=== PATIENT | female | born 1950 | race Hispanic/Latino ===

== ENCOUNTER 2018-12-05 18:34 | Inpatient (IN) | payer MEDICARE, OTHER ==
[2018-12-05 20:03] LABS: BASO % 0.5 % (0.0-2.0); EOS % 0.2 % (0.0-4.0); LYMPH # 1.4 K/uL (1.0-4.3); LYMPH % 17.9 % (20.0-40.0); MEAN CELL VOLUME 65.3 fl (81.0-99.0); MEAN CORPUSCULAR HEMOGLOBIN 19.3 pg (27.0-31.0); MEAN CORPUSCULAR HGB CONC 29.6 g/dL (33.0-37.0); MEAN PLATELET VOLUME 7.6 fl (7.2-11.7); MONO # 0.6 K/uL (0.0-0.8); MONO % 7.9 % (0.0-10.0); NEUT # 5.7 K/uL (1.8-7.0); NEUT % 73.5 % (50.0-75.0); NRBC % 0.1 % (0.0-0.0); RBC 2.84 Mil/uL (3.80-5.20); RED CELL DISTRIBUTION WIDTH 17.3 % (11.5-14.5); WHITE BLOOD COUNT 7.8 K/uL (4.8-10.8)
[2018-12-05 20:06] LABS: BLOOD UREA NITROGEN 19 mg/dl (7-17); CALCIUM 9.5 mg/dL (8.4-10.2); GFR NON-AFRICAN AMERICAN > 60
--- NOTE | 2018-12-05 20:15 | ED PDOC ---
HPI: General Adult Time Seen by Provider: 12/05/18 19:09 Chief Complaint (Nursing): Abnormal Labs Chief Complaint (Provider): Abnormal Labs History/Exam Limitations: no limitations Additional Complaint(s): 68 year old female with a past medical history of anemia, seizure disorder and colon cancer status post total colonectomy, who presents to the emergency department after being sent by her PMD for low hemoglobin. She states she had blood work done because she appeared pale. Her states that she has been increasingly pale for the past x6 months. Patient reports that she has full exercise tolerance but occasionally has shortness of breath. She further reports of having a blood transfusion x6 months ago but to her knowledge, is not aware of the reason for her anemia. Patient denies any chest pain, dizziness, light headedness or pre syncopal feelings. PMD: Satinder Rivas Past Medical History Reviewed: Historical Data, Nursing Documentation, Vital Signs Vital Signs: Last Vital Signs Temp 97.3 F L 12/05/18 18:41 Pulse 111 H 12/05/18 18:41 Resp 16 12/05/18 18:41 BP 137/35 L 12/05/18 18:41 Pulse Ox 100 12/05/18 18:41 - Medical History PMH: Anemia, Atrial Fibrillation (after colonoscopy), Malignancy (colon), Seizures (epilepsy PETITE MAL LAST 6 YEARS AGO) - Surgical History Other surgeries: colonectomy - Family History Family History: States: Unknown Family Hx - Home Medications Home Medications: Ambulatory Orders Medication Instructions Recorded Iron 325 mg PO DAILY 07/13/18 Levetiracetam 500 mg PO BID 07/13/18 - Allergies Allergies/Adverse Reactions: Allergies Allergy/AdvReac Type Severity Reaction Status Date / Time cortisone Allergy Intermediate RASH Verified 12/05/18 18:41 shrimp Allergy Intermediate SWELLING Verified 12/05/18 18:41 strawberry Allergy Intermediate RASH Verified 12/05/18 18:41 Review of Systems ROS Statement: Except As Marked, All Systems Reviewed And Found Negative Cardiovascular: Negative for: Chest Pain, Light Headedness Respiratory: Positive for: Shortness of Breath Skin: Positive for: Other (pale) Neurological: Negative for: Dizziness, Other (pre syncopal feelings) Physical Exam - Reviewed Nursing Documentation Reviewed: Yes Vital Signs Reviewed: Yes - Physical Exam Appears: Positive for: Non-toxic, No Acute Distress Head Exam: Positive for: ATRAUMATIC, NORMOCEPHALIC Skin: Positive for: Pallor Eye Exam: Positive for: Other (conjunctival pallor) ENT: Positive for: Normal ENT Inspection Neck: Positive for: Normal, Painless ROM, Supple Cardiovascular/Chest: Positive for: Regular Rate, Rhythm. Negative for: Murmur Respiratory: Positive for: Normal Breath Sounds. Negative for: Respiratory Distress Gastrointestinal/Abdominal: Positive for: Normal Exam, Soft. Negative for: Tenderness Back: Positive for: Normal Inspection. Negative for: L CVA Tenderness, R CVA Tenderness, Vertebral Tenderness Extremity: Positive for: Normal ROM. Negative for: Pedal Edema, Deformity Neurologic/Psych: Positive for: Alert, Oriented. Negative for: Motor/Sensory Deficits - Laboratory Results Result Diagrams: 12/05/18 19:45 12/05/18 19:45 - ECG ECG Rhythm: Positive for: Sinus Rhythm (normal). Negative for: ST/T Changes Rate: 82 O2 Sat by Pulse Oximetry: 100 (RA) Pulse Ox Interpretation: Normal Medical Decision Making Medical Decision Making: Time: 1944 A/P: 68 year old female presenting with anemia. Patient's vitals are stable and appears well. Will check hemoglobin and assess the need for a transfusion at this time. --Type and screen --EKG --CBC with differential --BMP Time: 2017 Patient admitted. Time: [address] Escalona who recommends 2 units of transfusion and that she will see the patient tomorrow. Dr. Sanjeev Healy is aware. Scribe Attestation: Documented by Gavin Almanzar, acting as a scribe for Shaquille Jim MD. Provider Scribe Attestation: All medical record entries made by the Scribe were at my direction and personally dictated by me. I have reviewed the chart and agree that the record accurately reflects my personal performance of the history, physical exam, medical decision making, and the department course for this patient. I have also personally directed, reviewed, and agree with the discharge instructions and disposition. Disposition - Clinical Impression Clinical Impression: Anemia Discussed With Dr.: Kathe Escalona Doctor Will See Patient In The: Hospital Counseled Patient/Family Regarding: Studies Performed, Diagnosis - Disposition Disposition Time: 20:00 Condition: FAIR Forms: ZBD Displays (Persian)
[2018-12-05 20:16] LABS: HEMOGLOBIN 5.5 g/dL (12.0-16.0)
--- NOTE | 2018-12-05 21:08 | CP.PCM.PN ---
Subjective - Date & Time of Evaluation Date of Evaluation: 12/05/18 Time of Evaluation: 22:22 - Subjective Subjective: 68 yo with hx CA Colon presents to the ER with Anemia Objective - Vital Signs/Intake and Output Vital Signs (last 24 hours): Temp Pulse Resp BP Pulse Ox 97.3 F L 82 16 137/35 L 100 12/05/18 18:41 12/05/18 20:51 12/05/18 18:41 12/05/18 18:41 12/05/18 20:51 - Labs Labs: 12/05/18 19:45 12/05/18 19:45 - Respiratory Exam Respiratory Exam: NORMAL BREATHING PATTERN - Cardiovascular Exam Cardiovascular Exam: REGULAR RHYTHM - GI/Abdominal Exam GI & Abdominal Exam: Normal Bowel Sounds Assessment and Plan - Assessment and Plan (Free Text) Assessment: AMicrocytic hypochromic anemia Hbg 5.5 Hematology Hx Ca Colon
--- NOTE | 2018-12-06 09:56 | CP.PCM.CON ---
History of Present Illness - History of Present Illness History of Present Illness: This is a 68 yrs old female who had a colon cancer about 10 yrs ago.She was treated with chemotherapy and did well.Approx 10 months ago she had lost some weight , and I had ordered a ct scan on her.She was found to have a ?mass in the pelvis pressing the bladder.She was seen by a urologist who did a biopsy and the mass was benign. she had also had a colonoscopy and no abnormality was seen. her appetite increased and she gained some of her weight back.She was supposed to see me in the office in December, but was seen by her PMD who found her to be very weak and pale.She was sent to the ER where her HGB was 5.5gms. and she seems to have lost more weight.No pain, no bleeding from any site. 10 yrs ago she had 1 episode of seizures,was on medications for a while, and they wer discontinued after 5 yrs . she has never had seizures since. Past Patient History - Infectious Disease Hx of Infectious Diseases: None - Past Medical History & Family History Past Medical History?: Yes - Past Social History Smoking Status: Former Smoker - CARDIAC Hx Cardiac Disorders: Yes Hx Atrial Fibrillation: Yes (after colonoscopy) - PULMONARY Hx Respiratory Disorders: No - NEUROLOGICAL Hx Neurological Disorder: Yes Hx Seizures: Yes (epilepsy PETITE MAL LAST 6 YEARS AGO) - HEENT Hx HEENT Problems: Yes Hx Cataracts: Yes (BILAT IOL) - RENAL Hx Chronic Kidney Disease: No - ENDOCRINE/METABOLIC Hx Endocrine Disorders: No - HEMATOLOGICAL/ONCOLOGICAL Hx Blood Disorders: Yes Hx AIDS: No Hx Anemia: Yes Hx Blood Transfusions: Yes Hx Human Immunodeficiency Virus (HIV): No - INTEGUMENTARY Hx Dermatological Problems: No - MUSCULOSKELETAL/RHEUMATOLOGICAL Hx Musculoskeletal Disorders: No Hx Falls: No - GASTROINTESTINAL Hx Gastrointestinal Disorders: Yes Hx Bowel Surgery: Yes (COLON RESECTION 6 YEARS AGO) Other/Comment: COLON CANCER 2010 - GENITOURINARY/GYNECOLOGICAL Hx Genitourinary Disorders: Yes (BLADDER CYST PER PT) Other/Comment: Pelvic mass (07/2018) - PSYCHIATRIC Hx Psychophysiologic Disorder: No Hx Substance Use: No - SURGICAL HISTORY Hx Surgeries: Yes Hx Cataract Extraction: Yes - ANESTHESIA Hx Anesthesia: Yes Hx Anesthesia Reactions: No Hx Malignant Hyperthermia: No Meds Allergies/Adverse Reactions: Allergies Allergy/AdvReac Type Severity Reaction Status Date / Time cortisone Allergy Intermediate RASH Verified 12/05/18 18:41 shrimp Allergy Intermediate SWELLING Verified 12/05/18 18:41 strawberry Allergy Intermediate RASH Verified 12/05/18 18:41 Physical Exam - Additional Findings Additional findings: Physical exam;Awake ,alert, in no acute distress, but is cachectic and pale. neck; supple, no adenopathy Chest; Clear, no rales or rhonchi heart; RSR, nomurmur abd; soft, no mass, no h.s megaly Results - Vital Signs Recent Vital Signs: Last Vital Signs Temp 97.9 F 12/06/18 08:48 Pulse 79 12/06/18 08:48 Resp 20 12/06/18 08:48 BP 123/56 L 12/06/18 08:48 Pulse Ox 99 12/06/18 08:48 - Labs Result Diagrams: 12/05/18 19:45 12/05/18 19:45 Labs: Laboratory Results - last 24 hr 12/05/18 12/05/18 12/05/18 19:45 19:45 19:45 WBC 7.8 RBC 2.84 L Hgb 5.5 L* D Hct 18.6 L MCV 65.3 L D MCH 19.3 L MCHC 29.6 L RDW 17.3 H Plt Count 409 H MPV 7.6 Neut % (Auto) 73.5 Lymph % (Auto) 17.9 L [place] % (Auto) 7.9 Eos % (Auto) 0.2 Baso % (Auto) 0.5 Neut # (Auto) 5.7 Lymph # (Auto) 1.4 [place] # (Auto) 0.6 Eos # (Auto) 0.0 Baso # (Auto) 0.0 Retic Count Sodium 137 Potassium 3.7 Chloride 93 L Carbon Dioxide 31 H Anion Gap 17 BUN 19 H Creatinine 0.8 Est GFR ( Amer) > 60 Est GFR (Non-Af Amer) > 60 Random Glucose 102 Calcium 9.5 Ferritin Blood Type O POSITIVE Antibody Screen Negative Crossmatch See Detail BBK History Checked Patient has bt 12/05/18 12/05/18 20:49 20:49 WBC RBC Hgb Hct MCV MCH MCHC RDW Plt Count MPV Neut % (Auto) Lymph % (Auto) [place] % (Auto) Eos % (Auto) Baso % (Auto) Neut # (Auto) Lymph # (Auto) [place] # (Auto) Eos # (Auto) Baso # (Auto) Retic Count 2.3 H Sodium Potassium Chloride Carbon Dioxide Anion Gap BUN Creatinine Est GFR ( Amer) Est GFR (Non-Af Amer) Random Glucose Calcium Ferritin 4.9 L Blood Type Antibody Screen Crossmatch BBK History Checked Assessment & Plan - Assessment and Plan (Free Text) Assessment: Imp; Colon cancer possible recurrant disease Plan: Plan; I have ordered cea, [id number], ct scan of chest abdomen and pelvis. will ck CBC and transfuse more if needed. - Date & Time Date: 12/06/18 Time: 10:08
[2018-12-06 10:55] LABS: BASO % 0.3 % (0.0-2.0); EOS % 0.3 % (0.0-4.0); HEMOGLOBIN 9.1 g/dL (12.0-16.0); LYMPH # 1.4 K/uL (1.0-4.3); MEAN CELL VOLUME 73.2 fl (81.0-99.0); MEAN CORPUSCULAR HEMOGLOBIN 22.6 pg (27.0-31.0); MEAN CORPUSCULAR HGB CONC 30.9 g/dL (33.0-37.0); MEAN PLATELET VOLUME 7.5 fl (7.2-11.7); MONO # 0.5 K/uL (0.0-0.8); MONO % 6.4 % (0.0-10.0); NEUT # 5.9 K/uL (1.8-7.0); RED CELL DISTRIBUTION WIDTH 22.9 % (11.5-14.5); WHITE BLOOD COUNT 7.9 K/uL (4.8-10.8)
--- NOTE | 2018-12-06 11:12 | CARD ---
APPROVED REPORT Date of service: 12/05/2018 EKG Measurement Heart [id number] <Conclusion> Normal sinus rhythm with sinus arrhythmia Normal ECG
[2018-12-06 11:13] LABS: ALT/SGPT 21 U/L (9-52); AST/SGOT 40 U/L (14-36)
[2018-12-06 11:21] LABS: BLOOD UREA NITROGEN 16 mg/dl (7-17)
[2018-12-06 12:49] LABS: GFR NON-AFRICAN AMERICAN > 60
[2018-12-06 13:49] LABS: ALBUMIN 3.8 g/dL (3.5-5.0); CALCIUM 9.5 mg/dL (8.4-10.2)
[2018-12-06 13:51] LABS: ALB/GLOB RATIO 0.9 (1.0-2.1)
--- NOTE | 2018-12-06 18:07 | CP.PCM.HP ---
History of Present Illness - History of Present Illness History of Present Illness: 68 ypo admitted for severe anemia Present on Admission - Present on Admission Any Indicators Present on Admission: No Past Patient History - Infectious Disease Hx of Infectious Diseases: None - Past Medical History & Family History Past Medical History?: Yes - Past Social History Smoking Status: Former Smoker - CARDIAC Hx Cardiac Disorders: Yes Hx Atrial Fibrillation: Yes (after colonoscopy) - PULMONARY Hx Respiratory Disorders: No - NEUROLOGICAL Hx Neurological Disorder: Yes Hx Seizures: Yes (epilepsy PETITE MAL LAST 6 YEARS AGO) - HEENT Hx HEENT Problems: Yes Hx Cataracts: Yes (BILAT IOL) - RENAL Hx Chronic Kidney Disease: No - ENDOCRINE/METABOLIC Hx Endocrine Disorders: No - HEMATOLOGICAL/ONCOLOGICAL Hx Blood Disorders: Yes Hx AIDS: No Hx Anemia: Yes Hx Blood Transfusions: Yes Hx Human Immunodeficiency Virus (HIV): No - INTEGUMENTARY Hx Dermatological Problems: No - MUSCULOSKELETAL/RHEUMATOLOGICAL Hx Musculoskeletal Disorders: No Hx Falls: No - GASTROINTESTINAL Hx Gastrointestinal Disorders: Yes Hx Bowel Surgery: Yes (COLON RESECTION 6 YEARS AGO) Other/Comment: COLON CANCER 2010 - GENITOURINARY/GYNECOLOGICAL Hx Genitourinary Disorders: Yes (BLADDER CYST PER PT) Other/Comment: Pelvic mass (07/2018) - PSYCHIATRIC Hx Psychophysiologic Disorder: No Hx Substance Use: No - SURGICAL HISTORY Hx Surgeries: Yes Hx Cataract Extraction: Yes - ANESTHESIA Hx Anesthesia: Yes Hx Anesthesia Reactions: No Hx Malignant Hyperthermia: No Meds Allergies/Adverse Reactions: Allergies Allergy/AdvReac Type Severity Reaction Status Date / Time cortisone Allergy Intermediate RASH Verified 12/05/18 18:41 shrimp Allergy Intermediate SWELLING Verified 12/05/18 18:41 strawberry Allergy Intermediate RASH Verified 12/05/18 18:41 Physical Exam - Respiratory Exam Respiratory Exam: NORMAL BREATHING PATTERN - Cardiovascular Exam Cardiovascular Exam: REGULAR RHYTHM - GI/Abdominal Exam GI & Abdominal Exam: Normal Bowel Sounds Results - Vital Signs Recent Vital Signs: Last Vital Signs Temp 98.3 F 12/06/18 16:50 Pulse 70 12/06/18 16:50 Resp 18 12/06/18 16:50 BP 108/61 12/06/18 16:50 Pulse Ox 98 12/06/18 16:50 - Labs Result Diagrams: 12/06/18 10:50 12/06/18 10:50 Labs: Laboratory Results - last 24 hr 12/05/18 12/05/18 12/05/18 19:45 19:45 19:45 WBC 7.8 RBC 2.84 L Hgb 5.5 L* D Hct 18.6 L MCV 65.3 L D MCH 19.3 L MCHC 29.6 L RDW 17.3 H Plt Count 409 H MPV 7.6 Neut % (Auto) 73.5 Lymph % (Auto) 17.9 L [place] % (Auto) 7.9 Eos % (Auto) 0.2 Baso % (Auto) 0.5 Neut # (Auto) 5.7 Lymph # (Auto) 1.4 [place] # (Auto) 0.6 Eos # (Auto) 0.0 Baso # (Auto) 0.0 Retic Count Sodium 137 Potassium 3.7 Chloride 93 L Carbon Dioxide 31 H Anion Gap 17 BUN 19 H Creatinine 0.8 Est GFR ( Amer) > 60 Est GFR (Non-Af Amer) > 60 Random Glucose 102 Calcium 9.5 Ferritin Total Bilirubin AST ALT Alkaline Phosphatase Total Protein Albumin Globulin Albumin/Globulin Ratio Carcinoembryonic Ag Blood Type O POSITIVE Antibody Screen Negative Crossmatch See Detail BBK History Checked Patient has bt 12/05/18 12/05/18 12/06/18 20:49 20:49 10:50 WBC RBC Hgb Hct MCV MCH MCHC RDW Plt Count MPV Neut % (Auto) Lymph % (Auto) [place] % (Auto) Eos % (Auto) Baso % (Auto) Neut # (Auto) Lymph # (Auto) [place] # (Auto) Eos # (Auto) Baso # (Auto) Retic Count 2.3 H Sodium 139 Potassium 4.0 Chloride 100 Carbon Dioxide 28 Anion Gap 15 BUN 16 Creatinine 0.7 Est GFR ( Amer) > 60 Est GFR (Non-Af Amer) > 60 Random Glucose 99 Calcium 9.5 Ferritin 4.9 L Total Bilirubin 0.8 AST 40 H ALT 21 Alkaline Phosphatase 90 Total Protein 8.3 H Albumin 3.8 Globulin 4.3 H Albumin/Globulin Ratio 0.9 L Carcinoembryonic Ag 222.0 H Blood Type Antibody Screen Crossmatch BBK History Checked 12/06/18 10:50 WBC 7.9 RBC 4.00 Hgb 9.1 L D Hct 29.3 L MCV 73.2 L D MCH 22.6 L MCHC 30.9 L RDW 22.9 H Plt Count 468 H MPV 7.5 Neut % (Auto) 75.0 Lymph % (Auto) 18.0 L [place] % (Auto) 6.4 Eos % (Auto) 0.3 Baso % (Auto) 0.3 Neut # (Auto) 5.9 Lymph # (Auto) 1.4 [place] # (Auto) 0.5 Eos # (Auto) 0.0 Baso # (Auto) 0.0 Retic Count Sodium Potassium Chloride Carbon Dioxide Anion Gap BUN Creatinine Est GFR ( Amer) Est GFR (Non-Af Amer) Random Glucose Calcium Ferritin Total Bilirubin AST ALT Alkaline Phosphatase Total Protein Albumin Globulin Albumin/Globulin Ratio Carcinoembryonic Ag Blood Type Antibody Screen Crossmatch BBK History Checked Assessment & Plan - Assessment and Plan (Free Text) Assessment: Microcytic hypochromic anemia chronic blood loss GI?? Hx Ca Colon Hbg 5.[address] scan - Date & Time Date: 12/06/18 Time: 22:22
--- NOTE | 2018-12-07 08:32 | CP.PCM.PN ---
Subjective - Date & Time of Evaluation Date of Evaluation: 12/07/18 Time of Evaluation: 08:30 - Subjective Subjective: Pt feels better after the transfusion. She did not have a CT scxan yesterday because she had already eaten in the morning. She will have one today. Her Hgb to day is 9.1gms. CEA however markedly increased. I suspect recurrent disease. W ill ck the result of the CT scan Objective - Vital Signs/Intake and Output Vital Signs (last 24 hours): Temp Pulse Resp BP Pulse Ox 98.1 F 62 18 119/64 98 12/07/18 07:03 12/07/18 05:00 12/07/18 05:00 12/07/18 05:00 12/07/18 05:00 - Medications Medications: Current Medications Ferrous Sulfate (Feosol) 325 mg PO DAILY [facility] Last Admin: 12/06/18 14:41 Dose: 325 mg Levetiracetam (Keppra) 500 mg PO BID [facility] Last Admin: 12/06/18 14:41 Dose: 500 mg - Labs Labs: 12/06/18 10:50 12/06/18 10:50
[2018-12-07] MEDS ORDERED: Barium Sulfate Susp 2.1% w/v, 2.0% w/w 450 mL Bottle PO ONE ×3 (09:31→09:32)
[2018-12-07] MEDS ORDERED: Iohexol 300 100 ML IJ ONE (15:19)
[2018-12-07] MEDS ORDERED: Sodium Chloride 0.9% 50 ML IV ONE (15:19)
--- NOTE | 2018-12-07 17:41 | CT ---
Date of service: 12/07/2018 PROCEDURE: CT Chest, Abdomen and Pelvis with intravenous contrast HISTORY: mass in pelvis COMPARISON: 11/04/2016 and 05/15/2018. Serial examinations-CT chest abdomen and pelvis. TECHNIQUE: IV dose administered: 80 cc Omnipaque 300 Radiation dose: Total exam DLP = 334.65 mGy-cm. This CT exam was performed using one or more of the following dose reduction techniques: Automated exposure control, adjustment of the mA and/or kV according to patient size, and/or use of iterative reconstruction technique. FINDINGS: CT CHEST WITH CONTRAST: LUNGS: Clear. No nodule, mass or consolidation. MEDIASTINUM: Unremarkable. Normal caliber aorta and pulmonary arterial trunk. No aortic dissection. Normal size heart. LYMPH NODES: Unremarkable. PLEURA: Unremarkable. No pneumothorax. No pleural fluid. BONES: Unremarkable. OTHER FINDINGS: None. CT ABDOMEN AND PELVIS: LIVER: Unremarkable. No gross lesion or ductal dilatation. GALLBLADDER AND BILE DUCTS: Cholelithiasis without CT evidence of acute cholecystitis. PANCREAS: Unremarkable. No gross lesion or ductal dilatation. SPLEEN: Unremarkable. ADRENALS: Unremarkable. No mass. KIDNEYS AND URETERS: Unremarkable. No hydronephrosis. No solid mass. VASCULATURE: No aortic atherosclerotic calcification or mural plaque present. Unremarkable. No aortic aneurysm. BOWEL: Enterocolitis, severe. Findings are seen in the right lower quadrant prior to and beyond the on the anastomotic suture line. Involvement of the more proximal ileum and jejunum is similar in distribution but decreased with respect to severity. There is sparing of the descending colon from the splenic flexure to the rectum. There is no obstructing lesion. APPENDIX: A normal appendix is not visible. PERITONEUM: Unremarkable. No free fluid. No free air. LYMPH NODES: Unremarkable. No enlarged lymph nodes. BLADDER: Unremarkable. REPRODUCTIVE: Unremarkable. BONES: No acute fracture. OTHER FINDINGS: Stable cystic mass above the bladder. IMPRESSION: Enterocolitis, severe. Distribution approximates that seen previously. Inflammatory changes in the proximal small bowel/jejunum are not as severe as that seen previously. Stable supravesical mass midline in the pelvis. Cholelithiasis without CT evidence of acute cholecystitis. No suspicious findings in the thorax.
--- NOTE | 2018-12-07 20:14 | CP.PCM.PN ---
Subjective - Date & Time of Evaluation Date of Evaluation: 12/07/18 Time of Evaluation: 22:22 - Subjective Subjective: CT scan done today Objective - Vital Signs/Intake and Output Vital Signs (last 24 hours): Temp Pulse Resp BP Pulse Ox 98.4 F 67 18 92/53 L 99 12/07/18 19:57 12/07/18 19:57 12/07/18 19:57 12/07/18 19:57 12/07/18 19:57 Intake and Output: 12/07/18 12/08/18 18:59 06:59 Intake Total 1350 Balance 1350 - Medications Medications: Current Medications Ferrous Sulfate (Feosol) 325 mg PO DAILY REPLACED BY [facility] Last Admin: 12/07/18 09:58 Dose: Not Given Levetiracetam (Keppra) 500 mg PO BID REPLACED BY [facility] Last Admin: 12/07/18 17:17 Dose: 500 mg - Labs Labs: 12/06/18 10:50 12/06/18 10:50 - Respiratory Exam Respiratory Exam: NORMAL BREATHING PATTERN - Cardiovascular Exam Cardiovascular Exam: REGULAR RHYTHM - GI/Abdominal Exam GI & Abdominal Exam: Normal Bowel Sounds Assessment and Plan - Assessment and Plan (Free Text) Assessment: Microcytic hypochromic anemia chronic blood loss GI?? Hx Ca Colon Hbg 5.[address] scan
[2018-12-08] MEDS ORDERED: Alum-Mag Hydrox-Simethicone Susp (30 mL) PO ONE (06:18)
--- NOTE | 2018-12-08 09:37 | CARD ---
APPROVED REPORT Date of service: 12/07/2018 EKG Measurement Heart [id number] ID [id number] <Conclusion> Normal sinus rhythm with sinus arrhythmia Possible Left atrial enlargement Borderline ECG
--- NOTE | 2018-12-08 09:50 | CP.PCM.PN ---
Subjective - Date & Time of Evaluation Date of Evaluation: 12/08/18 Time of Evaluation: 09:46 - Subjective Subjective: Pt is afebrile alert,awake in no distress.No c/o pain. She had a CT chest,abdomen and pelvis yesterday. It showed pt to have severe enterocolitis. However the pelvis mass in the supravesicular area appears to be unchanged in size since 2016. Even though the biopsy done by Dr Pleitez was benign, considering the increase in CEA i would request a Gi and surgical consult to see if this is recurrent disease. Her cbc has been stable Objective - Vital Signs/Intake and Output Vital Signs (last 24 hours): Temp Pulse Resp BP Pulse Ox 98.6 F 89 20 114/58 L 100 12/08/18 08:50 12/08/18 08:50 12/08/18 08:50 12/08/18 08:50 12/08/18 08:50 - Medications Medications: Current Medications Ferrous Sulfate (Feosol) 325 mg PO DAILY [facility] Last Admin: 12/08/18 08:53 Dose: 325 mg Levetiracetam (Keppra) 500 mg PO BID [facility] Last Admin: 12/08/18 08:54 Dose: 500 mg - Labs Labs: 12/06/18 10:50 12/06/18 10:50
--- NOTE | 2018-12-08 17:26 | CP.PCM.PN ---
Subjective - Date & Time of Evaluation Date of Evaluation: 12/08/18 Time of Evaluation: 02:22 - Subjective Subjective: CT scan results noted Objective - Vital Signs/Intake and Output Vital Signs (last 24 hours): Temp Pulse Resp BP Pulse Ox 98.3 F 68 16 97/57 L 98 12/08/18 16:33 12/08/18 16:33 12/08/18 16:33 12/08/18 16:33 12/08/18 16:33 - Medications Medications: Current Medications Ferrous Sulfate (Feosol) 325 mg PO DAILY [facility] Last Admin: 12/08/18 08:53 Dose: 325 mg Levetiracetam (Keppra) 500 mg PO BID [facility] Last Admin: 12/08/18 16:02 Dose: 500 mg Ondansetron HCl (Zofran Inj) 4 mg IVP Q6 PRN PRN Reason: Nausea/Vomiting Last Admin: 12/08/18 10:42 Dose: 4 mg - Labs Labs: 12/06/18 10:50 12/06/18 10:50 - Respiratory Exam Respiratory Exam: NORMAL BREATHING PATTERN - Cardiovascular Exam Cardiovascular Exam: REGULAR RHYTHM - GI/Abdominal Exam GI & Abdominal Exam: Normal Bowel Sounds Assessment and Plan - Assessment and Plan (Free Text) Assessment: Microcytic hypochromic anemia chronic blood loss GI?? Hx Ca Colon Hbg 5.5 tranfused Hematology GI
[2018-12-09 06:46] LABS: HEMOGLOBIN 10.2 g/dL (12.0-16.0); MEAN CELL VOLUME 72.6 fl (81.0-99.0); MEAN CORPUSCULAR HEMOGLOBIN 22.8 pg (27.0-31.0); MEAN CORPUSCULAR HGB CONC 31.4 g/dL (33.0-37.0); RBC 4.47 Mil/uL (3.80-5.20); RED CELL DISTRIBUTION WIDTH 24.6 % (11.5-14.5)
[2018-12-09 07:20] LABS: ALB/GLOB RATIO 0.8 (1.0-2.1); ALBUMIN 3.6 g/dL (3.5-5.0); ALT/SGPT 16 U/L (9-52); AST/SGOT 37 U/L (14-36); BLOOD UREA NITROGEN 20 mg/dl (7-17); CALCIUM 9.5 mg/dL (8.4-10.2); GFR NON-AFRICAN AMERICAN > 60
[2018-12-09 11:00] VITALS: BMI 13.7
--- NOTE | 2018-12-09 12:28 | CP.PCM.PN ---
Subjective - Date & Time of Evaluation Date of Evaluation: 12/09/18 Time of Evaluation: 12:24 - Subjective Subjective: Pt is feeling well.she has a good appetite but does not gain any weight. Her CBC has been [id number], and no bleeding seen. She has been seen by surgical residents but the dictated note is not yet available. She is to be seen by Dr Esposito. Pt may need a special diet for the enterocolitis and maybe another biopsy of the pelvic mass. Objective - Vital Signs/Intake and Output Vital Signs (last 24 hours): Temp Pulse Resp BP Pulse Ox 97.4 F L 73 20 118/73 99 12/09/18 08:25 12/09/18 08:25 12/09/18 08:25 12/09/18 08:25 12/09/18 08:25 - Medications Medications: Current Medications Docusate Sodium (Colace) 100 mg PO BID [facility] Last Admin: 12/09/18 11:00 Dose: 100 mg Ferrous Sulfate (Feosol) 325 mg PO DAILY [facility] Last Admin: 12/09/18 10:07 Dose: 325 mg Levetiracetam (Keppra) 500 mg PO BID [facility] Last Admin: 12/09/18 10:07 Dose: 500 mg Ondansetron HCl (Zofran Inj) 4 mg IVP Q6 PRN PRN Reason: Nausea/Vomiting Last Admin: 12/08/18 10:42 Dose: 4 mg - Labs Labs: 12/09/18 05:30 12/09/18 05:30
--- NOTE | 2018-12-09 23:54 | CP.PCM.CON ---
History of Present Illness - History of Present Illness History of Present Illness: 68 yo femqle with h/o colon cancer admitted with anemia. Patient had colon cancer 10 years ago and underwent resection. Patient was found to have a pe;nate mass and w/u was negative. Patient reportedly had negative colonscopy a year ago . Lately has been losing weight and was hospitalized after being found with profound anemia. Review of Systems - Constitutional Constitutional: absent: Chills - EENT Eyes: absent: Blurred Vision Ears: absent: Ear Discharge Nose/Mouth/Throat: absent: Epistaxis - Cardiovascular Cardiovascular: absent: Chest Pain - Respiratory Respiratory: absent: Cough - Gastrointestinal Gastrointestinal: absent: Abdominal Pain Past Patient History - Infectious Disease Hx of Infectious Diseases: None - Past Medical History & Family History Past Medical History?: Yes - Past Social History Smoking Status: Former Smoker - CARDIAC Hx Cardiac Disorders: Yes Hx Atrial Fibrillation: Yes (after colonoscopy) - PULMONARY Hx Respiratory Disorders: No - NEUROLOGICAL Hx Neurological Disorder: Yes Hx Seizures: Yes (epilepsy PETITE MAL LAST 6 YEARS AGO) - HEENT Hx HEENT Problems: Yes Hx Cataracts: Yes (BILAT IOL) - RENAL Hx Chronic Kidney Disease: No - ENDOCRINE/METABOLIC Hx Endocrine Disorders: No - HEMATOLOGICAL/ONCOLOGICAL Hx Blood Disorders: Yes Hx AIDS: No Hx Anemia: Yes Hx Blood Transfusions: Yes Hx Human Immunodeficiency Virus (HIV): No - INTEGUMENTARY Hx Dermatological Problems: No - MUSCULOSKELETAL/RHEUMATOLOGICAL Hx Musculoskeletal Disorders: No Hx Falls: No - GASTROINTESTINAL Hx Gastrointestinal Disorders: Yes Hx Bowel Surgery: Yes (COLON RESECTION 6 YEARS AGO) Other/Comment: COLON CANCER 2010 - GENITOURINARY/GYNECOLOGICAL Hx Genitourinary Disorders: Yes (BLADDER CYST PER PT) Other/Comment: Pelvic mass (07/2018) - PSYCHIATRIC Hx Psychophysiologic Disorder: No Hx Substance Use: No - SURGICAL HISTORY Hx Surgeries: Yes Hx Cataract Extraction: Yes - ANESTHESIA Hx Anesthesia: Yes Hx Anesthesia Reactions: No Hx Malignant Hyperthermia: No Meds Allergies/Adverse Reactions: Allergies Allergy/AdvReac Type Severity Reaction Status Date / Time cortisone Allergy Intermediate RASH Verified 12/05/18 18:41 shrimp Allergy Intermediate SWELLING Verified 12/05/18 18:41 strawberry Allergy Intermediate RASH Verified 12/05/18 18:41 - Medications Medications: Current Medications Docusate Sodium (Colace) 100 mg PO BID [facility] Last Admin: 12/09/18 18:18 Dose: 100 mg Ferrous Sulfate (Feosol) 325 mg PO DAILY [facility] Last Admin: 12/09/18 10:07 Dose: 325 mg Levetiracetam (Keppra) 500 mg PO BID [facility] Last Admin: 12/09/18 18:18 Dose: 500 mg Ondansetron HCl (Zofran Inj) 4 mg IVP Q6 PRN PRN Reason: Nausea/Vomiting Last Admin: 12/08/18 10:42 Dose: 4 mg Physical Exam - Head Exam Head Exam: NORMAL INSPECTION - Eye Exam Eye Exam: Normal appearance Pupil Exam: NORMAL ACCOMODATION - ENT Exam ENT Exam: Normal Exam - Neck Exam Neck exam: Positive for: Normal Inspection - Respiratory Exam Respiratory Exam: Clear to Auscultation Bilateral - Cardiovascular Exam Cardiovascular Exam: REGULAR RHYTHM, +S1, +S2 - GI/Abdominal Exam GI & Abdominal Exam: Normal Bowel Sounds, Soft. absent: Tenderness Results - Vital Signs Recent Vital Signs: Last Vital Signs Temp 99.2 F 12/09/18 20:59 Pulse 85 12/09/18 21:00 Resp 18 12/09/18 20:59 BP 123/68 12/09/18 20:59 Pulse Ox 97 12/09/18 20:59 - Labs Result Diagrams: 12/09/18 05:30 12/09/18 05:30 Labs: Laboratory Results - last 24 hr 12/09/18 12/09/18 05:30 05:30 WBC 7.0 RBC 4.47 Hgb 10.2 L Hct 32.4 L MCV 72.6 L MCH 22.8 L MCHC 31.4 L RDW 24.6 H Plt Count 422 H Sodium 137 Potassium 4.4 Chloride 94 L Carbon Dioxide 31 H Anion Gap 16 BUN 20 H Creatinine 0.8 Est GFR ( Amer) > 60 Est GFR (Non-Af Amer) > 60 Random Glucose 97 Calcium 9.5 Total Bilirubin 0.4 AST 37 H ALT 16 Alkaline Phosphatase 80 Total Protein 8.0 Albumin 3.6 Globulin 4.4 H Albumin/Globulin Ratio 0.8 L - Imaging and Cardiology CT scan - abdomen Status: Report reviewed by me Assessment & Plan (1) Anemia Assessment and Plan: Patient with h/o colon cancer presenting with microcytic anemia. CT showed enterocolitis. CEA level over 200. Colonoscopy Tuesday to evaluate for possible colitis or cancer. Status: Acute
[2018-12-10] MEDS ORDERED: Magnesium Citrate Oral SOL (300 ml) PO ONE ×2 (11:00→20:00)
--- NOTE | 2018-12-10 11:39 | CP.PCM.PN ---
Subjective - Date & Time of Evaluation Date of Evaluation: 12/10/18 Time of Evaluation: 11:38 - Subjective Subjective: Patient w/o complaint. Objective - Vital Signs/Intake and Output Vital Signs (last 24 hours): Temp Pulse Resp BP Pulse Ox 99.1 F 85 18 108/66 98 12/10/18 08:00 12/10/18 08:00 12/10/18 08:00 12/10/18 08:00 12/10/18 08:00 - Medications Medications: Current Medications Benzocaine/Menthol (Cepacol Sore Throat) 1 juan manuel PO Q3 PRN PRN Reason: Sore Throat Bisacodyl (Dulcolax) 15 mg PO ONCE ONE Stop: 12/10/18 14:01 Docusate Sodium (Colace) 100 mg PO BID [facility] Last Admin: 12/10/18 09:06 Dose: 100 mg Ferrous Sulfate (Feosol) 325 mg PO DAILY [facility] Last Admin: 12/10/18 09:06 Dose: 325 mg Levetiracetam (Keppra) 500 mg PO BID [facility] Last Admin: 12/10/18 09:06 Dose: 500 mg Magnesium Citrate (Citrate Of Mag) 300 ml PO ONCE ONE Stop: 12/10/18 20:01 Ondansetron HCl (Zofran Inj) 4 mg IVP Q6 PRN PRN Reason: Nausea/Vomiting Last Admin: 12/08/18 10:42 Dose: 4 mg - Labs Labs: 12/09/18 05:30 12/09/18 05:30 - Head Exam Head Exam: ATRAUMATIC - Eye Exam Eye Exam: Normal appearance - Neck Exam Neck Exam: Full ROM - Respiratory Exam Respiratory Exam: Clear to Ausculation Bilateral - Cardiovascular Exam Cardiovascular Exam: REGULAR RHYTHM - GI/Abdominal Exam GI & Abdominal Exam: Soft, Normal Bowel Sounds. absent: Tenderness Assessment and Plan (1) Anemia Assessment & Plan: Associated with abnormal CT at anastamotic site and elevated CEA. Colonoscopy tomorrow. Prep ordered. Status: Acute
[2018-12-10] MEDS: Benzocaine/Menthol (Cepacol) Lozenge PO PRN ×2 (11:43→18:25)
--- NOTE | 2018-12-10 12:34 | PCM.RRT ---
<Rohit Yost - Last Filed: 12/10/18 12:35> DOVETAIL MACHINE OPERATOR Nurse Assessment - Situation DOVETAIL MACHINE OPERATOR Responder Arrival Time: 12:04 DOVETAIL MACHINE OPERATOR Reason for Call: Tachycardia - Respiratory Oxygen Delivery Method: Nasal Cannula - Diagnostic Test Ordered EKG: Yes Chest X-Ray: No CT Scan: No - Recommendations DOVETAIL MACHINE OPERATOR Level of Care Recommendations: Remain in current setting Notifications: Consultations I.Reason for DOVETAIL MACHINE OPERATOR - A) Acute Change in Patient: (Select all that apply): Acute change in heart rate less than 50 or greater than 120 Subjective: 68 y/o F with H/O colon cancer admitted for anemia. HgB 5.5 mg/dl, S/p 2 PRBC transfusion and scheduled for colonoscopy tomorrow. DOVETAIL MACHINE OPERATOR called by RN due to Tachycardia. DOVETAIL MACHINE OPERATOR team arrived on site with Dr. Myles. Patient reports palpitation but denies any dizziness, SOB, CP, chest pressure or headache. Initial vitals: HR 186, O2% 98, BP 104/51, T 98.9. EKG ordered stat showed Atrial fibrillation. [employer] Dr. Luna called, who recommended Cardizem 10 mg bolus followed by 5 mg/hr IV drip. Cardizem 10 Bolus given followed by improvement in patient's symptoms. Repeat vitals: HR 112, BP 90/48, O2sat 99%. Labs reviewed. CBC, CMP, Mg, Phos, Troponins x 1 ordered stat. - Dr Luna(shipping supervisor aware - Continue Cardizem 5 mg/hr drip - Start NS 150 ml/hr, considering reducing to 100 ml/hr based on BP - F/U labs - Patient to stay in telemetry for further monitoring. - Neurological Status (Select all that apply): Alert, Responsive, Oriented, Verbal, Follows Commands. absent: Disoriented, Confused, Lethargic, Aggressive, Weakness - Respiratory Oxygen Delivery Method: Nasal Cannula @L/min Oxygen Flow Rate: 2 - Constitutional Appears: No Acute Distress - Eyes Eye Exam: EOMI, Normal appearance - Respiratory Exam Respiratory Exam: NORMAL BREATHING PATTERN - Cardiovascular Exam Cardiovascular Exam: Tachycardia, Irregular Rhythm - Neurological Exam Neurological Exam: Alert, Awake, Oriented x3. absent: Motor Sensory Deficit Plan - Assessment of Findings&Treatment Plan 68 y/o F with H/O colon cancer admitted for symptomatic anemia, S/p 2 PRBC transfusion and scheduled for colonoscopy tomorrow. DOVETAIL MACHINE OPERATOR called by RN due to Tachycardia. EKG ordered stat showed Atrial fibrillation. Likely paroxysmal atrial fibrillation. Dr Luna(shipping supervisor) aware. - Initial vitals: HR 186, O2% 98, BP 104/51, T 98.9. - Cardizem 10 Bolus STAT - Repeat vitals: HR 112, BP 90/48, O2sat 99%. - Labs ordered: CBC, CMP, Mg, Phos, Troponins x 1 ordered stat. - Continue Cardizem 5 mg/hr drip - Start NS 150 ml/hr, considering reducing to 100 ml/hr based on BP - F/U labs - Patient to stay in telemetry for further monitoring. Case discussed with Dr. Shar Yost, PGY1 <Keyshawn Myles D - Last Filed: 12/10/18 15:28> DOVETAIL MACHINE OPERATOR Nurse Assessment - Vital Signs Vital Signs: Rapid Response Vital Sign Blood Pressure 131/97 Pulse Rate 180 Respiratory Rate 20 Temperature 97 F Oxygen Saturation 96 - Vital Signs at end of DOVETAIL MACHINE OPERATOR Vital Signs at end of DOVETAIL MACHINE OPERATOR: Rapid Response End Vital Sign Blood Pressure 90/50 Pulse Rate 119 Respiratory Rate 20 Temperature 97 F O2 Sat by Pulse Oximetry 99 Attending/Attestation - Attestation I have personally seen and examined this patient.: Yes I have fully participated in the care of the patient.: Yes I have reviewed all pertinent clinical information, including history, physical exam and plan: Yes Notes (Text): 12/10/18 15:27 Patient seen and examined with resident during DOVETAIL MACHINE OPERATOR because of rapid AFib. Case discussed and agreed with assessment and plan.
[2018-12-10] MEDS: Sodium Chloride 0.9% 1,000 ML IV SCH (12:52)
[2018-12-10 13:39] LABS: BASO % 0.3 % (0.0-2.0); EOS % 0.1 % (0.0-4.0); HEMOGLOBIN 10.4 g/dL (12.0-16.0); LYMPH # 0.9 K/uL (1.0-4.3); LYMPH % 8.9 % (20.0-40.0); MEAN CELL VOLUME 71.9 fl (81.0-99.0); MEAN CORPUSCULAR HEMOGLOBIN 22.7 pg (27.0-31.0); MEAN CORPUSCULAR HGB CONC 31.6 g/dL (33.0-37.0); MEAN PLATELET VOLUME 7.6 fl (7.2-11.7); MONO # 0.9 K/uL (0.0-0.8); MONO % 8.9 % (0.0-10.0); NEUT # 8.1 K/uL (1.8-7.0); NEUT % 81.8 % (50.0-75.0); NRBC % 0.1 % (0.0-0.0); PLATELET COUNT 403 K/uL (130-400); RBC 4.58 Mil/uL (3.80-5.20); RED CELL DISTRIBUTION WIDTH 25.8 % (11.5-14.5)
[2018-12-10 13:50] LABS: ALB/GLOB RATIO 0.8 (1.0-2.1); ALBUMIN 3.6 g/dL (3.5-5.0); ALT/SGPT 19 U/L (9-52); AST/SGOT 30 U/L (14-36); BLOOD UREA NITROGEN 17 mg/dl (7-17); CALCIUM 9.5 mg/dL (8.4-10.2); GFR NON-AFRICAN AMERICAN > 60
[2018-12-10] MEDS ORDERED: Bisacodyl 5mg EC Tab PO ONE (14:00)
[2018-12-10 14:10] LABS: ANISOCYTOSIS MARKED; BANDS 4 % (0-2); LYMPHOCYTE 13 % (20-50); MONOCYTE 9 % (0-10); NEUTROPHIL 74 % (42-75); PLATELET ESTIMATE SLIGHTLY INCREASED (NORMAL); TOTAL CELLS COUNTED 100
[2018-12-10 14:11] LABS: HYPOCHROMIC SLIGHT; MICROCYTOSIS SLIGHT
[2018-12-11] MEDS: Sodium Chloride 0.9% 1,000 ML IV SCH (08:15)
--- NOTE | 2018-12-11 11:29 | CARD ---
APPROVED REPORT Date of service: 12/10/2018 EKG Measurement Heart [id number] <Conclusion> Atrial Fibrillation with Rapid Ventricular Response Nonspecific ST-T changes Abnormal ECG
--- NOTE | 2018-12-11 12:46 | CP.PCM.CON ---
History of Present Illness - History of Present Illness History of Present Illness: 68 year old female admitted with anemia, PMH colon ca. Noted to be in rapid atrial fibrillation ,started on Diltiazem bolus and gtt 5mg/hr. Currently NSR , hemodynamically stable in no distress. Past Patient History - Infectious Disease Hx of Infectious Diseases: None - Past Medical History & Family History Past Medical History?: Yes - Past Social History Smoking Status: Former Smoker - CARDIAC Hx Cardiac Disorders: Yes Hx Atrial Fibrillation: Yes (after colonoscopy) - PULMONARY Hx Respiratory Disorders: No - NEUROLOGICAL Hx Neurological Disorder: Yes Hx Seizures: Yes (epilepsy PETITE MAL LAST 6 YEARS AGO) - HEENT Hx HEENT Problems: Yes Hx Cataracts: Yes (BILAT IOL) - RENAL Hx Chronic Kidney Disease: No - ENDOCRINE/METABOLIC Hx Endocrine Disorders: No - HEMATOLOGICAL/ONCOLOGICAL Hx Blood Disorders: Yes Hx AIDS: No Hx Anemia: Yes Hx Blood Transfusions: Yes Hx Human Immunodeficiency Virus (HIV): No - INTEGUMENTARY Hx Dermatological Problems: No - MUSCULOSKELETAL/RHEUMATOLOGICAL Hx Musculoskeletal Disorders: No Hx Falls: No - GASTROINTESTINAL Hx Gastrointestinal Disorders: Yes Hx Bowel Surgery: Yes (COLON RESECTION 6 YEARS AGO) Other/Comment: COLON CANCER 2010 - GENITOURINARY/GYNECOLOGICAL Hx Genitourinary Disorders: Yes (BLADDER CYST PER PT) Other/Comment: Pelvic mass (07/2018) - PSYCHIATRIC Hx Psychophysiologic Disorder: No Hx Substance Use: No - SURGICAL HISTORY Hx Surgeries: Yes Hx Cataract Extraction: Yes - ANESTHESIA Hx Anesthesia: Yes Hx Anesthesia Reactions: No Hx Malignant Hyperthermia: No Meds Allergies/Adverse Reactions: Allergies Allergy/AdvReac Type Severity Reaction Status Date / Time cortisone Allergy Intermediate RASH Verified 12/05/18 18:41 shrimp Allergy Intermediate SWELLING Verified 12/05/18 18:41 strawberry Allergy Intermediate RASH Verified 12/05/18 18:41 - Medications Medications: Current Medications Benzocaine/Menthol (Cepacol Sore Throat) 1 juan manuel PO Q3 PRN PRN Reason: Sore Throat Last Admin: 12/10/18 18:25 Dose: 1 juan manuel Docusate Sodium (Colace) 100 mg PO BID [facility] Last Admin: 12/11/18 08:12 Dose: 100 mg Ferrous Sulfate (Feosol) 325 mg PO DAILY [facility] Last Admin: 12/11/18 08:12 Dose: 325 mg Levetiracetam (Keppra) 500 mg PO BID [facility] Last Admin: 12/11/18 08:12 Dose: 500 mg Ondansetron HCl (Zofran Inj) 4 mg IVP Q6 PRN PRN Reason: Nausea/Vomiting Last Admin: 12/11/18 12:36 Dose: 4 mg Physical Exam - Head Exam Head Exam: NORMAL INSPECTION - Neck Exam Neck exam: Positive for: Normal Inspection - Respiratory Exam Respiratory Exam: Clear to Auscultation Bilateral - Cardiovascular Exam Cardiovascular Exam: REGULAR RHYTHM - GI/Abdominal Exam GI & Abdominal Exam: Normal Bowel Sounds - Extremities Exam Extremities exam: Positive for: normal inspection Results - Vital Signs Recent Vital Signs: Last Vital Signs Temp 98.2 F 12/11/18 09:19 Pulse 88 12/11/18 09:19 Resp 20 12/11/18 09:19 BP 134/69 12/11/18 09:19 Pulse Ox 99 12/11/18 09:19 - Labs Result Diagrams: 12/10/18 13:26 12/10/18 13:26 Labs: Laboratory Results - last 24 hr 12/10/18 12/10/18 13:26 13:26 WBC 10.0 RBC 4.58 Hgb 10.4 L Hct 32.9 L MCV 71.9 L MCH 22.7 L MCHC 31.6 L RDW 25.8 H Plt Count 403 H MPV 7.6 Neut % (Auto) 81.8 H Lymph % (Auto) 8.9 L [place] % (Auto) 8.9 Eos % (Auto) 0.1 Baso % (Auto) 0.3 Neut # (Auto) 8.1 H Lymph # (Auto) 0.9 L [place] # (Auto) 0.9 H Eos # (Auto) 0.0 Baso # (Auto) 0.0 Neutrophils % (Manual) 74 Band Neutrophils % 4 H Lymphocytes % (Manual) 13 L Monocytes % (Manual) 9 Platelet Estimate Slightly increased H Hypochromasia (manual) Slight Anisocytosis (manual) Marked Microcytosis (manual) Slight Sodium 134 Potassium 3.9 Chloride 92 L Carbon Dioxide 27 Anion Gap 19 BUN 17 Creatinine 0.7 Est GFR ( Amer) > 60 Est GFR (Non-Af Amer) > 60 Random Glucose 126 H Calcium 9.5 Phosphorus 3.6 Magnesium 1.7 Total Bilirubin 0.5 AST 30 ALT 19 Alkaline Phosphatase 82 Troponin I < 0.0120 Total Protein 8.0 Albumin 3.6 Globulin 4.4 H Albumin/Globulin Ratio 0.8 L Assessment & Plan - Assessment and Plan (Free Text) Assessment: Paroxysmal Atrial Fibrillation on Diltiazem gtt, converted to NSR Would Continue gtt on telemetry Can proceed with colonoscopy tomorrow , continue cardiazem gtt pre/ post procedure Observe additional 24 hrs on telemetry post colonoscopy Check electrolytes , avoid low K+
--- NOTE | 2018-12-11 12:50 | CP.PCM.PN ---
Subjective - Date & Time of Evaluation Date of Evaluation: 12/11/18 Time of Evaluation: 12:49 - Subjective Subjective: Pt had an episode of atrial fibrillation last night and a BOOK RETAILER was called. She was stabilized and this morning her one complaint was constipation.. Just 1 hr ago she had vomiting and she had brown vomitus. She was scheduled for colonosco py but it was cancelled because of the A FIB. Prognosis guarded. Objective - Vital Signs/Intake and Output Vital Signs (last 24 hours): Temp Pulse Resp BP Pulse Ox 98.2 F 88 20 134/69 99 12/11/18 09:19 12/11/18 09:19 12/11/18 09:19 12/11/18 09:19 12/11/18 09:19 - Medications Medications: Current Medications Benzocaine/Menthol (Cepacol Sore Throat) 1 juan manuel PO Q3 PRN PRN Reason: Sore Throat Last Admin: 12/10/18 18:25 Dose: 1 juan manuel Docusate Sodium (Colace) 100 mg PO BID [facility] Last Admin: 12/11/18 08:12 Dose: 100 mg Ferrous Sulfate (Feosol) 325 mg PO DAILY [facility] Last Admin: 12/11/18 08:12 Dose: 325 mg Levetiracetam (Keppra) 500 mg PO BID [facility] Last Admin: 12/11/18 08:12 Dose: 500 mg Ondansetron HCl (Zofran Inj) 4 mg IVP Q6 PRN PRN Reason: Nausea/Vomiting Last Admin: 12/11/18 12:36 Dose: 4 mg - Labs Labs: 12/10/18 13:26 12/10/18 13:26
--- NOTE | 2018-12-11 18:50 | CP.PCM.PN ---
Subjective - Date & Time of Evaluation Date of Evaluation: 12/11/18 Time of Evaluation: 22:22 - Subjective Subjective: Events noted A-Fib Objective - Vital Signs/Intake and Output Vital Signs (last 24 hours): Temp Pulse Resp BP Pulse Ox 98.3 F 88 18 118/72 98 12/11/18 16:36 12/11/18 16:36 12/11/18 16:36 12/11/18 16:36 12/11/18 16:36 Intake and Output: 12/11/18 12/11/18 06:59 18:59 Intake Total 1800 Balance 1800 - Medications Medications: Current Medications Benzocaine/Menthol (Cepacol Sore Throat) 1 juan manuel PO Q3 PRN PRN Reason: Sore Throat Last Admin: 12/10/18 18:25 Dose: 1 juan manuel Docusate Sodium (Colace) 100 mg PO BID [facility] Last Admin: 12/11/18 16:28 Dose: Not Given Ferrous Sulfate (Feosol) 325 mg PO DAILY [facility] Last Admin: 12/11/18 08:12 Dose: 325 mg Lactulose (Enulose) 20 gm PO DAILY PRN PRN Reason: Constipation Levetiracetam (Keppra) 500 mg PO BID [facility] Last Admin: 12/11/18 16:29 Dose: Not Given Ondansetron HCl (Zofran Inj) 4 mg IVP Q6 PRN PRN Reason: Nausea/Vomiting Last Admin: 12/11/18 12:36 Dose: 4 mg - Labs Labs: 12/10/18 13:26 12/10/18 13:26 - Respiratory Exam Respiratory Exam: NORMAL BREATHING PATTERN - Cardiovascular Exam Cardiovascular Exam: REGULAR RHYTHM - GI/Abdominal Exam GI & Abdominal Exam: Normal Bowel Sounds Assessment and Plan - Assessment and Plan (Free Text) Assessment: Microcytic hypochromic anemia chronic blood loss GI?? Hx Ca Colon Ct scan enterocolitis Hematology GI colonoscopy [facility]
--- NOTE | 2018-12-11 21:53 | CP.PCM.PN ---
Subjective - Date & Time of Evaluation Date of Evaluation: 12/11/18 Time of Evaluation: 14:00 - Subjective Subjective: Patient with abdominal queasiness. Had been scheduled for colonoscopy though developed A ffib and procedure postponed. Objective - Vital Signs/Intake and Output Vital Signs (last 24 hours): Temp Pulse Resp BP Pulse Ox 98.4 F 93 H 18 129/72 97 12/11/18 20:09 12/11/18 20:09 12/11/18 20:09 12/11/18 20:09 12/11/18 20:09 Intake and Output: 12/11/18 12/12/18 18:59 06:59 Intake Total 1800 Balance 1800 - Medications Medications: Current Medications Benzocaine/Menthol (Cepacol Sore Throat) 1 juan manuel PO Q3 PRN PRN Reason: Sore Throat Last Admin: 12/10/18 18:25 Dose: 1 juan manuel Docusate Sodium (Colace) 100 mg PO BID [facility] Last Admin: 12/11/18 16:28 Dose: Not Given Ferrous Sulfate (Feosol) 325 mg PO DAILY [facility] Last Admin: 12/11/18 08:12 Dose: 325 mg Lactulose (Enulose) 20 gm PO DAILY PRN PRN Reason: Constipation Levetiracetam (Keppra) 500 mg PO BID [facility] Last Admin: 12/11/18 16:29 Dose: Not Given Ondansetron HCl (Zofran Inj) 4 mg IVP Q6 PRN PRN Reason: Nausea/Vomiting Last Admin: 12/11/18 12:36 Dose: 4 mg - Labs Labs: 12/10/18 13:26 12/10/18 13:26 - Head Exam Head Exam: ATRAUMATIC - Eye Exam Eye Exam: PERRL - Neck Exam Neck Exam: Full ROM - Respiratory Exam Respiratory Exam: Clear to Ausculation Bilateral - Cardiovascular Exam Cardiovascular Exam: REGULAR RHYTHM, +S1, +S2 - GI/Abdominal Exam GI & Abdominal Exam: Soft, Normal Bowel Sounds. absent: Tenderness Assessment and Plan (1) Anemia Assessment & Plan: Patient with abnormal CT at enterocolonoc anastamosis. For colonoscopy when clinically stable Status: Acute
--- NOTE | 2018-12-12 10:46 | CP.PCM.PN ---
Subjective - Date & Time of Evaluation Date of Evaluation: 12/12/18 Time of Evaluation: 10:42 - Subjective Subjective: Pt is still constipated. will give her lactulose. if it does not work, will have to give her an enema. Her colonoscopy had been cancelled because of the A fib. She has been cleared by the wire wrapping machine operator. for the procedure today.CBC is stable. Objective - Vital Signs/Intake and Output Vital Signs (last 24 hours): Temp Pulse Resp BP Pulse Ox 98.1 F 99 H 18 118/71 98 12/12/18 08:12 12/12/18 08:12 12/12/18 08:12 12/12/18 08:12 12/12/18 08:12 - Medications Medications: Current Medications Benzocaine/Menthol (Cepacol Sore Throat) 1 juan manuel PO Q3 PRN PRN Reason: Sore Throat Last Admin: 12/10/18 18:25 Dose: 1 juan manuel Docusate Sodium (Colace) 100 mg PO BID [facility] Last Admin: 12/12/18 09:43 Dose: 100 mg Ferrous Sulfate (Feosol) 325 mg PO DAILY [facility] Last Admin: 12/12/18 09:43 Dose: 325 mg Lactulose (Enulose) 20 gm PO DAILY PRN PRN Reason: Constipation Levetiracetam (Keppra) 500 mg PO BID [facility] Last Admin: 12/12/18 09:43 Dose: 500 mg Ondansetron HCl (Zofran Inj) 4 mg IVP Q6 PRN PRN Reason: Nausea/Vomiting Last Admin: 12/11/18 12:36 Dose: 4 mg - Labs Labs: 12/10/18 13:26 12/10/18 13:26
[2018-12-12 12:56] LABS: HEMOGLOBIN 11.2 g/dL (12.0-16.0); MEAN CORPUSCULAR HEMOGLOBIN 22.6 pg (27.0-31.0); MEAN CORPUSCULAR HGB CONC 30.9 g/dL (33.0-37.0); RBC 4.97 Mil/uL (3.80-5.20); RED CELL DISTRIBUTION WIDTH 26.2 % (11.5-14.5); WHITE BLOOD COUNT 9.2 K/uL (4.8-10.8)
[2018-12-12 13:12] LABS: ALB/GLOB RATIO 0.8 (1.0-2.1); ALBUMIN 3.6 g/dL (3.5-5.0); ALT/SGPT 24 U/L (9-52); AST/SGOT 22 U/L (14-36); BLOOD UREA NITROGEN 23 mg/dl (7-17); CALCIUM 9.5 mg/dL (8.4-10.2); GFR NON-AFRICAN AMERICAN > 60
--- NOTE | 2018-12-12 20:25 | CP.PCM.PN ---
Subjective - Date & Time of Evaluation Date of Evaluation: 12/12/18 Time of Evaluation: 22:22 - Subjective Subjective: A-fib again Off cardiazem drip?? Objective - Vital Signs/Intake and Output Vital Signs (last 24 hours): Temp Pulse Resp BP Pulse Ox 98.1 F 96 H 16 106/66 99 12/12/18 20:19 12/12/18 20:19 12/12/18 20:19 12/12/18 20:19 12/12/18 20:19 Intake and Output: 12/12/18 12/13/18 18:59 06:59 Output Total 200 Balance -200 - Medications Medications: Current Medications Benzocaine/Menthol (Cepacol Sore Throat) 1 juan manuel PO Q3 PRN PRN Reason: Sore Throat Last Admin: 12/10/18 18:25 Dose: 1 juan manuel Docusate Sodium (Colace) 100 mg PO BID [facility] Last Admin: 12/12/18 09:43 Dose: 100 mg Ferrous Sulfate (Feosol) 325 mg PO DAILY [facility] Last Admin: 12/12/18 09:43 Dose: 325 mg Diltiazem HCl 125 mg/ Sodium (Chloride) 125 mls @ 5 mls/hr IV .Q24H ONE; Protocol Stop: 12/13/18 12:17 Last Admin: 12/12/18 13:32 Dose: 5 mg/hr, 5 mls/hr Lactulose (Enulose) 20 gm PO DAILY PRN PRN Reason: Constipation Last Admin: 12/12/18 11:21 Dose: 20 gm Levetiracetam (Keppra) 500 mg PO BID [facility] Last Admin: 12/12/18 09:43 Dose: 500 mg Ondansetron HCl (Zofran Inj) 4 mg IVP Q6 PRN PRN Reason: Nausea/Vomiting Last Admin: 12/12/18 11:55 Dose: 4 mg - Labs Labs: 12/12/18 12:52 12/12/18 12:52 - Respiratory Exam Respiratory Exam: NORMAL BREATHING PATTERN - Cardiovascular Exam Cardiovascular Exam: REGULAR RHYTHM - GI/Abdominal Exam GI & Abdominal Exam: Normal Bowel Sounds Assessment and Plan - Assessment and Plan (Free Text) Assessment: Microcytic hypochromic anemia chronic blood loss GI?? Hx Ca Colon Ct scan enterocolitis Hematology GI colonoscopy A fib with RVR Cardiazem drip restarted Cardiology
--- NOTE | 2018-12-12 20:27 | CARD ---
APPROVED REPORT Date of service: 12/12/2018 EKG Measurement Heart [id number] <Conclusion> Atrial fibrillation with rapid ventricular response with premature ventricular or aberrantly conducted complexes Nonspecific ST-T changes Abnormal ECG
--- NOTE | 2018-12-12 20:32 | CARD ---
APPROVED REPORT Date of service: 12/12/2018 EKG Measurement Heart [id number] <Conclusion> Normal sinus rhythm Nonspecific ST and T wave abnormality Abnormal ECG
--- NOTE | 2018-12-13 10:14 | CP.PCM.PN ---
Subjective - Date & Time of Evaluation Date of Evaluation: 12/13/18 Time of Evaluation: 10:10 - Subjective Subjective: C/o of constipation. Recurrent atrial fibrillation, Cardiazem gtt discontinued ? Restarted converted to NSR. Objective - Vital Signs/Intake and Output Vital Signs (last 24 hours): Temp Pulse Resp BP Pulse Ox 98.4 F 99 H 18 118/70 97 12/13/18 08:12 12/13/18 08:12 12/13/18 08:12 12/13/18 08:12 12/13/18 08:12 Intake and Output: 12/13/18 12/13/18 06:59 18:59 Intake Total 100 Balance 100 - Medications Medications: Current Medications Benzocaine/Menthol (Cepacol Sore Throat) 1 juan manuel PO Q3 PRN PRN Reason: Sore Throat Last Admin: 12/10/18 18:25 Dose: 1 juan manuel Docusate Sodium (Colace) 100 mg PO BID [facility] Last Admin: 12/13/18 08:27 Dose: 100 mg Ferrous Sulfate (Feosol) 325 mg PO DAILY [facility] Last Admin: 12/13/18 08:27 Dose: 325 mg Diltiazem HCl 125 mg/ Sodium (Chloride) 125 mls @ 5 mls/hr IV .Q24H ONE; Protocol Stop: 12/13/18 12:17 Last Titration: 12/12/18 22:06 Dose: 5 mg/hr, 5 mls/hr Lactulose (Enulose) 20 gm PO DAILY PRN PRN Reason: Constipation Last Admin: 12/12/18 11:21 Dose: 20 gm Levetiracetam (Keppra) 500 mg PO BID [facility] Last Admin: 12/13/18 08:27 Dose: 500 mg Ondansetron HCl (Zofran Inj) 4 mg IVP Q6 PRN PRN Reason: Nausea/Vomiting Last Admin: 12/12/18 21:59 Dose: 4 mg - Labs Labs: 12/12/18 12:52 12/12/18 12:52 - Neck Exam Neck Exam: Normal Inspection - Respiratory Exam Respiratory Exam: NORMAL BREATHING PATTERN - Cardiovascular Exam Cardiovascular Exam: REGULAR RHYTHM - GI/Abdominal Exam GI & Abdominal Exam: Normal Bowel Sounds - Extremities Exam Extremities Exam: Normal Inspection Assessment and Plan - Assessment and Plan (Free Text) Assessment: Continue Cardiazem gtt for 48 hrs Do not stop during colonoscopy Pt can be prepped for colonoscopy today Pt can have colonoscopy tomorrow on IV Cardiazem Continue Cardiazem post colonoscopy on 12/15 can start low dose beta aisha for prevention of paroxysmal atrial fibrillation No anticoagulation for atrial fibrillation given anemia.
--- NOTE | 2018-12-13 17:51 | CP.PCM.PN ---
Subjective - Date & Time of Evaluation Date of Evaluation: 12/13/18 Time of Evaluation: 22:22 - Subjective Subjective: Cardiology note appreciated Colonoscopy in AM Objective - Vital Signs/Intake and Output Vital Signs (last 24 hours): Temp Pulse Resp BP Pulse Ox 97.5 F L 92 H 16 126/55 L 96 12/13/18 16:12 12/13/18 17:00 12/13/18 17:00 12/13/18 17:00 12/13/18 17:00 Intake and Output: 12/13/18 12/13/18 06:59 18:59 Intake Total 100 240 Balance 100 240 - Medications Medications: Current Medications Benzocaine/Menthol (Cepacol Sore Throat) 1 juan manuel PO Q3 PRN PRN Reason: Sore Throat Last Admin: 12/10/18 18:25 Dose: 1 juan manuel Docusate Sodium (Colace) 100 mg PO BID [facility] Last Admin: 12/13/18 17:01 Dose: 100 mg Ferrous Sulfate (Feosol) 325 mg PO DAILY [facility] Last Admin: 12/13/18 08:27 Dose: 325 mg Diltiazem HCl 125 mg/ Sodium (Chloride) 125 mls @ 5 mls/hr IV .Q24H ONE; Protocol Stop: 12/14/18 13:16 Lactulose (Enulose) 20 gm PO DAILY PRN PRN Reason: Constipation Last Admin: 12/12/18 11:21 Dose: 20 gm Levetiracetam (Keppra) 500 mg PO BID [facility] Last Admin: 12/13/18 17:01 Dose: 500 mg Ondansetron HCl (Zofran Inj) 4 mg IVP Q6 PRN PRN Reason: Nausea/Vomiting Last Admin: 12/13/18 15:05 Dose: 4 mg - Labs Labs: 12/12/18 12:52 12/12/18 12:52 - Respiratory Exam Respiratory Exam: NORMAL BREATHING PATTERN - Cardiovascular Exam Cardiovascular Exam: REGULAR RHYTHM - GI/Abdominal Exam GI & Abdominal Exam: Normal Bowel Sounds Assessment and Plan - Assessment and Plan (Free Text) Assessment: Microcytic hypochromic anemia chronic blood loss GI?? Hx Ca Colon Ct scan enterocolitis Hematology GI colonoscopy A fib with RVR Cardiazem drip restarted Cardiology
--- NOTE | 2018-12-13 23:01 | CP.PCM.PN ---
Subjective - Date & Time of Evaluation Date of Evaluation: 12/13/18 Time of Evaluation: 15:00 - Subjective Subjective: Having nausea and difficulty tolerating diet.. Objective - Vital Signs/Intake and Output Vital Signs (last 24 hours): Temp Pulse Resp BP Pulse Ox 97.5 F L 70 16 127/76 97 12/13/18 20:00 12/13/18 20:00 12/13/18 20:00 12/13/18 20:00 12/13/18 20:00 Intake and Output: 12/13/18 12/14/18 18:59 06:59 Intake Total 240 Balance 240 - Medications Medications: Current Medications Benzocaine/Menthol (Cepacol Sore Throat) 1 juan manuel PO Q3 PRN PRN Reason: Sore Throat Last Admin: 12/10/18 18:25 Dose: 1 juan manuel Docusate Sodium (Colace) 100 mg PO BID [facility] Last Admin: 12/13/18 17:01 Dose: 100 mg Ferrous Sulfate (Feosol) 325 mg PO DAILY [facility] Last Admin: 12/13/18 08:27 Dose: 325 mg Diltiazem HCl 125 mg/ Sodium (Chloride) 125 mls @ 5 mls/hr IV .Q24H ONE; Protocol Stop: 12/14/18 13:16 Lactulose (Enulose) 20 gm PO DAILY PRN PRN Reason: Constipation Last Admin: 12/12/18 11:21 Dose: 20 gm Levetiracetam (Keppra) 500 mg PO BID [facility] Last Admin: 12/13/18 17:01 Dose: 500 mg Ondansetron HCl (Zofran Inj) 4 mg IVP Q6 PRN PRN Reason: Nausea/Vomiting Last Admin: 12/13/18 15:05 Dose: 4 mg - Labs Labs: 12/12/18 12:52 12/12/18 12:52 - Head Exam Head Exam: ATRAUMATIC - Eye Exam Pupil Exam: PERRL - ENT Exam ENT Exam: Normal Exam - Neck Exam Neck Exam: Full ROM - Respiratory Exam Respiratory Exam: Clear to Ausculation Bilateral - Cardiovascular Exam Cardiovascular Exam: REGULAR RHYTHM - GI/Abdominal Exam GI & Abdominal Exam: Soft Assessment and Plan (1) Anemia Assessment & Plan: Has nausea now. Will check Kppra level. Colonoscopy when cleared by cardiology Status: Acute
--- NOTE | 2018-12-14 09:39 | CP.PCM.PN ---
Subjective - Date & Time of Evaluation Date of Evaluation: 12/14/18 Time of Evaluation: 09:37 - Subjective Subjective: Pt is feeling hungry but still had vomiting until last night. S She had a fleets enema yesterday, but very scanty result. She is in sinus rhythm and will be going for a colonoscopy today Objective - Vital Signs/Intake and Output Vital Signs (last 24 hours): Temp Pulse Resp BP Pulse Ox 97.4 F L 92 H 20 105/66 99 12/14/18 08:13 12/14/18 08:13 12/14/18 08:13 12/14/18 08:13 12/14/18 08:13 Intake and Output: 12/14/18 12/14/18 06:59 18:59 Intake Total 55 Balance 55 - Medications Medications: Current Medications Benzocaine/Menthol (Cepacol Sore Throat) 1 juan manuel PO Q3 PRN PRN Reason: Sore Throat Last Admin: 12/10/18 18:25 Dose: 1 juan manuel Docusate Sodium (Colace) 100 mg PO BID [facility] Last Admin: 12/13/18 17:01 Dose: 100 mg Ferrous Sulfate (Feosol) 325 mg PO DAILY [facility] Last Admin: 12/14/18 08:26 Dose: Not Given Diltiazem HCl 125 mg/ Sodium (Chloride) 125 mls @ 5 mls/hr IV .Q24H ONE; Protocol Stop: 12/14/18 13:16 Last Titration: 12/14/18 06:55 Dose: 10 mg/hr, 10 mls/hr Lactulose (Enulose) 20 gm PO DAILY PRN PRN Reason: Constipation Last Admin: 12/12/18 11:21 Dose: 20 gm Levetiracetam (Keppra) 500 mg PO BID [facility] Last Admin: 12/14/18 08:26 Dose: Not Given Ondansetron HCl (Zofran Inj) 4 mg IVP Q6 PRN PRN Reason: Nausea/Vomiting Last Admin: 12/14/18 00:14 Dose: 4 mg - Labs Labs: 12/12/18 12:52 12/12/18 12:52
[2018-12-14] MEDS ORDERED: Magnesium Citrate Oral SOL (300 ml) PO ONE ×2 (15:03→21:00)
[2018-12-14] MEDS ORDERED: Bisacodyl 5mg EC Tab PO ONE (18:00)
--- NOTE | 2018-12-14 20:04 | CP.PCM.PN ---
Subjective - Date & Time of Evaluation Date of Evaluation: 12/14/18 Time of Evaluation: 22:22 - Subjective Subjective: Above noted Objective - Vital Signs/Intake and Output Vital Signs (last 24 hours): Temp Pulse Resp BP Pulse Ox 97.9 F 98 H 18 142/77 99 12/14/18 16:08 12/14/18 16:08 12/14/18 16:08 12/14/18 16:08 12/14/18 16:08 Intake and Output: 12/14/18 12/15/18 18:59 06:59 Intake Total 560 Output Total 850 Balance -290 - Medications Medications: Current Medications Benzocaine/Menthol (Cepacol Sore Throat) 1 juan manuel PO Q3 PRN PRN Reason: Sore Throat Last Admin: 12/10/18 18:25 Dose: 1 juan manuel Docusate Sodium (Colace) 100 mg PO BID [facility] Last Admin: 12/14/18 16:05 Dose: 100 mg Diltiazem HCl 125 mg/ Sodium (Chloride) 125 mls @ 5 mls/hr IV .Q24H ONE; Protocol Stop: 12/15/18 14:40 Last Admin: 12/14/18 17:56 Dose: 5 mg/hr, 5 mls/hr Lactated Ringer's (Lactated Ringer's) 1,000 mls @ 60 mls/hr IV .[id number] [facility] Lactulose (Enulose) 20 gm PO DAILY PRN PRN Reason: Constipation Last Admin: 12/12/18 11:21 Dose: 20 gm Levetiracetam (Keppra) 500 mg PO BID [facility] Last Admin: 12/14/18 16:05 Dose: 500 mg Magnesium Citrate (Citrate Of Mag) 150 ml PO ONCE ONE Stop: 12/14/18 21:01 Ondansetron HCl (Zofran Inj) 4 mg IVP Q6 PRN PRN Reason: Nausea/Vomiting Last Admin: 12/14/18 18:45 Dose: 4 mg - Labs Labs: 12/12/18 12:52 12/12/18 12:52 - Respiratory Exam Respiratory Exam: NORMAL BREATHING PATTERN - Cardiovascular Exam Cardiovascular Exam: REGULAR RHYTHM - GI/Abdominal Exam GI & Abdominal Exam: Normal Bowel Sounds Assessment and Plan - Assessment and Plan (Free Text) Assessment: Microcytic hypochromic anemia chronic blood loss GI?? Hx Ca Colon Ct scan enterocolitis Hematology GI colonoscopy A fib with RVR Cardiazem drip restarted Cardiology
[2018-12-14] MEDS: Lactated Ringer's 1,000 ML IV SCH (21:10)
--- NOTE | 2018-12-15 01:52 | CP.PCM.PN ---
Subjective - Date & Time of Evaluation Date of Evaluation: 12/14/18 Time of Evaluation: 20:00 - Subjective Subjective: Patient with nausea. Has been eating very little. Unable to tolerate MagCiitrate. Objective - Vital Signs/Intake and Output Vital Signs (last 24 hours): Temp Pulse Resp BP Pulse Ox 97.0 F L 110 H 18 114/67 99 12/15/18 00:27 12/15/18 00:27 12/15/18 00:27 12/15/18 00:27 12/15/18 00:27 Intake and Output: 12/14/18 12/15/18 18:59 06:59 Intake Total 560 55 Output Total 850 Balance -290 55 - Medications Medications: Current Medications Benzocaine/Menthol (Cepacol Sore Throat) 1 juan manuel PO Q3 PRN PRN Reason: Sore Throat Last Admin: 12/10/18 18:25 Dose: 1 juan manuel Docusate Sodium (Colace) 100 mg PO BID [facility] Last Admin: 12/14/18 16:05 Dose: 100 mg Diltiazem HCl 125 mg/ Sodium (Chloride) 125 mls @ 5 mls/hr IV .Q24H ONE; Protocol Stop: 12/15/18 14:40 Last Titration: 12/15/18 01:09 Dose: 10 mg/hr, 10 mls/hr Lactated Ringer's (Lactated Ringer's) 1,000 mls @ 60 mls/hr IV .[id number] [facility] Last Admin: 12/14/18 21:10 Dose: 60 mls/hr Lactulose (Enulose) 20 gm PO DAILY PRN PRN Reason: Constipation Last Admin: 12/12/18 11:21 Dose: 20 gm Levetiracetam (Keppra) 500 mg PO BID [facility] Last Admin: 12/14/18 16:05 Dose: 500 mg Ondansetron HCl (Zofran Inj) 4 mg IVP Q6 PRN PRN Reason: Nausea/Vomiting Last Admin: 12/15/18 00:12 Dose: 4 mg - Labs Labs: 12/12/18 12:52 12/12/18 12:52 - Constitutional Appears: Cachectic, Chronically Ill - Head Exam Head Exam: ATRAUMATIC - Eye Exam Eye Exam: Normal appearance - Neck Exam Neck Exam: Full ROM - Respiratory Exam Respiratory Exam: Clear to Ausculation Bilateral - Cardiovascular Exam Cardiovascular Exam: REGULAR RHYTHM - GI/Abdominal Exam GI & Abdominal Exam: Soft, Tenderness, Normal Bowel Sounds Assessment and Plan (1) Anemia Assessment & Plan: Unable to tolerate MagCitrate. Will give tap water enemas tomorrow as colon prep. Colonoscopy Tuesday early afternoon. Status: Acute
[2018-12-15] MEDS ORDERED: Digoxin 500 mcg/2ml (0.5 mg/2ml) Inj IVP ONE ×2 (04:11→12:56)
--- NOTE | 2018-12-15 07:08 | PCM.RRT ---
<Denia Oh - Last Filed: 12/16/18 00:43> TUBE WINDER HAND Nurse Assessment - Situation Location: [facility] Room Number: 416-1 TUBE WINDER HAND Reason for Call: Tachycardia TUBE WINDER HAND Called By: RN - IV IV Inserted during TUBE WINDER HAND?: No - Respiratory Oxygen Delivery Method: Nasal Cannula Received Nebulizer Treatments: No Was the Patient Ventilated with Bag/Mask 100% O2?: No Secretions Suctioned?: No Was the Patient Intubated?: No Was the Patient Placed on a Ventilator?: No - Medication Medications Administered During TUBE WINDER HAND: Cardizem 10mg IVP slowly. Digoxin 0.5mg IVP - Diagnostic Test Ordered EKG: Yes Chest X-Ray: No CT Scan: No - Stat Labs Ordered TUBE WINDER HAND Stat Labs Ordered: CBC, BMP, TROPONIN TUBE WINDER HAND Other Labs Ordered: mg, phos CPR started during TUBE WINDER HAND?: No - Vital Signs Vital Signs: Rapid Response Vital Sign Blood Pressure 120/75 Pulse Rate 150 Respiratory Rate 18 Temperature 97 F Oxygen Saturation 97 - Time TUBE WINDER HAND Ended Time TUBE WINDER HAND Ended: 04:20 - Vital Signs at end of TUBE WINDER HAND Vital Signs at end of TUBE WINDER HAND: Rapid Response End Vital Sign Blood Pressure 123/66 Pulse Rate 110 Respiratory Rate 18 Temperature 97 F O2 Sat by Pulse Oximetry 96 - Recommendations TUBE WINDER HAND Level of Care Recommendations: Remain in current setting I.Reason for TUBE WINDER HAND - A) Acute Change in Patient: Subjective: TUBE WINDER HAND Called: 4:02am TUBE W[employer]ER HAND Arrival time: 4:04am TUBE W[employer]ER [facility] Called by: Nurse TUBE WINDER HAND Called for EMILIA Initial TUBE WINDER HAND vitals: BP 120/72 HR 150's SPO2 99% TUBE WINDER HAND called for rapid AFib for a 68-year-old female with PMH anemia, seizure disorder and colon cancer status post total colonectomy admitted for rapid AFib. Patient remained alert and responsive throughout TUBE WINDER HAND, but complained of "a smidge" of chest discomfort. Tele monitor and wireless monitor gave equal vitals however the bedside monitor was continuously off by 25+ bpm. Vitals on arrival: 120/72, HR 150's, SPO2 99%. Patient denied any nausea but had vomited earlier in the day (about 12 hours prior to TUBE WINDER HAND). 10mg Cadizem IVP and Digoxin 0.5mg given. EKG showed no new changes from previous. Patient was comfortable, in no acute distress and rate controlled at end of TUBE WINDER HAND. End TUBE WINDER HAND vitals: BP 105/65 HR 100's SPO2 99% TUBE WINDER HAND Team: Dr Tripathi, Dr Mancia, Dr Oh - Respiratory Oxygen Delivery Method: Nasal Cannula @L/min Oxygen Flow Rate: 2 - Constitutional Appears: Older Than Stated Age, Cachectic, Chronically Ill - Head Head Exam: NORMAL INSPECTION - Eyes Eye Exam: Normal appearance - Respiratory Exam Respiratory Exam: NORMAL BREATHING PATTERN. absent: Chest Wall Tenderness, R espiratory Distress - Cardiovascular Exam Cardiovascular Exam: Tachycardia - GI/Abdominal Exam GI & Abdominal Exam: Soft. absent: Tenderness - Neurological Exam Neurological Exam: Alert, Awake, Oriented x3 - Extremities Exam Extremities Exam: Normal Inspection <Ganesh Tripathi - Last Filed: 12/16/18 03:36> TUBE WINDER HAND Nurse Assessment - Vital Signs Vital Signs: Rapid Response Vital Sign Blood Pressure 120/66 Pulse Rate 146 Respiratory Rate 18 Temperature 97 F Oxygen Saturation 96 - Vital Signs at end of TUBE WINDER HAND Vital Signs at end of TUBE WINDER HAND: Rapid Response End Vital Sign Blood Pressure 123/66 Pulse Rate 110 Respiratory Rate 18 Temperature 97 F O2 Sat by Pulse Oximetry 97 Attending/Attestation - Attestation I have personally seen and examined this patient.: Yes I have fully participated in the care of the patient.: Yes I have reviewed all pertinent clinical information, including history, physical exam and plan: Yes Notes (Text): 12/16/18 03:29 I saw, examined and discussed this patient with Dr Oh. I agree with the assessment and plan. This is a 68 years old with A Fib on Cardizem but with persistence of Tachycardia. TUBE WINDER HAND was called because of HR of over 140. The patient was given a Bolus additional of Cardizem with no change. She was then given Digoxin 0.5mg. After review of the patient one hour later, she had converted into a Sinus rhythm of less than 100/min. The patient was left on the monitoring manager in the Telemetry unit. Ganesh Tripathi MD
--- NOTE | 2018-12-15 09:18 | CP.PCM.PCO ---
Assessment & Plan - Assessment and Plan (Free Text) Assessment: pt. seen and examined this morning; overnight events noted; pt. TAX EVALUATOR for EMILIA s/p cardizem bolus/ Digoxin IV Above d/w Dr.Leon Leggett gtt increased to 10; Amiodarone 200 mg po bid, one dose stat now ordered colonoscopy cancelled; notified
--- NOTE | 2018-12-15 11:03 | CP.PCM.PN ---
Subjective - Date & Time of Evaluation Date of Evaluation: 12/15/18 Time of Evaluation: 11:01 - Subjective Subjective: Patient was supposed to go for colonoscopy today, but she vomited the prep and then went into A fib again. She could not tolerate the amiodorone pill and immediately vomoited She is on a cardizem drip and the colonoscopy has been cancelled. Objective - Vital Signs/Intake and Output Vital Signs (last 24 hours): Temp Pulse Resp BP Pulse Ox 97.4 F L 120 H 18 124/70 100 12/15/18 08:26 12/15/18 09:35 12/15/18 08:26 12/15/18 09:35 12/15/18 08:26 Intake and Output: 12/15/18 12/15/18 06:59 18:59 Intake Total 87.5 Balance 87.5 - Medications Medications: Current Medications Amiodarone HCl (Cordarone) 200 mg PO BID [facility] Last Admin: 12/15/18 09:35 Dose: 200 mg Benzocaine/Menthol (Cepacol Sore Throat) 1 juan manuel PO Q3 PRN PRN Reason: Sore Throat Last Admin: 12/10/18 18:25 Dose: 1 juan manuel Docusate Sodium (Colace) 100 mg PO BID [facility] Last Admin: 12/15/18 08:44 Dose: Not Given Lactated Ringer's (Lactated Ringer's) 1,000 mls @ 60 mls/hr IV .[id number] [facility] Last Admin: 12/14/18 21:10 Dose: 60 mls/hr Diltiazem HCl 125 mg/ Sodium (Chloride) 125 mls @ 10 mls/hr IV .[id number] ONE; Protocol Stop: 12/15/18 21:47 Lactulose (Enulose) 20 gm PO DAILY PRN PRN Reason: Constipation Last Admin: 12/12/18 11:21 Dose: 20 gm Levetiracetam (Keppra) 500 mg PO BID [facility] Last Admin: 12/15/18 08:58 Dose: 500 mg Ondansetron HCl (Zofran Inj) 4 mg IVP Q6 PRN PRN Reason: Nausea/Vomiting Last Admin: 12/15/18 08:58 Dose: 4 mg - Labs Labs: 12/12/18 12:52 12/12/18 12:52
--- NOTE | 2018-12-15 11:52 | RAD ---
Date of service: 12/15/2018 HISTORY: pre op COMPARISON: No prior. FINDINGS: LUNGS: No active pulmonary disease. PLEURA: No significant pleural effusion identified, no pneumothorax apparent. CARDIOVASCULAR: No aortic atherosclerotic calcification present. Normal cardiac size. No pulmonary vascular congestion. OSSEOUS STRUCTURES: No significant abnormalities. VISUALIZED UPPER ABDOMEN: Normal. OTHER FINDINGS: None. IMPRESSION: No active disease.
--- NOTE | 2018-12-15 12:46 | CARD ---
APPROVED REPORT Date of service: 12/15/2018 EKG Measurement Heart [id number] <Conclusion> Atrial flutter with variable AV block with premature ventricular or aberrantly conducted complexes Lead misplacement between I and aVR Marked ST abnormality, consider lateral ischemia Abnormal ECG
[2018-12-15 13:10] LABS: INR 1.2; PROTHROMBIN TIME 13.7 Seconds (9.8-13.1)
[2018-12-15 13:13] LABS: PARTIAL THROMBOPLASTIN TIME 27.7 Seconds (25.6-37.1)
--- NOTE | 2018-12-15 13:14 | CP.PCM.PN ---
Subjective - Date & Time of Evaluation Date of Evaluation: 12/15/18 Time of Evaluation: 13:08 - Subjective Subjective: Called this am regarding recurrent atrial fibrillation. Pt has had several episodes of PAF some while off the Cardiazem gtt and on the Cardiazem gtt with ? regarding the IV access. I evaluated pt and EKG reveals atrial flutter at a hear t rate of 150 bpm with diffuse infero-lateral st-t depressions. Pt was given Cardiazem bolus and gtt increased to 15mg/hr without significant HR response. She has also given IV Digoxin .5mg. Laboratory studies including Hb are pending. Pt vomited PP Amiodarone which was ordered yesterday. Pt is alert verbal and denies cp or sob. I evaluated pt with and recommended she be transferred to ICU for further monitoring and starting an IV Amiodarone gtt. Tfts reveal mild hypothyroidism. Objective - Vital Signs/Intake and Output Vital Signs (last 24 hours): Temp Pulse Resp BP Pulse Ox 97.4 F L 150 H 20 124/70 99 12/15/18 12:25 12/15/18 13:07 12/15/18 13:07 12/15/18 13:07 12/15/18 13:07 Intake and Output: 12/15/18 12/15/18 06:59 18:59 Intake Total 87.5 Balance 87.5 - Medications Medications: Current Medications Benzocaine/Menthol (Cepacol Sore Throat) 1 juan manuel PO Q3 PRN PRN Reason: Sore Throat Last Admin: 12/10/18 18:25 Dose: 1 juan manuel Digoxin (Lanoxin) 0.5 mg IVP ONCE ONE Stop: 12/15/18 12:57 Docusate Sodium (Colace) 100 mg PO BID [facility] Last Admin: 12/15/18 08:44 Dose: Not Given Lactated Ringer's (Lactated Ringer's) 1,000 mls @ 60 mls/hr IV .[id number] [facility] Last Admin: 12/14/18 21:10 Dose: 60 mls/hr Diltiazem HCl 125 mg/ Sodium (Chloride) 125 mls @ 10 mls/hr IV .[id number] ONE; Protocol Stop: 12/15/18 21:47 Amiodarone HCl 150 mg/ (Dextrose) 103 mls @ 6,180 mls/hr IVPB ONCE ONE; Protocol Stop: 12/15/18 13:02 Amiodarone HCl 900 mg/ (Dextrose) 518 mls @ 17.27 mls/hr IV .Q24H [facility]; Protocol Lactulose (Enulose) 20 gm PO DAILY PRN PRN Reason: Constipation Last Admin: 12/12/18 11:21 Dose: 20 gm Levetiracetam (Keppra) 500 mg PO BID [facility] Last Admin: 12/15/18 08:58 Dose: 500 mg Ondansetron HCl (Zofran Inj) 4 mg IVP Q6 PRN PRN Reason: Nausea/Vomiting Last Admin: 12/15/18 08:58 Dose: 4 mg - Labs Labs: 12/12/18 12:52 12/12/18 12:52 - Constitutional Appears: No Acute Distress - Respiratory Exam Respiratory Exam: Clear to Ausculation Bilateral - Cardiovascular Exam Cardiovascular Exam: REGULAR RHYTHM - GI/Abdominal Exam GI & Abdominal Exam: Normal Bowel Sounds - Extremities Exam Extremities Exam: Normal Inspection Assessment and Plan - Assessment and Plan (Free Text) Assessment: Transfer to ICU Start IV Amiodarone Continue IV Cardiazem Establish IV access F/u labs , troponin ECHOcardiogram when stable
[2018-12-15 13:19] LABS: BASO % 0.2 % (0.0-2.0); EOS % 0.3 % (0.0-4.0); HEMOGLOBIN 11.6 g/dL (12.0-16.0); LYMPH # 0.7 K/uL (1.0-4.3); LYMPH % 15.6 % (20.0-40.0); MEAN CELL VOLUME 71.9 fl (81.0-99.0); MEAN CORPUSCULAR HEMOGLOBIN 22.6 pg (27.0-31.0); MEAN CORPUSCULAR HGB CONC 31.4 g/dL (33.0-37.0); MEAN PLATELET VOLUME 7.9 fl (7.2-11.7); MONO # 0.5 K/uL (0.0-0.8); MONO % 11.6 % (0.0-10.0); NEUT # 3.3 K/uL (1.8-7.0); NEUT % 72.3 % (50.0-75.0); RBC 5.11 Mil/uL (3.80-5.20); WHITE BLOOD COUNT 4.5 K/uL (4.8-10.8)
[2018-12-15 13:22] LABS: ALB/GLOB RATIO 0.8 (1.0-2.1); ALBUMIN 3.6 g/dL (3.5-5.0); ALT/SGPT 23 U/L (9-52); AST/SGOT 25 U/L (14-36); BLOOD UREA NITROGEN 45 mg/dl (7-17); CALCIUM 9.6 mg/dL (8.4-10.2); GFR NON-AFRICAN AMERICAN > 60
--- NOTE | 2018-12-15 13:54 | PCM.RRT ---
<Alla Colon - Last Filed: 12/15/18 14:07> [facility] Nurse Assessment - Situation Location: [facility] Room Number: 416-1 [facility] Reason for Call: Tachycardia [facility] Called By: RN - IV IV Inserted during [facility]?: No - Respiratory Oxygen Delivery Method: Room Air Received Nebulizer Treatments: No Was the Patient Ventilated with Bag/Mask 100% O2?: No Secretions Suctioned?: No Was the Patient Intubated?: No Was the Patient Placed on a Ventilator?: No - Medication Medications Administered During [facility]: Cardizem 10mg IVP slowly. Digoxin 0.5mg IVP - Diagnostic Test Ordered EKG: Yes Chest X-Ray: No CT Scan: No - Stat Labs Ordered [facility] Stat Labs Ordered: CBC, BMP, PT/PTT, TROPONIN [facility] Other Labs Ordered: mg, phos CPR started during [facility]?: No - Vital Signs Vital Signs: Rapid Response Vital Sign Blood Pressure 120/75 Pulse Rate 150 Respiratory Rate 18 Temperature 97 F Oxygen Saturation 97 - Vital Signs at end of [facility] Vital Signs at end of [facility]: Rapid Response End Vital Sign Blood Pressure 123/66 Pulse Rate 110 Respiratory Rate 18 Temperature 97 F O2 Sat by Pulse Oximetry 96 - Recommendations [facility] Level of Care Recommendations: Transfer to ICU I.Reason for [facility] - A) Acute Change in Patient: (Select all that apply): Acute change in heart rate less than 50 or greater than 120 - Neurological Status (Select all that apply): Alert, Responsive, Oriented, Verbal, Follows Commands - Respiratory Oxygen Delivery Method: Room Air Oxygen Flow Rate: 2 - Respiratory Exam Respiratory Exam: Clear to Ausculation Bilateral, NORMAL BREATHING PATTERN - Cardiovascular Exam Cardiovascular Exam: Tachycardia, +S1, +S2 - Neurological Exam Neurological Exam: Alert, Awake - Extremities Exam Extremities Exam: Normal Inspection. absent: Calf Tenderness, Pedal Edema Plan - Assessment of Findings&Treatment Plan [facility] called by nurse for tachycardia 68 y/o female who was admitted with anemia and found to have rapid atrial fibrillation. She was started on Cardizam drip 15mg, as well as 0.5mg IV Digoxin , but HR was not responding. Of note, nurse at bedside states patient vomited amiodarone today. Patient denies CP, SOB, palpitations, n/v. She is awake, alert, and responsive. Beginning of [facility]: HR 146 BP 120/66 EKG showed atrial flutter and a.fib Patient given caridzam 5mg IV stat and 0.5mg Digoxin IV STAT CMP, CBC, mag, phos, PT/PTT, troponin ordered Student Counselor, Dr. Luna, at bedside; otto recwilla Patient transferred to ICU for close monitoring and given amiodarone 150mg IV bolus and started on drip. End of [facility] HR 130s, BP117/63 <GermanMarta Galvan - Last Filed: 12/15/18 19:03> [facility] Nurse Assessment - Vital Signs Vital Signs: Rapid Response Vital Sign Blood Pressure 120/66 Pulse Rate 146 Respiratory Rate 18 Temperature 97 F Oxygen Saturation 96 - Vital Signs at end of [facility] Vital Signs at end of [facility]: Rapid Response End Vital Sign Blood Pressure 123/66 Pulse Rate 110 Respiratory Rate 18 Temperature 97 F O2 Sat by Pulse Oximetry 97 Attending/Attestation - Attestation I have personally seen and examined this patient.: Yes I have fully participated in the care of the patient.: Yes I have reviewed all pertinent clinical information, including history, physical exam and plan: Yes Notes (Text): A Fib/Flutter with RVR not responding to Cardizem drip - discussed case with pt's Cardio - DR Luna - IV Digoxinh 0.5 mg stat - start Amiodarone 150 mg bolus followed by drip - will transfer pt to ICU for close monitoring - CBC, CMP, Trop, CoagsDDimer
[2018-12-15] MEDS ORDERED: Amiodarone 150 MG in Sodium Chloride 0.9% 100 ML IVPB ONE (14:00)
[2018-12-15] MEDS ORDERED: Amiodarone 450 MG in Sodium Chloride 0.9% 250 ML IV SCH (14:15)
--- NOTE | 2018-12-15 15:04 | CP.PCM.PN ---
Subjective - Date & Time of Evaluation Date of Evaluation: 12/15/18 Time of Evaluation: 15:01 - Subjective Subjective: Patient had been scheduled for colonoscopy today. Has had two DIRECTOR [employer]IVERSITY over the past 24 hours for tachycardia. Oral prep was stopped yesterday when she was unable to ingest the first bottle of MagCitrate. Objective - Vital Signs/Intake and Output Vital Signs (last 24 hours): Temp Pulse Resp BP Pulse Ox 97.4 F L 81 19 123/60 99 12/15/18 12:25 12/15/18 14:33 12/15/18 14:33 12/15/18 14:33 12/15/18 14:33 Intake and Output: 12/15/18 12/15/18 06:59 18:59 Intake Total 87.5 Balance 87.5 - Medications Medications: Current Medications Benzocaine/Menthol (Cepacol Sore Throat) 1 juan manuel PO Q3 PRN PRN Reason: Sore Throat Last Admin: 12/10/18 18:25 Dose: 1 juan manuel Docusate Sodium (Colace) 100 mg PO BID [facility] Last Admin: 12/15/18 08:44 Dose: Not Given Lactated Ringer's (Lactated Ringer's) 1,000 mls @ 60 mls/hr IV .[id number] [facility] Last Admin: 12/14/18 21:10 Dose: 60 mls/hr Diltiazem HCl 125 mg/ Sodium (Chloride) 125 mls @ 10 mls/hr IV .[id number] ONE; Protocol Stop: 12/15/18 21:47 Last Admin: 12/15/18 13:08 Dose: 10 mg/hr, 10 mls/hr Amiodarone HCl 450 mg/ Sodium (Chloride) 259 mls @ 17.27 mls/hr IV .Q15H [facility]; Protocol Lactulose (Enulose) 20 gm PO DAILY PRN PRN Reason: Constipation Last Admin: 12/12/18 11:21 Dose: 20 gm Levetiracetam (Keppra) 500 mg PO BID [facility] Last Admin: 12/15/18 08:58 Dose: 500 mg Ondansetron HCl (Zofran Inj) 4 mg IVP Q6 PRN PRN Reason: Nausea/Vomiting Last Admin: 12/15/18 08:58 Dose: 4 mg - Labs Labs: 12/15/18 12:58 12/15/18 12:58 PT 13.7 Seconds (9.8-13.1) H 12/15/18 12:58 INR 1.2 12/15/18 12:58 APTT 27.7 Seconds (25.6-37.1) 12/15/18 12:58 - Head Exam Head Exam: ATRAUMATIC - Eye Exam Eye Exam: Normal appearance - ENT Exam ENT Exam: Normal Exam - Neck Exam Neck Exam: Full ROM - Respiratory Exam Respiratory Exam: Clear to Ausculation Bilateral - Cardiovascular Exam Cardiovascular Exam: REGULAR RHYTHM - GI/Abdominal Exam GI & Abdominal Exam: Soft. absent: Tenderness Assessment and Plan (1) Anemia Assessment & Plan: Colonoscopy had to be cancelled today. Will reschedule when cardiac status stabilizes. Status: Acute
[2018-12-15] MEDS: Lactated Ringer's 1,000 ML IV SCH (15:38)
[2018-12-15] MEDS ORDERED: Chlorhexidine Gluconate 1 APPL/PKT TP ONE (15:47)
--- NOTE | 2018-12-15 16:34 | RAD ---
Date of service: 12/15/2018 HISTORY: intractable vomiting COMPARISON: Chest abdomen and pelvis CT dated FINDINGS: BOWEL: Nonobstructive bowel gas pattern noted. Gas is seen in various large-bowel loops at the left lower quadrant predominantly with oral contrast identified within transverse colon distally and rectosigmoid as well. Surgical clips in the right lower quadrant abdomen. No prominent free intrarenal gas collection evident. Hazy density throughout the abdomen may reflect ascites. Clinically correlate further. BONES: Normal. OTHER FINDINGS: None. IMPRESSION: Nonobstructive bowel gas pattern. Postop change right lower quadrant abdomen. Potential ascites. Clinically correlate further.
--- NOTE | 2018-12-15 17:48 | CP.PCM.PN ---
Subjective - Date & Time of Evaluation Date of Evaluation: 12/15/18 Time of Evaluation: 22:22 - Subjective Subjective: Above noted BLASTING CONTRACT MAN Colonoscopy not done Objective - Vital Signs/Intake and Output Vital Signs (last 24 hours): Temp Pulse Resp BP Pulse Ox 97.4 F L 97 H 18 108/55 L 99 12/15/18 12:25 12/15/18 16:33 12/15/18 15:29 12/15/18 16:33 12/15/18 15:29 Intake and Output: 12/15/18 12/15/18 06:59 18:59 Intake Total 87.5 Balance 87.5 - Medications Medications: Current Medications Benzocaine/Menthol (Cepacol Sore Throat) 1 juan manuel PO Q3 PRN PRN Reason: Sore Throat Last Admin: 12/10/18 18:25 Dose: 1 juan manuel Docusate Sodium (Colace) 100 mg PO BID [facility] Last Admin: 12/15/18 17:24 Dose: Not Given Lactated Ringer's (Lactated Ringer's) 1,000 mls @ 60 mls/hr IV .[id number] [facility] Last Admin: 12/15/18 15:38 Dose: 60 mls/hr Diltiazem HCl 125 mg/ Sodium (Chloride) 125 mls @ 10 mls/hr IV .[id number] ONE; Protocol Stop: 12/15/18 21:47 Last Admin: 12/15/18 13:08 Dose: 10 mg/hr, 10 mls/hr Amiodarone HCl 450 mg/ Sodium (Chloride) 259 mls @ 17.27 mls/hr IV .Q15H [facility]; Protocol Last Admin: 12/15/18 15:47 Dose: 0.5 mg/min, 17.27 mls/hr Lactulose (Enulose) 20 gm PO DAILY PRN PRN Reason: Constipation Last Admin: 12/12/18 11:21 Dose: 20 gm Levetiracetam (Keppra) 500 mg PO BID [facility] Last Admin: 12/15/18 17:24 Dose: Not Given Ondansetron HCl (Zofran Inj) 4 mg IVP Q6 PRN PRN Reason: Nausea/Vomiting Last Admin: 12/15/18 15:18 Dose: 4 mg - Labs Labs: 12/15/18 12:58 12/15/18 12:58 PT 13.7 Seconds (9.8-13.1) H 12/15/18 12:58 INR 1.2 12/15/18 12:58 APTT 27.7 Seconds (25.6-37.1) 12/15/18 12:58 - Respiratory Exam Respiratory Exam: NORMAL BREATHING PATTERN - Cardiovascular Exam Cardiovascular Exam: REGULAR RHYTHM - GI/Abdominal Exam GI & Abdominal Exam: Normal Bowel Sounds Assessment and Plan - Assessment and Plan (Free Text) Assessment: A fib with RVR Amiodorone started Cardiazem ICU Cardiology Microcytic hypochromic anemia chronic blood loss GI?? Hx Ca Colon Ct scan enterocolitis Hematology GI colonoscopy
[2018-12-15] MEDS: Potassium CL 10mEq/100ml 100 ML IVPB SCH ×2 (21:23→22:33)
[2018-12-15] MEDS: Benzocaine/Menthol (Cepacol) Lozenge PO PRN (21:23)
[2018-12-15] MEDS: Amiodarone 450 MG in Sodium Chloride 0.9% 250 ML IV SCH (21:51)
[2018-12-15] MEDS: Digoxin 500 mcg/2ml (0.5 mg/2ml) Inj IVP SCH (22:34)
[2018-12-16] MEDS: Potassium CL 10mEq/100ml 100 ML IVPB SCH ×2 (01:01→02:10)
[2018-12-16] MEDS: Digoxin 500 mcg/2ml (0.5 mg/2ml) Inj IVP SCH (02:11)
[2018-12-16] MEDS: Amiodarone 450 MG in Sodium Chloride 0.9% 250 ML IV SCH ×2 (03:29→20:57)
--- NOTE | 2018-12-16 06:04 | PN ---
DATE: 12/15/2018 CRITICAL CARE CONSULTATION LOCATION: The patient in ICU, bed 430. TIME SPENT: 40 minutes. The patient is seen and evaluated at the bedside. Past medical, surgical, family, and social history are reviewed. The case has been discussed with cardiology consult, Dr. Luna. SUBJECTIVE: Ms. Weiner is a 68-year-old female with history significant for colon cancer, status post resection and chemotherapy, noted to have weight loss with anemia 10 months ago. A repeat CT abdomen shows a mass close to the bladder, seen by urology consult, reportedly benign. The patient was readmitted because of loss of her weight and generalized weakness, noted to have significant drop in her hemoglobin, status post transfusion packed red blood cells. CT chest, abdomen, and pelvis showed diffuse enterocolitis, more so involving the ileum and the ascending colon, being evaluated by GI consult. Colonoscopy pending for stable cardiac rhythm. Hospital course complicated with rapid atrial fibrillation, refractory to Cardizem drip, status post CELERY WRAPPER today, transferred to ICU on status post digoxin. Cardizem 10 mg IV push, Cardizem drip, and on amiodarone. ALLERGIES: NONE DOCUMENTED. CURRENT MEDICATIONS: Include amiodarone 150 mg bolus followed by 450 mg at 17.2 mL/hour, benzocaine lozenges every 3 hours p.r.n., diltiazem 10 mg IV every 12 hours, Colace 100 mg p.o. twice daily, Ringers lactate 60 mL/hour, lactulose 20 g p.o. daily, Keppra 500 mg twice daily, Zofran 4 mg IV every 6 hours p.r.n. PHYSICAL EXAMINATION: VITAL SIGNS: Temperature 97.4; heart rate 107 to 150, irregular; blood pressure 124/70; respiratory rate 20; oxygen saturation 99%, oxygen on 2 liters nasal canula. Intake 647.5 mL, output 850 mL, negative balance 202 mL, weight 79 pounds. HEAD, EYES, EARS, NOSE, AND THROAT: Pupils are reactive. Conjunctivae pale. Sclerae anicteric. Trachea central. CHEST: Bilateral breath sounds, clear to auscultation. HEART: Rhythm irregular, rapid. No audible murmur. ABDOMEN: Bowel sounds are present,mild distension,. Soft., No rebound tenderness. EXTREMITIES: No clubbing, cyanosis. Trace edema. NEUROLOGIC: Alert, awake; oriented to name, place, and time. No cranial nerve deficit. No sensory impairment. Deep tendon reflex 2+ bilaterally, plantar flexor. LABORATORY DATA: WBC 4.5, hemoglobin 11.6, hematocrit 36.7, platelet count 410, neutrophil 72.3, lymphocytes 15.6, monocytes 11.6. PT 13.7, INR 1.2, PTT 27.7, D-dimer is 684. SMA-7: Sodium 138, potassium 3.2, chloride 86, CO2 of 36, blood urea nitrogen 45, creatinine 0.8, random glucose 133, calcium 9.6, phosphorus 3.3, magnesium 2.2, total bilirubin 0.5, AST 25, ALT 23, alkaline phosphatase 83, troponin 0.015, total protein is 7.8, albumin is 3.6, CA 19-9 of 38.4, carcinoembryonic antigen 222, TSH 7.14. IMPRESSION: A 68-year-old female admitted with generalized weakness and severe anemia, elevated carcinoembryonic antigen and carbohydrate antigen 19. CT of the abdomen shows enterocolitis, being evaluated by Oncology, and colonoscopy pending by gastrointestinal Dr. Esposito. Atrial fibrillation with rapid ventricular response refractory to Cardizem and digoxin. Currently started on amiodarone. Blood pressure remains controlled, mild hypothyroidism given underlying gastrointestinal malignancy, risk from deep venous thrombosis and/or pulmonary embolism is being considered. However, anticoagulation can not be initiated because of the severe anemia and suspected gastrointestinal bleeding. PLAN: We will continue the Ringers lactate at 60 mL, amiodarone drip, Diltiazem. Continue preparation for colonoscopy.NG tube insertion, low intermittent wall suction. Surgery consult called. The patient remains seizure-free. Currently on Keppra 500 mg p.o. twice daily. Taz Chaparro MD MTDD
[2018-12-16 06:41] LABS: HEMOGLOBIN 11.9 g/dL (12.0-16.0); MEAN CELL VOLUME 72.7 fl (81.0-99.0); MEAN CORPUSCULAR HEMOGLOBIN 22.6 pg (27.0-31.0); MEAN CORPUSCULAR HGB CONC 31.1 g/dL (33.0-37.0); RBC 5.26 Mil/uL (3.80-5.20); RED CELL DISTRIBUTION WIDTH 27.1 % (11.5-14.5); WHITE BLOOD COUNT 6.2 K/uL (4.8-10.8)
[2018-12-16] MEDS: Lactated Ringer's 1,000 ML IV SCH (06:51)
[2018-12-16 07:07] LABS: ALB/GLOB RATIO 0.8 (1.0-2.1); ALBUMIN 3.5 g/dL (3.5-5.0); ALT/SGPT 27 U/L (9-52); AST/SGOT 29 U/L (14-36); BLOOD UREA NITROGEN 47 mg/dl (7-17); CALCIUM 9.6 mg/dL (8.4-10.2); GFR NON-AFRICAN AMERICAN > 60
--- NOTE | 2018-12-16 08:07 | CP.PCM.PN ---
Subjective - Date & Time of Evaluation Date of Evaluation: 12/16/18 Time of Evaluation: 08:03 - Subjective Subjective: Patient is still having a problem keeping anything down. She continues to have aA Fib with rapid ventricular resoponse. 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 A flat plate abdomen done yesterday did not show evidence of obstrucrtion. Will have a colonoscopy when stable Objective - Vital Signs/Intake and Output Vital Signs (last 24 hours): Temp Pulse Resp BP Pulse Ox 97.4 F L 90 14 127/68 99 12/15/18 12:25 12/16/18 07:00 12/16/18 07:00 12/16/18 07:00 12/16/18 07:00 Intake and Output: 12/16/18 12/16/18 06:59 18:59 Intake Total 975 Output Total 750 Balance 225 - Medications Medications: Current Medications Benzocaine/Menthol (Cepacol Sore Throat) 1 juan manuel PO Q3 PRN PRN Reason: Sore Throat Last Admin: 12/15/18 21:23 Dose: 1 juan manuel Docusate Sodium (Colace) 100 mg PO BID [facility] Last Admin: 12/15/18 17:24 Dose: Not Given Lactated Ringer's (Lactated Ringer's) 1,000 mls @ 60 mls/hr IV .[id number] [facility] Last Admin: 12/16/18 06:51 Dose: Not Given Amiodarone HCl 450 mg/ Sodium (Chloride) 259 mls @ 34.53 mls/hr IV .[id number] [facility]; Protocol Last Admin: 12/16/18 03:29 Dose: 0.49 mg/min, 17.2 mls/hr Lactulose (Enulose) 20 gm PO DAILY PRN PRN Reason: Constipation Last Admin: 12/12/18 11:21 Dose: 20 gm Levetiracetam (Keppra) 500 mg PO BID [facility] Last Admin: 12/15/18 17:24 Dose: Not Given Ondansetron HCl (Zofran Inj) 4 mg IVP Q6 PRN PRN Reason: Nausea/Vomiting Last Admin: 12/15/18 15:18 Dose: 4 mg - Labs Labs: 12/16/18 04:30 12/16/18 04:30 PT 13.7 Seconds (9.8-13.1) H 12/15/18 12:58 INR 1.2 12/15/18 12:58 APTT 27.7 Seconds (25.6-37.1) 12/15/18 12:58
[2018-12-16] MEDS ORDERED: Digoxin 500 mcg/2ml (0.5 mg/2ml) Inj IVP ONE (10:23)
[2018-12-16] MEDS: levETIRAcetam 500 MG in Sodium Chloride 0.9% 100 ML IVPB SCH ×2 (11:40→20:59)
[2018-12-16] MEDS: Potassium Chl 40 mEq in D5-NS 1,000 ML IV SCH (11:43)
--- NOTE | 2018-12-16 16:30 | CP.PCM.CON ---
History of Present Illness - History of Present Illness History of Present Illness: Surgery Consult Note- Dr. Gaston Reason for Consult: IV Access 68F hx of colon ca s/p R. Hemicolectomy admitted for anemia, hospital stay transfused 2u PRBC hgb responded appropriately, pt went into a.fib transferred to ICU on amiodarone ggt. Surgery consulted for IV Access. Pt seen and examined. had functioning IV access, no central line required at this time. 12 pt ROS conducted, negative otherwise stated above Review of Systems - Review of Systems All systems: reviewed and no additional remarkable complaints except - Constitutional Constitutional: As Per HPI Past Patient History - Infectious Disease Hx of Infectious Diseases: None - Past Medical History & Family History Past Medical History?: Yes - Past Social History Smoking Status: Former Smoker - CARDIAC Hx Cardiac Disorders: Yes Hx Atrial Fibrillation: Yes (after colonoscopy) - PULMONARY Hx Respiratory Disorders: No - NEUROLOGICAL Hx Neurological Disorder: Yes Hx Seizures: Yes (epilepsy PETITE MAL LAST 6 YEARS AGO) - HEENT Hx HEENT Problems: Yes Hx Cataracts: Yes (BILAT IOL) - RENAL Hx Chronic Kidney Disease: No - ENDOCRINE/METABOLIC Hx Endocrine Disorders: No - HEMATOLOGICAL/ONCOLOGICAL Hx Blood Disorders: Yes Hx AIDS: No Hx Anemia: Yes Hx Blood Transfusions: Yes Hx Human Immunodeficiency Virus (HIV): No - INTEGUMENTARY Hx Dermatological Problems: No - MUSCULOSKELETAL/RHEUMATOLOGICAL Hx Musculoskeletal Disorders: No Hx Falls: No - GASTROINTESTINAL Hx Gastrointestinal Disorders: Yes Hx Bowel Surgery: Yes (COLON RESECTION 6 YEARS AGO) Other/Comment: COLON CANCER 2010 - GENITOURINARY/GYNECOLOGICAL Hx Genitourinary Disorders: Yes (BLADDER CYST PER PT) Other/Comment: Pelvic mass (07/2018) - PSYCHIATRIC Hx Psychophysiologic Disorder: No Hx Substance Use: No - SURGICAL HISTORY Hx Surgeries: Yes Hx Cataract Extraction: Yes - ANESTHESIA Hx Anesthesia: Yes Hx Anesthesia Reactions: No Hx Malignant Hyperthermia: No Meds Allergies/Adverse Reactions: Allergies Allergy/AdvReac Type Severity Reaction Status Date / Time cortisone Allergy Intermediate RASH Verified 12/05/18 18:41 shrimp Allergy Intermediate SWELLING Verified 12/05/18 18:41 strawberry Allergy Intermediate RASH Verified 12/05/18 18:41 - Medications Medications: Current Medications Benzocaine/Menthol (Cepacol Sore Throat) 1 juan manuel PO Q3 PRN PRN Reason: Sore Throat Last Admin: 12/15/18 21:23 Dose: 1 juan manuel Potassium Chloride/Dextrose/Sod Cl (D5-Ns1l+40meq Kcl) 1,000 mls @ 50 mls/hr IV .Q20H [facility] Stop: 12/17/18 09:51 Last Admin: 12/16/18 11:43 Dose: 50 mls/hr Levetiracetam 500 mg/ Sodium (Chloride) 105 mls @ 210 mls/hr IVPB Q12 [facility] Last Admin: 12/16/18 11:40 Dose: 210 mls/hr Amiodarone HCl 450 mg/ Sodium (Chloride) 259 mls @ 17.27 mls/hr IV .Q15H [facility]; Protocol Lactulose (Enulose) 20 gm PO DAILY PRN PRN Reason: Constipation Last Admin: 12/12/18 11:21 Dose: 20 gm Ondansetron HCl (Zofran Inj) 4 mg IVP Q6 PRN PRN Reason: Nausea/Vomiting Last Admin: 12/15/18 15:18 Dose: 4 mg Pantoprazole Sodium (Protonix Inj) 40 mg IVP DAILY [facility] Last Admin: 12/16/18 11:14 Dose: 40 mg Physical Exam - Constitutional Appears: Non-toxic, No Acute Distress, Chronically Ill - Head Exam Head Exam: ATRAUMATIC - Eye Exam Eye Exam: Scleral icterus. absent: EOMI - ENT Exam ENT Exam: Mucous Membranes Moist - Respiratory Exam Respiratory Exam: NORMAL BREATHING PATTERN. absent: Accessory Muscle Use, Respiratory Distress - Cardiovascular Exam Cardiovascular Exam: Irregular Rhythm, REGULAR RHYTHM. absent: Bradycardia, Tachycardia - GI/Abdominal Exam GI & Abdominal Exam: Soft. absent: Guarding, Rigid, Tenderness - Neurological Exam Neurological exam: Alert - Psychiatric Exam Psychiatric exam: Normal Affect - Skin Skin Exam: Intact, Warm Results - Vital Signs Recent Vital Signs: Last Vital Signs Temp 98 F 12/16/18 12:00 Pulse 90 12/16/18 14:00 Resp 18 12/16/18 14:00 BP 123/61 12/16/18 14:00 Pulse Ox 100 12/16/18 14:00 - Labs Result Diagrams: 12/16/18 04:30 12/16/18 04:30 Labs: Laboratory Results - last 24 hr 12/16/18 12/16/18 12/16/18 04:30 04:30 11:13 WBC 6.2 RBC 5.26 H Hgb 11.9 L Hct 38.2 MCV 72.7 L MCH 22.6 L MCHC 31.1 L RDW 27.1 H Plt Count 440 H Sodium 138 Potassium 4.7 Chloride 86 L Carbon Dioxide 34 H Anion Gap 23 H BUN 47 H Creatinine 0.7 Est GFR ( Amer) > 60 Est GFR (Non-Af Amer) > 60 POC Glucose (mg/dL) 111 H Random Glucose 124 H Calcium 9.6 Total Bilirubin 0.6 AST 29 ALT 27 Alkaline Phosphatase 79 Total Protein 7.8 Albumin 3.5 Globulin 4.3 H Albumin/Globulin Ratio 0.8 L Assessment & Plan - Assessment and Plan (Free Text) Assessment: 68F surgery consulted for IV Access Plan: - no additional IV access required - continued medical management per critical care and ICU team - no acute intervention needed at this time - please re-consult surgery as needed - further recs per Dr. Gaston surgical attending PGY2
--- NOTE | 2018-12-16 18:42 | PN ---
DATE: 12/16/2018 CRITICAL ROOM CARE PROGRESS NOTE LOCATION: The patient in ICU, bed 425. TIME SPENT: 45 minutes. The patient is seen and evaluated at the bedside. Past medical, surgical, family, and social history are reviewed. SUBJECTIVE: Ms. Weiner is a 68-year-old female with a history significant for colon cancer, status post resection and chemotherapy years ago, admitted with weight loss and anemia, status post transfusion packed red blood cells. Noted to have atrial fibrillation with rapid ventricular response, on amiodarone drip overnight, abdominal distention, status post NG tube insertion, drained large amount of greenish fluid. Telemetry showed sinus rhythm, normotensive, afebrile. This morning, alert, awake, still complaining of nausea. No bowel movement and she is with minimal drainage. PHYSICAL EXAMINATION: VITAL SIGNS: Temperature 97.5; heart rate 91 to 84, regular; blood pressure 135/73; mean arterial pressure 93, respirations 18 thoracoabdominal; saturation 100% on oxygen supplement 2 liters nasal cannula. Intake 1794, output 2150, negative balance 356 and weight 76 pounds. HEAD, EYES, EARS, NOSE AND THROAT: Pupils are reactive, conjunctivae are pale, sclerae anicteric. NECK: Tracheal central. CHEST: Bilateral breath sounds. Clear to auscultation. HEART: Rhythm regular. No audible murmur. ABDOMEN: Mild abdominal distention, soft, mild tenderness in the lower quadrant. EXTREMITIES: No clubbing, cyanosis and trace edema. NEUROLOGIC: Alert and awake, but anxious. No cranial nerve deficits. No motor or sensory impairment. Deep tendon reflex 2+ bilaterally. Plantar flexor. CURRENT MEDICATIONS: Amiodarone drip at 0.5 mg per minute,Cepacol lozenges one lozenge p.o. every 3 hours p.r.n., lactulose 20 g NG daily, Keppra 500 mg IV every 12 hours, Zofran 4 mg IV every 6 hours p.r.n., Protonix 40 IV daily, D5 normal with 40 of KCl at 50 mL/hour. LABORATORY DATA: WBC 6.2, hemoglobin 11.9, hematocrit 38.2, platelet count 440. PT 13.7, INR 1.2, PTT 27.7. SMA-7: Sodium 138, potassium 4.7, chloride 86, CO2 of 34, blood urea nitrogen 47, creatinine 0.7, random glucose 111, calcium 9.6, phosphorus 3.3, magnesium 2.2, total bilirubin 0.6, AST 29, ALT 27, alkaline phosphatase 79, troponin less than 0.0150, total protein is 7.8, albumin is 3.5, TSH 7.14, T4 7.84. CEA 222, CA 19-9 of 38.4. Microbiology none reported. Abdominal x-ray nonobstructive bowel gas pattern in various large bowel loops at the left lower quadrant predominantly with oral contrast identified within the transverse colon distally and rectosigmoid as well, surgical clip in the right lower quadrant, no prominent pre-intrarenal gas. Hazy density throughout the abdomen, likely ascites. IMPRESSION: 1. Neurologic: Alert, awake, follows some commands appropriate, underlying anxiety disorder. 2. Pulmonary: No acute issues noted. No new infiltrate. 3. Cardiac, new onset atrial fibrillation, now converted to sinus rhythm, on amiodarone and digoxin. We will continue amiodarone drip. Remains normotensive. 4. GI: History of colon cancer status post resection and chemo, repeat CT shows enterocolitis with inflammatory changes in the proximal small bowel and jejunum, cholelithiasis without evidence of cholecystitis.Ileus with with gastric distension. on NG suction. GI follow up 5. Hematology: No leukocytosis, status post transfusion packed red blood cells. Hemoglobin remains stable at 11.9, normal platelet count. 6. Renal: Mild prerenal azotemia. Continue intravenous hydration. Hypokalemia corrected. 7. Endocrine: Mild hypothyroidism, elevated TSH, but normal T4, likely early hypothyroidism. 8. Keep her head of bed at 30 degrees up, nasogastric tube, low wall intermittent suction. Deep venous thrombosis prophylaxis. Follow up gastrointestinal and cardiology consult. Monitor for electrolyte abnormalities. Colonoscopy pending. Taz Chaparro MD MTDD
--- NOTE | 2018-12-16 23:30 | CP.PCM.PN ---
Subjective - Date & Time of Evaluation Date of Evaluation: 12/16/18 Time of Evaluation: 23:28 - Subjective Subjective: Patient transferred to ICU for Afib with rapid ventricular response. Had vomiting, NG inserted, and 1000 cc brown liquid was aspirated. Now draining very little. Objective - Vital Signs/Intake and Output Vital Signs (last 24 hours): Temp Pulse Resp BP Pulse Ox 97.6 F 88 14 116/59 L 99 12/16/18 20:00 12/16/18 21:00 12/16/18 21:00 12/16/18 21:00 12/16/18 21:00 Intake and Output: 12/16/18 12/17/18 18:59 06:59 Intake Total 707 100 Output Total 500 Balance 207 100 - Medications Medications: Current Medications Benzocaine/Menthol (Cepacol Sore Throat) 1 juan manuel PO Q3 PRN PRN Reason: Sore Throat Last Admin: 12/15/18 21:23 Dose: 1 juan manuel Potassium Chloride/Dextrose/Sod Cl (D5-Ns1l+40meq Kcl) 1,000 mls @ 50 mls/hr IV .Q20H LILLIAN Stop: 12/17/18 09:51 Last Admin: 12/16/18 11:43 Dose: 50 mls/hr Levetiracetam 500 mg/ Sodium (Chloride) 105 mls @ 210 mls/hr IVPB Q12 LILLIAN Last Admin: 12/16/18 20:59 Dose: 210 mls/hr Amiodarone HCl 450 mg/ Sodium (Chloride) 259 mls @ 17.27 mls/hr IV .Q15H LILLIAN; Protocol Last Admin: 12/16/18 20:57 Dose: 0.5 mg/min, 17.27 mls/hr Lactulose (Enulose) 20 gm PO DAILY PRN PRN Reason: Constipation Last Admin: 12/12/18 11:21 Dose: 20 gm Ondansetron HCl (Zofran Inj) 4 mg IVP Q6 PRN PRN Reason: Nausea/Vomiting Last Admin: 12/15/18 15:18 Dose: 4 mg Pantoprazole Sodium (Protonix Inj) 40 mg IVP DAILY LILLIAN Last Admin: 12/16/18 11:14 Dose: 40 mg - Labs Labs: 12/16/18 04:30 12/16/18 04:30 PT 13.7 Seconds (9.8-13.1) H 12/15/18 12:58 INR 1.2 12/15/18 12:58 APTT 27.7 Seconds (25.6-37.1) 12/15/18 12:58 - Head Exam Head Exam: ATRAUMATIC - Eye Exam Eye Exam: Normal appearance - Neck Exam Neck Exam: Normal Inspection - Respiratory Exam Respiratory Exam: Clear to Ausculation Bilateral - Cardiovascular Exam Cardiovascular Exam: REGULAR RHYTHM - GI/Abdominal Exam GI & Abdominal Exam: Soft. absent: Tenderness Assessment and Plan (1) Anemia Assessment & Plan: NG tube in place at present draini very little. If drainage continues to be minimal may remove and give liquid diet in AM. Colonoscopy when cleared by cardiology. Status: Acute
--- NOTE | 2018-12-16 23:39 | CP.PCM.PN ---
Subjective - Date & Time of Evaluation Date of Evaluation: 12/16/18 Time of Evaluation: 22:22 - Subjective Subjective: Afib converted to NSR NGT minimal drainage browish colored Hbg stable D/W staff in detail Objective - Vital Signs/Intake and Output Vital Signs (last 24 hours): Temp Pulse Resp BP Pulse Ox 97.6 F 88 14 116/59 L 99 12/16/18 20:00 12/16/18 21:00 12/16/18 21:00 12/16/18 21:00 12/16/18 21:00 Intake and Output: 12/16/18 12/17/18 18:59 06:59 Intake Total 707 100 Output Total 500 Balance 207 100 - Medications Medications: Current Medications Benzocaine/Menthol (Cepacol Sore Throat) 1 juan manuel PO Q3 PRN PRN Reason: Sore Throat Last Admin: 12/15/18 21:23 Dose: 1 juan manuel Potassium Chloride/Dextrose/Sod Cl (D5-Ns1l+40meq Kcl) 1,000 mls @ 50 mls/hr IV .Q20H LILLIAN Stop: 12/17/18 09:51 Last Admin: 12/16/18 11:43 Dose: 50 mls/hr Levetiracetam 500 mg/ Sodium (Chloride) 105 mls @ 210 mls/hr IVPB Q12 LILLIAN Last Admin: 12/16/18 20:59 Dose: 210 mls/hr Amiodarone HCl 450 mg/ Sodium (Chloride) 259 mls @ 17.27 mls/hr IV .Q15H LILLIAN; Protocol Last Admin: 12/16/18 20:57 Dose: 0.5 mg/min, 17.27 mls/hr Lactulose (Enulose) 20 gm PO DAILY PRN PRN Reason: Constipation Last Admin: 12/12/18 11:21 Dose: 20 gm Ondansetron HCl (Zofran Inj) 4 mg IVP Q6 PRN PRN Reason: Nausea/Vomiting Last Admin: 12/15/18 15:18 Dose: 4 mg Pantoprazole Sodium (Protonix Inj) 40 mg IVP DAILY LILLIAN Last Admin: 12/16/18 11:14 Dose: 40 mg - Labs Labs: 12/16/18 04:30 12/16/18 04:30 PT 13.7 Seconds (9.8-13.1) H 12/15/18 12:58 INR 1.2 12/15/18 12:58 APTT 27.7 Seconds (25.6-37.1) 12/15/18 12:58 - Respiratory Exam Respiratory Exam: NORMAL BREATHING PATTERN - Cardiovascular Exam Cardiovascular Exam: REGULAR RHYTHM - GI/Abdominal Exam GI & Abdominal Exam: Normal Bowel Sounds Assessment and Plan - Assessment and Plan (Free Text) Assessment: A fib with RVR converted to NSR Amiodorone Cardiazem ICU Cardiology NGT brownish colored IVF monitor labs GI Microcytic hypochromic anemia chronic blood loss GI?? Hx Ca Colon Ct scan enterocolitis Hematology GI colonoscopy
[2018-12-17 06:28] LABS: HEMOGLOBIN 10.9 g/dL (12.0-16.0); MEAN CELL VOLUME 73.8 fl (81.0-99.0); MEAN CORPUSCULAR HEMOGLOBIN 22.5 pg (27.0-31.0); MEAN CORPUSCULAR HGB CONC 30.5 g/dL (33.0-37.0); RBC 4.86 Mil/uL (3.80-5.20); RED CELL DISTRIBUTION WIDTH 27.2 % (11.5-14.5); WHITE BLOOD COUNT 5.9 K/uL (4.8-10.8)
[2018-12-17 06:37] LABS: ALB/GLOB RATIO 0.7 (1.0-2.1); ALBUMIN 3.1 g/dL (3.5-5.0); ALT/SGPT 17 U/L (9-52); AST/SGOT 24 U/L (14-36); BLOOD UREA NITROGEN 35 mg/dl (7-17); CALCIUM 9.1 mg/dL (8.4-10.2); GFR NON-AFRICAN AMERICAN > 60
[2018-12-17] MEDS: levETIRAcetam 500 MG in Sodium Chloride 0.9% 100 ML IVPB SCH ×2 (08:47→20:59)
[2018-12-17] MEDS: Potassium Chl 40 mEq in D5-NS 1,000 ML IV SCH (08:50)
[2018-12-17] MEDS: Benzocaine/Menthol (Cepacol) Lozenge PO PRN (08:51)
[2018-12-17] MEDS ORDERED: Lactated Ringer's 1,000 ML IV SCH (09:15)
--- NOTE | 2018-12-17 09:52 | CP.PCM.PN ---
<MerchantClaude - Last Filed: 12/17/18 11:56> Subjective - Date & Time of Evaluation Date of Evaluation: 12/17/18 Time of Evaluation: 09:49 - Subjective Subjective: Surgery Progress note- Dr. Gaston Patient seen and examined at bedside. NGT 600cc dark bilious, ?feculent output, output has decreased overnight. Nursing this AM found NGT has slide out a little and was advanced and slight increase in output. states mild generalized abdominal pain. soft, non-periotneal. + bowel movement last night, states cannot recall flatus. Denies fevers, chills, nausea, vomiting. currently in NSR on Amio ggt Objective - Vital Signs/Intake and Output Vital Signs (last 24 hours): Temp Pulse Resp BP Pulse Ox 98.1 F 101 H 22 126/50 L 100 12/17/18 08:00 12/17/18 08:00 12/17/18 08:00 12/17/18 08:00 12/17/18 08:00 Intake and Output: 12/17/18 12/17/18 06:59 18:59 Intake Total 700 100 Output Total 100 Balance 600 100 - Medications Medications: Current Medications Benzocaine/Menthol (Cepacol Sore Throat) 1 juan manuel PO Q3 PRN PRN Reason: Sore Throat Last Admin: 12/17/18 08:51 Dose: 1 juan manuel Digoxin (Lanoxin) 0.125 mg IVP ONCE ONE Stop: 12/17/18 11:01 Potassium Chloride/Dextrose/Sod Cl (D5-Ns1l+40meq Kcl) 1,000 mls @ 50 mls/hr IV .Q20H LILLIAN Stop: 12/17/18 09:51 Last Admin: 12/17/18 08:50 Dose: 50 mls/hr Levetiracetam 500 mg/ Sodium (Chloride) 105 mls @ 210 mls/hr IVPB Q12 LILLIAN Last Admin: 12/17/18 08:47 Dose: 210 mls/hr Amiodarone HCl 450 mg/ Sodium (Chloride) 259 mls @ 17.27 mls/hr IV .Q15H LILLIAN; Protocol Last Admin: 12/16/18 20:57 Dose: 0.5 mg/min, 17.27 mls/hr Potassium Chloride/Dextrose/Sod Cl (Potassium Chl 20 Meq In D5-1/2ns) 1,000 mls @ 70 mls/hr IV .[id number] LILLIAN Lactated Ringer's (Lactated Ringer's) 1,000 mls @ 70 mls/hr IV .[id number] LILLIAN Stop: 12/17/18 23:32 Lactulose (Enulose) 20 gm PO DAILY PRN PRN Reason: Constipation Last Admin: 12/12/18 11:21 Dose: 20 gm Ondansetron HCl (Zofran Inj) 4 mg IVP Q6 PRN PRN Reason: Nausea/Vomiting Last Admin: 12/17/18 05:51 Dose: 4 mg Pantoprazole Sodium (Protonix Inj) 40 mg IVP DAILY LILLIAN Last Admin: 12/17/18 08:50 Dose: 40 mg - Labs Labs: 12/17/18 05:00 12/17/18 05:00 PT 13.7 Seconds (9.8-13.1) H 12/15/18 12:58 INR 1.2 12/15/18 12:58 APTT 27.7 Seconds (25.6-37.1) 12/15/18 12:58 - Constitutional Appears: Non-toxic, No Acute Distress - Head Exam Head Exam: ATRAUMATIC - Eye Exam Eye Exam: EOMI. absent: Scleral icterus - ENT Exam ENT Exam: Mucous Membranes Moist - Respiratory Exam Respiratory Exam: NORMAL BREATHING PATTERN. absent: Accessory Muscle Use, Respiratory Distress - Cardiovascular Exam Cardiovascular Exam: Tachycardia, Irregular Rhythm. absent: Bradycardia - GI/Abdominal Exam GI & Abdominal Exam: Distended, Soft, Tenderness (mild tenderness). absent: Firm, Guarding, Rigid - Neurological Exam Neurological Exam: Alert, Awake, Oriented x3 - Psychiatric Exam Psychiatric exam: Normal Affect - Skin Skin Exam: Intact, Warm Assessment and Plan - Assessment and Plan (Free Text) Assessment: 68F admitted for anemia transferred to the ICU for AFib w/ RVR; now in NSR. Surgery consulted for bowel obstruction Plan: - NGT to suction - IVF & Abx - will continue to monitor - continued management per critical care team - Monitor H/H - transfuse PRN - recommend fleet Enema q8h - CT scan w/ PO & IV contrast in AM - further management pending results of imaging - d/w Dr. Gaston surgical attending PGY2 <Jake Gaston - Last Filed: 12/17/18 21:00> Objective - Vital Signs/Intake and Output Vital Signs (last 24 hours): Temp Pulse Resp BP Pulse Ox 99.5 F 102 H 24 115/43 L 100 12/17/18 20:43 12/17/18 20:43 12/17/18 20:43 12/17/18 20:43 12/17/18 20:43 Intake and Output: 12/17/18 12/18/18 18:59 06:59 Intake Total 100.5 140 Balance 100.5 140 - Medications Medications: Current Medications Benzocaine/Menthol (Cepacol Sore Throat) 1 juan manuel PO Q3 PRN PRN Reason: Sore Throat Last Admin: 12/17/18 08:51 Dose: 1 juan manuel Levetiracetam 500 mg/ Sodium (Chloride) 105 mls @ 210 mls/hr IVPB Q12 LILLIAN Last Admin: 12/17/18 08:47 Dose: 210 mls/hr Amiodarone HCl 450 mg/ Sodium (Chloride) 259 mls @ 17.27 mls/hr IV .Q15H LILLIAN; Protocol Last Admin: 12/17/18 12:47 Dose: 0.5 mg/min, 17.27 mls/hr Potassium Chloride/Dextrose/Sod Cl (Potassium Chl 20 Meq In D5-1/2ns) 1,000 mls @ 70 mls/hr IV .[id number] LILLIAN Lactated Ringer's (Lactated Ringer's) 1,000 mls @ 70 mls/hr IV .[id number] LILLIAN Stop: 12/17/18 23:32 Lactulose (Enulose) 20 gm PO DAILY PRN PRN Reason: Constipation Last Admin: 12/12/18 11:21 Dose: 20 gm Ondansetron HCl (Zofran Inj) 4 mg IVP Q6 PRN PRN Reason: Nausea/Vomiting Last Admin: 12/17/18 05:51 Dose: 4 mg Pantoprazole Sodium (Protonix Inj) 40 mg IVP DAILY LILLIAN Last Admin: 12/17/18 08:50 Dose: 40 mg Sodium Phosphate (Fleet Enema) 135 ml NE Q8 LILLIAN Stop: 12/18/18 01:01 Last Admin: 12/17/18 12:28 Dose: 135 ml - Labs Labs: 12/17/18 05:00 12/17/18 05:00 PT 13.7 Seconds (9.8-13.1) H 12/15/18 12:58 INR 1.2 12/15/18 12:58 APTT 27.7 Seconds (25.6-37.1) 12/15/18 12:58 Attending/Attestation - Attestation I have personally seen and examined this patient.: Yes I have fully participated in the care of the patient.: Yes I have reviewed all pertinent clinical information, including history, physical exam and plan: Yes Notes (Text): Pt was seen and examined at bedside Agree with above note and assessment Pt is improving clinically Fleet enema CT scan in am CBC and BMP in am Fleet enema OOB to walk Plan d.w pt in detail
[2018-12-17] MEDS ORDERED: Digoxin 500 mcg/2ml (0.5 mg/2ml) Inj IVP ONE ×2 (10:18→11:00)
[2018-12-17] MEDS: Amiodarone 450 MG in Sodium Chloride 0.9% 250 ML IV SCH (12:47)
--- NOTE | 2018-12-17 15:21 | PN ---
DATE: 12/17/2018 LOCATION: The patient in ICU bed 425. TIME SPENT: 35 minutes. The patient is seen and evaluated at the bedside. Past medical, surgical, family and social history reviewed. SUBJECTIVE: A 68-year-old female with history significant for colon cancer, status post resection and chemotherapy years ago, admitted with weight loss and anemia. Noted to have significant drop in hemoglobin. Status post transfusion of packed red blood cells with appropriate increase in hemoglobin and hematocrit, developed atrial fibrillation with rapid ventricular response, started on amiodarone drip. Overnight in sinus rhythm, rate controlled, normotensive, febrile. Nasogastric tube in place draining 800 mL dark brown lavage. This morning alert, awake, follows commands appropriate, appears more relaxed, complaining of abdominal discomfort. Reportedly had no bowel movement since admission. No dysuria, no frequency of urination. PHYSICAL EXAMINATION: VITAL SIGNS: Temperature 98.1, heart rate 90 to 100 regular, blood pressure 128/47, mean arterial pressure 74, respiratory rate 20, saturation 100% oxygen at 2 liters nasal cannula. Intake 1407, output 600, positive balance 807. Weight 76 pounds. HEAD, EYES, EARS, NOSE AND THROAT: Pupils 2 to 3 mm, reactive. Conjunctivae pale. Sclerae white. NECK: Supple. Trachea is central. CHEST: Bilateral breath sounds. Prolonged expiration. Clear to auscultation. HEART: Rhythm regular. S1, S2 normal intensity. No S3, S4 gallop. No audible murmur. ABDOMEN: Mildly distended, soft. No tenderness in all four quadrants. EXTREMITIES: No clubbing, cyanosis, or edema. NEUROLOGIC: Alert and awake but anxious. No cranial nerve deficit. No sensory motor impairment. Deep tendon reflex 2+ plantarflexor. CURRENT MEDICATIONS: Amiodarone drip at 0.5 mg per minute, Ringer's lactate at 70 mL/hour, lactulose 20 g p.o. daily p.r.n., Keppra 500 mg IV every 12 hours, Zofran 4 mg IV every 6 hours p.r.n., Protonix 40 IV daily, fleet enema 135 mL p.r.n. every 8 hours. LABORATORY DATA: WBC 5.9, hemoglobin 10.9, hematocrit 35.9, platelet count 307. PT 13.7, INR 1.2, PTT 27.7. SMA-7: Sodium 139, potassium 4.3, chloride 93, CO2 of 40. Blood urea nitrogen 35, creatinine 0.7, random glucose 119, total bilirubin 0.4, AST 25, ALT 17, alkaline phosphatase 78, total protein 7.3, albumin 3.1. TSH 7.14. CEA 222. CA 19-9 of 38.4. Microbiology, none reported. EKG done this morning shows sinus rhythm, rate controlled, nonspecific ST-T abnormality. IMPRESSION: 1. Neurologic: Alert and awake, follows commands appropriate, underlying anxiety disorder. 2. Pulmonary: No acute issues, no sign of aspiration pneumonia. 3. Cardiac: New-onset atrial fibrillation, converted to sinus rhythm. Remains in sinus on amiodarone drip and digoxin. Normotensive. 4. Gastrointestinal: History of colon cancer, status post resection and chemo. Repeat CT shows enterocolitis with inflammatory changes in the proximal small bowel and jejunum. Cholelithiasis without evidence of acute cholecystitis. Ileus with gastric distention on nasogastric suction still draining significant amount of brownish fluid. Continue nasogastric suction. Continue Protonix. Appreciate Gastrointestinal followup on fleet anemia. Awaiting for colonoscopy. 5. Hematology: No leukocytosis, presented with significant anemia, status post transfusion of packed red blood cells. Hemoglobin and hematocrit remains stable. 6. Renal: Mild prerenal azotemia, on intravenous hydration. Hypokalemia being supplemented. 7. Endocrine: Mild hypothyroidism with elevated TSH but normal T4, likely early hypothyroidism. 8. Keep head of bed 30 degrees up. Nasogastric tube in place connected to intermittent low wall suction. Continue deep vein thrombosis prophylaxis with mechanical device. Anticoagulation on hold secondary to anemia and suspected gastrointestinal bleeding. Appreciate Gastrointestinal and Cardiology followup. Monitor electrolyte abnormalities. Follow up colonoscopy findings. Taz Chaparro MD
--- NOTE | 2018-12-17 17:01 | CARD ---
APPROVED REPORT Date of service: 12/16/2018 EKG Measurement Heart [id number] <Conclusion> Normal sinus rhythm Septal infarct, age undetermined Marked ST abnormality, possible infero-lateral subendocardial injury Abnormal ECG
--- NOTE | 2018-12-17 17:19 | CP.PCM.PN ---
Subjective - Date & Time of Evaluation Date of Evaluation: 12/17/18 Time of Evaluation: 02:22 - Subjective Subjective: Above noted Hbg 10.9 Objective - Vital Signs/Intake and Output Vital Signs (last 24 hours): Temp Pulse Resp BP Pulse Ox 98.6 F 96 H 21 103/39 L 100 12/17/18 15:29 12/17/18 15:29 12/17/18 15:29 12/17/18 15:29 12/17/18 15:29 Intake and Output: 12/17/18 12/17/18 06:59 18:59 Intake Total 700 100.5 Output Total 100 Balance 600 100.5 - Medications Medications: Current Medications Benzocaine/Menthol (Cepacol Sore Throat) 1 juan manuel PO Q3 PRN PRN Reason: Sore Throat Last Admin: 12/17/18 08:51 Dose: 1 juan manuel Levetiracetam 500 mg/ Sodium (Chloride) 105 mls @ 210 mls/hr IVPB Q12 LILLIAN Last Admin: 12/17/18 08:47 Dose: 210 mls/hr Amiodarone HCl 450 mg/ Sodium (Chloride) 259 mls @ 17.27 mls/hr IV .Q15H LILLIAN; Protocol Last Admin: 12/17/18 12:47 Dose: 0.5 mg/min, 17.27 mls/hr Potassium Chloride/Dextrose/Sod Cl (Potassium Chl 20 Meq In D5-1/2ns) 1,000 mls @ 70 mls/hr IV .[id number] LILLIAN Lactated Ringer's (Lactated Ringer's) 1,000 mls @ 70 mls/hr IV .[id number] LILLIAN Stop: 12/17/18 23:32 Lactulose (Enulose) 20 gm PO DAILY PRN PRN Reason: Constipation Last Admin: 12/12/18 11:21 Dose: 20 gm Ondansetron HCl (Zofran Inj) 4 mg IVP Q6 PRN PRN Reason: Nausea/Vomiting Last Admin: 12/17/18 05:51 Dose: 4 mg Pantoprazole Sodium (Protonix Inj) 40 mg IVP DAILY LILLIAN Last Admin: 12/17/18 08:50 Dose: 40 mg Sodium Phosphate (Fleet Enema) 135 ml [place] Q8 LILLIAN Stop: 12/18/18 01:01 Last Admin: 12/17/18 12:28 Dose: 135 ml - Labs Labs: 12/17/18 05:00 12/17/18 05:00 PT 13.7 Seconds (9.8-13.1) H 12/15/18 12:58 INR 1.2 12/15/18 12:58 APTT 27.7 Seconds (25.6-37.1) 12/15/18 12:58 - Respiratory Exam Respiratory Exam: NORMAL BREATHING PATTERN - Cardiovascular Exam Cardiovascular Exam: REGULAR RHYTHM - GI/Abdominal Exam GI & Abdominal Exam: Normal Bowel Sounds Assessment and Plan - Assessment and Plan (Free Text) Assessment: Abdominal pain NGT brownish colored IVF monitor labs GI surgery Microcytic hypochromic anemia chronic blood loss GI?? Hx Ca Colon Ct scan enterocolitis Hematology GI colonoscopy A fib with RVR converted to NSR Amiodorone Cardiazem ICU Cardiology
--- NOTE | 2018-12-17 20:22 | CP.PCM.PN ---
<Claude Caballero - Last Filed: 12/17/18 20:16> Subjective - Date & Time of Evaluation Date of Evaluation: 12/16/18 Time of Evaluation: 15:35 - Subjective Subjective: Surgery Progress Note- Dr. Gaston 68F hx of colon ca s/p R. Hemicolectomy admitted for anemia, hospital stay transfused 2u PRBC hgb responded appropriately, pt went into a.fib transferred to ICU on amiodarone ggt. NGT in place w/ dark bilious ?feculant output. no BM or flatus Objective - Vital Signs/Intake and Output Vital Signs (last 24 hours): Temp Pulse Resp BP Pulse Ox 98.6 F 103 H 20 112/42 L 100 12/17/18 15:29 12/17/18 19:43 12/17/18 19:43 12/17/18 19:43 12/17/18 19:43 Intake and Output: 12/17/18 12/18/18 18:59 06:59 Intake Total 100.5 140 Balance 100.5 140 - Medications Medications: Current Medications Benzocaine/Menthol (Cepacol Sore Throat) 1 juan manuel PO Q3 PRN PRN Reason: Sore Throat Last Admin: 12/17/18 08:51 Dose: 1 juan manuel Levetiracetam 500 mg/ Sodium (Chloride) 105 mls @ 210 mls/hr IVPB Q12 LILLIAN Last Admin: 12/17/18 08:47 Dose: 210 mls/hr Amiodarone HCl 450 mg/ Sodium (Chloride) 259 mls @ 17.27 mls/hr IV .Q15H LILLIAN; Protocol Last Admin: 12/17/18 12:47 Dose: 0.5 mg/min, 17.27 mls/hr Potassium Chloride/Dextrose/Sod Cl (Potassium Chl 20 Meq In D5-1/2ns) 1,000 mls @ 70 mls/hr IV .[id number] LILLIAN Lactated Ringer's (Lactated Ringer's) 1,000 mls @ 70 mls/hr IV .[id number] LILLIAN Stop: 12/17/18 23:32 Lactulose (Enulose) 20 gm PO DAILY PRN PRN Reason: Constipation Last Admin: 12/12/18 11:21 Dose: 20 gm Ondansetron HCl (Zofran Inj) 4 mg IVP Q6 PRN PRN Reason: Nausea/Vomiting Last Admin: 12/17/18 05:51 Dose: 4 mg Pantoprazole Sodium (Protonix Inj) 40 mg IVP DAILY [facility] Last Admin: 12/17/18 08:50 Dose: 40 mg Sodium Phosphate (Fleet Enema) 135 ml [place] Q8 LILLIAN Stop: 12/18/18 01:01 Last Admin: 12/17/18 12:28 Dose: 135 ml - Labs Labs: 12/17/18 05:00 12/17/18 05:00 PT 13.7 Seconds (9.8-13.1) H 12/15/18 12:58 INR 1.2 12/15/18 12:58 APTT 27.7 Seconds (25.6-37.1) 12/15/18 12:58 - Constitutional Appears: No Acute Distress, Cachectic, Chronically Ill - Head Exam Head Exam: ATRAUMATIC - Eye Exam Eye Exam: EOMI - ENT Exam ENT Exam: Mucous Membranes Dry - Respiratory Exam Respiratory Exam: NORMAL BREATHING PATTERN. absent: Accessory Muscle Use, Chest Wall Tenderness - Cardiovascular Exam Cardiovascular Exam: Tachycardia, Irregular Rhythm, REGULAR RHYTHM. absent: Bradycardia - GI/Abdominal Exam GI & Abdominal Exam: Distended, Soft, Tenderness (non-peritoneal, LLQ and RUQ tenderness to palpation). absent: Firm, Guarding, Rigid - Neurological Exam Neurological Exam: Alert, Awake, Oriented x3 - Skin Skin Exam: Intact, Warm Assessment and Plan - Assessment and Plan (Free Text) Assessment: 68F w/ bowel obstruction Plan: - strict I/O - NGT LCWS - monitor bowel function - will continue to follow - monitor H/H - continued management per critical care and primary team - further recs per Dr. Gaston surgical attending PGY2 <Jake Gaston - Last Filed: 12/17/18 21:03> Objective - Vital Signs/Intake and Output Vital Signs (last 24 hours): Temp Pulse Resp BP Pulse Ox 99.5 F 102 H 24 115/43 L 100 12/17/18 20:43 12/17/18 20:43 12/17/18 20:43 12/17/18 20:43 12/17/18 20:43 Intake and Output: 12/17/18 12/18/18 18:59 06:59 Intake Total 100.5 140 Balance 100.5 140 - Medications Medications: Current Medications Benzocaine/Menthol (Cepacol Sore Throat) 1 juan manuel PO Q3 PRN PRN Reason: Sore Throat Last Admin: 12/17/18 08:51 Dose: 1 juan manuel Levetiracetam 500 mg/ Sodium (Chloride) 105 mls @ 210 mls/hr IVPB Q12 LILLIAN Last Admin: 12/17/18 20:59 Dose: 210 mls/hr Amiodarone HCl 450 mg/ Sodium (Chloride) 259 mls @ 17.27 mls/hr IV .Q15H LILLIAN; Protocol Last Admin: 12/17/18 12:47 Dose: 0.5 mg/min, 17.27 mls/hr Potassium Chloride/Dextrose/Sod Cl (Potassium Chl 20 Meq In D5-1/2ns) 1,000 mls @ 70 mls/hr IV .[id number] LILLIAN Lactated Ringer's (Lactated Ringer's) 1,000 mls @ 70 mls/hr IV .[id number] LILLIAN Stop: 12/17/18 23:32 Lactulose (Enulose) 20 gm PO DAILY PRN PRN Reason: Constipation Last Admin: 12/12/18 11:21 Dose: 20 gm Ondansetron HCl (Zofran Inj) 4 mg IVP Q6 PRN PRN Reason: Nausea/Vomiting Last Admin: 12/17/18 05:51 Dose: 4 mg Pantoprazole Sodium (Protonix Inj) 40 mg IVP DAILY LILLIAN Last Admin: 12/17/18 08:50 Dose: 40 mg Sodium Phosphate (Fleet Enema) 135 ml MN Q8 LILLIAN Stop: 12/18/18 01:01 Last Admin: 12/17/18 20:59 Dose: Not Given - Labs Labs: 12/17/18 05:00 12/17/18 05:00 PT 13.7 Seconds (9.8-13.1) H 12/15/18 12:58 INR 1.2 12/15/18 12:58 APTT 27.7 Seconds (25.6-37.1) 12/15/18 12:58 Attending/Attestation - Attestation I have personally seen and examined this patient.: Yes I have fully participated in the care of the patient.: Yes I have reviewed all pertinent clinical information, including history, physical exam and plan: Yes Notes (Text): Pt was seen and examined at bedside Agree with above note and assessment Pt is stable clinically NPO, IVF NG tub to LIS CBC and BMP in am c.w current mx Plan d.w pt in detail
[2018-12-17] MEDS ORDERED: Potassium Ch 20mEq in D5-1/2NS 1,000 ML IV SCH (23:30)
--- NOTE | 2018-12-18 04:58 | CON ---
DATE: 12/15/2018 The consultation is called by Dr. Laird, the ICU attending. Consultation is done by [place], Dr. Jake Gaston. REASON FOR CONSULTATION: This is a 68-year-old female, status post colonoscopy with rapid response and CT scan finding of pelvic mass. The patient was seen and examined at the bedside. CHIEF COMPLAINT: Complaint of nausea and vomiting with abdominal distention. HISTORY OF PRESENT ILLNESS: This is a 68-year-old female with a past surgical history of status post colon resection and chemotherapy 10 years ago and complained of weight loss since last 10 months. The patient was admitted with abdominal pain and distention. The patient underwent colonoscopy today by Dr. Esposito. The patient had a rapid response, and the Surgery was consulted. The post-procedure abdominal x-ray is suggestive of no free air. The patient was seen and examined at the bedside. The patient is still complaining of abdominal distention as well as nausea and vomiting. The patient describes pain as mild, 3/10, intermittent, dull, crampy colic pain. The patient had no bowel movement since last two days. PAST MEDICAL HISTORY: 1. Colon cancer. 2. Epilepsy since last six years. PAST SURGICAL HISTORY: Colon resection for colon cancer. FAMILY HISTORY: Noncontributory. SOCIAL HISTORY: Denies alcohol, drug and smoking. ALLERGIES: ALLERGY TO CORTISON AND STRAWBERRY. REVIEW OF SYSTEMS: All 13 points were reviewed. GASTROINTESTINAL SYSTEM: Positive abdominal pain and distention and vomiting. CARDIOVASCULAR SYSTEM: Negative for shortness of breath and chest pain. Rest of the systems reported negative except HPI. PHYSICAL EXAMINATION: VITAL SIGNS: Temperature is afebrile, pulse is 81, blood pressure is 123/60, and saturation 99%. GENERAL: The patient is not in acute distress. ABDOMEN: Soft and distended. Mildly tender. No guarding, no rebound, no peritoneal signs. CARDIOVASCULAR SYSTEM: S1 and S2 are normal. There is a murmur. PULMONARY SYSTEM: Bilateral equal air entry. There is no crackle. No rhonchi. No wheezing. EXTREMITIES: 2+ pulses. No edema. No deformity. EYES: Normal eye movement. No pallor. No icterus. NEUROLOGIC: Alert and oriented x3. Danyell coma scale is 15. There is no focal deficit. SKIN: Warm and dry. No ulcerations. No rash. No open wound. The patient has a midline scar of the previous colon resection on the abdomen. LABORATORY DATA: White blood cell count is 4.5, hemoglobin is 11.6, and platelet is 410. The rest of the labs reviewed. The patient has low potassium of 3.2. CT scan of the abdomen and pelvis is suggestive of pelvic stable cystic mass above the bladder and Colonic severe inflammatory changes in the proximal small bowel and jejunum and cholelithiasis without CT evidence of acute cholecystitis. ASSESSMENT: This is a 68-year-old female with enterocolitis with small bowel obstruction. PLAN: 1. The patient would need NG tube insertion. 2. N.p.o. IV fluid. 3. Correct hypokalemia. 4. Start IV antibiotics to Zosyn. 5. Serial abdominal exam. 6. Continue with ICU management. Plan discussed with the patient. Plan discussed with Dr. Handy as well as at the bedside. Jake Gaston MD MTDD
[2018-12-18 05:33] LABS: ALB/GLOB RATIO 0.7 (1.0-2.1); ALBUMIN 2.6 g/dL (3.5-5.0); ALT/SGPT 28 U/L (9-52); AST/SGOT 27 U/L (14-36); BLOOD UREA NITROGEN 20 mg/dl (7-17); CALCIUM 8.6 mg/dL (8.4-10.2); GFR NON-AFRICAN AMERICAN > 60
[2018-12-18 06:18] LABS: EOS # 0.5 K/uL (0.0-0.7); EOS % 2.3 % (0.0-4.0); HEMOGLOBIN 9.6 g/dL (12.0-16.0); LYMPH # 0.6 K/uL (1.0-4.3); LYMPH % 2.7 % (20.0-40.0); MEAN CELL VOLUME 75.5 fl (81.0-99.0); MEAN CORPUSCULAR HEMOGLOBIN 22.4 pg (27.0-31.0); MEAN CORPUSCULAR HGB CONC 29.7 g/dL (33.0-37.0); MEAN PLATELET VOLUME 8.8 fl (7.2-11.7); MONO # 0.7 K/uL (0.0-0.8); NEUT # 21.3 K/uL (1.8-7.0); PLATELET COUNT 35 K/uL (130-400); RBC 4.26 Mil/uL (3.80-5.20); RED CELL DISTRIBUTION WIDTH 27.1 % (11.5-14.5); WHITE BLOOD COUNT 23.2 K/uL (4.8-10.8)
[2018-12-18] MEDS: Amiodarone 450 MG in Sodium Chloride 0.9% 250 ML IV SCH ×2 (07:04→11:22)
--- NOTE | 2018-12-18 07:25 | CP.PCM.PN ---
<Sara Arcos - Last Filed: 12/18/18 07:27> Subjective - Date & Time of Evaluation Date of Evaluation: 12/18/18 Time of Evaluation: 07:00 - Subjective Subjective: Surgery progress note for Dr. Gaston Pt seen and examined at bedside this AM. No adverse events overnight. Patient has dark green/brown NGT output, denies any nausea, vomiting, or abdominal pain and is improved from admission. Objective - Vital Signs/Intake and Output Vital Signs (last 24 hours): Temp Pulse Resp BP Pulse Ox 98.2 F 85 21 112/45 L 100 12/18/18 04:00 12/18/18 06:00 12/18/18 06:00 12/18/18 06:00 12/18/18 06:00 Intake and Output: 12/18/18 12/18/18 06:59 18:59 Intake Total 1239 Output Total 100 Balance 1139 - Medications Medications: Current Medications Benzocaine/Menthol (Cepacol Sore Throat) 1 juan manuel PO Q3 PRN PRN Reason: Sore Throat Last Admin: 12/17/18 08:51 Dose: 1 juan manuel Levetiracetam 500 mg/ Sodium (Chloride) 105 mls @ 210 mls/hr IVPB Q12 [facility] Last Admin: 12/17/18 20:59 Dose: 210 mls/hr Amiodarone HCl 450 mg/ Sodium (Chloride) 259 mls @ 17.27 mls/hr IV .Q15H [facility]; Protocol Last Admin: 12/18/18 07:04 Dose: 0.5 mg/min, 17.27 mls/hr Potassium Chloride/Dextrose/Sod Cl (Potassium Chl 20 Meq In D5-1/2ns) 1,000 mls @ 70 mls/hr IV .[id number] [facility] Lactulose (Enulose) 20 gm PO DAILY PRN PRN Reason: Constipation Last Admin: 12/12/18 11:21 Dose: 20 gm Ondansetron HCl (Zofran Inj) 4 mg IVP Q6 PRN PRN Reason: Nausea/Vomiting Last Admin: 12/17/18 05:51 Dose: 4 mg Pantoprazole Sodium (Protonix Inj) 40 mg IVP DAILY [facility]IAN Last Admin: 12/17/18 08:50 Dose: 40 mg - Labs Labs: 12/18/18 04:25 12/18/18 04:25 PT 13.7 Seconds (9.8-13.1) H 12/15/18 12:58 INR 1.2 12/15/18 12:58 APTT 27.7 Seconds (25.6-37.1) 12/15/18 12:58 - Constitutional Appears: Non-toxic, No Acute Distress - Head Exam Head Exam: ATRAUMATIC, NORMOCEPHALIC - Eye Exam Eye Exam: Normal appearance. absent: Conjunctival injection, Scleral icterus - ENT Exam ENT Exam: Mucous Membranes Moist, Normal Oropharynx - Respiratory Exam Respiratory Exam: NORMAL BREATHING PATTERN. absent: Accessory Muscle Use, Respiratory Distress - Cardiovascular Exam Cardiovascular Exam: RRR - GI/Abdominal Exam GI & Abdominal Exam: Soft. absent: Distended, Tenderness, Rebound - Extremities Exam Extremities Exam: absent: Calf Tenderness, Pedal Edema, Tenderness - Neurological Exam Neurological Exam: Alert, Awake, Oriented x3 - Psychiatric Exam Psychiatric exam: Normal Affect, Normal Mood - Skin Skin Exam: Dry, Normal Color, Warm Assessment and Plan - Assessment and Plan (Free Text) Assessment: 68F with anemia, nausea, and vomiting--possible GI bleed, possible ileus vs partial bowel obstruction Plan: Continue to trend CBC and bmp--supplement electrolytes as needed Continue NGT output monitoring F/U GI recs PRN nausea and pain medication IVF Medical management per primary IV protonix Discussed with Dr. Marilin Arcos, PGY2 <Jake Gaston - Last Filed: 12/19/18 16:41> Objective - Vital Signs/Intake and Output Vital Signs (last 24 hours): Temp Pulse Resp BP Pulse Ox 97.4 F L 117 H 16 92/54 L 100 12/19/18 16:00 12/19/18 16:00 12/19/18 16:00 12/19/18 16:00 12/19/18 16:00 Intake and Output: 12/19/18 12/19/18 06:59 18:59 Intake Total 1071 Output Total 420 Balance 651 - Medications Medications: Current Medications Benzocaine/Menthol (Cepacol Sore Throat) 1 juan manuel PO Q3 PRN PRN Reason: Sore Throat Last Admin: 12/17/18 08:51 Dose: 1 juan manuel Levetiracetam 500 mg/ Sodium (Chloride) 105 mls @ 210 mls/hr IVPB Q12 [facility] Last Admin: 12/19/18 09:06 Dose: 210 mls/hr Meropenem 1 gm/ Sodium (Chloride) 100 mls @ 100 mls/hr IVPB Q8 [facility]; Protocol Last Admin: 12/19/18 09:08 Dose: 100 mls/hr Amiodarone HCl 450 mg/ Sodium (Chloride) 259 mls @ 17.27 mls/hr IV .Q15H [facility]; Protocol Last Admin: 12/19/18 13:05 Dose: 0.5 mg/min, 17.27 mls/hr Lactulose (Enulose) 20 gm PO DAILY PRN PRN Reason: Constipation Last Admin: 12/12/18 11:21 Dose: 20 gm Ondansetron HCl (Zofran Inj) 4 mg IVP Q6 PRN PRN Reason: Nausea/Vomiting Last Admin: 12/17/18 05:51 Dose: 4 mg Pantoprazole Sodium (Protonix Inj) 40 mg IVP DAILY LILLIAN - Labs Labs: 12/19/18 04:25 12/19/18 04:25 PT 13.4 Seconds (9.8-13.1) H 12/19/18 04:25 INR 1.2 12/19/18 04:25 APTT 32.5 Seconds (25.6-37.1) 12/19/18 04:25 Attending/Attestation - Attestation I have personally seen and examined this patient.: Yes I have fully participated in the care of the patient.: Yes I have reviewed all pertinent clinical information, including history, physical exam and plan: Yes Notes (Text): Pt was seen and examined at bedside Agree with above note and assessment Pt is improving clinically Awaiting CT scan Transfuse platelet IV antibiotics Plan d.w pt in detail.
[2018-12-18] MEDS ORDERED: Pneumococcal 23-Valent Vaccine IM ONE (08:32)
--- NOTE | 2018-12-18 09:50 | CP.PCM.PN ---
Subjective - Date & Time of Evaluation Date of Evaluation: 12/18/18 Time of Evaluation: 09:46 - Subjective Subjective: Patient feels much better now after a large bowel movement which was black in color, Her BP is slowly improving. and her heart rate gradually coming down..She will have her colonoscopy as soon as she is stable from cardiology point of vi ew, CBC chastity stable Objective - Vital Signs/Intake and Output Vital Signs (last 24 hours): Temp Pulse Resp BP Pulse Ox 97.9 F 83 16 119/54 L 100 12/18/18 08:00 12/18/18 08:00 12/18/18 08:00 12/18/18 08:00 12/18/18 08:00 Intake and Output: 12/18/18 12/18/18 06:59 18:59 Intake Total 1239 Output Total 100 Balance 1139 - Medications Medications: Current Medications Benzocaine/Menthol (Cepacol Sore Throat) 1 juan manuel PO Q3 PRN PRN Reason: Sore Throat Last Admin: 12/17/18 08:51 Dose: 1 juan manuel Levetiracetam 500 mg/ Sodium (Chloride) 105 mls @ 210 mls/hr IVPB Q12 [facility] Last Admin: 12/17/18 20:59 Dose: 210 mls/hr Amiodarone HCl 450 mg/ Sodium (Chloride) 259 mls @ 17.27 mls/hr IV .Q15H [facility]; Protocol Last Admin: 12/18/18 07:04 Dose: 0.5 mg/min, 17.27 mls/hr Potassium Chloride/Dextrose/Sod Cl (Potassium Chl 20 Meq In D5-1/2ns) 1,000 mls @ 70 mls/hr IV .[id number] [facility] Lactulose (Enulose) 20 gm PO DAILY PRN PRN Reason: Constipation Last Admin: 12/12/18 11:21 Dose: 20 gm Ondansetron HCl (Zofran Inj) 4 mg IVP Q6 PRN PRN Reason: Nausea/Vomiting Last Admin: 12/17/18 05:51 Dose: 4 mg Pantoprazole Sodium (Protonix Inj) 40 mg IVP DAILY [facility] Last Admin: 12/17/18 08:50 Dose: 40 mg - Labs Labs: 12/18/18 04:25 12/18/18 04:25 PT 13.7 Seconds (9.8-13.1) H 12/15/18 12:58 INR 1.2 12/15/18 12:58 APTT 27.7 Seconds (25.6-37.1) 12/15/18 12:58
[2018-12-18] MEDS: levETIRAcetam 500 MG in Sodium Chloride 0.9% 100 ML IVPB SCH ×2 (11:23→21:06)
--- NOTE | 2018-12-18 11:45 | CP.CCUPN ---
CCU Subjective - Physician Review Subjective (Free Text): 12/19/18 07:21 The patient was Seen/interviewed and examined by me at the bedside during ICU round, Medical records reviewed and Management issues were discussed and formulated with the house staff. Events reviewed 68 year old female with past medical history of anemia, seizure disorder and colon cancer status post total colonectomy Who initially presents to the emergency department on 12/05 after being sent by her PMD for low hemoglobin. As per her she has been increasingly pale for the past x6 months. Patient denies any chest pain, dizziness, light headedness or Loss of consciousness. She was admitted with Microcytic hypochromic anemia from chronic blood loss R/O acute GI bleed and possible recurrent Colon cancer had two WASTE CHOPPER over the past 24 hours for tachycardia, Colonoscopy had to be cancelled and she was transferred to the ICU Patient looks comfortable today, had BM x2 Awake, Comfortable, NAD Afebrile, NSR on the monitor Scheduled for Abd CT scan, and Endoscopy when medically stable 12/18/18 12/18/2018: CT Abdomen and Pelvis with contrast PANCREAS: Unremarkable. No gross lesion or ductal dilatation. KIDNEYS AND URETERS: Unremarkable. No hydronephrosis. No solid mass. BOWEL: Mass within the region of the small bowel at the right lower quadrant is appreciated with associated surgical clips once again. The patient appears to be status post right hemicolectomy with anastomotic suture line from colectomy separate from the site of the mass at the right lower quadrant. The enteric colic anastomosis appears to be in the right hemipelvis. The bowel does not appear completely obstructed as oral contrast identified within large bowel as well as majority of small bowel. However, grossly thickened small bowel loops persist at the right greater than left hemicolon with dilatation of small bowel at the left sabino abdomen. A partial or intermittent distal small bowel obstruction is a possibility versus ileus. Given presence of tumor, the former is favored. Segmental enteritis remains, potentially worsened in the interval, of indeterminate infectious or inflammatory etiology the paraneoplastic process is questioned as well. Rectal tube noted in situ. APPENDIX: Not identified. PERITONEUM: Unremarkable. No free fluid. Mild pelvic ascites identified. None is seen in the abdomen. No free air. LYMPH NODES: Unremarkable. No enlarged lymph nodes. BLADDER: Unremarkable. IMPRESSION: Persistent if not worsened segmental enteritis affecting significant small bowel segment at the right lower quadrant/central abdomen. Right lower quadrant small bowel mass may cause intermittent or partial small bowel obstruction distally. Complete obstruction in apparent. Ileus pattern not favored but not completely excluded. CCU Objective - Vital Signs / Intake & Output Vital Signs (Last 4 hours): Vital Signs Temp Pulse Resp BP Pulse Ox 12/18/18 08:00 97.9 F 83 16 119/54 L 100 Intake and Output (Last 8hrs): Intake & Output 12/17/18 12/18/18 12/18/18 22:59 06:59 14:59 Intake Total 140 1099 Output Total 100 Balance 140 999 Intake: IV 140 1099 Output: Gastric Amount 100 Nares 100 Other: # Voids Urine, Voided 3 # Bowel Movements 1 4 - Physical Exam Physical Exam Limitations: Positive for: Clinical Condition Head: Positive for: Atraumatic, Normocephalic Pupils: Positive for: PERRL Extroacular Muscles: Positive for: EOMI Conjunctiva: Positive for: Normal Ears: Positive for: Normal Mouth: Positive for: Moist Mucous Membranes Nose (Internal): Positive for: Normal Inspection Neck: Positive for: Normal Range of Motion, Trachea Midline. Negative for: Meningeal Signs, MIDLINE TENDERNESS, Paraspinal Tenderness, JVD, Lymphadenopathy, Bruit, Other Respiratory/Chest: Positive for: Clear to Auscultation, Good Air Exchange. Negative for: Respiratory Distress, Accessory Muscle Use Cardiovascular: Positive for: Regular Rate and Rhythm, Normal S1, S2, Peripheal Pulses Present. Negative for: Murmurs, Tachycardic, Bradycardic Abdomen: Positive for: Tenderness, Distention, Normal Bowel Sounds. Negative for: Peritoneal Signs Upper Extremity: Positive for: Normal Inspection. Negative for: Cyanosis, Edema Lower Extremity: Positive for: Normal Inspection. Negative for: Edema, CALF TENDERNESS Neurological: Positive for: GCS=15 Psychiatric: Positive for: Alert, Oriented x 3 - Medications Active Medications: Active Medications Generic Name Dose Route Start Last Admin Trade Name Freq PRN Reason Stop Dose Admin Benzocaine/Menthol 1 juan manuel 12/10/18 10:01 12/17/18 08:51 Cepacol Sore Throat PO 1 juan manuel Q3 PRN Administration Sore Throat Levetiracetam 500 mg/ Sodium 105 mls @ 210 mls/hr 12/16/18 10:00 12/18/18 11:23 Chloride IVPB Not Given Q12 [facility] Amiodarone HCl 450 mg/ Sodium 259 mls @ 17.27 mls/hr 12/16/18 10:45 12/18/18 11:22 Chloride IV Not Given .Q15H [facility] Protocol 0.5 MG/MIN Potassium Chloride/Dextrose/Sod Cl 1,000 mls @ 70 mls/hr 12/17/18 23:30 Potassium Chl 20 Meq In D5-1/2ns IV .[id number] [facility] Lactulose 20 gm 12/11/18 12:51 12/12/18 11:21 Enulose PO 20 gm DAILY PRN Administration Constipation Ondansetron HCl 4 mg 12/08/18 10:29 12/17/18 05:51 Zofran Inj IVP 4 mg Q6 PRN Administration Nausea/Vomiting Pantoprazole Sodium 40 mg 12/16/18 10:00 12/18/18 11:23 Protonix Inj IVP Not Given DAILY [facility] - Patient Studies Lab Studies: Lab Studies 12/18/18 12/18/18 12/14/18 Range/Units 04:25 04:25 05:05 WBC 23.2 H D (4.8-10.8) K/uL RBC 4.26 (3.80-5.20) Mil/uL Hgb 9.6 L (12.0-16.0) g/dL Hct 32.1 L (34.0-47.0) % MCV 75.5 L (81.0-99.0) fl MCH 22.4 L (27.0-31.0) pg MCHC 29.7 L (33.0-37.0) g/dL RDW 27.1 H (11.5-14.5) % Plt Count 35 L D (130-400) K/uL MPV 8.8 (7.2-11.7) fl Neut % (Auto) 92.0 H (50.0-75.0) % Lymph % (Auto) 2.7 L (20.0-40.0) % Thurston % (Auto) 3.0 (0.0-10.0) % Eos % (Auto) 2.3 (0.0-4.0) % Baso % (Auto) 0.0 (0.0-2.0) % Neut # (Auto) 21.3 H (1.8-7.0) K/uL Lymph # (Auto) 0.6 L (1.0-4.3) K/uL Thurston # (Auto) 0.7 (0.0-0.8) K/uL Eos # (Auto) 0.5 (0.0-0.7) K/uL Baso # (Auto) 0.0 (0.0-0.2) K/uL Sodium 150 H (132-148) mmol/l Potassium 3.7 (3.6-5.0) MMOL/L Chloride 107 (98-107) mmol/L Carbon Dioxide 36 H (22-30) mmol/L Anion Gap 11 (10-20) BUN 20 H (7-17) mg/dl Creatinine 0.6 L (0.7-1.2) mg/dl Est GFR ( Amer) > 60 Est GFR (Non-Af Amer) > 60 Random Glucose 102 (65-105) mg/dL Calcium 8.6 (8.4-10.2) mg/dL Phosphorus 1.8 L (2.5-4.5) mg/dl Magnesium 1.9 (1.6-2.3) MG/DL Total Bilirubin 0.7 (0.2-1.3) mg/dl AST 27 (14-36) U/L ALT 28 (9-52) U/L Alkaline Phosphatase 146 H D (38-126) U/L Total Protein 6.2 L (6.3-8.2) G/DL Albumin 2.6 L (3.5-5.0) g/dL Globulin 3.6 (2.2-3.9) gm/dL Albumin/Globulin Ratio 0.7 L (1.0-2.1) Levetiracetam 27.2 mcg/mL Laboratory Results - last 24 hr 12/14/18 12/18/18 12/18/18 05:05 04:25 04:25 WBC 23.2 H D RBC 4.26 Hgb 9.6 L Hct 32.1 L MCV 75.5 L MCH 22.4 L MCHC 29.7 L RDW 27.1 H Plt Count 35 L D MPV 8.8 Neut % (Auto) 92.0 H Lymph % (Auto) 2.7 L Thurston % (Auto) 3.0 Eos % (Auto) 2.3 Baso % (Auto) 0.0 Neut # (Auto) 21.3 H Lymph # (Auto) 0.6 L Thurston # (Auto) 0.7 Eos # (Auto) 0.5 Baso # (Auto) 0.0 Sodium 150 H Potassium 3.7 Chloride 107 Carbon Dioxide 36 H Anion Gap 11 BUN 20 H Creatinine 0.6 L Est GFR ( Amer) > 60 Est GFR (Non-Af Amer) > 60 Random Glucose 102 Calcium 8.6 Phosphorus 1.8 L Magnesium 1.9 Total Bilirubin 0.7 AST 27 ALT 28 Alkaline Phosphatase 146 H D Total Protein 6.2 L Albumin 2.6 L Globulin 3.6 Albumin/Globulin Ratio 0.7 L Levetiracetam 27.2 Review of Systems - Cardiovascular Cardiovascular: absent: Acrocyanosis, Chest Pain, Chest Pain at Rest, Chest Pain with Activity, Claudication, Diaphoresis - Respiratory Respiratory: absent: Cough, Dyspnea, Hemoptysis, Dyspnea on Exertion, Wheezing - Gastrointestinal Gastrointestinal: Abdominal Pain. absent: Coffee Ground Emesis, Hematemesis, Hematochezia Critical Care Progress Note - Extremities/Vascular Does the Patient have a Central Venous Catheter?: No Does the Patient need a Central Venous Catheter?: No Does the Patient have a Quiroz Catheter?: No Does the Patient need a Quiroz Catheter?: No - Nutrition Nutrition: Nutrition Category Date Time Status NPO Diet [DIET] Diets 12/16/18 Breakfast Active Assessment/Plan (1) Anemia Current Visit: Yes Status: Acute Priority: High (2) Colon cancer Current Visit: Yes Status: Chronic Priority: High (3) Thrombocytopenia Current Visit: Yes Status: Acute Priority: High (4) History of atrial fibrillation Current Visit: Yes Status: Acute Priority: High
[2018-12-18 12:18] LABS: BANDS 12 % (0-2); EOSINOPHIL 1 % (0-7); LYMPHOCYTE 3 % (20-50); MONOCYTE 3 % (0-10); MYELOCYTE 1 % (0-0); NEUTROPHIL 79 % (42-75); PROMYELOCYTE 1 % (0-0); TOTAL CELLS COUNTED 100
[2018-12-18 12:19] LABS: PLATELET ESTIMATE DECREASED (NORMAL)
[2018-12-18 12:22] LABS: ANISOCYTOSIS MARKED
[2018-12-18 12:23] LABS: HYPOCHROMIC MODERATE; MICROCYTOSIS SLIGHT; OVALOCYTES SLIGHT; SCHISTOCYTES SLIGHT; TEARDROP CELLS SLIGHT; TOXIC GRANULATION PRESENT
[2018-12-18 12:51] LABS: BASO % 0.2 % (0.0-2.0); EOS # 0.9 K/uL (0.0-0.7); EOS % 3.5 % (0.0-4.0); HEMOGLOBIN 9.4 g/dL (12.0-16.0); LYMPH # 0.7 K/uL (1.0-4.3); LYMPH % 2.8 % (20.0-40.0); MEAN CELL VOLUME 73.8 fl (81.0-99.0); MEAN CORPUSCULAR HGB CONC 29.9 g/dL (33.0-37.0); MEAN PLATELET VOLUME 8.3 fl (7.2-11.7); MONO # 0.4 K/uL (0.0-0.8); MONO % 1.8 % (0.0-10.0); NEUT # 22.2 K/uL (1.8-7.0); NEUT % 91.7 % (50.0-75.0); RBC 4.27 Mil/uL (3.80-5.20); RED CELL DISTRIBUTION WIDTH 27.1 % (11.5-14.5); WHITE BLOOD COUNT 24.3 K/uL (4.8-10.8)
--- NOTE | 2018-12-18 12:58 | CP.PCM.PN ---
Subjective - Date & Time of Evaluation Date of Evaluation: 12/18/18 Time of Evaluation: 12:54 - Subjective Subjective: pt alert and verbal, ngt in place. WBC inc today 23 with left shift, low plts? erythema noted on iv sites. NSR currently hemodynamically stable.NPO Objective - Vital Signs/Intake and Output Vital Signs (last 24 hours): Temp Pulse Resp BP Pulse Ox 98.0 F 85 19 123/60 100 12/18/18 12:00 12/18/18 12:00 12/18/18 12:00 12/18/18 12:00 12/18/18 12:00 Intake and Output: 12/18/18 12/18/18 06:59 18:59 Intake Total 1239 Output Total 100 Balance 1139 - Medications Medications: Current Medications Benzocaine/Menthol (Cepacol Sore Throat) 1 juan manuel PO Q3 PRN PRN Reason: Sore Throat Last Admin: 12/17/18 08:51 Dose: 1 juan manuel Levetiracetam 500 mg/ Sodium (Chloride) 105 mls @ 210 mls/hr IVPB Q12 [facility] Last Admin: 12/18/18 11:23 Dose: Not Given Amiodarone HCl 450 mg/ Sodium (Chloride) 259 mls @ 17.27 mls/hr IV .Q15H [facility]; Protocol Last Admin: 12/18/18 11:22 Dose: Not Given Potassium Chloride/Dextrose/Sod Cl (Potassium Chl 20 Meq In D5-1/2ns) 1,000 mls @ 70 mls/hr IV .[id number] [facility] Lactulose (Enulose) 20 gm PO DAILY PRN PRN Reason: Constipation Last Admin: 12/12/18 11:21 Dose: 20 gm Ondansetron HCl (Zofran Inj) 4 mg IVP Q6 PRN PRN Reason: Nausea/Vomiting Last Admin: 12/17/18 05:51 Dose: 4 mg Pantoprazole Sodium (Protonix Inj) 40 mg IVP DAILY [facility] Last Admin: 12/18/18 11:23 Dose: Not Given - Labs Labs: 12/18/18 04:25 12/18/18 04:25 PT 13.7 Seconds (9.8-13.1) H 12/15/18 12:58 INR 1.2 12/15/18 12:58 APTT 27.7 Seconds (25.6-37.1) 12/15/18 12:58 - Constitutional Appears: No Acute Distress - Neck Exam Neck Exam: Normal Inspection - Respiratory Exam Respiratory Exam: Clear to Ausculation Bilateral - Cardiovascular Exam Cardiovascular Exam: REGULAR RHYTHM - GI/Abdominal Exam GI & Abdominal Exam: Normal Bowel Sounds - Extremities Exam Extremities Exam: Normal Inspection Assessment and Plan - Assessment and Plan (Free Text) Assessment: Continue Amiodarone gtt / Po Amiodarone when able to take PO Inc WBC , low plts ? etiolgy unclear Will need central iv access Evaluate ? lab findings prior to colonoscopy r/o sepsis, infection
[2018-12-18] MEDS ORDERED: Iohexol 240 (50 ml) PO ONE (13:33)
[2018-12-18 14:34] LABS: FIBRINOGEN 331 mg/dl (200-400)
[2018-12-18] MEDS: Meropenem 1 GM in Sodium Chloride 0.9% 100 ML IVPB SCH (15:18)
[2018-12-18] MEDS: Potassium Ch 20mEq in D5-1/2NS 1,000 ML IV SCH (15:19)
[2018-12-18] MEDS ORDERED: Chlorhexidine Gluconate 1 APPL/PKT TP ONE (16:08)
[2018-12-18 16:13] LABS: FDP QUANTITY >40 ug/mL (<10)
[2018-12-18 16:15] LABS: FDP INTERPRETATION POSITIVE (NEGATIVE)
[2018-12-18] MEDS ORDERED: Sodium Chloride 0.9% 50 ML IV ONE (16:25)
[2018-12-18] MEDS ORDERED: Iohexol 300 100 ML IJ ONE (16:25)
[2018-12-18] MEDS ORDERED: Meropenem 1 GM in Sodium Chloride 0.9% 100 ML IVPB SCH (17:00)
--- NOTE | 2018-12-18 17:51 | CT ---
Date of service: 12/18/2018 PROCEDURE: CT Abdomen and Pelvis with contrast HISTORY: Bowel obstruction h/x of Colon Ca COMPARISON: Abdomen pelvis CT with contrast 12/07/2018. TECHNIQUE: Following oral and intravenous contrast administration, a CT examination of the abdomen and pelvis was performed from the domes of the diaphragms to the symphysis pubis with reformatted datasets provided not only axial but also sagittal and coronal series. Contrast dose: Omnipaque 300, 75 cc Radiation dose: Total exam DLP = 0.0 mGy-cm. This CT exam was performed using one or more of the following dose reduction techniques: Automated exposure control, adjustment of the mA and/or kV according to patient size, and/or use of iterative reconstruction technique. FINDINGS: LOWER THORAX: NG tube identified in distal soft tissue. Cardiomegaly reiterated with pectus excavatum deformity impressing right heart. LIVER: Unremarkable. No gross lesion or ductal dilatation. GALLBLADDER AND BILE DUCTS: Cholelithiasis reiterated. PANCREAS: Unremarkable. No gross lesion or ductal dilatation. SPLEEN: Unremarkable. ADRENALS: Unremarkable. No mass. KIDNEYS AND URETERS: Unremarkable. No hydronephrosis. No solid mass. VASCULATURE: Nonaneurysmal abdominal aortic calcific atherosclerotic changes are identified. BOWEL: Mass within the region of the small bowel at the right lower quadrant is appreciated with associated surgical clips once again. The patient appears to be status post right hemicolectomy with anastomotic suture line from colectomy separate from the site of the mass at the right lower quadrant. The enteric colic anastomosis appears to be in the right hemipelvis. The bowel does not appear completely obstructed as oral contrast identified within large bowel as well as majority of small bowel. However, grossly thickened small bowel loops persist at the right greater than left hemicolon with dilatation of small bowel at the left sabino abdomen. A partial or intermittent distal small bowel obstruction is a possibility versus ileus. Given presence of tumor, the former is favored. Segmental enteritis remains, potentially worsened in the interval, of indeterminate infectious or inflammatory etiology the paraneoplastic process is questioned as well. Rectal tube noted in situ. APPENDIX: Not identified. PERITONEUM: Unremarkable. No free fluid. Mild pelvic ascites identified. None is seen in the abdomen. No free air. LYMPH NODES: Unremarkable. No enlarged lymph nodes. BLADDER: Unremarkable. REPRODUCTIVE: Unremarkable. BONES: No acute fracture. OTHER FINDINGS: None. IMPRESSION: Persistent if not worsened segmental enteritis affecting significant small bowel segment at the right lower quadrant/central abdomen. Right lower quadrant small bowel mass may cause intermittent or partial small bowel obstruction distally. Complete obstruction in apparent. Ileus pattern not favored but not completely excluded. Other lesser findings as discussed above.
--- NOTE | 2018-12-18 19:34 | CP.PCM.PN ---
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 Objective - Vital Signs/Intake and Output Vital Signs (last 24 hours): Temp Pulse Resp BP Pulse Ox 97.3 F L 74 16 116/52 L 100 12/18/18 17:58 12/18/18 17:58 12/18/18 17:58 12/18/18 17:58 12/18/18 16:00 - Medications Medications: Current Medications Benzocaine/Menthol (Cepacol Sore Throat) 1 juan manuel PO Q3 PRN PRN Reason: Sore Throat Last Admin: 12/17/18 08:51 Dose: 1 juan manuel Levetiracetam 500 mg/ Sodium (Chloride) 105 mls @ 210 mls/hr IVPB Q12 LILLIAN Last Admin: 12/18/18 11:23 Dose: Not Given Amiodarone HCl 450 mg/ Sodium (Chloride) 259 mls @ 17.27 mls/hr IV .Q15H LILLIAN; Protocol Last Admin: 12/18/18 11:22 Dose: Not Given Meropenem 1 gm/ Sodium (Chloride) 100 mls @ 100 mls/hr IVPB Q8 LILLIAN; Protocol Last Admin: 12/18/18 15:18 Dose: 100 mls/hr Potassium Chloride/Dextrose/Sod Cl (Potassium Chl 20 Meq In D5-1/2ns) 1,000 mls @ 100 mls/hr IV .Q10H LILLIAN Last Admin: 12/18/18 15:19 Dose: 100 mls/hr Lactulose (Enulose) 20 gm PO DAILY PRN PRN Reason: Constipation Last Admin: 12/12/18 11:21 Dose: 20 gm Ondansetron HCl (Zofran Inj) 4 mg IVP Q6 PRN PRN Reason: Nausea/Vomiting Last Admin: 12/17/18 05:51 Dose: 4 mg Pantoprazole Sodium (Protonix Inj) 40 mg IVP DAILY LILLIAN Last Admin: 12/18/18 11:23 Dose: Not Given - Labs Labs: 12/18/18 12:46 12/18/18 04:25 PT 13.7 Seconds (9.8-13.1) H 12/15/18 12:58 INR 1.2 12/15/18 12:58 APTT 27.7 Seconds (25.6-37.1) 12/15/18 12:58 - Respiratory Exam Respiratory Exam: NORMAL BREATHING PATTERN - Cardiovascular Exam Cardiovascular Exam: REGULAR RHYTHM - GI/Abdominal Exam GI & Abdominal Exam: Normal Bowel Sounds Assessment and Plan - Assessment and Plan (Free Text) Assessment: WBC 24k Platlelts 20k DIC?? Sepsis?? etiology?? Abdominal pain NGT brownish colored GI Bleed? IVF monitor labs GI surgery Microcytic hypochromic anemia chronic blood loss GI?? Hx Ca Colon Ct scan enterocolitis Hematology GI colonoscopy A fib with RVR converted to NSR Amiodorone Cardiazem ICU Cardiology
--- NOTE | 2018-12-18 20:02 | PCM.PROC ---
Procedures Attestation:: I certify that I have explained the specified Operation(s) or Procedure(s), risks, benefits and reasonable alternatives to the Patient and/or other person responsible. The opportunity was given to ask questions and all questions answered - Central Line Placement Left Femoral Triple Lumen Catheter Aseptic technique was employed throughout the procedure: Hand Hygiene done prior to procedure, Full sterile barriers (mask, hair cover, sterile gown, sterile gloves), Full body sterile drape, Chloraprep Antiseptic: 2 minute prep for Femoral CVP Time Out Performed: Yes Pt. Placed on Pulse Ox Monitor: Yes Central Line Prep: Chlorhexidine-Alcohol Combination Local Anesthesia Used: Lidocaine 1% Amount of Anesthesia Used (mls): 3 Ultrasound Used for Placement: Yes Central Line Lumen Inserted: triple Central Line Length: 30 cm Post Procedure: Sutured in Place, Good Blood Return, All Ports Aspirated, Flushed, Capped, Sterile Dressing Applied Secured by: Securement device Post procedure dressing: Clear vapor permeable, Chlorhexidine disc (Biopatch) Post Procedure X-Ray: No Patient Tolerated Procedure: Well, No Complications Immediate Complications: None
[2018-12-18 20:59] LABS: INR 1.3; PROTHROMBIN TIME 14.3 Seconds (9.8-13.1)
[2018-12-18 21:01] LABS: PARTIAL THROMBOPLASTIN TIME 32.6 Seconds (25.6-37.1)
--- NOTE | 2018-12-18 22:59 | CP.PCM.PN ---
Subjective - Date & Time of Evaluation Date of Evaluation: 12/18/18 Time of Evaluation: 14:00 - Subjective Subjective: Continue with significant drainage of dark material via NG. Objective - Vital Signs/Intake and Output Vital Signs (last 24 hours): Temp Pulse Resp BP Pulse Ox 97.4 F L 74 17 121/59 L 98 12/18/18 20:00 12/18/18 22:00 12/18/18 22:00 12/18/18 22:00 12/18/18 22:00 Intake and Output: 12/18/18 12/19/18 18:59 06:59 Intake Total 630 539 Output Total 260 Balance 370 539 - Medications Medications: Current Medications Benzocaine/Menthol (Cepacol Sore Throat) 1 juan manuel PO Q3 PRN PRN Reason: Sore Throat Last Admin: 12/17/18 08:51 Dose: 1 juan manuel Levetiracetam 500 mg/ Sodium (Chloride) 105 mls @ 210 mls/hr IVPB Q12 LILLIAN Last Admin: 12/18/18 21:06 Dose: 210 mls/hr Amiodarone HCl 450 mg/ Sodium (Chloride) 259 mls @ 17.27 mls/hr IV .Q15H LILLIAN; Protocol Last Titration: 12/18/18 22:32 Dose: 0.5 mg/min, 17.27 mls/hr Meropenem 1 gm/ Sodium (Chloride) 100 mls @ 100 mls/hr IVPB Q8 LILLIAN; Protocol Last Admin: 12/18/18 15:18 Dose: 100 mls/hr Potassium Chloride/Dextrose/Sod Cl (Potassium Chl 20 Meq In D5-1/2ns) 1,000 mls @ 100 mls/hr IV .Q10H LILLIAN Last Admin: 12/18/18 15:19 Dose: 100 mls/hr Lactulose (Enulose) 20 gm PO DAILY PRN PRN Reason: Constipation Last Admin: 12/12/18 11:21 Dose: 20 gm Ondansetron HCl (Zofran Inj) 4 mg IVP Q6 PRN PRN Reason: Nausea/Vomiting Last Admin: 12/17/18 05:51 Dose: 4 mg Pantoprazole Sodium (Protonix Inj) 40 mg IVP DAILY LILLIAN Last Admin: 12/18/18 11:23 Dose: Not Given - Labs Labs: 12/18/18 12:46 12/18/18 04:25 PT 14.3 Seconds (9.8-13.1) H 12/18/18 20:09 INR 1.3 12/18/18 20:09 APTT 32.6 Seconds (25.6-37.1) 12/18/18 20:09 - Head Exam Head Exam: ATRAUMATIC - Eye Exam Eye Exam: Normal appearance - Neck Exam Neck Exam: Full ROM - Respiratory Exam Respiratory Exam: Clear to Ausculation Bilateral - Cardiovascular Exam Cardiovascular Exam: REGULAR RHYTHM - GI/Abdominal Exam GI & Abdominal Exam: Soft, Normal Bowel Sounds Assessment and Plan (1) Anemia Assessment & Plan: In addition to copious NG drainage, now has elevated WBC and platetlets have dropped. EGD to r/o upper intestinal obstruction when more stable medically. Status: Acute
[2018-12-19] MEDS: Meropenem 1 GM in Sodium Chloride 0.9% 100 ML IVPB SCH ×5 (00:20→17:05)
[2018-12-19] MEDS: Potassium Ch 20mEq in D5-1/2NS 1,000 ML IV SCH ×2 (02:00→17:06)
[2018-12-19] MEDS ORDERED: Amiodarone 900 MG in Dextrose 5% In Water 500 ML IV SCH (03:15)
[2018-12-19 05:52] LABS: INR 1.2; PROTHROMBIN TIME 13.4 Seconds (9.8-13.1)
[2018-12-19 05:54] LABS: PARTIAL THROMBOPLASTIN TIME 32.5 Seconds (25.6-37.1)
[2018-12-19 05:55] LABS: ALB/GLOB RATIO 0.7 (1.0-2.1); ALBUMIN 2.3 g/dL (3.5-5.0); ALT/SGPT 33 U/L (9-52); AST/SGOT 28 U/L (14-36); BASO % 0.1 % (0.0-2.0); BLOOD UREA NITROGEN 16 mg/dl (7-17); CALCIUM 8.4 mg/dL (8.4-10.2); EOS # 0.5 K/uL (0.0-0.7); EOS % 3.1 % (0.0-4.0); GFR NON-AFRICAN AMERICAN > 60; HEMOGLOBIN 8.6 g/dL (12.0-16.0); LYMPH # 0.7 K/uL (1.0-4.3); LYMPH % 4.3 % (20.0-40.0); MEAN CELL VOLUME 72.7 fl (81.0-99.0); MEAN CORPUSCULAR HEMOGLOBIN 22.3 pg (27.0-31.0); MEAN CORPUSCULAR HGB CONC 30.6 g/dL (33.0-37.0); MEAN PLATELET VOLUME 9.3 fl (7.2-11.7); MONO # 0.3 K/uL (0.0-0.8); MONO % 1.7 % (0.0-10.0); NEUT # 14.7 K/uL (1.8-7.0); NEUT % 90.8 % (50.0-75.0); NRBC % 0.1 % (0.0-0.0); PLATELET COUNT 59 K/uL (130-400); RBC 3.84 Mil/uL (3.80-5.20); RED CELL DISTRIBUTION WIDTH 26.8 % (11.5-14.5); WHITE BLOOD COUNT 16.2 K/uL (4.8-10.8)
--- NOTE | 2018-12-19 07:20 | CP.CCUPN ---
CCU Subjective - Physician Review Subjective (Free Text): 12/19/18 15:33 The patient was Seen/interviewed and examined by me at the bedside during ICU round, Medical records reviewed and Management issues were discussed and formulated with the house staff. Events reviewed 68 year old female with past medical history of anemia, seizure disorder and colon cancer status post total colonectomy Who initially presents to the emergency department on 12/05 after being sent by her PMD for low hemoglobin. As per her she has been increasingly pale for the past x6 months. Patient denies any chest pain, dizziness, light headedness or Loss of consciousness. She was admitted with Microcytic hypochromic anemia from chronic blood loss R/O acute GI bleed and possible recurrent Colon cancer had two ENTERPRISE ENGINEER over the past 24 hours for tachycardia, Colonoscopy had to be cancelled and she was transferred to the ICU Today patient looks comfortable, continue to slowly improves Awake, Comfortable, NAD Afebrile, NSR on the monitor Abd CT scan revealed iintraabdominal mass, worstening of enterocolitis, results discussed with surgery and GI consult Scheduled for Endoscopy when medically stable CCU Objective - Vital Signs / Intake & Output Vital Signs (Last 4 hours): Vital Signs Pulse Resp BP Pulse Ox 12/19/18 07:00 70 14 104/53 L 97 12/19/18 06:00 67 15 107/53 L 96 12/19/18 05:00 67 14 105/52 L 99 12/19/18 04:00 67 14 111/53 L 98 Intake and Output (Last 8hrs): Intake & Output 12/18/18 12/19/18 12/19/18 22:59 06:59 14:59 Intake Total 1169 532 Output Total 260 420 Balance 909 112 Weight 80 lb Intake: IV 666 532 Intake, Piggyback 205 Blood Product 298 Output: Gastric Amount 260 220 Nares 260 220 Stool 200 Other: # Voids Urine, Voided 1 # Bowel Movements 2 - Medications Active Medications: Active Medications Generic Name Dose Route Start Last Admin Trade Name Freq PRN Reason Stop Dose Admin Benzocaine/Menthol 1 juan manuel 12/10/18 10:01 12/17/18 08:51 Cepacol Sore Throat PO 1 juan manuel Q3 PRN Administration Sore Throat Levetiracetam 500 mg/ Sodium 105 mls @ 210 mls/hr 12/16/18 10:00 12/18/18 21:06 Chloride IVPB 210 mls/hr Q12 LILLIAN Administration Meropenem 1 gm/ Sodium 100 mls @ 100 mls/hr 12/18/18 15:02 12/19/18 00:21 Chloride IVPB 100 mls/hr Q8 LILLIAN Administration Protocol Potassium Chloride/Dextrose/Sod Cl 1,000 mls @ 100 mls/hr 12/18/18 15:03 12/19/18 02:00 Potassium Chl 20 Meq In D5-1/2ns IV Not Given .Q10H LILLIAN Amiodarone HCl 900 mg/ 518 mls @ 17.27 mls/hr 12/19/18 03:15 12/19/18 04:00 Dextrose IV 0.5 mg/min .Q24H LILLIAN 17.27 mls/hr Administration Protocol 0.5 MG/MIN Lactulose 20 gm 12/11/18 12:51 12/12/18 11:21 Enulose PO 20 gm DAILY PRN Administration Constipation Ondansetron HCl 4 mg 12/08/18 10:29 12/17/18 05:51 Zofran Inj IVP 4 mg Q6 PRN Administration Nausea/Vomiting Pantoprazole Sodium 40 mg 12/19/18 09:00 Protonix Inj IVP BID LILLIAN - Patient Studies Lab Studies: Lab Studies 12/19/18 12/19/18 12/19/18 Range/Units 04:25 04:25 04:25 WBC 16.2 H (4.8-10.8) K/uL RBC 3.84 (3.80-5.20) Mil/uL Hgb 8.6 L (12.0-16.0) g/dL Hct 27.9 L (34.0-47.0) % MCV 72.7 L (81.0-99.0) fl MCH 22.3 L (27.0-31.0) pg MCHC 30.6 L (33.0-37.0) g/dL RDW 26.8 H (11.5-14.5) % Plt Count 59 L D (130-400) K/uL MPV 9.3 (7.2-11.7) fl Neut % (Auto) 90.8 H (50.0-75.0) % Lymph % (Auto) 4.3 L (20.0-40.0) % Ray % (Auto) 1.7 (0.0-10.0) % Eos % (Auto) 3.1 (0.0-4.0) % Baso % (Auto) 0.1 (0.0-2.0) % Neut # (Auto) 14.7 H (1.8-7.0) K/uL Lymph # (Auto) 0.7 L (1.0-4.3) K/uL Ray # (Auto) 0.3 (0.0-0.8) K/uL Eos # (Auto) 0.5 (0.0-0.7) K/uL Baso # (Auto) 0.0 (0.0-0.2) K/uL Total Counted Neutrophils % (Manual) (42-75) % Band Neutrophils % (0-2) % Lymphocytes % (Manual) (20-50) % Reactive Lymphs % Monocytes % (Manual) (0-10) % Eosinophils % (Manual) (0-7) % Basophils % (Manual) Metamyelocytes % Myelocytes % (0-0) % Promyelocytes % (0-0) % Blast Cells % Plasma Cell % (Manual) Nucleated RBC % Hypersegmented Polys Smudge Cells Toxic Granulation Dohle Bodies Jesus Rods Platelet Estimate (NORMAL) Plt Clumps, EDTA Large Platelets Giant Platelets RBC Morphology Polychromasia Hypochromasia (manual) Poikilocytosis (manual Basophilic Stippling Anisocytosis (manual) Microcytosis (manual) Macrocytosis (manual) Spherocytes Sickle Cells Target Cells Tear Drop Cells Ovalocytes Stomatocytes Helmet Cells Real-Gu-Win Bodies Hobson Cells Acanthocytes (Spur) Rouleaux Schistocytes PT 13.4 H (9.8-13.1) Seconds INR 1.2 APTT 32.5 (25.6-37.1) Seconds Fibrinogen (200-400) mg/dl Fibrin Degrad Products (NEGATIVE) Fibrin Degrad Prod, Qt (<10) ug/mL Sodium 142 (132-148) mmol/l Potassium 3.3 L (3.6-5.0) MMOL/L Chloride 104 (98-107) mmol/L Carbon Dioxide 31 H (22-30) mmol/L Anion Gap 10 (10-20) BUN 16 (7-17) mg/dl Creatinine 0.5 L (0.7-1.2) mg/dl Est GFR ( Amer) > 60 Est GFR (Non-Af Amer) > 60 Random Glucose 117 H (65-105) mg/dL Calcium 8.4 (8.4-10.2) mg/dL Phosphorus 1.5 L (2.5-4.5) mg/dl Magnesium 1.7 (1.6-2.3) MG/DL Total Bilirubin 0.4 (0.2-1.3) mg/dl AST 28 (14-36) U/L ALT 33 (9-52) U/L Alkaline Phosphatase 118 (38-126) U/L Total Protein 5.4 L (6.3-8.2) G/DL Albumin 2.3 L (3.5-5.0) g/dL Globulin 3.1 (2.2-3.9) gm/dL Albumin/Globulin Ratio 0.7 L (1.0-2.1) Levetiracetam mcg/mL Blood Type Antibody Screen BBK History Checked 12/18/18 12/18/18 12/18/18 Range/Units 20:09 14:23 14:23 WBC (4.8-10.8) K/uL RBC (3.80-5.20) Mil/uL Hgb (12.0-16.0) g/dL Hct (34.0-47.0) % MCV (81.0-99.0) fl MCH (27.0-31.0) pg MCHC (33.0-37.0) g/dL RDW (11.5-14.5) % Plt Count (130-400) K/uL MPV (7.2-11.7) fl Neut % (Auto) (50.0-75.0) % Lymph % (Auto) (20.0-40.0) % Ray % (Auto) (0.0-10.0) % Eos % (Auto) (0.0-4.0) % Baso % (Auto) (0.0-2.0) % Neut # (Auto) (1.8-7.0) K/uL Lymph # (Auto) (1.0-4.3) K/uL Ray # (Auto) (0.0-0.8) K/uL Eos # (Auto) (0.0-0.7) K/uL Baso # (Auto) (0.0-0.2) K/uL Total Counted Neutrophils % (Manual) (42-75) % Band Neutrophils % (0-2) % Lymphocytes % (Manual) (20-50) % Reactive Lymphs % Monocytes % (Manual) (0-10) % Eosinophils % (Manual) (0-7) % Basophils % (Manual) Metamyelocytes % Myelocytes % (0-0) % Promyelocytes % (0-0) % Blast Cells % Plasma Cell % (Manual) Nucleated RBC % Hypersegmented Polys Smudge Cells Toxic Granulation Dohle Bodies Jesus Rods Platelet Estimate (NORMAL) Plt Clumps, EDTA Large Platelets Giant Platelets RBC Morphology Polychromasia Hypochromasia (manual) Poikilocytosis (manual Basophilic Stippling Anisocytosis (manual) Microcytosis (manual) Macrocytosis (manual) Spherocytes Sickle Cells Target Cells Tear Drop Cells Ovalocytes Stomatocytes Helmet Cells Real-Gu-Win Bodies Sander Cells Acanthocytes (Spur) Rouleaux Schistocytes PT 14.3 H (9.8-13.1) Seconds INR 1.3 APTT 32.6 (25.6-37.1) Seconds Fibrinogen 331 (200-400) mg/dl Fibrin Degrad Products Positive H (NEGATIVE) Fibrin Degrad Prod, Qt >40 H (<10) ug/mL Sodium (132-148) mmol/l Potassium (3.6-5.0) MMOL/L Chloride (98-107) mmol/L Carbon Dioxide (22-30) mmol/L Anion Gap (10-20) BUN (7-17) mg/dl Creatinine (0.7-1.2) mg/dl Est GFR ( Amer) Est GFR (Non-Af Amer) Random Glucose (65-105) mg/dL Calcium (8.4-10.2) mg/dL Phosphorus (2.5-4.5) mg/dl Magnesium (1.6-2.3) MG/DL Total Bilirubin (0.2-1.3) mg/dl AST (14-36) U/L ALT (9-52) U/L Alkaline Phosphatase (38-126) U/L Total Protein (6.3-8.2) G/DL Albumin (3.5-5.0) g/dL Globulin (2.2-3.9) gm/dL Albumin/Globulin Ratio (1.0-2.1) Levetiracetam mcg/mL Blood Type O POSITIVE Antibody Screen Negative BBK History Checked Patient has bt 12/18/18 12/18/18 12/14/18 Range/Units 12:46 04:25 05:05 WBC 24.3 H (4.8-10.8) K/uL RBC 4.27 (3.80-5.20) Mil/uL Hgb 9.4 L (12.0-16.0) g/dL Hct 31.5 L (34.0-47.0) % MCV 73.8 L (81.0-99.0) fl MCH 22.0 L (27.0-31.0) pg MCHC 29.9 L (33.0-37.0) g/dL RDW 27.1 H (11.5-14.5) % Plt Count 22 L* D (130-400) K/uL MPV 8.3 (7.2-11.7) fl Neut % (Auto) 91.7 H (50.0-75.0) % Lymph % (Auto) 2.8 L (20.0-40.0) % Ray % (Auto) 1.8 (0.0-10.0) % Eos % (Auto) 3.5 (0.0-4.0) % Baso % (Auto) 0.2 (0.0-2.0) % Neut # (Auto) 22.2 H (1.8-7.0) K/uL Lymph # (Auto) 0.7 L (1.0-4.3) K/uL Ray # (Auto) 0.4 (0.0-0.8) K/uL Eos # (Auto) 0.9 H (0.0-0.7) K/uL Baso # (Auto) 0.0 (0.0-0.2) K/uL Total Counted Cancelled Neutrophils % (Manual) Cancelled 79 H (42-75) % Band Neutrophils % Cancelled 12 H* (0-2) % Lymphocytes % (Manual) Cancelled 3 L (20-50) % Reactive Lymphs % Cancelled Monocytes % (Manual) Cancelled 3 (0-10) % Eosinophils % (Manual) Cancelled 1 (0-7) % Basophils % (Manual) Cancelled Metamyelocytes % Cancelled Myelocytes % Cancelled 1 H (0-0) % Promyelocytes % Cancelled 1 H (0-0) % Blast Cells % Cancelled Plasma Cell % (Manual) Cancelled Nucleated RBC % Cancelled Hypersegmented Polys Cancelled Smudge Cells Cancelled Toxic Granulation Cancelled Present Dohle Bodies Cancelled Jesus Rods Cancelled Platelet Estimate Cancelled Decreased L (NORMAL) Plt Clumps, EDTA Cancelled Large Platelets Cancelled Giant Platelets Cancelled RBC Morphology Cancelled Polychromasia Cancelled Hypochromasia (manual) Cancelled Moderate Poikilocytosis (manual Cancelled Basophilic Stippling Cancelled Anisocytosis (manual) Cancelled Marked Microcytosis (manual) Cancelled Slight Macrocytosis (manual) Cancelled Spherocytes Cancelled Sickle Cells Cancelled Target Cells Cancelled Tear Drop Cells Cancelled Slight Ovalocytes Cancelled Slight Stomatocytes Cancelled Helmet Cells Cancelled Real-Gu-Win Bodies Cancelled Hobson Cells Cancelled Acanthocytes (Spur) Cancelled Rouleaux Cancelled Schistocytes Cancelled Slight PT (9.8-13.1) Seconds INR APTT (25.6-37.1) Seconds Fibrinogen (200-400) mg/dl Fibrin Degrad Products (NEGATIVE) Fibrin Degrad Prod, Qt (<10) ug/mL Sodium (132-148) mmol/l Potassium (3.6-5.0) MMOL/L Chloride (98-107) mmol/L Carbon Dioxide (22-30) mmol/L Anion Gap (10-20) BUN (7-17) mg/dl Creatinine (0.7-1.2) mg/dl Est GFR ( Amer) Est GFR (Non-Af Amer) Random Glucose (65-105) mg/dL Calcium (8.4-10.2) mg/dL Phosphorus (2.5-4.5) mg/dl Magnesium (1.6-2.3) MG/DL Total Bilirubin (0.2-1.3) mg/dl AST (14-36) U/L ALT (9-52) U/L Alkaline Phosphatase (38-126) U/L Total Protein (6.3-8.2) G/DL Albumin (3.5-5.0) g/dL Globulin (2.2-3.9) gm/dL Albumin/Globulin Ratio (1.0-2.1) Levetiracetam 27.2 mcg/mL Blood Type Antibody Screen BBK History Checked Laboratory Results - last 24 hr 12/14/18 12/18/18 12/18/18 05:05 04:25 12:46 WBC 24.3 H RBC 4.27 Hgb 9.4 L Hct 31.5 L MCV 73.8 L MCH 22.0 L MCHC 29.9 L RDW 27.1 H Plt Count 22 L* D MPV 8.3 Neut % (Auto) 91.7 H Lymph % (Auto) 2.8 L Ray % (Auto) 1.8 Eos % (Auto) 3.5 Baso % (Auto) 0.2 Neut # (Auto) 22.2 H Lymph # (Auto) 0.7 L Ray # (Auto) 0.4 Eos # (Auto) 0.9 H Baso # (Auto) 0.0 Total Counted Cancelled Neutrophils % (Manual) 79 H Cancelled Band Neutrophils % 12 H* Cancelled Lymphocytes % (Manual) 3 L Cancelled Reactive Lymphs % Cancelled Monocytes % (Manual) 3 Cancelled Eosinophils % (Manual) 1 Cancelled Basophils % (Manual) Cancelled Metamyelocytes % Cancelled Myelocytes % 1 H Cancelled Promyelocytes % 1 H Cancelled Blast Cells % Cancelled Plasma Cell % (Manual) Cancelled Nucleated RBC % Cancelled Hypersegmented Polys Cancelled Smudge Cells Cancelled Toxic Granulation Present Cancelled Dohle Bodies Cancelled Jesus Rods Cancelled Platelet Estimate Decreased L Cancelled Plt Clumps, EDTA Cancelled Large Platelets Cancelled Giant Platelets Cancelled RBC Morphology Cancelled Polychromasia Cancelled Hypochromasia (manual) Moderate Cancelled Poikilocytosis (manual Cancelled Basophilic Stippling Cancelled Anisocytosis (manual) Marked Cancelled Microcytosis (manual) Slight Cancelled Macrocytosis (manual) Cancelled Spherocytes Cancelled Sickle Cells Cancelled Target Cells Cancelled Tear Drop Cells Slight Cancelled Ovalocytes Slight Cancelled Stomatocytes Cancelled Helmet Cells Cancelled Real-Gu-Win Bodies Cancelled Hobson Cells Cancelled Acanthocytes (Spur) Cancelled Rouleaux Cancelled Schistocytes Slight Cancelled PT INR APTT Fibrinogen Fibrin Degrad Products Fibrin Degrad Prod, Qt Sodium Potassium Chloride Carbon Dioxide Anion Gap BUN Creatinine Est GFR ( Amer) Est GFR (Non-Af Amer) Random Glucose Calcium Phosphorus Magnesium Total Bilirubin AST ALT Alkaline Phosphatase Total Protein Albumin Globulin Albumin/Globulin Ratio Levetiracetam 27.2 Blood Type Antibody Screen BBK History Checked 12/18/18 12/18/18 12/18/18 14:23 14:23 20:09 WBC RBC Hgb Hct MCV MCH MCHC RDW Plt Count MPV Neut % (Auto) Lymph % (Auto) Ray % (Auto) Eos % (Auto) Baso % (Auto) Neut # (Auto) Lymph # (Auto) Ray # (Auto) Eos # (Auto) Baso # (Auto) Total Counted Neutrophils % (Manual) Band Neutrophils % Lymphocytes % (Manual) Reactive Lymphs % Monocytes % (Manual) Eosinophils % (Manual) Basophils % (Manual) Metamyelocytes % Myelocytes % Promyelocytes % Blast Cells % Plasma Cell % (Manual) Nucleated RBC % Hypersegmented Polys Smudge Cells Toxic Granulation Dohle Bodies Jesus Rods Platelet Estimate Plt Clumps, EDTA Large Platelets Giant Platelets RBC Morphology Polychromasia Hypochromasia (manual) Poikilocytosis (manual Basophilic Stippling Anisocytosis (manual) Microcytosis (manual) Macrocytosis (manual) Spherocytes Sickle Cells Target Cells Tear Drop Cells Ovalocytes Stomatocytes Helmet Cells Real-Gu-Win Bodies Sander Cells Acanthocytes (Spur) Rouleaux Schistocytes PT 14.3 H INR 1.3 APTT 32.6 Fibrinogen 331 Fibrin Degrad Products Positive H Fibrin Degrad Prod, Qt >40 H Sodium Potassium Chloride Carbon Dioxide Anion Gap BUN Creatinine Est GFR ( Amer) Est GFR (Non-Af Amer) Random Glucose Calcium Phosphorus Magnesium Total Bilirubin AST ALT Alkaline Phosphatase Total Protein Albumin Globulin Albumin/Globulin Ratio Levetiracetam Blood Type O POSITIVE Antibody Screen Negative BBK History Checked Patient has bt 12/19/18 12/19/18 12/19/18 04:25 04:25 04:25 WBC 16.2 H RBC 3.84 Hgb 8.6 L Hct 27.9 L MCV 72.7 L MCH 22.3 L MCHC 30.6 L RDW 26.8 H Plt Count 59 L D MPV 9.3 Neut % (Auto) 90.8 H Lymph % (Auto) 4.3 L Ray % (Auto) 1.7 Eos % (Auto) 3.1 Baso % (Auto) 0.1 Neut # (Auto) 14.7 H Lymph # (Auto) 0.7 L Ray # (Auto) 0.3 Eos # (Auto) 0.5 Baso # (Auto) 0.0 Total Counted Neutrophils % (Manual) Band Neutrophils % Lymphocytes % (Manual) Reactive Lymphs % Monocytes % (Manual) Eosinophils % (Manual) Basophils % (Manual) Metamyelocytes % Myelocytes % Promyelocytes % Blast Cells % Plasma Cell % (Manual) Nucleated RBC % Hypersegmented Polys Smudge Cells Toxic Granulation Dohle Bodies Jesus Rods Platelet Estimate Plt Clumps, EDTA Large Platelets Giant Platelets RBC Morphology Polychromasia Hypochromasia (manual) Poikilocytosis (manual Basophilic Stippling Anisocytosis (manual) Microcytosis (manual) Macrocytosis (manual) Spherocytes Sickle Cells Target Cells Tear Drop Cells Ovalocytes Stomatocytes Helmet Cells Real-Gu-Win Bodies Hobson Cells Acanthocytes (Spur) Rouleaux Schistocytes PT 13.4 H INR 1.2 APTT 32.5 Fibrinogen Fibrin Degrad Products Fibrin Degrad Prod, Qt Sodium 142 Potassium 3.3 L Chloride 104 Carbon Dioxide 31 H Anion Gap 10 BUN 16 Creatinine 0.5 L Est GFR ( Amer) > 60 Est GFR (Non-Af Amer) > 60 Random Glucose 117 H Calcium 8.4 Phosphorus 1.5 L Magnesium 1.7 Total Bilirubin 0.4 AST 28 ALT 33 Alkaline Phosphatase 118 Total Protein 5.4 L Albumin 2.3 L Globulin 3.1 Albumin/Globulin Ratio 0.7 L Levetiracetam Blood Type Antibody Screen BBK History Checked Radiology Impressions: Radiology Impressions Abdomen/Pelvis CT 12/18/18 09:00 IMPRESSION: Persistent if not worsened segmental enteritis affecting significant small bowel segment at the right lower quadrant/central abdomen. Right lower quadrant small bowel mass may cause intermittent or partial small bowel obstruction distally. Complete obstruction in apparent. Ileus pattern not favored but not completely excluded. Other lesser findings as discussed above. Critical Care Progress Note - Nutrition Nutrition: Nutrition Category Date Time Status NPO Diet [DIET] Diets 12/16/18 Breakfast Active Assessment/Plan (1) Anemia Current Visit: Yes Status: Acute Priority: High Comment: (2) History of atrial fibrillation Current Visit: Yes Status: Acute Priority: High (3) Thrombocytopenia Current Visit: Yes Status: Acute Priority: High (4) Sepsis Current Visit: Yes Status: Acute Comment: From right arm cellulitis and phlebitis Also worsened Segmental enteritis on CT scan (5) Colon cancer Current Visit: Yes Status: Chronic Priority: High - Assessment and Plan (Free Text) Assessment: Continue with ICU care for hemodynamic monitoring, Nasogastric tube removed Two large bore peripheral catheters Suplemental O2 Serial CBCs q 12 /HR Scheduled for Upper endoscopy tomorrow Volume resuscitation Continue Amiodarone for A-Fib H/H stable, Plat count up to 59 No evidance of active bleeding at this time Hem/Oncology eval appretiated Started clear liquid diet today IV Meropenem ID evaluation for right arm cellulitis & phlebitis
[2018-12-19] MEDS: levETIRAcetam 500 MG in Sodium Chloride 0.9% 100 ML IVPB SCH ×2 (09:06→20:11)
--- NOTE | 2018-12-19 10:58 | CP.PCM.PN ---
<TerriNiaMollyAlan - Last Filed: 12/19/18 10:56> Subjective - Date & Time of Evaluation Date of Evaluation: 12/19/18 Time of Evaluation: 10:56 - Subjective Subjective: Surgery: Dr. Gaston Patient reports feelings well today. She denies nausea. Per nursing, patient with liquid dark tarry stools overnight so rectal tube placed. NGT w/ 400cc dark bilious output in 24hr. Objective - Vital Signs/Intake and Output Vital Signs (last 24 hours): Temp Pulse Resp BP Pulse Ox 97.4 F L 67 16 105/53 L 97 12/19/18 08:00 12/19/18 08:00 12/19/18 08:00 12/19/18 08:00 12/19/18 07:00 Intake and Output: 12/19/18 12/19/18 06:59 18:59 Intake Total 1071 Output Total 420 Balance 651 - Medications Medications: Current Medications Benzocaine/Menthol (Cepacol Sore Throat) 1 juan manuel PO Q3 PRN PRN Reason: Sore Throat Last Admin: 12/17/18 08:51 Dose: 1 juan manuel Levetiracetam 500 mg/ Sodium (Chloride) 105 mls @ 210 mls/hr IVPB Q12 LILLIAN Last Admin: 12/19/18 09:06 Dose: 210 mls/hr Meropenem 1 gm/ Sodium (Chloride) 100 mls @ 100 mls/hr IVPB Q8 LILLIAN; Protocol Last Admin: 12/19/18 09:08 Dose: 100 mls/hr Potassium Chloride/Dextrose/Sod Cl (Potassium Chl 20 Meq In D5-1/2ns) 1,000 mls @ 100 mls/hr IV .Q10H LILLIAN Last Admin: 12/19/18 02:00 Dose: Not Given Amiodarone HCl 900 mg/ (Dextrose) 518 mls @ 17.27 mls/hr IV .Q24H LILLIAN; Protocol Last Admin: 12/19/18 04:00 Dose: 0.5 mg/min, 17.27 mls/hr Lactulose (Enulose) 20 gm PO DAILY PRN PRN Reason: Constipation Last Admin: 12/12/18 11:21 Dose: 20 gm Ondansetron HCl (Zofran Inj) 4 mg IVP Q6 PRN PRN Reason: Nausea/Vomiting Last Admin: 12/17/18 05:51 Dose: 4 mg Pantoprazole Sodium (Protonix Inj) 40 mg IVP BID LILLIAN Last Admin: 12/19/18 09:10 Dose: 40 mg - Labs Labs: 12/19/18 04:25 12/19/18 04:25 PT 13.4 Seconds (9.8-13.1) H 12/19/18 04:25 INR 1.2 12/19/18 04:25 APTT 32.5 Seconds (25.6-37.1) 12/19/18 04:25 - Constitutional Appears: Cachectic, Chronically Ill - Head Exam Head Exam: ATRAUMATIC, NORMOCEPHALIC - Eye Exam Eye Exam: EOMI, Normal appearance - ENT Exam ENT Exam: Mucous Membranes Moist - Respiratory Exam Respiratory Exam: NORMAL BREATHING PATTERN. absent: Respiratory Distress - Cardiovascular Exam Cardiovascular Exam: REGULAR RHYTHM. absent: Tachycardia - GI/Abdominal Exam GI & Abdominal Exam: Soft. absent: Distended, Guarding, Tenderness, Rebound - Extremities Exam Extremities Exam: Normal Inspection. absent: Calf Tenderness - Neurological Exam Neurological Exam: Alert, Awake - Psychiatric Exam Psychiatric exam: Normal Affect, Normal Mood - Skin Skin Exam: Dry, Warm Assessment and Plan - Assessment and Plan (Free Text) Assessment: 68 y/o F w/ GI bleed, stable Plan: CT w/o evidence of obstruction, can remove NGT and start CLD d/c rectal tube enteritis persistent, recommend cont abx daily labs replace electrolytes as needed f/u GI recs cont protonix d/w Dr. Gaston AKWhite PGY4 <Jake Gaston B - Last Filed: 12/19/18 16:34> Objective - Vital Signs/Intake and Output Vital Signs (last 24 hours): Temp Pulse Resp BP Pulse Ox 97.4 F L 117 H 16 92/54 L 100 12/19/18 16:00 12/19/18 16:00 12/19/18 16:00 12/19/18 16:00 12/19/18 16:00 Intake and Output: 12/19/18 12/19/18 06:59 18:59 Intake Total 1071 Output Total 420 Balance 651 - Medications Medications: Current Medications Benzocaine/Menthol (Cepacol Sore Throat) 1 juan manuel PO Q3 PRN PRN Reason: Sore Throat Last Admin: 12/17/18 08:51 Dose: 1 juan manuel Levetiracetam 500 mg/ Sodium (Chloride) 105 mls @ 210 mls/hr IVPB Q12 LILLIAN Last Admin: 12/19/18 09:06 Dose: 210 mls/hr Meropenem 1 gm/ Sodium (Chloride) 100 mls @ 100 mls/hr IVPB Q8 LILLIAN; Protocol Last Admin: 12/19/18 09:08 Dose: 100 mls/hr Amiodarone HCl 450 mg/ Sodium (Chloride) 259 mls @ 17.27 mls/hr IV .Q15H LILLIAN; Protocol Last Admin: 12/19/18 13:05 Dose: 0.5 mg/min, 17.27 mls/hr Lactulose (Enulose) 20 gm PO DAILY PRN PRN Reason: Constipation Last Admin: 12/12/18 11:21 Dose: 20 gm Ondansetron HCl (Zofran Inj) 4 mg IVP Q6 PRN PRN Reason: Nausea/Vomiting Last Admin: 12/17/18 05:51 Dose: 4 mg Pantoprazole Sodium (Protonix Inj) 40 mg IVP DAILY LILLIAN - Labs Labs: 12/19/18 04:25 12/19/18 04:25 PT 13.4 Seconds (9.8-13.1) H 12/19/18 04:25 INR 1.2 12/19/18 04:25 APTT 32.5 Seconds (25.6-37.1) 12/19/18 04:25 Attending/Attestation - Attestation I have personally seen and examined this patient.: Yes I have fully participated in the care of the patient.: Yes I have reviewed all pertinent clinical information, including history, physical exam and plan: Yes Notes (Text): Pt was seen and examined at bedside Agree with above note and assessment Pt is improving clinically No clinical signs of obstruction Start Clear liquid diet c.w IV antibiotics HB is trending down. c/w current mx Plan d.w pt in detail. Risk and benefit explained in detail.
--- NOTE | 2018-12-19 11:02 | CP.PCM.PN ---
Subjective - Date & Time of Evaluation Date of Evaluation: 12/19/18 Time of Evaluation: 10:48 - Subjective Subjective: Pt is feeling much better. She has not had any vomiting and had a large bowel movement yesterday. There appears to be a lot of enteritis. and incomplete obstruction in the intestine. She is in sinus rhythm now and may soon go for colonoscopy Objective - Vital Signs/Intake and Output Vital Signs (last 24 hours): Temp Pulse Resp BP Pulse Ox 97.7 F 70 14 104/53 L 97 12/19/18 00:00 12/19/18 07:00 12/19/18 07:00 12/19/18 07:00 12/19/18 07:00 Intake and Output: 12/19/18 12/19/18 06:59 18:59 Intake Total 1071 Output Total 420 Balance 651 - Medications Medications: Current Medications Benzocaine/Menthol (Cepacol Sore Throat) 1 juan manuel PO Q3 PRN PRN Reason: Sore Throat Last Admin: 12/17/18 08:51 Dose: 1 juan manuel Levetiracetam 500 mg/ Sodium (Chloride) 105 mls @ 210 mls/hr IVPB Q12 LILLIAN Last Admin: 12/19/18 09:06 Dose: 210 mls/hr Meropenem 1 gm/ Sodium (Chloride) 100 mls @ 100 mls/hr IVPB Q8 LILLIAN; Protocol Last Admin: 12/19/18 09:08 Dose: 100 mls/hr Potassium Chloride/Dextrose/Sod Cl (Potassium Chl 20 Meq In D5-1/2ns) 1,000 mls @ 100 mls/hr IV .Q10H LILLIAN Last Admin: 12/19/18 02:00 Dose: Not Given Amiodarone HCl 900 mg/ (Dextrose) 518 mls @ 17.27 mls/hr IV .Q24H LILLIAN; Protocol Last Admin: 12/19/18 04:00 Dose: 0.5 mg/min, 17.27 mls/hr Lactulose (Enulose) 20 gm PO DAILY PRN PRN Reason: Constipation Last Admin: 12/12/18 11:21 Dose: 20 gm Ondansetron HCl (Zofran Inj) 4 mg IVP Q6 PRN PRN Reason: Nausea/Vomiting Last Admin: 12/17/18 05:51 Dose: 4 mg Pantoprazole Sodium (Protonix Inj) 40 mg IVP BID LILLIAN Last Admin: 12/19/18 09:10 Dose: 40 mg - Labs Labs: 12/19/18 04:25 12/19/18 04:25 PT 13.4 Seconds (9.8-13.1) H 12/19/18 04:25 INR 1.2 12/19/18 04:25 APTT 32.5 Seconds (25.6-37.1) 12/19/18 04:25
[2018-12-19 11:07] LABS: BANDS 14 % (0-2); LYMPHOCYTE 2 % (20-50); METAMYELOCYTE 1 % (0-0); MONOCYTE 1 % (0-10); NEUTROPHIL 82 % (42-75); TOTAL CELLS COUNTED 100
[2018-12-19 11:08] LABS: ANISOCYTOSIS MARKED; HYPOCHROMIC MODERATE; OVALOCYTES SLIGHT; PLATELET ESTIMATE DECREASED (NORMAL); TOXIC GRANULATION PRESENT
[2018-12-19] MEDS ORDERED: Magnesium Sulfate 4 gm/100 ml 4 GM/100 ML BAG IVPB ONE (11:15)
[2018-12-19] MEDS ORDERED: Potassium & Sodium Phosphate PO ONE (11:17)
[2018-12-19] MEDS ORDERED: Potassium Chloride 20 mEq ER Tab PO ONE (11:17)
[2018-12-19] MEDS ORDERED: Potassium Chloride 20 mEq 100 ML IVPB ONE (11:19)
[2018-12-19] MEDS: Amiodarone 450 MG in Sodium Chloride 0.9% 250 ML IV SCH (13:05)
--- NOTE | 2018-12-19 15:24 | CP.PCM.PN ---
Subjective - Date & Time of Evaluation Date of Evaluation: 12/19/18 Time of Evaluation: 09:00 - Subjective Subjective: Patient had NG removed. No nausea or vomiting. Objective - Vital Signs/Intake and Output Vital Signs (last 24 hours): Temp Pulse Resp BP Pulse Ox 97.6 F 68 13 102/44 L 97 12/19/18 12:00 12/19/18 14:00 12/19/18 14:00 12/19/18 14:00 12/19/18 13:00 Intake and Output: 12/19/18 12/19/18 06:59 18:59 Intake Total 1071 Output Total 420 Balance 651 - Medications Medications: Current Medications Benzocaine/Menthol (Cepacol Sore Throat) 1 juan manuel PO Q3 PRN PRN Reason: Sore Throat Last Admin: 12/17/18 08:51 Dose: 1 juan manuel Levetiracetam 500 mg/ Sodium (Chloride) 105 mls @ 210 mls/hr IVPB Q12 LILLIAN Last Admin: 12/19/18 09:06 Dose: 210 mls/hr Meropenem 1 gm/ Sodium (Chloride) 100 mls @ 100 mls/hr IVPB Q8 LILLIAN; Protocol Last Admin: 12/19/18 09:08 Dose: 100 mls/hr Amiodarone HCl 450 mg/ Sodium (Chloride) 259 mls @ 17.27 mls/hr IV .Q15H LILLIAN; Protocol Last Admin: 12/19/18 13:05 Dose: 0.5 mg/min, 17.27 mls/hr Lactulose (Enulose) 20 gm PO DAILY PRN PRN Reason: Constipation Last Admin: 12/12/18 11:21 Dose: 20 gm Ondansetron HCl (Zofran Inj) 4 mg IVP Q6 PRN PRN Reason: Nausea/Vomiting Last Admin: 12/17/18 05:51 Dose: 4 mg Pantoprazole Sodium (Protonix Inj) 40 mg IVP DAILY LILLIAN - Labs Labs: 12/19/18 04:25 12/19/18 04:25 PT 13.4 Seconds (9.8-13.1) H 12/19/18 04:25 INR 1.2 12/19/18 04:25 APTT 32.5 Seconds (25.6-37.1) 02/12/19 04:25 - Constitutional Appears: Cachectic - Head Exam Head Exam: ATRAUMATIC - Eye Exam Eye Exam: Normal appearance - Neck Exam Neck Exam: Full ROM - Respiratory Exam Respiratory Exam: Clear to Ausculation Bilateral - Cardiovascular Exam Cardiovascular Exam: REGULAR RHYTHM - GI/Abdominal Exam GI & Abdominal Exam: Soft, Normal Bowel Sounds. absent: Tenderness Assessment and Plan (1) Anemia Assessment & Plan: 68 yo female with h/o colon cancer now with intraabdominal mass on CT and elevated CEA greater than 200. Recent CT shows worstening of enterocolitis. Has required NG drainage and large amount of brownish fluid was suctioned over past day and a half. Colonoscopy was planned but patient was unable to tolerate laxative and developed Afib with rapid response. Heart rhythm now controlled. Upper endoscopy tomorrow. Status: Acute
--- NOTE | 2018-12-19 15:24 | CP.PCM.CON ---
History of Present Illness - History of Present Illness History of Present Illness: 68 year old female with past medical history of anemia, seizure disorder and colon cancer status post total colonectomy Who initially presents to the emergency department on 12/05 after being sent by her PMD for low hemoglobin. As per her she has been increasingly pale for the past x6 months. She was admitted with Microcytic hypochromic anemia from chronic blood loss R/O acute GI bleed and possible recurrent Colon cancer Had two [employer] for tachycardia, Colonoscopy had to be cancelled and she was transferred to the ICU Cultured up and started onMerrem by Surgery ID consulted for this Review of Systems - Review of Systems All systems: reviewed and no additional remarkable complaints except - Constitutional Constitutional: As Per HPI - EENT Eyes: absent: As Per HPI, Blind Spots, Blurred Vision, Change in Vision, Decreased Night Vision, Diplopia, Discharge, Dry Eye, Exophthalmos, Floaters, Irritation, Itchy Eyes, Loss of Peripheral Vision, Pain, Photophobia, Requires Corrective Lenses, Sees Flashes, Spots in Vision, Tunnel Vision, Other Visual Disturbances, Loss of Vision, Other Ears: absent: As Per HPI, Decreased Hearing, Ear Discharge, Ear Pain, Tinnitus, Abnormal Hearing, Disequilibrium, Dizziness, Other Nose/Mouth/Throat: absent: As Per HPI, Epistaxis, Nasal Congestion, Nasal Disc harge, Nasal Obstruction, Nasal Trauma, Nose Pain, Post Nasal Drip, Sinus Pain, Sinus Pressure, Bleeding Gums, Change in Voice, Dental Pain, Dry Mouth, Dysphagia, Halitosis, Hoarsness, Lip Swelling, Mouth Lesions, Mouth Pain, Odynophagia, Sore Throat, Throat Swelling, Tongue Swelling, Facial Pain, Neck Pain, Neck Mass, Other - Breasts Breasts: absent: As Per HPI, Change in Shape, Mass, Pain, Nipple Discharge, Nipple Inversion, Skin Changes, Swelling, Other - Cardiovascular Cardiovascular: absent: As Per HPI, Acrocyanosis, Chest Pain, Chest Pain at Rest, Chest Pain with Activity, Claudication, Diaphoresis, Dyspnea, Dyspnea on Exertion, Edema, Irregular Heart Rhythm, Pain Radiating to Arm/Neck/Jaw, Leg Edema, Leg Ulcers, Lightheadedness, Orthopnea, Palpitations, Paroxysmal Nocturnal Dyspnea, Pedal Edema, Radiating Pain, Rapid Heart Rate, Slow Heart Rate, Syncope, Other - Respiratory Respiratory: absent: As Per HPI, Cough, Dyspnea, Hemoptysis, Dyspnea on Exertion, Wheezing, Snoring, Stridor, Pain on Inspiration, Chest Congestion, Excessive Mucous Production, Change in Mucous Color, Pain with Coughing, Other - Gastrointestinal Gastrointestinal: As Per HPI, Abdominal Pain - Genitourinary Genitourinary: absent: As Per HPI, Change in Urinary Stream, Difficulty Urinating, Dysuria, Flank Pain, Hematuria, Pyuria, Nocturia, Urinary Incontinence, Urinary Frequency, Urinary Hesitance, Urinary Urgency, Voiding Freq/Small Amts, Freq UTI, Hx Renal/Bladder Calculi, Hx /Renal Surgery, Bladder Distension, Other - Reproductive: Female Reproductive:Female: absent: As Per HPI, Amenorrhea, Amenorrhea/ Control, Currently Menstual, Cycle <21 Days, Cycle >35 Days, Cycle Variable, Menses 1-7 Days, Menses >/= 8 Days, Menses Variable, Cycle > 4 Weeks Between, No Menses for 6 Months, Heavy Menses, Light Menses, Normal Menses, Spotting Between Cycles, S/P Hysterectomy, Menopausal, Post Menopausal, Premenarche, Abnormal Vaginal Bleeding, Dysmenorrhea, Dyspareunia, Genital Lesions, Genital Pruritis, Pelvic Pain, Prolapse Symptoms, Sexual Dysfunction, Vaginal Discharge, Vaginal Dryness, Vaginal Odor, Vaginal Pruritis, Other - Menstruation Menstruation: absent: As Per HPI, Amenorrhea, Amenorrhea/ Control, Curre ntly Menstual, Cycle <21 Days, Cycle >35 Days, Cycle Variable, Menses 1-7 Days, Menses >/= 8 Days, Menses Variable, Cycle > 4 Weeks Between, No Menses for 6 Months, Heavy Menses, Light Menses, Normal Menses, Spotting Between Cycles, S/P Hysterectomy, Menopausal, Post Menopausal, Premenarche, Abnormal Vaginal Bleeding, Dysmenorrhea, Other - Musculoskeletal Musculoskeletal: absent: As Per HPI, Abnormal Gait, Arthralgias, Atrophy, Back Pain, Deformity, Joint Swelling, Limited Range of Motion, Loss of Height, Muscle Cramps, Muscle Weakness, Myalgias, Neck Pain, Numbness, Radiating Pain into Limb, Stiffness, Tingling, Other - Integumentary Integumentary: absent: As Per HPI, Acne, Alopecia, Bleeding Lesions, Change in Hair, Change in Nails, Change in Pigmentation, Changing Lesions, Dry Skin, Erythema, Furuncle, Hirsutism, Lesions, New Lesions, Non-Healing Lesions, Photosensitivity, Pruritus, Rash, Skin Pain, Skin Ulcer, Sores, Striae, Swelling, Unusual Bruising, Wounds, Jaundice, Other - Neurological Neurological: absent: As Per HPI, Abnormal Gait, Abnormal Hearing, Abnormal Movements, Abnormal Speech, Behavioral Changes, Burning Sensations, Confusion, Convulsions, Disequilibrium, Dizziness, Numbness, Focal Weakness, Frequent Falls, Headaches, Lack of Coordination, Loss of Vision, Memory Loss, Paresthesias, Radicular Pain, Restless Legs, Sensory Deficit, Syncope, Tingling, Tremor, Vertigo, Weakness, Other Visual Disturbances, Other - Psychiatric Psychiatric: absent: As Per HPI, Abnormal Sleep Pattern, Anhedonia, Anxiety, Aud itory Hallucinations, Behavioral Changes, Change in Appetite, Change in Libido, Confusion, Depression, Difficulty Concentrating, Hallucinations, Homicidal Ideation, Hopelessness, Irritability, Memory Loss, Mood Swings, Panic Attacks, Paranoia, Suicidal Ideation, Visual Hallucinations, Tactile Hallucinations, Other - Endocrine Endocrine: absent: As Per HPI, Change in Body Appearance, Change in Libido, Cold Intolorance, Deepening of Voice, Excessive Sweating, Fatigue, Flushing, Heat Intolorance, Increase in Ring/Shoe/Hat Size, Palpitations, Polydipsia, Poly phagia, Polyuria, Other - Hematologic/Lymphatic Hematologic: absent: As Per HPI, Easy Bleeding, Easy Bruising, Lymphadenopathy, Other Past Patient History - Infectious Disease Hx of Infectious Diseases: None - Past Medical History & Family History Past Medical History?: Yes - Past Social History Smoking Status: Former Smoker - CARDIAC Hx Cardiac Disorders: Yes Hx Atrial Fibrillation: Yes (after colonoscopy) - PULMONARY Hx Respiratory Disorders: No - NEUROLOGICAL Hx Neurological Disorder: Yes Hx Seizures: Yes (epilepsy PETITE MAL LAST 6 YEARS AGO) - HEENT Hx HEENT Problems: Yes Hx Cataracts: Yes (BILAT IOL) - RENAL Hx Chronic Kidney Disease: No - ENDOCRINE/METABOLIC Hx Endocrine Disorders: No - HEMATOLOGICAL/ONCOLOGICAL Hx Blood Disorders: Yes Hx AIDS: No Hx Anemia: Yes Hx Blood Transfusions: Yes Hx Human Immunodeficiency Virus (HIV): No - INTEGUMENTARY Hx Dermatological Problems: No - MUSCULOSKELETAL/RHEUMATOLOGICAL Hx Musculoskeletal Disorders: No Hx Falls: No - GASTROINTESTINAL Hx Gastrointestinal Disorders: Yes Hx Bowel Surgery: Yes (COLON RESECTION 6 YEARS AGO) Other/Comment: COLON CANCER 2010 - GENITOURINARY/GYNECOLOGICAL Hx Genitourinary Disorders: Yes (BLADDER CYST PER PT) Other/Comment: Pelvic mass (07/2018) - PSYCHIATRIC Hx Psychophysiologic Disorder: No Hx Substance Use: No - SURGICAL HISTORY Hx Surgeries: Yes Hx Cataract Extraction: Yes - ANESTHESIA Hx Anesthesia: Yes Hx Anesthesia Reactions: No Hx Malignant Hyperthermia: No Meds Allergies/Adverse Reactions: Allergies Allergy/AdvReac Type Severity Reaction Status Date / Time cortisone Allergy Intermediate RASH Verified 12/05/18 18:41 shrimp Allergy Intermediate SWELLING Verified 12/05/18 18:41 strawberry Allergy Intermediate RASH Verified 12/05/18 18:41 - Medications Medications: Current Medications Benzocaine/Menthol (Cepacol Sore Throat) 1 juan manuel PO Q3 PRN PRN Reason: Sore Throat Last Admin: 12/17/18 08:51 Dose: 1 juan manuel Levetiracetam 500 mg/ Sodium (Chloride) 105 mls @ 210 mls/hr IVPB Q12 LILLIAN Last Admin: 12/19/18 09:06 Dose: 210 mls/hr Meropenem 1 gm/ Sodium (Chloride) 100 mls @ 100 mls/hr IVPB Q8 LILLIAN; Protocol Last Admin: 12/19/18 09:08 Dose: 100 mls/hr Amiodarone HCl 450 mg/ Sodium (Chloride) 259 mls @ 17.27 mls/hr IV .Q15H LILLIAN; Protocol Last Admin: 12/19/18 13:05 Dose: 0.5 mg/min, 17.27 mls/hr Lactulose (Enulose) 20 gm PO DAILY PRN PRN Reason: Constipation Last Admin: 12/12/18 11:21 Dose: 20 gm Ondansetron HCl (Zofran Inj) 4 mg IVP Q6 PRN PRN Reason: Nausea/Vomiting Last Admin: 12/17/18 05:51 Dose: 4 mg Pantoprazole Sodium (Protonix Inj) 40 mg IVP DAILY LILLIAN Physical Exam - Constitutional Appears: Non-toxic, No Acute Distress, Cachectic, Chronically Ill - Head Exam Head Exam: ATRAUMATIC, NORMAL INSPECTION, NORMOCEPHALIC - Eye Exam Eye Exam: absent: Scleral icterus - ENT Exam ENT Exam: Mucous Membranes Dry - Neck Exam Neck exam: Negative for: Lymphadenopathy, Thyromegaly - Respiratory Exam Respiratory Exam: Decreased Breath Sounds, Clear to Auscultation Bilateral - Cardiovascular Exam Cardiovascular Exam: REGULAR RHYTHM, +S1, +S2 - GI/Abdominal Exam GI & Abdominal Exam: Diminished Bowel Sounds, Distended, Guarding, Soft. absent: Pulsatile Mass, Rebound, Rigid, Tenderness - Rectal Exam Rectal Exam: Deferred - Exam Exam: NORMAL INSPECTION - Extremities Exam Extremities exam: Positive for: pedal pulses present. Negative for: calf tenderness, pedal edema, tenderness - Back Exam Back exam: absent: CVA tenderness (L), CVA tenderness (R), paraspinal tenderness - Neurological Exam Neurological exam: Alert, CN II-XII Intact, Oriented x3, Reflexes Normal - Psychiatric Exam Psychiatric exam: Normal Mood - Skin Skin Exam: Dry, Intact Results - Vital Signs Recent Vital Signs: Last Vital Signs Temp 97.6 F 12/19/18 12:00 Pulse 68 12/19/18 14:00 Resp 13 12/19/18 14:00 BP 102/44 L 12/19/18 14:00 Pulse Ox 97 12/19/18 13:00 - Labs Result Diagrams: 12/19/18 04:25 12/19/18 04:25 Labs: Laboratory Results - last 24 hr 12/18/18 12/18/18 12/19/18 14:23 20:09 04:25 WBC 16.2 H RBC 3.84 Hgb 8.6 L Hct 27.9 L MCV 72.7 L MCH 22.3 L MCHC 30.6 L RDW 26.8 H Plt Count 59 L D MPV 9.3 Neut % (Auto) 90.8 H Lymph % (Auto) 4.3 L Teller % (Auto) 1.7 Eos % (Auto) 3.1 Baso % (Auto) 0.1 Neut # (Auto) 14.7 H Lymph # (Auto) 0.7 L Teller # (Auto) 0.3 Eos # (Auto) 0.5 Baso # (Auto) 0.0 Neutrophils % (Manual) 82 H Band Neutrophils % 14 H* Lymphocytes % (Manual) 2 L Monocytes % (Manual) 1 Metamyelocytes % 1 H Toxic Granulation Present Platelet Estimate Decreased L Hypochromasia (manual) Moderate Anisocytosis (manual) Marked Ovalocytes Slight PT 14.3 H INR 1.3 APTT 32.6 Fibrin Degrad Products Positive H Fibrin Degrad Prod, Qt >40 H Sodium Potassium Chloride Carbon Dioxide Anion Gap BUN Creatinine Est GFR ( Amer) Est GFR (Non-Af Amer) Random Glucose Calcium Phosphorus Magnesium Total Bilirubin AST ALT Alkaline Phosphatase Total Protein Albumin Globulin Albumin/Globulin Ratio 12/19/18 12/19/18 04:25 04:25 WBC RBC Hgb Hct MCV MCH MCHC RDW Plt Count MPV Neut % (Auto) Lymph % (Auto) Teller % (Auto) Eos % (Auto) Baso % (Auto) Neut # (Auto) Lymph # (Auto) Teller # (Auto) Eos # (Auto) Baso # (Auto) Neutrophils % (Manual) Band Neutrophils % Lymphocytes % (Manual) Monocytes % (Manual) Metamyelocytes % Toxic Granulation Platelet Estimate Hypochromasia (manual) Anisocytosis (manual) Ovalocytes PT 13.4 H INR 1.2 APTT 32.5 Fibrin Degrad Products Fibrin Degrad Prod, Qt Sodium 142 Potassium 3.3 L Chloride 104 Carbon Dioxide 31 H Anion Gap 10 BUN 16 Creatinine 0.5 L Est GFR ( Amer) > 60 Est GFR (Non-Af Amer) > 60 Random Glucose 117 H Calcium 8.4 Phosphorus 1.5 L Magnesium 1.7 Total Bilirubin 0.4 AST 28 ALT 33 Alkaline Phosphatase 118 Total Protein 5.4 L Albumin 2.3 L Globulin 3.1 Albumin/Globulin Ratio 0.7 L - Impressions Impression: 12/18/18 12/18/2018: CT Abdomen and Pelvis with contrast PANCREAS: Unremarkable. No gross lesion or ductal dilatation. KIDNEYS AND URETERS: Unremarkable. No hydronephrosis. No solid mass. BOWEL: Mass within the region of the small bowel at the right lower quadrant is appreci ated with associated surgical clips once again. The patient appears to be status post right hemicolectomy with anastomotic suture line from colectomy separate from the site of the mass at the right lower quadrant. The enteric colic anastomosis appears to be in the right hemipelvis. The bowel does not appear completely obstructed as oral contrast identified within large bowel as well as majority of small bowel. However, grossly thickened small bowel loops persist at the right greater than left hemicolon with dilatation of small bowel at the left sabino abdomen. A partial or intermittent distal small bowel obstruction is a possibility versus ileus. Given presence of tumor, the former is favored. Segmental enteritis remains, potentially worsened in the interval, of indeterminate infectious or inflammatory etiology the paraneoplastic process is questioned as well. Rectal tube noted in situ. APPENDIX: Not identified. PERITONEUM: Unremarkable. No free fluid. Mild pelvic ascites identified. None is seen in the abdomen. No free air. LYMPH NODES: Unremarkable. No enlarged lymph nodes. BLADDER: Unremarkable. IMPRESSION: Persistent if not worsened segmental enteritis affecting significant small bowel segment at the right lower quadrant/central abdomen. Right lower quadrant small bowel mass may cause intermittent or partial small bowel obstruction distally. Complete obstruction in apparent. Ileus pattern not favored but not completely excluded. Assessment & Plan - Assessment and Plan (Free Text) Assessment: severe anemia s/p [employer] cellulitis /phlebitis right arm r/o sepsis IV rx in progress for endoscopy in am
--- NOTE | 2018-12-19 20:34 | CP.PCM.PN ---
Subjective - Date & Time of Evaluation Date of Evaluation: 12/19/18 Time of Evaluation: 22:22 - Subjective Subjective: WBC 16k Plat 59k NGT d/c Endoscopy in AM Long d/w consultants Objective - Vital Signs/Intake and Output Vital Signs (last 24 hours): Temp Pulse Resp BP Pulse Ox 97.4 F L 66 22 103/44 L 98 12/19/18 16:00 12/19/18 18:00 12/19/18 18:00 12/19/18 18:00 12/19/18 18:00 Intake and Output: 12/19/18 12/20/18 18:59 06:59 Intake Total 2461 Output Total 200 Balance 2261 - Medications Medications: Current Medications Benzocaine/Menthol (Cepacol Sore Throat) 1 juan manuel PO Q3 PRN PRN Reason: Sore Throat Last Admin: 12/17/18 08:51 Dose: 1 juan manuel Levetiracetam 500 mg/ Sodium (Chloride) 105 mls @ 210 mls/hr IVPB Q12 [facility] Last Admin: 12/19/18 20:11 Dose: 210 mls/hr Meropenem 1 gm/ Sodium (Chloride) 100 mls @ 100 mls/hr IVPB Q8 [facility]; Protocol Last Admin: 12/19/18 17:05 Dose: 100 mls/hr Amiodarone HCl 450 mg/ Sodium (Chloride) 259 mls @ 17.27 mls/hr IV .Q15H [facility]; Protocol Last Admin: 12/19/18 13:05 Dose: 0.5 mg/min, 17.27 mls/hr Lactulose (Enulose) 20 gm PO DAILY PRN PRN Reason: Constipation Last Admin: 12/12/18 11:21 Dose: 20 gm Ondansetron HCl (Zofran Inj) 4 mg IVP Q6 PRN PRN Reason: Nausea/Vomiting Last Admin: 12/17/18 05:51 Dose: 4 mg Pantoprazole Sodium (Protonix Inj) 40 mg IVP DAILY [facility] - Labs Labs: 12/19/18 04:25 12/19/18 04:25 PT 13.4 Seconds (9.8-13.1) H 12/19/18 04:25 INR 1.2 12/19/18 04:25 APTT 32.5 Seconds (25.6-37.1) 12/19/18 04:25 - Respiratory Exam Respiratory Exam: NORMAL BREATHING PATTERN - Cardiovascular Exam Cardiovascular Exam: REGULAR RHYTHM - GI/Abdominal Exam GI & Abdominal Exam: Normal Bowel Sounds Assessment and Plan - Assessment and Plan (Free Text) Assessment: GI Bleed? NGT brownish colored d/c Hx Ca Colon CEA 200 Ct scan enterocolitis intaabdominal mass Microcytic hypochromic anemia chronic blood loss IVF monitor labs GI surgery Hematology Enoscopy in AM WBC 16k Platlelts 590k improved DIC?? Sepsis?? cellulitis ? etiology?? ABX ID A fib with RVR converted to NSR Amiodorone Cardiazem ICU Cardiology
[2018-12-19] MEDS ORDERED: Potassium Chl 20 mEq in D5-NS 1,000 ML IV SCH (22:00)
[2018-12-20] MEDS: Meropenem 1 GM in Sodium Chloride 0.9% 100 ML IVPB SCH ×3 (01:22→16:44)
[2018-12-20] MEDS: Amiodarone 450 MG in Sodium Chloride 0.9% 250 ML IV SCH (02:06)
[2018-12-20 05:33] LABS: HEMOGLOBIN 8.3 g/dL (12.0-16.0); MEAN CELL VOLUME 72.3 fl (81.0-99.0); MEAN CORPUSCULAR HEMOGLOBIN 22.2 pg (27.0-31.0); MEAN CORPUSCULAR HGB CONC 30.8 g/dL (33.0-37.0); RBC 3.75 Mil/uL (3.80-5.20); RED CELL DISTRIBUTION WIDTH 27.5 % (11.5-14.5); WHITE BLOOD COUNT 8.7 K/uL (4.8-10.8)
[2018-12-20 05:59] LABS: ALB/GLOB RATIO 0.6 (1.0-2.1); ALBUMIN 2.1 g/dL (3.5-5.0); ALT/SGPT 34 U/L (9-52); AST/SGOT 37 U/L (14-36); BLOOD UREA NITROGEN 10 mg/dl (7-17); CALCIUM 8.1 mg/dL (8.4-10.2); GFR NON-AFRICAN AMERICAN > 60
[2018-12-20] MEDS: levETIRAcetam 500 MG in Sodium Chloride 0.9% 100 ML IVPB SCH ×2 (09:08→21:25)
--- NOTE | 2018-12-20 09:51 | CARD ---
APPROVED REPORT Date of service: 12/20/2018 EKG Measurement Heart [id number] <Conclusion> Normal sinus rhythm Nonspecific T wave abnormality Abnormal ECG
--- NOTE | 2018-12-20 10:00 | CP.PCM.PN ---
Subjective - Date & Time of Evaluation Date of Evaluation: 12/20/18 (N) Time of Evaluation: 09:56 - Subjective Subjective: Patient is feekling better, No vomiting and she has a normal sinus rhythm. She is scheduledfor colonoscopy this afternoon and her platelets areonly 39K. W#ill transfuse 2 units of platelets. Her Hgb is 8.3gms and will transfuse her after the colonoscopy. Objective - Vital Signs/Intake and Output Vital Signs (last 24 hours): Temp Pulse Resp BP Pulse Ox 98.6 F 62 19 113/45 L 99 12/20/18 08:00 12/20/18 08:00 12/20/18 08:00 12/20/18 08:00 12/20/18 08:00 Intake and Output: 12/20/18 12/20/18 06:59 18:59 Intake Total 3570 Output Total 200 Balance 3370 - Medications Medications: Current Medications Benzocaine/Menthol (Cepacol Sore Throat) 1 juan manuel PO Q3 PRN PRN Reason: Sore Throat Last Admin: 12/17/18 08:51 Dose: 1 juan manuel Levetiracetam 500 mg/ Sodium (Chloride) 105 mls @ 210 mls/hr IVPB Q12 [facility] Last Admin: 12/20/18 09:08 Dose: 210 mls/hr Meropenem 1 gm/ Sodium (Chloride) 100 mls @ 100 mls/hr IVPB Q8 [facility]; Protocol Last Admin: 12/20/18 09:09 Dose: 100 mls/hr Amiodarone HCl 450 mg/ Sodium (Chloride) 259 mls @ 17.27 mls/hr IV .Q15H [facility]; Protocol Last Admin: 12/20/18 02:06 Dose: 0.5 mg/min, 17.27 mls/hr Potassium Chloride/Dextrose/Sod Cl (Potassium Chl 20 Meq In D5-Ns) 1,000 mls @ 60 mls/hr IV .[id number] [facility] Stop: 12/20/18 20:29 Last Admin: 12/19/18 22:33 Dose: 60 mls/hr Lactulose (Enulose) 20 gm PO DAILY PRN PRN Reason: Constipation Last Admin: 12/12/18 11:21 Dose: 20 gm Ondansetron HCl (Zofran Inj) 4 mg IVP Q6 PRN PRN Reason: Nausea/Vomiting Last Admin: 12/17/18 05:51 Dose: 4 mg Pantoprazole Sodium (Protonix Inj) 40 mg IVP DAILY [facility] Last Admin: 12/20/18 09:10 Dose: 40 mg - Labs Labs: 12/20/18 04:50 12/20/18 04:50 PT 13.4 Seconds (9.8-13.1) H 12/19/18 04:25 INR 1.2 12/19/18 04:25 APTT 32.5 Seconds (25.6-37.1) 12/19/18 04:25
[2018-12-20] MEDS ORDERED: Potassium Phosphate 30 MMOLE in Dextrose 5% In Water 250 ML IV ONE (11:16)
--- NOTE | 2018-12-20 11:22 | CP.PCM.PN ---
<Sara Arcos - Last Filed: 12/20/18 11:20> Subjective - Date & Time of Evaluation Date of Evaluation: 12/20/18 Time of Evaluation: 10:00 - Subjective Subjective: Surgery progress note for Dr. Gaston Pt seen and examined this AM. Patient's NGT and dignicare were D/C'd yesterday--patient denies any nausea, vomiting, or abdominal pain. Patient has persistent dark brown diarrhea, but no overt melena/hematochezia. Tolerated CLD yesterday. Platelet count dropped again today, patient to receive 2 units of platelets. Patient also complains of redness and swelling in the right arm Objective - Vital Signs/Intake and Output Vital Signs (last 24 hours): Temp Pulse Resp BP Pulse Ox 98.6 F 62 19 113/45 L 99 12/20/18 08:00 12/20/18 08:00 12/20/18 08:00 12/20/18 08:00 12/20/18 08:00 Intake and Output: 12/20/18 12/20/18 06:59 18:59 Intake Total 3570 Output Total 200 Balance 3370 - Medications Medications: Current Medications Benzocaine/Menthol (Cepacol Sore Throat) 1 juan manuel PO Q3 PRN PRN Reason: Sore Throat Last Admin: 12/17/18 08:51 Dose: 1 juan manuel Levetiracetam 500 mg/ Sodium (Chloride) 105 mls @ 210 mls/hr IVPB Q12 [facility] Last Admin: 12/20/18 09:08 Dose: 210 mls/hr Meropenem 1 gm/ Sodium (Chloride) 100 mls @ 100 mls/hr IVPB Q8 [facility]; Protocol Last Admin: 12/20/18 09:09 Dose: 100 mls/hr Amiodarone HCl 450 mg/ Sodium (Chloride) 259 mls @ 17.27 mls/hr IV .Q15H [facility]; Protocol Last Admin: 12/20/18 02:06 Dose: 0.5 mg/min, 17.27 mls/hr Dextrose/Sodium Chloride (Dextrose 5%/0.9% Ns 1000 Ml) 1,000 mls @ 60 mls/hr IV .[id number] [facility] Stop: 12/21/18 11:13 Potassium Phosphate 30 mmole/ (Dextrose) 260 mls @ 84 mls/hr IV .Q3H6M ONE Stop: 12/20/18 14:21 Lactulose (Enulose) 20 gm PO DAILY PRN PRN Reason: Constipation Last Admin: 12/12/18 11:21 Dose: 20 gm Ondansetron HCl (Zofran Inj) 4 mg IVP Q6 PRN PRN Reason: Nausea/Vomiting Last Admin: 12/17/18 05:51 Dose: 4 mg Pantoprazole Sodium (Protonix Inj) 40 mg IVP DAILY [facility] Last Admin: 12/20/18 09:10 Dose: 40 mg Potassium Phos/Sodium Phos (Neutra-Phos) 1 pkt PO BID [facility] - Labs Labs: 12/20/18 04:50 12/20/18 04:50 PT 13.4 Seconds (9.8-13.1) H 12/19/18 04:25 INR 1.2 12/19/18 04:25 APTT 32.5 Seconds (25.6-37.1) 12/19/18 04:25 - Constitutional Appears: Well, Non-toxic, No Acute Distress - Head Exam Head Exam: ATRAUMATIC, NORMOCEPHALIC - Eye Exam Eye Exam: Normal appearance. absent: Conjunctival injection, Scleral icterus - ENT Exam ENT Exam: Mucous Membranes Moist, Normal Oropharynx - Respiratory Exam Respiratory Exam: NORMAL BREATHING PATTERN. absent: Accessory Muscle Use, Respiratory Distress - Cardiovascular Exam Cardiovascular Exam: RRR - GI/Abdominal Exam GI & Abdominal Exam: Soft. absent: Distended, Tenderness - Extremities Exam Extremities Exam: absent: Calf Tenderness, Pedal Edema, Tenderness Additional comments: right arm non-pitting edema from the hand to the distal upper arm with moderate erythema over the forearm, motor function and sensation intact - Neurological Exam Neurological Exam: Alert, Awake, Oriented x3 - Psychiatric Exam Psychiatric exam: Normal Affect, Normal Mood - Skin Skin Exam: Dry, Intact, Warm Assessment and Plan - Assessment and Plan (Free Text) Assessment: 68F with PMH of colon cancer s/p R hemicolectomy, anemia, thrombocytopenia, GI bleed Plan: F/U GI recs--possible endoscopy today F/U Heme/Onc recs--platelet transfusion today Continue to trend CBC and CMP, mag, phos, supplement electrolytes as needed NPO for possible endoscopy--may advance diet as tolerated from a surgical standpoint PRN pain and nausea medications Discussed with Dr. Marilin Arcos, PGY2 <Jake Gaston - Last Filed: 12/24/18 17:00> Objective - Vital Signs/Intake and Output Vital Signs (last 24 hours): Temp Pulse Resp BP Pulse Ox 99.4 F 75 16 110/43 L 100 12/24/18 12:00 12/24/18 16:00 12/24/18 16:00 12/24/18 16:00 12/24/18 16:00 Intake and Output: 12/24/18 12/24/18 06:59 18:59 Intake Total 1322 1285 Output Total 550 Balance 772 1285 - Medications Medications: Current Medications Acetaminophen (Tylenol 325mg Tab) 650 mg PO Q4 PRN PRN Reason: Pain, moderate (4-7) Last Admin: 12/24/18 11:32 Dose: 650 mg Amiodarone HCl (Cordarone) 200 mg PO DAILY [facility] Last Admin: 12/24/18 09:17 Dose: 200 mg Benzocaine/Menthol (Cepacol Sore Throat) 1 juan manuel PO Q3 PRN PRN Reason: Sore Throat Last Admin: 12/17/18 08:51 Dose: 1 juan manuel Digoxin (Digoxin) 0.125 mg PO DAILY [facility] Last Admin: 12/24/18 13:17 Dose: 0.125 mg Levetiracetam 500 mg/ Sodium (Chloride) 105 mls @ 210 mls/hr IVPB Q12 [facility] Last Admin: 12/24/18 09:17 Dose: 210 mls/hr Cefazolin Sodium 1 gm/ Sodium (Chloride) 100 mls @ 100 mls/hr IVPB Q8 [facility]; Protocol Last Admin: 12/24/18 16:45 Dose: 100 mls/hr Lactated Ringer's (Lactated Ringer's) 1,000 mls @ 84 mls/hr IV .[id number] [facility] Last Admin: 12/23/18 03:06 Dose: 84 mls/hr Argatroban 250 mg/ Sodium (Chloride) 252.5 mls @ 4.95 mls/hr IV .Q24H [facility]; Protocol Last Admin: 12/24/18 16:47 Dose: 4.95 mls/hr Lactulose (Enulose) 20 gm PO DAILY PRN PRN Reason: Constipation Last Admin: 12/20/18 14:12 Dose: 20 gm Pantoprazole Sodium (Protonix Inj) 40 mg IVP DAILY [facility] Last Admin: 12/24/18 09:18 Dose: 40 mg Potassium Phos/Sodium Phos (Neutra-Phos) 1 pkt PO BID [facility] Last Admin: 12/24/18 16:49 Dose: 1 pkt - Labs Labs: 12/24/18 09:30 12/24/18 09:30 PT 21.5 Seconds (9.8-13.1) H D 12/23/18 05:30 INR 1.9 12/23/18 05:30 APTT 38.1 Seconds (25.6-37.1) H 12/24/18 02:25 Attending/Attestation - Attestation I have personally seen and examined this patient.: Yes I have fully participated in the care of the patient.: Yes I have reviewed all pertinent clinical information, including history, physical exam and plan: Yes Notes (Text): Pt was seen and examined at bedside Agree with above note and assessment Pt is improving clinically C.w IV antibiotics No clinical signs of obstruction Advance diet to liquid diet Plan d.w pt in detail.
--- NOTE | 2018-12-20 12:48 | CP.PCM.PN ---
Subjective - Date & Time of Evaluation Date of Evaluation: 12/20/18 Time of Evaluation: 12:46 - Subjective Subjective: alert / verbal, no distress Objective - Vital Signs/Intake and Output Vital Signs (last 24 hours): Temp Pulse Resp BP Pulse Ox 97.3 F L 63 18 112/48 L 100 12/20/18 12:34 12/20/18 12:34 12/20/18 12:34 12/20/18 12:34 12/20/18 12:00 Intake and Output: 12/20/18 12/20/18 06:59 18:59 Intake Total 3570 20 Output Total 200 Balance 3370 20 - Medications Medications: Current Medications Benzocaine/Menthol (Cepacol Sore Throat) 1 juan manuel PO Q3 PRN PRN Reason: Sore Throat Last Admin: 12/17/18 08:51 Dose: 1 juan manuel Levetiracetam 500 mg/ Sodium (Chloride) 105 mls @ 210 mls/hr IVPB Q12 [facility] Last Admin: 12/20/18 09:08 Dose: 210 mls/hr Meropenem 1 gm/ Sodium (Chloride) 100 mls @ 100 mls/hr IVPB Q8 [facility]; Protocol Last Admin: 12/20/18 09:09 Dose: 100 mls/hr Amiodarone HCl 450 mg/ Sodium (Chloride) 259 mls @ 17.27 mls/hr IV .Q15H [facility]; Protocol Last Admin: 12/20/18 02:06 Dose: 0.5 mg/min, 17.27 mls/hr Dextrose/Sodium Chloride (Dextrose 5%/0.9% Ns 1000 Ml) 1,000 mls @ 60 mls/hr IV .[id number] [facility] Stop: 12/21/18 11:13 Potassium Phosphate 30 mmole/ (Dextrose) 260 mls @ 84 mls/hr IV .Q3H6M ONE Stop: 12/20/18 14:21 Lactulose (Enulose) 20 gm PO DAILY PRN PRN Reason: Constipation Last Admin: 12/12/18 11:21 Dose: 20 gm Ondansetron HCl (Zofran Inj) 4 mg IVP Q6 PRN PRN Reason: Nausea/Vomiting Last Admin: 12/17/18 05:51 Dose: 4 mg Pantoprazole Sodium (Protonix Inj) 40 mg IVP DAILY [facility] Last Admin: 12/20/18 09:10 Dose: 40 mg Potassium Phos/Sodium Phos (Neutra-Phos) 1 pkt PO BID [facility] - Labs Labs: 12/20/18 04:50 12/20/18 04:50 PT 13.4 Seconds (9.8-13.1) H 12/19/18 04:25 INR 1.2 12/19/18 04:25 APTT 32.5 Seconds (25.6-37.1) 12/19/18 04:25 - Respiratory Exam Respiratory Exam: Clear to Ausculation Bilateral - Cardiovascular Exam Cardiovascular Exam: REGULAR RHYTHM - GI/Abdominal Exam GI & Abdominal Exam: Normal Bowel Sounds - Extremities Exam Extremities Exam: Normal Inspection Assessment and Plan - Assessment and Plan (Free Text) Assessment: Normal sinus rhythm on Amiodarone gtt Currently NPO Continue Amiodarone IV until able to take po Would give Amiodarone 200mg qd when able to tolerate PO medications TSH is mildly elevated will need to follow on Amiodarone
--- NOTE | 2018-12-20 13:22 | CP.PCM.PN ---
Subjective - Date & Time of Evaluation Date of Evaluation: 12/20/18 Time of Evaluation: 09:00 - Subjective Subjective: awake alert nad Objective - Vital Signs/Intake and Output Vital Signs (last 24 hours): Temp Pulse Resp BP Pulse Ox 97.3 F L 63 18 112/48 L 100 12/20/18 12:34 12/20/18 12:34 12/20/18 12:34 12/20/18 12:34 12/20/18 12:00 Intake and Output: 12/20/18 12/20/18 06:59 18:59 Intake Total 3570 20 Output Total 200 Balance 3370 20 - Medications Medications: Current Medications Benzocaine/Menthol (Cepacol Sore Throat) 1 juan manuel PO Q3 PRN PRN Reason: Sore Throat Last Admin: 12/17/18 08:51 Dose: 1 juan manuel Levetiracetam 500 mg/ Sodium (Chloride) 105 mls @ 210 mls/hr IVPB Q12 [facility] Last Admin: 12/20/18 09:08 Dose: 210 mls/hr Meropenem 1 gm/ Sodium (Chloride) 100 mls @ 100 mls/hr IVPB Q8 [facility]; Protocol Last Admin: 12/20/18 09:09 Dose: 100 mls/hr Amiodarone HCl 450 mg/ Sodium (Chloride) 259 mls @ 17.27 mls/hr IV .Q15H [facility]; Protocol Last Admin: 12/20/18 02:06 Dose: 0.5 mg/min, 17.27 mls/hr Dextrose/Sodium Chloride (Dextrose 5%/0.9% Ns 1000 Ml) 1,000 mls @ 60 mls/hr IV .[id number] [facility] Stop: 12/21/18 11:13 Potassium Phosphate 30 mmole/ (Dextrose) 260 mls @ 84 mls/hr IV .Q3H6M ONE Stop: 12/20/18 14:21 Lactulose (Enulose) 20 gm PO DAILY PRN PRN Reason: Constipation Last Admin: 12/12/18 11:21 Dose: 20 gm Ondansetron HCl (Zofran Inj) 4 mg IVP Q6 PRN PRN Reason: Nausea/Vomiting Last Admin: 12/17/18 05:51 Dose: 4 mg Pantoprazole Sodium (Protonix Inj) 40 mg IVP DAILY [facility] Last Admin: 12/20/18 09:10 Dose: 40 mg Potassium Phos/Sodium Phos (Neutra-Phos) 1 pkt PO BID [facility] - Labs Labs: 12/20/18 04:50 12/20/18 04:50 PT 13.4 Seconds (9.8-13.1) H 12/19/18 04:25 INR 1.2 12/19/18 04:25 APTT 32.5 Seconds (25.6-37.1) 12/19/18 04:25 - Constitutional Appears: Non-toxic, Cachectic, Chronically Ill - Head Exam Head Exam: NORMOCEPHALIC - Eye Exam Eye Exam: absent: Scleral icterus - ENT Exam ENT Exam: Mucous Membranes Dry - Neck Exam Neck Exam: absent: Lymphadenopathy - Respiratory Exam Respiratory Exam: Decreased Breath Sounds, Rhonchi - Cardiovascular Exam Cardiovascular Exam: REGULAR RHYTHM, +S1, +S2 - GI/Abdominal Exam GI & Abdominal Exam: Distended - Rectal Exam Rectal Exam: Deferred - Exam Exam: NORMAL INSPECTION - Extremities Exam Extremities Exam: absent: Pedal Edema Additional comments: less cellulitis right arm - Back Exam Back Exam: absent: CVA tenderness (L), CVA tenderness (R) - Neurological Exam Neurological Exam: Alert, Awake - Psychiatric Exam Psychiatric exam: Depressed Assessment and Plan (1) Sepsis Status: Acute (2) Colon cancer Status: Chronic - Assessment and Plan (Free Text) Assessment: cultures neg IV rx in progress plts low heme on board
[2018-12-20] MEDS: Dextrose 5%/0.9% NS 1,000 ML IV SCH (14:08)
[2018-12-20] MEDS ORDERED: Etomidate 20 mg/10ml Inj IV ONE (14:45)
[2018-12-20] MEDS ORDERED: Lactated Ringer's 500 ML IV ONE (14:47)
[2018-12-20] MEDS: Potassium & Sodium Phosphate PO SCH (16:44)
--- NOTE | 2018-12-20 18:41 | CP.CCUPN ---
CCU Subjective - Physician Review Subjective (Free Text): Awake, alert and conversant. c/o R distal arm discomfort, denies any local pain or weakness. Otherwise lying in bed motionless. Had been tolerating clear liquids and +BMs. NPO now for anticipated EGD today. Afebrile, no temp spikes overnight, SBPs 120s, HR 65, 17, 100% SPO2 on RA. Approx 1 liter positive fluid balance. No other distress noted. ROS: No other pertinent negs or positive on 10+ system review. Other PMSFH: All other Nursing and physician documentation reviewed to date; no new pertinent info noted relevant to current medical problems. EXAM- HEENT: no icterus, pupils equal, 3 mm and reactive, no gaze preference NECK: no visible JVD, supple, carotids equal upstroke bilat/no bruits CHEST: decreased BS bases, no wheezes audible HEART: regular, distant, tachy S1S2, no murmur audible, no rubs. ABD: soft, no increased distention, no focal tenderness, BS hypoactive, EXT: distal RUE appears erythematous, swollen, and feels warm up to mid- biceps area; radial and brachial pulses intact, no focal weakness. Bilateral venodynes on, no calf tenderness or palpable cords, distal pulses intact and symmetrical. Bilateral toes (all) are cool to touch and appear dusky, more so involving R toes. NEURO: no gross focal motor deficits. SKIN: no rashes LABS: WBC= 8.7 HGB= 8.3 PLTs = 24K Fib = 331 on 12/18/18 Na= 139 K= 4.6 Cl= 104 HCO3= 28 BUN/Cr= 10/0.5 BS= 93 IMPRESSION / MAJOR PROBLEMS NOW: 1. Acute Anemia r/o UGIB 2. Acute thrombocytopenia, drug induced vs DIC, r/o H.I.T. 3. Chronic A fib with controlled VR now, off Amiodarone. 4. Mass RLQ with enterocolitis PLAN: 1. Platelets and additional PRBCs ordered. 2. Check repeat serial Fibrinogen level in AM, would consider discontinuing bilateral venodynes now, unclear effect on arterial circulation. Consider arterial Doppler exam. Still needs DVT prophylaxis, and now problematic with low platelets in using Heparin or LMWH. Consider alternate AC if Hgb stable. Check repeat peripheral smear, +schistocytes on 12/18/18. 3. Venous Doppler RUE 4. Continue IVF hydration
--- NOTE | 2018-12-20 19:00 | CP.PCM.PN ---
Subjective - Date & Time of Evaluation Date of Evaluation: 12/20/18 Time of Evaluation: 22:22 - Subjective Subjective: Endoscopy today WBC 8k Plat 24K Objective - Vital Signs/Intake and Output Vital Signs (last 24 hours): Temp Pulse Resp BP Pulse Ox 98.3 F 71 19 123/47 L 100 12/20/18 17:30 12/20/18 18:00 12/20/18 18:00 12/20/18 18:00 12/20/18 18:00 Intake and Output: 12/20/18 12/20/18 06:59 18:59 Intake Total 3570 1797 Output Total 200 Balance 3370 1797 - Medications Medications: Current Medications Benzocaine/Menthol (Cepacol Sore Throat) 1 juan manuel PO Q3 PRN PRN Reason: Sore Throat Last Admin: 12/17/18 08:51 Dose: 1 juan manuel Levetiracetam 500 mg/ Sodium (Chloride) 105 mls @ 210 mls/hr IVPB Q12 [facility] Last Admin: 12/20/18 09:08 Dose: 210 mls/hr Meropenem 1 gm/ Sodium (Chloride) 100 mls @ 100 mls/hr IVPB Q8 [facility]; Protocol Last Admin: 12/20/18 16:44 Dose: 100 mls/hr Dextrose/Sodium Chloride (Dextrose 5%/0.9% Ns 1000 Ml) 1,000 mls @ 60 mls/hr IV .[id number] [facility] Stop: 12/21/18 11:13 Last Admin: 12/20/18 14:08 Dose: 60 mls/hr Lactulose (Enulose) 20 gm PO DAILY PRN PRN Reason: Constipation Last Admin: 12/20/18 14:12 Dose: 20 gm Ondansetron HCl (Zofran Inj) 4 mg IVP Q6 PRN PRN Reason: Nausea/Vomiting Last Admin: 12/17/18 05:51 Dose: 4 mg Pantoprazole Sodium (Protonix Inj) 40 mg IVP DAILY [facility] Last Admin: 12/20/18 09:10 Dose: 40 mg Potassium Phos/Sodium Phos (Neutra-Phos) 1 pkt PO BID [facility] Last Admin: 12/20/18 16:44 Dose: 1 pkt - Labs Labs: 12/20/18 04:50 12/20/18 04:50 PT 13.4 Seconds (9.8-13.1) H 12/19/18 04:25 INR 1.2 12/19/18 04:25 APTT 32.5 Seconds (25.6-37.1) 12/19/18 04:25 - Respiratory Exam Respiratory Exam: NORMAL BREATHING PATTERN - Cardiovascular Exam Cardiovascular Exam: REGULAR RHYTHM - GI/Abdominal Exam GI & Abdominal Exam: Normal Bowel Sounds Assessment and Plan - Assessment and Plan (Free Text) Assessment: GI Bleed? NGT brownish colored d/c Hx Ca Colon CEA [address] CT scan enterocolitis intaabdominal mass Microcytic hypochromic anemia chronic blood loss IVF monitor labs GI surgery Hematology Enoscopy WBC 8k Platlelts 24k improved DIC?? Sepsis?? cellulitis ? etiology?? ABX ID Hematology A fib with RVR converted to NSR Amiodorone Cardiazem ICU Cardiology
[2018-12-21] MEDS: Meropenem 1 GM in Sodium Chloride 0.9% 100 ML IVPB SCH ×2 (01:59→08:40)
[2018-12-21 05:36] LABS: BASO % 0.1 % (0.0-2.0); EOS # 0.2 K/uL (0.0-0.7); EOS % 1.8 % (0.0-4.0); HEMOGLOBIN 9.4 g/dL (12.0-16.0); LYMPH # 0.8 K/uL (1.0-4.3); LYMPH % 9.9 % (20.0-40.0); MEAN CELL VOLUME 73.7 fl (81.0-99.0); MEAN CORPUSCULAR HEMOGLOBIN 23.7 pg (27.0-31.0); MEAN CORPUSCULAR HGB CONC 32.1 g/dL (33.0-37.0); MEAN PLATELET VOLUME 8.9 fl (7.2-11.7); MONO # 0.3 K/uL (0.0-0.8); MONO % 3.2 % (0.0-10.0); NEUT # 7.3 K/uL (1.8-7.0); NRBC % 0.1 % (0.0-0.0); RBC 3.99 Mil/uL (3.80-5.20); RED CELL DISTRIBUTION WIDTH 28.5 % (11.5-14.5); WHITE BLOOD COUNT 8.6 K/uL (4.8-10.8)
[2018-12-21 05:47] LABS: ALB/GLOB RATIO 0.7 (1.0-2.1); ALBUMIN 2.2 g/dL (3.5-5.0); ALT/SGPT 44 U/L (9-52); AST/SGOT 73 U/L (14-36); BLOOD UREA NITROGEN 7 mg/dl (7-17); CALCIUM 7.9 mg/dL (8.4-10.2); GFR NON-AFRICAN AMERICAN > 60
[2018-12-21] MEDS: Dextrose 5%/0.9% NS 1,000 ML IV SCH (06:16)
--- NOTE | 2018-12-21 07:54 | CP.PCM.PN ---
<TerriNiaMollyAlan - Last Filed: 12/21/18 07:51> Subjective - Date & Time of Evaluation Date of Evaluation: 12/21/18 Time of Evaluation: 07:51 - Subjective Subjective: Surgery: Dr. Gaston Patient doing well. No complaints. Tolerating liquid diet. Per nursing 1 liquid dark BM last night. EGD showed acute gastritis, proximal biopsies taken. For colonoscopy tomorrow. Objective - Vital Signs/Intake and Output Vital Signs (last 24 hours): Temp Pulse Resp BP Pulse Ox 98.6 F 67 16 105/46 L 100 12/21/18 04:00 12/21/18 06:00 12/21/18 06:00 12/21/18 06:00 12/21/18 06:00 Intake and Output: 12/21/18 12/21/18 06:59 18:59 Intake Total 1248 Balance 1248 - Medications Medications: Current Medications Benzocaine/Menthol (Cepacol Sore Throat) 1 juan manuel PO Q3 PRN PRN Reason: Sore Throat Last Admin: 12/17/18 08:51 Dose: 1 juan manuel Levetiracetam 500 mg/ Sodium (Chloride) 105 mls @ 210 mls/hr IVPB Q12 [facility] Last Admin: 12/20/18 21:25 Dose: 210 mls/hr Meropenem 1 gm/ Sodium (Chloride) 100 mls @ 100 mls/hr IVPB Q8 [facility]; Protocol Last Admin: 12/21/18 01:59 Dose: 100 mls/hr Dextrose/Sodium Chloride (Dextrose 5%/0.9% Ns 1000 Ml) 1,000 mls @ 60 mls/hr IV .[id number] [facility] Stop: 12/21/18 11:13 Last Admin: 12/21/18 06:16 Dose: 60 mls/hr Lactulose (Enulose) 20 gm PO DAILY PRN PRN Reason: Constipation Last Admin: 12/20/18 14:12 Dose: 20 gm Ondansetron HCl (Zofran Inj) 4 mg IVP Q6 PRN PRN Reason: Nausea/Vomiting Last Admin: 12/17/18 05:51 Dose: 4 mg Pantoprazole Sodium (Protonix Inj) 40 mg IVP DAILY [facility] Last Admin: 12/20/18 09:10 Dose: 40 mg Potassium Phos/Sodium Phos (Neutra-Phos) 1 pkt PO BID [facility] Last Admin: 12/20/18 16:44 Dose: 1 pkt - Labs Labs: 12/21/18 04:30 12/21/18 04:30 PT 13.4 Seconds (9.8-13.1) H 12/19/18 04:25 INR 1.2 12/19/18 04:25 APTT 32.5 Seconds (25.6-37.1) 12/19/18 04:25 - Constitutional Appears: Non-toxic, No Acute Distress, Cachectic, Chronically Ill - Head Exam Head Exam: ATRAUMATIC, NORMOCEPHALIC - Eye Exam Eye Exam: EOMI, Normal appearance - ENT Exam ENT Exam: Mucous Membranes Moist - Respiratory Exam Respiratory Exam: NORMAL BREATHING PATTERN. absent: Respiratory Distress - Cardiovascular Exam Cardiovascular Exam: REGULAR RHYTHM. absent: Tachycardia - GI/Abdominal Exam GI & Abdominal Exam: Soft. absent: Distended, Guarding, Tenderness, Rebound - Neurological Exam Neurological Exam: Alert, Awake - Skin Skin Exam: Dry, Normal Color, Warm Assessment and Plan - Assessment and Plan (Free Text) Assessment: 68 y/o female w/ GI bleed, gastritis Plan: -cont protonix -f/u biopsies -cont liquid diet -no acute surgical intervention at this time -f/u colonoscopy -further recs per Dr. Gaston [facility] PGY4 <Jake Gaston - Last Filed: 12/24/18 17:02> Objective - Vital Signs/Intake and Output Vital Signs (last 24 hours): Temp Pulse Resp BP Pulse Ox 99.4 F 75 16 110/43 L 100 12/24/18 12:00 12/24/18 16:00 12/24/18 16:00 12/24/18 16:00 12/24/18 16:00 Intake and Output: 12/24/18 12/24/18 06:59 18:59 Intake Total 1322 1285 Output Total 550 Balance 772 1285 - Medications Medications: Current Medications Acetaminophen (Tylenol 325mg Tab) 650 mg PO Q4 PRN PRN Reason: Pain, moderate (4-7) Last Admin: 12/24/18 11:32 Dose: 650 mg Amiodarone HCl (Cordarone) 200 mg PO DAILY [facility] Last Admin: 12/24/18 09:17 Dose: 200 mg Benzocaine/Menthol (Cepacol Sore Throat) 1 juan manuel PO Q3 PRN PRN Reason: Sore Throat Last Admin: 12/17/18 08:51 Dose: 1 juan manuel Digoxin (Digoxin) 0.125 mg PO DAILY [facility] Last Admin: 12/24/18 13:17 Dose: 0.125 mg Levetiracetam 500 mg/ Sodium (Chloride) 105 mls @ 210 mls/hr IVPB Q12 [facility] Last Admin: 12/24/18 09:17 Dose: 210 mls/hr Cefazolin Sodium 1 gm/ Sodium (Chloride) 100 mls @ 100 mls/hr IVPB Q8 [facility]; Protocol Last Admin: 12/24/18 16:45 Dose: 100 mls/hr Lactated Ringer's (Lactated Ringer's) 1,000 mls @ 84 mls/hr IV .[id number] [facility] Last Admin: 12/23/18 03:06 Dose: 84 mls/hr Argatroban 250 mg/ Sodium (Chloride) 252.5 mls @ 4.95 mls/hr IV .Q24H [facility]; Protocol Last Admin: 12/24/18 16:47 Dose: 4.95 mls/hr Lactulose (Enulose) 20 gm PO DAILY PRN PRN Reason: Constipation Last Admin: 12/20/18 14:12 Dose: 20 gm Pantoprazole Sodium (Protonix Inj) 40 mg IVP DAILY [facility] Last Admin: 12/24/18 09:18 Dose: 40 mg Potassium Phos/Sodium Phos (Neutra-Phos) 1 pkt PO BID [facility] Last Admin: 12/24/18 16:49 Dose: 1 pkt - Labs Labs: 12/24/18 09:30 12/24/18 09:30 PT 21.5 Seconds (9.8-13.1) H D 12/23/18 05:30 INR 1.9 12/23/18 05:30 APTT 38.1 Seconds (25.6-37.1) H 12/24/18 02:25 Attending/Attestation - Attestation I have fully participated in the care of the patient.: Yes I have reviewed all pertinent clinical information, including history, physical exam and plan: Yes Notes (Text): Pt is improving clinically EGD is suggestive of Gastritis WBC is trending down Pt is tolerating diet and have BMs No acute general surgical intervention required f.u prn Plan d.w primary team.
[2018-12-21] MEDS: levETIRAcetam 500 MG in Sodium Chloride 0.9% 100 ML IVPB SCH ×2 (08:40→20:32)
[2018-12-21] MEDS: Potassium & Sodium Phosphate PO SCH ×2 (08:40→18:07)
--- NOTE | 2018-12-21 09:17 | CP.PCM.PN ---
Subjective - Date & Time of Evaluation Date of Evaluation: 12/21/18 Time of Evaluation: 09:15 - Subjective Subjective: Pt looks better today. She had her endoscopy yesterday, and was found to have a hiatal hernia and gastritis. She is scheduled for a colonoscopy tomorrow. Her cbcloos better. WBC 8.6 and platelets 9.4gms, The svrrosn5dm are still low.at 39 k, If she has to go for colonoscopy tomorrow, will need a platelet transfusion in the morning. Objective - Vital Signs/Intake and Output Vital Signs (last 24 hours): Temp Pulse Resp BP Pulse Ox 99.2 F 67 16 109/49 L 99 12/21/18 08:00 12/21/18 08:00 12/21/18 08:00 12/21/18 08:00 12/21/18 08:00 Intake and Output: 12/21/18 12/21/18 06:59 18:59 Intake Total 1248 120 Balance 1248 120 - Medications Medications: Current Medications Benzocaine/Menthol (Cepacol Sore Throat) 1 juan manuel PO Q3 PRN PRN Reason: Sore Throat Last Admin: 12/17/18 08:51 Dose: 1 juan manuel Levetiracetam 500 mg/ Sodium (Chloride) 105 mls @ 210 mls/hr IVPB Q12 [facility] Last Admin: 12/21/18 08:40 Dose: 210 mls/hr Meropenem 1 gm/ Sodium (Chloride) 100 mls @ 100 mls/hr IVPB Q8 [facility]; Protocol Last Admin: 12/21/18 08:40 Dose: 100 mls/hr Dextrose/Sodium Chloride (Dextrose 5%/0.9% Ns 1000 Ml) 1,000 mls @ 60 mls/hr IV .[id number] [facility] Stop: 12/21/18 11:13 Last Admin: 12/21/18 06:16 Dose: 60 mls/hr Lactulose (Enulose) 20 gm PO DAILY PRN PRN Reason: Constipation Last Admin: 12/20/18 14:12 Dose: 20 gm Magnesium Citrate (Citrate Of Mag) 150 ml PO ONCE ONE Stop: 12/21/18 13:01 Ondansetron HCl (Zofran Inj) 4 mg IVP Q6 PRN PRN Reason: Nausea/Vomiting Last Admin: 12/17/18 05:51 Dose: 4 mg Pantoprazole Sodium (Protonix Inj) 40 mg IVP DAILY [facility] Last Admin: 12/21/18 08:40 Dose: 40 mg Potassium Phos/Sodium Phos (Neutra-Phos) 1 pkt PO BID [facility] Last Admin: 12/21/18 08:40 Dose: 1 pkt - Labs Labs: 12/21/18 04:30 12/21/18 04:30 PT 13.4 Seconds (9.8-13.1) H 12/19/18 04:25 INR 1.2 12/19/18 04:25 APTT 32.5 Seconds (25.6-37.1) 12/19/18 04:25
--- NOTE | 2018-12-21 11:21 | CP.CCUPN ---
CCU Subjective - Physician Review Subjective (Free Text): Awake, alert and remains appropriately responsive. OOB to chair today, tolerating clear liquids and +BMs. Oliguric, on IVFs at 60 ml/hr. No clinically evident active bleeding. Afebrile, no temp spikes overnight, SBPs 110s, HR 65, 17, 100% SPO2 on RA. Approx 3.3 L positive fluid balance. No other distress noted. ROS: No other pertinent negs or positive on 10+ system review. Other PMSFH: All other Nursing and physician documentation reviewed to date; no new pertinent info noted relevant to current medical problems. EXAM- HEENT: no icterus, pupils equal, 3 mm and reactive, no gaze preference NECK: no visible JVD, supple, carotids equal upstroke bilat/no bruits CHEST: decreased BS bases, no wheezes audible HEART: regular, distant, tachy S1S2, no murmur audible, no rubs. ABD: soft, no increased distention, no focal tenderness, BS hypoactive, EXT: distal RUE appears erythematous, swollen, and feels warm up to mid- biceps area; radial and brachial pulses intact, no focal weakness. Bilateral venodynes on, no calf tenderness or palpable cords, distal pulses intact and symmetrical. Bilateral toes (all) are cool to touch and appear dusky, more so involving R toes. NEURO: no gross focal motor deficits. SKIN: no rashes LABS: WBC= 8.6 HGB= 9.4 PLTs = 32K Fib = 331 on 12/18/18, now 281 Na= 135 K= 3.8 Cl= 99 HCO3= 27 BUN/Cr= 7/0.5 BS= 91 IMPRESSION / MAJOR PROBLEMS NOW: 1. Acute Anemia, r/o GIB 2. Acute thrombocytopenia, drug induced vs DIC, r/o H.I.T. 3. Paroxysmal A fib with controlled VR, off Amiodarone: in NSR now. 4. Mass RLQ with enterocolitis PLAN: 1. Repeat serial Fibrinogen level in AM lower today, would consider discontinuing bilateral venodynes now, unclear effect on arterial circulation. Consider arterial Doppler exam. Still needs DVT prophylaxis, and now problematic with low platelets in using Heparin or LMWH. Consider alternate AC if Hgb stable. Discuss with Heme-Onc. 2. Venous Doppler RUE 3. Continue IVF for maintenance hydration if PO intake inadequate. 4. GI anticipates colonoscopy in AM tomorrow.
[2018-12-21] MEDS ORDERED: Magnesium Citrate Oral SOL (300 ml) PO ONE (13:00)
[2018-12-21] MEDS ORDERED: Amiodarone 150 MG in Sodium Chloride 0.9% 100 ML IVPB ONE (18:32)
--- NOTE | 2018-12-21 20:24 | CP.PCM.PN ---
Subjective - Date & Time of Evaluation Date of Evaluation: 12/21/18 Time of Evaluation: 22:22 - Subjective Subjective: Endoscopy Gastritis HH Objective - Vital Signs/Intake and Output Vital Signs (last 24 hours): Temp Pulse Resp BP Pulse Ox 98.8 F 120 H 17 113/65 96 12/21/18 16:00 12/21/18 19:52 12/21/18 19:52 12/21/18 19:52 12/21/18 19:52 Intake and Output: 12/21/18 12/22/18 18:59 06:59 Intake Total 700 Balance 700 - Medications Medications: Current Medications Amiodarone HCl (Cordarone) 200 mg PO DAILY [facility] Last Admin: 12/21/18 18:00 Dose: 200 mg Benzocaine/Menthol (Cepacol Sore Throat) 1 juan manuel PO Q3 PRN PRN Reason: Sore Throat Last Admin: 12/17/18 08:51 Dose: 1 juan manuel Levetiracetam 500 mg/ Sodium (Chloride) 105 mls @ 210 mls/hr IVPB Q12 [facility] Last Admin: 12/21/18 08:40 Dose: 210 mls/hr Amiodarone HCl 450 mg/ Sodium (Chloride) 259 mls @ 34.53 mls/hr IV .Q7H31M [facility]; Protocol Lactulose (Enulose) 20 gm PO DAILY PRN PRN Reason: Constipation Last Admin: 12/20/18 14:12 Dose: 20 gm Ondansetron HCl (Zofran Inj) 4 mg IVP Q6 PRN PRN Reason: Nausea/Vomiting Last Admin: 12/17/18 05:51 Dose: 4 mg Pantoprazole Sodium (Protonix Inj) 40 mg IVP DAILY [facility] Last Admin: 12/21/18 08:40 Dose: 40 mg Potassium Phos/Sodium Phos (Neutra-Phos) 1 pkt PO BID [facility] Last Admin: 12/21/18 18:07 Dose: 1 pkt - Labs Labs: 12/21/18 04:30 12/21/18 04:30 PT 13.4 Seconds (9.8-13.1) H 12/19/18 04:25 INR 1.2 12/19/18 04:25 APTT 32.5 Seconds (25.6-37.1) 12/19/18 04:25 - Respiratory Exam Respiratory Exam: NORMAL BREATHING PATTERN - Cardiovascular Exam Cardiovascular Exam: REGULAR RHYTHM - GI/Abdominal Exam GI & Abdominal Exam: Normal Bowel Sounds Assessment and Plan - Assessment and Plan (Free Text) Assessment: GI Bleed? Endoscopy Gastritis HH Hx Ca Colon CEA [address] CT scan enterocolitis intaabdominal mass Microcytic hypochromic anemia chronic blood loss IVF monitor labs GI surgery Hematology Colonoscopy in AM WBC 9.4k Platlelts 32k improved DIC?? Sepsis?? cellulitis ? etiology?? ABX ID Hematology A fib with RVR converted to NSR Amiodorone Cardiazem ICU Cardiology
[2018-12-21] MEDS: Amiodarone 450 MG in Sodium Chloride 0.9% 250 ML IV SCH (20:32)
--- NOTE | 2018-12-22 01:00 | CP.PCM.PN ---
Subjective - Date & Time of Evaluation Date of Evaluation: 12/22/18 Time of Evaluation: 22:00 - Subjective Subjective: Patient had been feeling well though had another episode of Afib requiring amiodorone. Earlier had tolerated one dose of 150 cc MagCitrate well. Objective - Vital Signs/Intake and Output Vital Signs (last 24 hours): Temp Pulse Resp BP Pulse Ox 98.7 F 96 H 16 115/55 L 98 12/21/18 20:00 12/21/18 22:00 12/21/18 22:00 12/21/18 22:00 12/21/18 22:00 Intake and Output: 12/21/18 12/22/18 18:59 06:59 Intake Total 700 Balance 700 - Medications Medications: Current Medications Amiodarone HCl (Cordarone) 200 mg PO DAILY [facility] Last Admin: 12/21/18 18:00 Dose: 200 mg Benzocaine/Menthol (Cepacol Sore Throat) 1 juan manuel PO Q3 PRN PRN Reason: Sore Throat Last Admin: 12/17/18 08:51 Dose: 1 juan manuel Levetiracetam 500 mg/ Sodium (Chloride) 105 mls @ 210 mls/hr IVPB Q12 [facility] Last Admin: 12/21/18 20:32 Dose: 210 mls/hr Amiodarone HCl 450 mg/ Sodium (Chloride) 259 mls @ 34.53 mls/hr IV .Q7H31M [facility]; Protocol Last Admin: 12/21/18 20:32 Dose: 1 mg/min, 34.53 mls/hr Lactulose (Enulose) 20 gm PO DAILY PRN PRN Reason: Constipation Last Admin: 12/20/18 14:12 Dose: 20 gm Ondansetron HCl (Zofran Inj) 4 mg IVP Q6 PRN PRN Reason: Nausea/Vomiting Last Admin: 12/17/18 05:51 Dose: 4 mg Pantoprazole Sodium (Protonix Inj) 40 mg IVP DAILY [facility] Last Admin: 12/21/18 08:40 Dose: 40 mg Potassium Phos/Sodium Phos (Neutra-Phos) 1 pkt PO BID [facility] Last Admin: 12/21/18 18:07 Dose: 1 pkt - Labs Labs: 12/21/18 04:30 12/21/18 04:30 PT 13.4 Seconds (9.8-13.1) H 12/19/18 04:25 INR 1.2 12/19/18 04:25 APTT 32.5 Seconds (25.6-37.1) 12/19/18 04:25 - Head Exam Head Exam: ATRAUMATIC - Eye Exam Eye Exam: Normal appearance Pupil Exam: PERRL - ENT Exam ENT Exam: Normal Exam - Neck Exam Neck Exam: Full ROM - Respiratory Exam Respiratory Exam: Clear to Ausculation Bilateral - Cardiovascular Exam Cardiovascular Exam: REGULAR RHYTHM, +S1, +S2 - GI/Abdominal Exam GI & Abdominal Exam: Soft. absent: Tenderness Assessment and Plan (1) Anemia Assessment & Plan: Due to episode of Afib colonoscopy cancelled for tomorrow. Regular diet started. Status: Acute
[2018-12-22] MEDS: Amiodarone 450 MG in Sodium Chloride 0.9% 250 ML IV SCH (02:32)
[2018-12-22 05:48] LABS: INR 1.1; PROTHROMBIN TIME 12.6 Seconds (9.8-13.1)
[2018-12-22 05:50] LABS: PARTIAL THROMBOPLASTIN TIME 29.8 Seconds (25.6-37.1)
[2018-12-22 05:57] LABS: BASO % 0.2 % (0.0-2.0); EOS # 0.1 K/uL (0.0-0.7); EOS % 0.8 % (0.0-4.0); HEMOGLOBIN 9.7 g/dL (12.0-16.0); LYMPH # 0.7 K/uL (1.0-4.3); LYMPH % 6.4 % (20.0-40.0); MEAN CELL VOLUME 74.2 fl (81.0-99.0); MEAN CORPUSCULAR HEMOGLOBIN 23.3 pg (27.0-31.0); MEAN CORPUSCULAR HGB CONC 31.4 g/dL (33.0-37.0); MEAN PLATELET VOLUME 9.2 fl (7.2-11.7); MONO # 0.4 K/uL (0.0-0.8); MONO % 3.4 % (0.0-10.0); NEUT # 10.1 K/uL (1.8-7.0); NEUT % 89.2 % (50.0-75.0); RBC 4.18 Mil/uL (3.80-5.20); RED CELL DISTRIBUTION WIDTH 28.4 % (11.5-14.5); WHITE BLOOD COUNT 11.4 K/uL (4.8-10.8)
[2018-12-22 05:59] LABS: ALB/GLOB RATIO 0.7 (1.0-2.1); ALBUMIN 2.2 g/dL (3.5-5.0); ALT/SGPT 50 U/L (9-52); AST/SGOT 61 U/L (14-36); BLOOD UREA NITROGEN 8 mg/dl (7-17); CALCIUM 8.1 mg/dL (8.4-10.2); GFR NON-AFRICAN AMERICAN > 60
[2018-12-22 06:01] LABS: PLATELET COUNT 22 K/uL (130-400)
--- NOTE | 2018-12-22 08:39 | CP.PCM.PN ---
Subjective - Date & Time of Evaluation Date of Evaluation: 12/22/18 Time of Evaluation: 08:36 - Subjective Subjective: Pt went back to Afib today and the colonoscopy was cancelled. She has been moving her bowels and no vomiting. Her platelets are still low at 22K.. She has never been on lovenox so I doubt if that is the etiology.he FDP and D dimers were positive so this could be secondary to either sepsis and DIC or secondary to medicines. Will give her 1 unit of platelets today. She is very weak. She says she wants to eat, but the last week she was NPO because she was vomiting, and then for tests which had to be postponed because of her Afib. Objective - Vital Signs/Intake and Output Vital Signs (last 24 hours): Temp Pulse Resp BP Pulse Ox 98.5 F 59 L 15 104/53 L 96 12/22/18 07:43 12/22/18 07:43 12/22/18 07:43 12/22/18 07:43 12/22/18 07:43 Intake and Output: 12/22/18 12/22/18 06:59 18:59 Intake Total 259 40 Output Total 1100 Balance -841 40 - Medications Medications: Current Medications Amiodarone HCl (Cordarone) 200 mg PO DAILY [facility] Last Admin: 12/21/18 18:00 Dose: 200 mg Benzocaine/Menthol (Cepacol Sore Throat) 1 juan manuel PO Q3 PRN PRN Reason: Sore Throat Last Admin: 12/17/18 08:51 Dose: 1 juan manuel Levetiracetam 500 mg/ Sodium (Chloride) 105 mls @ 210 mls/hr IVPB Q12 [facility] Last Admin: 12/21/18 20:32 Dose: 210 mls/hr Amiodarone HCl 450 mg/ Sodium (Chloride) 259 mls @ 34.53 mls/hr IV .Q7H31M [facility]; Protocol Last Admin: 12/22/18 02:32 Dose: 0.5 mg/min, 17.27 mls/hr Lactulose (Enulose) 20 gm PO DAILY PRN PRN Reason: Constipation Last Admin: 12/20/18 14:12 Dose: 20 gm Ondansetron HCl (Zofran Inj) 4 mg IVP Q6 PRN PRN Reason: Nausea/Vomiting Last Admin: 12/17/18 05:51 Dose: 4 mg Pantoprazole Sodium (Protonix Inj) 40 mg IVP DAILY [facility] Last Admin: 12/21/18 08:40 Dose: 40 mg Potassium Phos/Sodium Phos (Neutra-Phos) 1 pkt PO BID [facility] Last Admin: 12/21/18 18:07 Dose: 1 pkt - Labs Labs: 12/22/18 04:45 12/22/18 04:45 PT 12.6 Seconds (9.8-13.1) 12/22/18 04:45 INR 1.1 12/22/18 04:45 APTT 29.8 Seconds (25.6-37.1) 12/22/18 04:45
[2018-12-22 08:48] LABS: BANDS 6 % (0-2); BASOPHIL 1 % (0-2); LYMPHOCYTE 4 % (20-50); MONOCYTE 1 % (0-10); NEUTROPHIL 88 % (42-75); TOTAL CELLS COUNTED 100
[2018-12-22 08:50] LABS: PLATELET ESTIMATE DECREASED (NORMAL)
[2018-12-22 08:51] LABS: ANISOCYTOSIS SLIGHT; MICROCYTOSIS SLIGHT; POIKILOCYTOSIS SLIGHT
[2018-12-22 08:52] LABS: OVALOCYTES SLIGHT; TARGET CELLS SLIGHT; TEARDROP CELLS SLIGHT; TOXIC GRANULATION PRESENT
[2018-12-22] MEDS: Potassium & Sodium Phosphate PO SCH ×2 (09:18→17:56)
[2018-12-22] MEDS: levETIRAcetam 500 MG in Sodium Chloride 0.9% 100 ML IVPB SCH ×2 (09:18→20:02)
--- NOTE | 2018-12-22 13:04 | CP.PCM.PN ---
Subjective - Date & Time of Evaluation Date of Evaluation: 12/22/18 Time of Evaluation: 07:00 - Subjective Subjective: seen in ICU afebrile alert off antibiotics heme considering DIC/sepsis as cause cellulitis right arm less will restart IV antibiotic Objective - Vital Signs/Intake and Output Vital Signs (last 24 hours): Temp Pulse Resp BP Pulse Ox 98.5 F 65 13 107/47 L 100 12/22/18 07:43 12/22/18 10:00 12/22/18 10:00 12/22/18 10:00 12/22/18 10:00 Intake and Output: 12/22/18 12/22/18 06:59 18:59 Intake Total 259 180 Output Total 1100 Balance -841 180 - Medications Medications: Current Medications Amiodarone HCl (Cordarone) 200 mg PO DAILY [facility] Last Admin: 12/22/18 09:17 Dose: Not Given Benzocaine/Menthol (Cepacol Sore Throat) 1 juan manuel PO Q3 PRN PRN Reason: Sore Throat Last Admin: 12/17/18 08:51 Dose: 1 juan manuel Levetiracetam 500 mg/ Sodium (Chloride) 105 mls @ 210 mls/hr IVPB Q12 [facility] Last Admin: 12/22/18 09:18 Dose: 210 mls/hr Amiodarone HCl 450 mg/ Sodium (Chloride) 259 mls @ 34.53 mls/hr IV .Q7H31M [facility]; Protocol Last Admin: 12/22/18 02:32 Dose: 0.5 mg/min, 17.27 mls/hr Lactulose (Enulose) 20 gm PO DAILY PRN PRN Reason: Constipation Last Admin: 12/20/18 14:12 Dose: 20 gm Ondansetron HCl (Zofran Inj) 4 mg IVP Q6 PRN PRN Reason: Nausea/Vomiting Last Admin: 12/17/18 05:51 Dose: 4 mg Pantoprazole Sodium (Protonix Inj) 40 mg IVP DAILY [facility] Last Admin: 12/22/18 09:19 Dose: 40 mg Potassium Phos/Sodium Phos (Neutra-Phos) 1 pkt PO BID [facility] Last Admin: 12/22/18 09:18 Dose: 1 pkt - Labs Labs: 12/22/18 04:45 12/22/18 04:45 PT 12.6 Seconds (9.8-13.1) 12/22/18 04:45 INR 1.1 12/22/18 04:45 APTT 29.8 Seconds (25.6-37.1) 12/22/18 04:45 - Constitutional Appears: Non-toxic, Cachectic, Chronically Ill - Head Exam Head Exam: NORMOCEPHALIC - Eye Exam Eye Exam: absent: Scleral icterus - ENT Exam ENT Exam: Mucous Membranes Dry - Neck Exam Neck Exam: absent: Lymphadenopathy - Respiratory Exam Respiratory Exam: Decreased Breath Sounds - Cardiovascular Exam Cardiovascular Exam: REGULAR RHYTHM - GI/Abdominal Exam GI & Abdominal Exam: Distended - Rectal Exam Rectal Exam: Deferred - Exam Exam: NORMAL INSPECTION - Extremities Exam Extremities Exam: absent: Pedal Edema - Back Exam Back Exam: absent: CVA tenderness (L), CVA tenderness (R) - Neurological Exam Neurological Exam: Alert, Awake, CN II-XII Intact, Oriented x3 Neuro motor strength exam: Left Upper Extremity: 4, Right Upper Extremity: 4, Left Lower Extremity: 4, Right Lower Extremity: 4 - Psychiatric Exam Psychiatric exam: Depressed Assessment and Plan (1) Sepsis Status: Acute (2) Colon cancer Status: Chronic - Assessment and Plan (Free Text) Assessment: will restart IV antibiotics
--- NOTE | 2018-12-22 13:15 | CP.PCM.PN ---
Subjective - Date & Time of Evaluation Date of Evaluation: 12/22/18 Time of Evaluation: 13:12 - Subjective Subjective: no c/o clear soft diet this am Objective - Vital Signs/Intake and Output Vital Signs (last 24 hours): Temp Pulse Resp BP Pulse Ox 98.5 F 65 13 107/47 L 100 12/22/18 07:43 12/22/18 10:00 12/22/18 10:00 12/22/18 10:00 12/22/18 10:00 Intake and Output: 12/22/18 12/22/18 06:59 18:59 Intake Total 259 180 Output Total 1100 Balance -841 180 - Medications Medications: Current Medications Amiodarone HCl (Cordarone) 200 mg PO DAILY [facility] Last Admin: 12/22/18 09:17 Dose: Not Given Benzocaine/Menthol (Cepacol Sore Throat) 1 juan manuel PO Q3 PRN PRN Reason: Sore Throat Last Admin: 12/17/18 08:51 Dose: 1 juan manuel Levetiracetam 500 mg/ Sodium (Chloride) 105 mls @ 210 mls/hr IVPB Q12 [facility] Last Admin: 12/22/18 09:18 Dose: 210 mls/hr Amiodarone HCl 450 mg/ Sodium (Chloride) 259 mls @ 34.53 mls/hr IV .Q7H31M [facility]; Protocol Last Admin: 12/22/18 02:32 Dose: 0.5 mg/min, 17.27 mls/hr Cefazolin Sodium 1 gm/ Sodium (Chloride) 100 mls @ 100 mls/hr IVPB Q8 [facility]; Protocol Lactulose (Enulose) 20 gm PO DAILY PRN PRN Reason: Constipation Last Admin: 12/20/18 14:12 Dose: 20 gm Ondansetron HCl (Zofran Inj) 4 mg IVP Q6 PRN PRN Reason: Nausea/Vomiting Last Admin: 12/17/18 05:51 Dose: 4 mg Pantoprazole Sodium (Protonix Inj) 40 mg IVP DAILY [facility] Last Admin: 12/22/18 09:19 Dose: 40 mg Potassium Phos/Sodium Phos (Neutra-Phos) 1 pkt PO BID [facility] Last Admin: 12/22/18 09:18 Dose: 1 pkt - Labs Labs: 12/22/18 04:45 12/22/18 04:45 PT 12.6 Seconds (9.8-13.1) 12/22/18 04:45 INR 1.1 12/22/18 04:45 APTT 29.8 Seconds (25.6-37.1) 12/22/18 04:45 - Head Exam Head Exam: NORMAL INSPECTION - Respiratory Exam Respiratory Exam: Clear to Ausculation Bilateral - Cardiovascular Exam Cardiovascular Exam: REGULAR RHYTHM - GI/Abdominal Exam GI & Abdominal Exam: Normal Bowel Sounds Assessment and Plan - Assessment and Plan (Free Text) Assessment: Paroxysmal atrial fibrillation , Amiodarone gtt restarted and discontinued, now in NSR Hr 64 bpm. Would continue 200mg qd ( Hr precludes increased dose) Would add Digoxin .125mg qd po to prevent PAF
--- NOTE | 2018-12-22 14:44 | CP.CCUPN ---
CCU Subjective - Physician Review Subjective (Free Text): Awake, alert and remains appropriately responsive. PO intake is relatively poor, discussed with Nutrition Services. Discussed with Cardio, now off IV Amiodarone, s/p re-conversion back to NSR again as Amio drip was re-initiated yesterday evening. No CP, SOB at bed rest. Denies any leg or foot discomfort. Afebrile, no temp spikes overnight, SBPs 110s, HR 65, 17, 100% SPO2 on RA. Approx 0.4 L negative fluid balance last 24H. No other distress noted. ROS: No other pertinent negs or positive on 10+ system review. Other PMSFH: All other Nursing and physician documentation reviewed to date; no new pertinent info noted relevant to current medical problems. EXAM- HEENT: no icterus, pupils equal, 3 mm and reactive, no gaze preference NECK: no visible JVD, supple, carotids equal upstroke bilat/no bruits CHEST: decreased BS bases, no wheezes audible HEART: regular, distant, tachy S1S2, no murmur audible, no rubs. ABD: soft, no increased distention, no focal tenderness, BS hypoactive, EXT: distal RUE appears erythematous, swollen, and feels warm up to mid- biceps area; radial and brachial pulses intact, no focal weakness. Bilateral venodynes off, no calf tenderness or palpable cords, distal pulses intact and symmetrical. Bilateral toes (all) are cool to touch and appear dusky and cyanotic, more so involving R toes. NEURO: no gross focal motor deficits. SKIN: no rashes LABS: WBC= 11.4 HGB= 9.7 PLTs = 22K Na= 133 K= 3.5 Cl= 98 HCO3= 28 BUN/Cr= 8/0.5 BS= 94 IMPRESSION / MAJOR PROBLEMS NOW: 1. Acute Anemia, r/o GIB 2. Acute thrombocytopenia, drug induced vs DIC, r/o H.I.T (unclear if UFH or LMWH use during previous hospital admissions) 3. Paroxysmal A fib with controlled VR, off Amiodarone: in NSR now. 4. Mass RLQ with enterocolitis PLAN: 1. Cardio to decide of further Amio or Dogixin use to control HR. 2. Platelet Trf as per Heme-Onc. 3. Venous Doppler RUE and Arterial Doppler LEs. 4. IVF hydration as PO intake remains poor. 5. Colonoscopy to be re-scheduled as per GI. CCU Objective - Vital Signs / Intake & Output Vital Signs (Last 4 hours): Vital Signs Temp Pulse Resp BP 12/22/18 14:38 97.3 F L 64 15 103/39 L 12/22/18 13:53 97.5 F L 69 17 97/38 L 12/22/18 13:37 97.3 F L 67 19 92/47 L Intake and Output (Last 8hrs): Intake & Output 12/21/18 12/22/18 12/22/18 22:59 06:59 14:59 Intake Total 360 259 180 Output Total 1100 Balance 360 -841 180 Weight 87 lb 4.8 oz Intake: IV 360 259 80 Intake, Piggyback 100 Blood Product 0 Apheresis Plts Acda Lr 0 1st Con Unit [id number] Output: Urine 1100 Urine, Voided 1100 Other: # Bowel Movements 1 0 - Physical Exam Head: Positive for: Atraumatic, Normocephalic Pupils: Positive for: PERRL Extroacular Muscles: Positive for: EOMI Conjunctiva: Positive for: Normal Ears: Positive for: Normal Mouth: Positive for: Moist Mucous Membranes Nose (Internal): Positive for: Normal Inspection Neck: Positive for: Normal Range of Motion, Trachea Midline. Negative for: Meningeal Signs, MIDLINE TENDERNESS, Paraspinal Tenderness, JVD, Lymphadenopathy, Bruit, Other Respiratory/Chest: Positive for: Clear to Auscultation, Good Air Exchange. Negative for: Respiratory Distress, Accessory Muscle Use Cardiovascular: Positive for: Regular Rate and Rhythm, Normal S1, S2, Peripheal Pulses Present. Negative for: Murmurs, Tachycardic, Bradycardic Abdomen: Positive for: Tenderness, Distention, Normal Bowel Sounds. Negative for: Peritoneal Signs Upper Extremity: Positive for: Normal Inspection. Negative for: Cyanosis, Edema Lower Extremity: Positive for: Normal Inspection. Negative for: Edema, CALF TENDERNESS Neurological: Positive for: GCS=15 Psychiatric: Positive for: Alert, Oriented x 3 - Medications Active Medications: Active Medications Generic Name Dose Route Start Last Admin Trade Name Freq PRN Reason Stop Dose Admin Amiodarone HCl 200 mg 12/21/18 15:15 12/22/18 09:17 Cordarone PO Not Given DAILY [facility] Benzocaine/Menthol 1 juan manuel 12/10/18 10:01 12/17/18 08:51 Cepacol Sore Throat PO 1 juan manuel Q3 PRN Administration Sore Throat Digoxin 0.125 mg 12/22/18 13:15 Digoxin PO DAILY [facility] Levetiracetam 500 mg/ Sodium 105 mls @ 210 mls/hr 12/16/18 10:00 12/22/18 09:18 Chloride IVPB 210 mls/hr Q12 [facility] Administration Amiodarone HCl 450 mg/ Sodium 259 mls @ 34.53 mls/hr 12/21/18 18:45 12/22/18 02:32 Chloride IV 0.5 mg/min .[id number] [facility] 17.27 mls/hr Administration Protocol 1 MG/MIN Cefazolin Sodium 1 gm/ Sodium 100 mls @ 100 mls/hr 12/22/18 17:00 Chloride IVPB Q8 [facility] Protocol Lactulose 20 gm 12/11/18 12:51 12/20/18 14:12 Enulose PO 20 gm DAILY PRN Administration Constipation Ondansetron HCl 4 mg 12/08/18 10:29 12/17/18 05:51 Zofran Inj IVP 4 mg Q6 PRN Administration Nausea/Vomiting Pantoprazole Sodium 40 mg 12/20/18 09:00 12/22/18 09:19 Protonix Inj IVP 40 mg DAILY [facility] Administration Potassium Phos/Sodium Phos 1 pkt 12/20/18 17:00 12/22/18 09:18 Neutra-Phos PO 1 pkt BID [facility] Administration - Patient Studies Lab Studies: Microbiology Studies 12/18/18 20:09 Blood Culture - Preliminary Blood NO GROWTH AFTER 3 DAYS Lab Studies 12/22/18 12/22/18 12/22/18 Range/Units 04:45 04:45 04:45 WBC 11.4 H (4.8-10.8) K/uL RBC 4.18 (3.80-5.20) Mil/uL Hgb 9.7 L (12.0-16.0) g/dL Hct 31.0 L (34.0-47.0) % MCV 74.2 L (81.0-99.0) fl MCH 23.3 L (27.0-31.0) pg MCHC 31.4 L (33.0-37.0) g/dL RDW 28.4 H (11.5-14.5) % Plt Count 22 L* D (130-400) K/uL MPV 9.2 (7.2-11.7) fl Neut % (Auto) 89.2 H (50.0-75.0) % Lymph % (Auto) 6.4 L (20.0-40.0) % Terrell % (Auto) 3.4 (0.0-10.0) % Eos % (Auto) 0.8 (0.0-4.0) % Baso % (Auto) 0.2 (0.0-2.0) % Neut # (Auto) 10.1 H (1.8-7.0) K/uL Lymph # (Auto) 0.7 L (1.0-4.3) K/uL Terrell # (Auto) 0.4 (0.0-0.8) K/uL Eos # (Auto) 0.1 (0.0-0.7) K/uL Baso # (Auto) 0.0 (0.0-0.2) K/uL Neutrophils % (Manual) 88 H (42-75) % Band Neutrophils % 6 H (0-2) % Lymphocytes % (Manual) 4 L (20-50) % Monocytes % (Manual) 1 (0-10) % Basophils % (Manual) 1 (0-2) % Toxic Granulation Present Platelet Estimate Decreased L (NORMAL) Poikilocytosis (manual Slight Anisocytosis (manual) Slight Microcytosis (manual) Slight Target Cells Slight Tear Drop Cells Slight Ovalocytes Slight PT 12.6 (9.8-13.1) Seconds INR 1.1 APTT 29.8 (25.6-37.1) Seconds Fibrinogen 330 (200-400) mg/dl Sodium 133 (132-148) mmol/l Potassium 3.5 L (3.6-5.0) MMOL/L Chloride 98 (98-107) mmol/L Carbon Dioxide 28 (22-30) mmol/L Anion Gap 11 (10-20) BUN 8 (7-17) mg/dl Creatinine 0.5 L (0.7-1.2) mg/dl Est GFR ( Amer) > 60 Est GFR (Non-Af Amer) > 60 Random Glucose 94 (65-105) mg/dL Calcium 8.1 L (8.4-10.2) mg/dL Total Bilirubin 0.7 (0.2-1.3) mg/dl AST 61 H (14-36) U/L ALT 50 (9-52) U/L Alkaline Phosphatase 84 (38-126) U/L Total Protein 5.4 L (6.3-8.2) G/DL Albumin 2.2 L (3.5-5.0) g/dL Globulin 3.2 (2.2-3.9) gm/dL Albumin/Globulin Ratio 0.7 L (1.0-2.1) TSH 3rd Generation 6.83 H (0.46-4.68) mIU/ML Laboratory Results - last 24 hr 12/22/18 12/22/18 12/22/18 04:45 04:45 04:45 WBC 11.4 H RBC 4.18 Hgb 9.7 L Hct 31.0 L MCV 74.2 L MCH 23.3 L MCHC 31.4 L RDW 28.4 H Plt Count 22 L* D MPV 9.2 Neut % (Auto) 89.2 H Lymph % (Auto) 6.4 L Terrell % (Auto) 3.4 Eos % (Auto) 0.8 Baso % (Auto) 0.2 Neut # (Auto) 10.1 H Lymph # (Auto) 0.7 L Terrell # (Auto) 0.4 Eos # (Auto) 0.1 Baso # (Auto) 0.0 Neutrophils % (Manual) 88 H Band Neutrophils % 6 H Lymphocytes % (Manual) 4 L Monocytes % (Manual) 1 Basophils % (Manual) 1 Toxic Granulation Present Platelet Estimate Decreased L Poikilocytosis (manual Slight Anisocytosis (manual) Slight Microcytosis (manual) Slight Target Cells Slight Tear Drop Cells Slight Ovalocytes Slight PT 12.6 INR 1.1 APTT 29.8 Fibrinogen 330 Sodium 133 Potassium 3.5 L Chloride 98 Carbon Dioxide 28 Anion Gap 11 BUN 8 Creatinine 0.5 L Est GFR ( Amer) > 60 Est GFR (Non-Af Amer) > 60 Random Glucose 94 Calcium 8.1 L Total Bilirubin 0.7 AST 61 H ALT 50 Alkaline Phosphatase 84 Total Protein 5.4 L Albumin 2.2 L Globulin 3.2 Albumin/Globulin Ratio 0.7 L TSH 3rd Generation 6.83 H Critical Care Progress Note - Nutrition Nutrition: Nutrition Category Date Time Status Liquid Diet [DIET] Diets 12/22/18 Dinner Active Liquid Diet [DIET] Diets 12/22/18 Lunch Active
[2018-12-22] MEDS: Lactated Ringer's 1,000 ML IV SCH (15:25)
[2018-12-22] MEDS: Digoxin 125 mcg (0.125 mg) Tab PO SCH (15:26)
--- NOTE | 2018-12-22 15:56 | US ---
Date of service: 12/22/2018 PROCEDURE: Right Upper Extremity Venous Doppler HISTORY: r/o SVT R upper extremity COMPARISON: None available. TECHNIQUE: Right upper extremity deep veins, including the lower internal jugular, subclavian, axillary and brachial veins, were evaluated flow, compressibility and respiratory phasicity. FINDINGS: Normal flow, compressibility and respiratory phasicity was observed in the right upper extremity deep veins. No was made of intraluminal thrombus in the right basilic vein, distally. This is a superficial venous thrombosis. The vein is noncompressible. No intraluminal flow is demonstrated on color Doppler interrogation. IMPRESSION: No evidence of deep venous thrombosis. Superficial venous thrombosis of the distal right basilic vein.
--- NOTE | 2018-12-22 16:19 | US ---
Date of service: 12/22/2018 PROCEDURE: Duplex ultrasound of the bilateral lower extremity arteries. HISTORY: r/o arterial occlusion COMPARISON: None available. TECHNIQUE: Grayscale and duplex Doppler evaluation of the bilateral common femoral, superficial femoral, popliteal, posterior tibial and dorsalis pedis arteries was performed.. FINDINGS: RIGHT LOWER EXTREMITY: RIGHT COMMON FEMORAL ARTERY: Widely patent. Maximal flow velocity of 82.0 cm/s. RIGHT SUPERFICIAL FEMORAL ARTERY: Widely patent. Maximal flow velocity of 139.8 cm/s. RIGHT POPLITEAL ARTERY:Widely patent. Maximal flow velocity of 26.4 cm/s. Distal popliteal artery occlusion. RIGHT POSTERIOR TIBIAL ARTERY: No evidence of flow in the posterior tibial artery. RIGHT DORSALIS PEDIS ARTERY: No evidence of flow in the right dorsalis pedis artery LEFT LOWER EXTREMITY: LEFT COMMON FEMORAL ARTERY: Not visible, occluded by overlying dressings. LEFT SUPERFICIAL FEMORAL ARTERY: Widely patent. Maximal flow velocity of 99.0 cm/s. LEFT POPLITEAL ARTERY:Widely patent. Maximal flow velocity of 18.2 cm/s. Distal popliteal occlusion. LEFT POSTERIOR TIBIAL ARTERY: No evidence of flow in the left posterior tibial artery. LEFT DORSALIS PEDIS ARTERY: No evidence of flow in the left dorsalis pedis artery. OTHER FINDINGS: None. IMPRESSION: Right lower extremity arterial system: Arterial occlusive disease at the level of the distal right popliteal artery. Left lower extremity arterial system: Occlusive disease the level of the distal left popliteal artery. Verbal preliminary notification provided at 15:47.
[2018-12-22 17:11] LABS: URINE BILIRUBIN NEGATIVE (NEGATIVE); URINE CLARITY CLEAR (Clear); URINE COLOR YELLOW (YELLOW); URINE GLUCOSE (UA) NEG (NEGATIVE); URINE LEUKOCYTE ESTERASE NEG Leu/uL (Negative); URINE PROTEIN NEGATIVE (NEGATIVE); URINE UROBILINOGEN 0.2-1.0 mg/dL (0.2-1.0)
--- NOTE | 2018-12-22 17:13 | CP.CCUPN ---
CCU Subjective - Physician Review Subjective (Free Text): Recd verbal report regarding preliminary Venous and Arterial Doppler US studies involving RUE and Bilateral legs: Right superficial venous thrombosis of Basilic vein with clot distally. Bilateral lower extremity Popliteal artery with distal occlusion. Discussed findings with PMD, Heme-Onc, GI, and Interventional Radiology: Will start an Argatroban drip, with titration to maintain a low level of anticoagulation given her recent severe anemia and possibility of GI bleed. Vascular Surgery consultation to be obtained with Dr. Geovany Etienne. Discussed with IR, study results and exam findings not amenable to IR procedure.
[2018-12-22 17:18] LABS: URINE BLOOD SMALL (NEGATIVE)
[2018-12-22] MEDS: ceFAZolin 1 GM in Sodium Chloride 0.9% 100 ML IVPB SCH (17:55)
--- NOTE | 2018-12-22 18:06 | CP.PCM.PN ---
Subjective - Date & Time of Evaluation Date of Evaluation: 12/22/18 Time of Evaluation: 22:22 - Subjective Subjective: Afib with RVR again Colonoscopy postponed Coagulopathy with thrombosis upper and lower extremity Objective - Vital Signs/Intake and Output Vital Signs (last 24 hours): Temp Pulse Resp BP Pulse Ox 97.3 F L 62 17 113/45 L 99 12/22/18 14:38 12/22/18 16:00 12/22/18 16:00 12/22/18 16:00 12/22/18 16:00 Intake and Output: 12/22/18 12/22/18 06:59 18:59 Intake Total 259 1782 Output Total 1100 Balance -841 1782 - Medications Medications: Current Medications Amiodarone HCl (Cordarone) 200 mg PO DAILY [facility] Last Admin: 12/22/18 09:17 Dose: Not Given Benzocaine/Menthol (Cepacol Sore Throat) 1 juan manuel PO Q3 PRN PRN Reason: Sore Throat Last Admin: 12/17/18 08:51 Dose: 1 juan manuel Digoxin (Digoxin) 0.125 mg PO DAILY [facility] Last Admin: 12/22/18 15:26 Dose: 0.125 mg Levetiracetam 500 mg/ Sodium (Chloride) 105 mls @ 210 mls/hr IVPB Q12 [facility] Last Admin: 12/22/18 09:18 Dose: 210 mls/hr Amiodarone HCl 450 mg/ Sodium (Chloride) 259 mls @ 34.53 mls/hr IV .[id number] [facility]; Protocol Last Admin: 12/22/18 02:32 Dose: 0.5 mg/min, 17.27 mls/hr Cefazolin Sodium 1 gm/ Sodium (Chloride) 100 mls @ 100 mls/hr IVPB Q8 [facility]; Protocol Last Admin: 12/22/18 17:55 Dose: 100 mls/hr Lactated Ringer's (Lactated Ringer's) 1,000 mls @ 84 mls/hr IV .[id number] [facility] Last Admin: 12/22/18 15:25 Dose: 84 mls/hr Argatroban 250 mg/ Sodium (Chloride) 252.5 mls @ 4.8 mls/hr IV .Q24H [facility]; Julio Cesar col Lactulose (Enulose) 20 gm PO DAILY PRN PRN Reason: Constipation Last Admin: 12/20/18 14:12 Dose: 20 gm Ondansetron HCl (Zofran Inj) 4 mg IVP Q6 PRN PRN Reason: Nausea/Vomiting Last Admin: 12/17/18 05:51 Dose: 4 mg Pantoprazole Sodium (Protonix Inj) 40 mg IVP DAILY [facility] Last Admin: 12/22/18 09:19 Dose: 40 mg Potassium Phos/Sodium Phos (Neutra-Phos) 1 pkt PO BID [facility] Last Admin: 12/22/18 17:56 Dose: 1 pkt - Labs Labs: 12/22/18 04:45 12/22/18 04:45 PT 12.6 Seconds (9.8-13.1) 12/22/18 04:45 INR 1.1 12/22/18 04:45 APTT 29.8 Seconds (25.6-37.1) 12/22/18 04:45 - Respiratory Exam Respiratory Exam: NORMAL BREATHING PATTERN - Cardiovascular Exam Cardiovascular Exam: REGULAR RHYTHM - GI/Abdominal Exam GI & Abdominal Exam: Normal Bowel Sounds Assessment and Plan - Assessment and Plan (Free Text) Assessment: Coagulopathy with thrombosis upper and lower extremity Vascular surgery WBC 11k Platlelts 22k DIC?? Sepsis?? cellulitis ? etiology?? ABX ID Hematology Paraxysmal A fib Amiodorone Dig ICU Cardiology GI Bleed? Endoscopy- Gastritis HH Colonoscopy postponed Hx Ca Colon CEA [address] CT scan enterocolitis intaabdominal mass Microcytic hypochromic anemia chronic blood loss IVF monitor labs GI surgery Hematology
[2018-12-22 21:25] LABS: BASO % 0.1 % (0.0-2.0); EOS # 0.1 K/uL (0.0-0.7); EOS % 0.8 % (0.0-4.0); HEMOGLOBIN 8.6 g/dL (12.0-16.0); LYMPH # 0.6 K/uL (1.0-4.3); LYMPH % 6.2 % (20.0-40.0); MEAN CELL VOLUME 73.6 fl (81.0-99.0); MEAN CORPUSCULAR HEMOGLOBIN 23.7 pg (27.0-31.0); MEAN CORPUSCULAR HGB CONC 32.2 g/dL (33.0-37.0); MEAN PLATELET VOLUME 9.2 fl (7.2-11.7); MONO # 0.4 K/uL (0.0-0.8); MONO % 3.8 % (0.0-10.0); NEUT # 8.4 K/uL (1.8-7.0); NEUT % 89.1 % (50.0-75.0); RBC 3.62 Mil/uL (3.80-5.20); RED CELL DISTRIBUTION WIDTH 28.8 % (11.5-14.5); WHITE BLOOD COUNT 9.4 K/uL (4.8-10.8)
[2018-12-23] MEDS: ceFAZolin 1 GM in Sodium Chloride 0.9% 100 ML IVPB SCH ×3 (01:03→16:54)
[2018-12-23] MEDS: Lactated Ringer's 1,000 ML IV SCH (03:06)
[2018-12-23 06:31] LABS: INR 1.9; PROTHROMBIN TIME 21.5 Seconds (9.8-13.1)
[2018-12-23 06:34] LABS: BASO % 0.2 % (0.0-2.0); EOS # 0.1 K/uL (0.0-0.7); EOS % 1.5 % (0.0-4.0); HEMOGLOBIN 8.7 g/dL (12.0-16.0); LYMPH # 0.6 K/uL (1.0-4.3); LYMPH % 8.1 % (20.0-40.0); MEAN CELL VOLUME 74.3 fl (81.0-99.0); MEAN CORPUSCULAR HEMOGLOBIN 23.6 pg (27.0-31.0); MEAN CORPUSCULAR HGB CONC 31.7 g/dL (33.0-37.0); MEAN PLATELET VOLUME 9.2 fl (7.2-11.7); MONO # 0.4 K/uL (0.0-0.8); MONO % 5.1 % (0.0-10.0); NEUT # 6.6 K/uL (1.8-7.0); NEUT % 85.1 % (50.0-75.0); PARTIAL THROMBOPLASTIN TIME 70.5 Seconds (25.6-37.1); RBC 3.71 Mil/uL (3.80-5.20); RED CELL DISTRIBUTION WIDTH 28.4 % (11.5-14.5); WHITE BLOOD COUNT 7.7 K/uL (4.8-10.8)
[2018-12-23 06:41] LABS: ALB/GLOB RATIO 0.7 (1.0-2.1); ALBUMIN 2.3 g/dL (3.5-5.0); ALT/SGPT 47 U/L (9-52); AST/SGOT 43 U/L (14-36); BLOOD UREA NITROGEN 7 mg/dl (7-17); CALCIUM 8.1 mg/dL (8.4-10.2); GFR NON-AFRICAN AMERICAN > 60
[2018-12-23] MEDS: levETIRAcetam 500 MG in Sodium Chloride 0.9% 100 ML IVPB SCH ×2 (08:27→20:08)
[2018-12-23] MEDS: Potassium & Sodium Phosphate PO SCH ×2 (08:28→16:55)
[2018-12-23] MEDS: Digoxin 125 mcg (0.125 mg) Tab PO SCH (08:28)
--- NOTE | 2018-12-23 08:41 | CP.CCUPN ---
CCU Subjective - Physician Review Events Since Last Encounter (Free Text): Patient awake, no distress, no fever, no chest pain, no vomiting, follow commands, events reviewed CCU Objective - Vital Signs / Intake & Output Vital Signs (Last 4 hours): Vital Signs Temp Pulse Resp BP Pulse Ox 12/23/18 08:28 66 12/23/18 08:00 98.2 F 62 13 119/49 L 99 12/23/18 06:00 70 17 135/56 L 100 Intake and Output (Last 8hrs): Intake & Output 12/22/18 12/23/18 12/23/18 22:59 06:59 14:59 Intake Total 1197 772 178 Output Total 500 650 Balance 697 122 178 Weight 88 lb 1.6 oz Intake: IV 584 672 178 Intake, Piggyback 200 100 Oral 100 0 Blood Product 313 Apheresis Plts Acda Lr 313 1st Con Unit [id number] Output: Urine 500 650 Urine, Voided 500 650 - Physical Exam Head: Positive for: Atraumatic, Normocephalic Pupils: Positive for: PERRL Extroacular Muscles: Positive for: EOMI Conjunctiva: Positive for: Normal Ears: Positive for: Normal Mouth: Positive for: Moist Mucous Membranes Nose (Internal): Positive for: Normal Inspection Neck: Positive for: Normal Range of Motion, Trachea Midline. Negative for: Meningeal Signs, MIDLINE TENDERNESS, Paraspinal Tenderness, JVD, Lymphadenopathy, Bruit, Other Respiratory/Chest: Positive for: Clear to Auscultation, Good Air Exchange. Negative for: Respiratory Distress, Accessory Muscle Use Cardiovascular: Positive for: Regular Rate and Rhythm, Normal S1, S2, Peripheal Pulses Present. Negative for: Murmurs, Tachycardic, Bradycardic Abdomen: Positive for: Tenderness, Distention, Normal Bowel Sounds. Negative for: Peritoneal Signs Upper Extremity: Positive for: Normal Inspection. Negative for: Cyanosis, Edema Lower Extremity: Positive for: Normal Inspection. Negative for: Edema, CALF TENDERNESS Neurological: Positive for: GCS=15 Psychiatric: Positive for: Alert, Oriented x 3 - Medications Active Medications: Active Medications Generic Name Dose Route Start Last Admin Trade Name Freq PRN Reason Stop Dose Admin Amiodarone HCl 200 mg 12/21/18 15:15 12/23/18 08:28 Cordarone PO 200 mg DAILY LILLIAN Administration Benzocaine/Menthol 1 juan manuel 12/10/18 10:01 12/17/18 08:51 Cepacol Sore Throat PO 1 juan manuel Q3 PRN Administration Sore Throat Digoxin 0.125 mg 12/22/18 13:15 12/23/18 08:28 Digoxin PO 0.125 mg DAILY LILLIAN Administration Levetiracetam 500 mg/ Sodium 105 mls @ 210 mls/hr 12/16/18 10:00 12/23/18 08:27 Chloride IVPB 210 mls/hr Q12 LILLIAN Administration Cefazolin Sodium 1 gm/ Sodium 100 mls @ 100 mls/hr 12/22/18 17:00 12/23/18 08:27 Chloride IVPB 100 mls/hr Q8 LILLIAN Administration Protocol Lactated Ringer's 1,000 mls @ 84 mls/hr 12/22/18 14:45 12/23/18 03:06 Lactated Ringer's IV 84 mls/hr .[id number] LILLIAN Administration Argatroban 250 mg/ Sodium 252.5 mls @ 4.8 mls/hr 12/22/18 16:45 12/22/18 20:00 Chloride IV 4.8 mls/hr .Q24H LILLIAN Administration Protocol 2 MCG/KG/MIN Lactulose 20 gm 12/11/18 12:51 12/20/18 14:12 Enulose PO 20 gm DAILY PRN Administration Constipation Ondansetron HCl 4 mg 12/08/18 10:29 12/17/18 05:51 Zofran Inj IVP 4 mg Q6 PRN Administration Nausea/Vomiting Pantoprazole Sodium 40 mg 12/20/18 09:00 12/23/18 08:28 Protonix Inj IVP 40 mg DAILY LILLIAN Administration Potassium Phos/Sodium Phos 1 pkt 12/20/18 17:00 12/23/18 08:28 Neutra-Phos PO 1 pkt BID LILLIAN Administration - Patient Studies Lab Studies: Microbiology Studies 12/18/18 20:09 Blood Culture - Preliminary Blood NO GROWTH AFTER 4 DAYS Lab Studies 12/23/18 12/23/18 12/23/18 Range/Units 05:30 05:30 05:30 WBC 7.7 (4.8-10.8) K/uL RBC 3.71 L (3.80-5.20) Mil/uL Hgb 8.7 L (12.0-16.0) g/dL Hct 27.6 L (34.0-47.0) % MCV 74.3 L (81.0-99.0) fl MCH 23.6 L (27.0-31.0) pg MCHC 31.7 L (33.0-37.0) g/dL RDW 28.4 H (11.5-14.5) % Plt Count 94 L (130-400) K/uL MPV 9.2 (7.2-11.7) fl Neut % (Auto) 85.1 H (50.0-75.0) % Lymph % (Auto) 8.1 L (20.0-40.0) % Gove % (Auto) 5.1 (0.0-10.0) % Eos % (Auto) 1.5 (0.0-4.0) % Baso % (Auto) 0.2 (0.0-2.0) % Neut # (Auto) 6.6 (1.8-7.0) K/uL Lymph # (Auto) 0.6 L (1.0-4.3) K/uL Gove # (Auto) 0.4 (0.0-0.8) K/uL Eos # (Auto) 0.1 (0.0-0.7) K/uL Baso # (Auto) 0.0 (0.0-0.2) K/uL Neutrophils % (Manual) (42-75) % Band Neutrophils % (0-2) % Lymphocytes % (Manual) (20-50) % Monocytes % (Manual) (0-10) % Basophils % (Manual) (0-2) % Toxic Granulation Platelet Estimate (NORMAL) Poikilocytosis (manual Anisocytosis (manual) Microcytosis (manual) Target Cells Tear Drop Cells Ovalocytes PT 21.5 H D (9.8-13.1) Seconds INR 1.9 APTT 70.5 H (25.6-37.1) Seconds Sodium 134 (132-148) mmol/l Potassium 3.8 (3.6-5.0) MMOL/L Chloride 98 (98-107) mmol/L Carbon Dioxide 30 (22-30) mmol/L Anion Gap 10 (10-20) BUN 7 (7-17) mg/dl Creatinine 0.5 L (0.7-1.2) mg/dl Est GFR ( Amer) > 60 Est GFR (Non-Af Amer) > 60 Random Glucose 86 (65-105) mg/dL Calcium 8.1 L (8.4-10.2) mg/dL Total Bilirubin 0.5 (0.2-1.3) mg/dl AST 43 H D (14-36) U/L ALT 47 (9-52) U/L Alkaline Phosphatase 78 (38-126) U/L Total Protein 5.5 L (6.3-8.2) G/DL Albumin 2.3 L (3.5-5.0) g/dL Globulin 3.2 (2.2-3.9) gm/dL Albumin/Globulin Ratio 0.7 L (1.0-2.1) Procalcitonin (0.19-0.49) NG/ML Urine Color (YELLOW) Urine Clarity (Clear) Urine pH (5.0-8.0) Ur Specific [place] (1.003-1.030) Urine Protein (NEGATIVE) mg/dL Urine Glucose (UA) (NEGATIVE) mg/dL Urine Ketones (NEGATIVE) mg/dL Urine Blood (NEGATIVE) Urine Nitrate (NEGATIVE) Urine Bilirubin (NEGATIVE) Urine Urobilinogen (0.2-1.0) mg/dL Ur Leukocyte Esterase (Negative) Ford/uL Urine RBC (Auto) (0-3) /hpf Urine Microscopic WBC (0-5) /hpf 12/22/18 12/22/18 12/22/18 Range/Units 21:00 17:00 17:00 WBC 9.4 (4.8-10.8) K/uL RBC 3.62 L (3.80-5.20) Mil/uL Hgb 8.6 L (12.0-16.0) g/dL Hct 26.7 L (34.0-47.0) % MCV 73.6 L (81.0-99.0) fl MCH 23.7 L (27.0-31.0) pg MCHC 32.2 L (33.0-37.0) g/dL RDW 28.8 H (11.5-14.5) % Plt Count 90 L D (130-400) K/uL MPV 9.2 (7.2-11.7) fl Neut % (Auto) 89.1 H (50.0-75.0) % Lymph % (Auto) 6.2 L (20.0-40.0) % Gove % (Auto) 3.8 (0.0-10.0) % Eos % (Auto) 0.8 (0.0-4.0) % Baso % (Auto) 0.1 (0.0-2.0) % Neut # (Auto) 8.4 H (1.8-7.0) K/uL Lymph # (Auto) 0.6 L (1.0-4.3) K/uL Gove # (Auto) 0.4 (0.0-0.8) K/uL Eos # (Auto) 0.1 (0.0-0.7) K/uL Baso # (Auto) 0.0 (0.0-0.2) K/uL Neutrophils % (Manual) (42-75) % Band Neutrophils % (0-2) % Lymphocytes % (Manual) (20-50) % Monocytes % (Manual) (0-10) % Basophils % (Manual) (0-2) % Toxic Granulation Platelet Estimate (NORMAL) Poikilocytosis (manual Anisocytosis (manual) Microcytosis (manual) Target Cells Tear Drop Cells Ovalocytes PT (9.8-13.1) Seconds INR APTT (25.6-37.1) Seconds Sodium (132-148) mmol/l Potassium (3.6-5.0) MMOL/L Chloride (98-107) mmol/L Carbon Dioxide (22-30) mmol/L Anion Gap (10-20) BUN (7-17) mg/dl Creatinine (0.7-1.2) mg/dl Est GFR ( Amer) Est GFR (Non-Af Amer) Random Glucose (65-105) mg/dL Calcium (8.4-10.2) mg/dL Total Bilirubin (0.2-1.3) mg/dl AST (14-36) U/L ALT (9-52) U/L Alkaline Phosphatase (38-126) U/L Total Protein (6.3-8.2) G/DL Albumin (3.5-5.0) g/dL Globulin (2.2-3.9) gm/dL Albumin/Globulin Ratio (1.0-2.1) Procalcitonin 0.24 (0.19-0.49) NG/ML Urine Color Yellow (YELLOW) Urine Clarity Clear (Clear) Urine pH 6.0 (5.0-8.0) Ur Specific [place] 1.013 (1.003-1.030) Urine Protein Negative (NEGATIVE) mg/dL Urine Glucose (UA) Neg (NEGATIVE) mg/dL Urine Ketones Negative (NEGATIVE) mg/dL Urine Blood Small (NEGATIVE) Urine Nitrate Negative (NEGATIVE) Urine Bilirubin Negative (NEGATIVE) Urine Urobilinogen 0.2-1.0 (0.2-1.0) mg/dL Ur Leukocyte Esterase Neg (Negative) Ford/uL Urine RBC (Auto) < 1 (0-3) /hpf Urine Microscopic WBC < 1 (0-5) /hpf 12/22/18 Range/Units 04:45 WBC (4.8-10.8) K/uL RBC (3.80-5.20) Mil/uL Hgb (12.0-16.0) g/dL Hct (34.0-47.0) % MCV (81.0-99.0) fl MCH (27.0-31.0) pg MCHC (33.0-37.0) g/dL RDW (11.5-14.5) % Plt Count (130-400) K/uL MPV (7.2-11.7) fl Neut % (Auto) (50.0-75.0) % Lymph % (Auto) (20.0-40.0) % Gove % (Auto) (0.0-10.0) % Eos % (Auto) (0.0-4.0) % Baso % (Auto) (0.0-2.0) % Neut # (Auto) (1.8-7.0) K/uL Lymph # (Auto) (1.0-4.3) K/uL Gove # (Auto) (0.0-0.8) K/uL Eos # (Auto) (0.0-0.7) K/uL Baso # (Auto) (0.0-0.2) K/uL Neutrophils % (Manual) 88 H (42-75) % Band Neutrophils % 6 H (0-2) % Lymphocytes % (Manual) 4 L (20-50) % Monocytes % (Manual) 1 (0-10) % Basophils % (Manual) 1 (0-2) % Toxic Granulation Present Platelet Estimate Decreased L (NORMAL) Poikilocytosis (manual Slight Anisocytosis (manual) Slight Microcytosis (manual) Slight Target Cells Slight Tear Drop Cells Slight Ovalocytes Slight PT (9.8-13.1) Seconds INR APTT (25.6-37.1) Seconds Sodium (132-148) mmol/l Potassium (3.6-5.0) MMOL/L Chloride (98-107) mmol/L Carbon Dioxide (22-30) mmol/L Anion Gap (10-20) BUN (7-17) mg/dl Creatinine (0.7-1.2) mg/dl Est GFR ( Amer) Est GFR (Non-Af Amer) Random Glucose (65-105) mg/dL Calcium (8.4-10.2) mg/dL Total Bilirubin (0.2-1.3) mg/dl AST (14-36) U/L ALT (9-52) U/L Alkaline Phosphatase (38-126) U/L Total Protein (6.3-8.2) G/DL Albumin (3.5-5.0) g/dL Globulin (2.2-3.9) gm/dL Albumin/Globulin Ratio (1.0-2.1) Procalcitonin (0.19-0.49) NG/ML Urine Color (YELLOW) Urine Clarity (Clear) Urine pH (5.0-8.0) Ur Specific [place] (1.003-1.030) Urine Protein (NEGATIVE) mg/dL Urine Glucose (UA) (NEGATIVE) mg/dL Urine Ketones (NEGATIVE) mg/dL Urine Blood (NEGATIVE) Urine Nitrate (NEGATIVE) Urine Bilirubin (NEGATIVE) Urine Urobilinogen (0.2-1.0) mg/dL Ur Leukocyte Esterase (Negative) Ford/uL Urine RBC (Auto) (0-3) /hpf Urine Microscopic WBC (0-5) /hpf Laboratory Results - last 24 hr 12/22/18 12/22/18 12/22/18 04:45 17:00 17:00 WBC RBC Hgb Hct MCV MCH MCHC RDW Plt Count MPV Neut % (Auto) Lymph % (Auto) Gove % (Auto) Eos % (Auto) Baso % (Auto) Neut # (Auto) Lymph # (Auto) Gove # (Auto) Eos # (Auto) Baso # (Auto) Neutrophils % (Manual) 88 H Band Neutrophils % 6 H Lymphocytes % (Manual) 4 L Monocytes % (Manual) 1 Basophils % (Manual) 1 Toxic Granulation Present Platelet Estimate Decreased L Poikilocytosis (manual Slight Anisocytosis (manual) Slight Microcytosis (manual) Slight Target Cells Slight Tear Drop Cells Slight Ovalocytes Slight PT INR APTT Sodium Potassium Chloride Carbon Dioxide Anion Gap BUN Creatinine Est GFR ( Amer) Est GFR (Non-Af Amer) Random Glucose Calcium Total Bilirubin AST ALT Alkaline Phosphatase Total Protein Albumin Globulin Albumin/Globulin Ratio Procalcitonin 0.24 Urine Color Yellow Urine Clarity Clear Urine pH 6.0 Ur Specific [place] 1.013 Urine Protein Negative Urine Glucose (UA) Neg Urine Ketones Negative Urine Blood Small Urine Nitrate Negative Urine Bilirubin Negative Urine Urobilinogen 0.2-1.0 Ur Leukocyte Esterase Neg Urine RBC (Auto) < 1 Urine Microscopic WBC < 1 12/22/18 12/23/18 12/23/18 21:00 05:30 05:30 WBC 9.4 7.7 RBC 3.62 L 3.71 L Hgb 8.6 L 8.7 L Hct 26.7 L 27.6 L MCV 73.6 L 74.3 L MCH 23.7 L 23.6 L MCHC 32.2 L 31.7 L RDW 28.8 H 28.4 H Plt Count 90 L D 94 L MPV 9.2 9.2 Neut % (Auto) 89.1 H 85.1 H Lymph % (Auto) 6.2 L 8.1 L Gove % (Auto) 3.8 5.1 Eos % (Auto) 0.8 1.5 Baso % (Auto) 0.1 0.2 Neut # (Auto) 8.4 H 6.6 Lymph # (Auto) 0.6 L 0.6 L Gove # (Auto) 0.4 0.4 Eos # (Auto) 0.1 0.1 Baso # (Auto) 0.0 0.0 Neutrophils % (Manual) Band Neutrophils % Lymphocytes % (Manual) Monocytes % (Manual) Basophils % (Manual) Toxic Granulation Platelet Estimate Poikilocytosis (manual Anisocytosis (manual) Microcytosis (manual) Target Cells Tear Drop Cells Ovalocytes PT INR APTT Sodium 134 Potassium 3.8 Chloride 98 Carbon Dioxide 30 Anion Gap 10 BUN 7 Creatinine 0.5 L Est GFR ( Amer) > 60 Est GFR (Non-Af Amer) > 60 Random Glucose 86 Calcium 8.1 L Total Bilirubin 0.5 AST 43 H D ALT 47 Alkaline Phosphatase 78 Total Protein 5.5 L Albumin 2.3 L Globulin 3.2 Albumin/Globulin Ratio 0.7 L Procalcitonin Urine Color Urine Clarity Urine pH Ur Specific [place] Urine Protein Urine Glucose (UA) Urine Ketones Urine Blood Urine Nitrate Urine Bilirubin Urine Urobilinogen Ur Leukocyte Esterase Urine RBC (Auto) Urine Microscopic WBC 12/23/18 05:30 WBC RBC Hgb Hct MCV MCH MCHC RDW Plt Count MPV Neut % (Auto) Lymph % (Auto) Gove % (Auto) Eos % (Auto) Baso % (Auto) Neut # (Auto) Lymph # (Auto) Gove # (Auto) Eos # (Auto) Baso # (Auto) Neutrophils % (Manual) Band Neutrophils % Lymphocytes % (Manual) Monocytes % (Manual) Basophils % (Manual) Toxic Granulation Platelet Estimate Poikilocytosis (manual Anisocytosis (manual) Microcytosis (manual) Target Cells Tear Drop Cells Ovalocytes PT 21.5 H D INR 1.9 APTT 70.5 H Sodium Potassium Chloride Carbon Dioxide Anion Gap BUN Creatinine Est GFR ( Amer) Est GFR (Non-Af Amer) Random Glucose Calcium Total Bilirubin AST ALT Alkaline Phosphatase Total Protein Albumin Globulin Albumin/Globulin Ratio Procalcitonin Urine Color Urine Clarity Urine pH Ur Specific [place] Urine Protein Urine Glucose (UA) Urine Ketones Urine Blood Urine Nitrate Urine Bilirubin Urine Urobilinogen Ur Leukocyte Esterase Urine RBC (Auto) Urine Microscopic WBC Radiology Impressions: Radiology Impressions Extremity Ultrasound 12/21/18 11:25 IMPRESSION: No evidence of deep venous thrombosis. Superficial venous thrombosis of the distal right basilic vein. 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 Left lower extremity arterial system: Occlusive disease the level of the distal left popliteal artery. Verbal preliminary notification provided at 15:47. Critical Care Progress Note - Nutrition Nutrition: Nutrition Category Date Time Status Liquid Diet [DIET] Diets 12/22/18 Dinner Active Assessment/Plan - Assessment and Plan (Free Text) Assessment: A/P Anemia, thrombocytopenia, r/o GIB, h/o HIT, A Fib, mass RLQ with enterovolitis, DVT - Continue meds - Hematology/Oncology follow up - Transfusion as needed - Follow up labs
--- NOTE | 2018-12-23 09:45 | CP.PCM.PN ---
Subjective - Date & Time of Evaluation Date of Evaluation: 12/23/18 Time of Evaluation: 09:42 - Subjective Subjective: Pt is wide awake, with no complaints except for itching and some pain in the rght arm. Her right arm is swollen more so the dorsum of the left hand, The left arm is a little swollen. Both lower extremities showed some discoloration of the toes. Duplex scan of the upper extremities ad ultrasound of the lower extremities was done. There is a thrombus in the right basilar vein , left dorsalis pedes and posterior tibial artery. There is arterial occlusion of the distal popliteal artery. Her Platelets were 39 yesterday and a HIT was suspected. She has not had any lovenox or heparin this admisson, but may have had some from the last time .She was started on argatroban yesterday and her platelet count has increased to 94K. Her feet still look discolored but a little improved. I would continue the argatroban now., and after the colonoscopy will change to a oral anticoagulant. Objective - Vital Signs/Intake and Output Vital Signs (last 24 hours): Temp Pulse Resp BP Pulse Ox 98.2 F 66 13 119/49 L 99 12/23/18 08:00 12/23/18 08:28 12/23/18 08:00 12/23/18 08:00 12/23/18 08:00 Intake and Output: 12/23/18 12/23/18 06:59 18:59 Intake Total 1208 178 Output Total 650 Balance 558 178 - Medications Medications: Current Medications Amiodarone HCl (Cordarone) 200 mg PO DAILY [facility] Last Admin: 12/23/18 08:28 Dose: 200 mg Benzocaine/Menthol (Cepacol Sore Throat) 1 juan manuel PO Q3 PRN PRN Reason: Sore Throat Last Admin: 12/17/18 08:51 Dose: 1 juan manuel Digoxin (Digoxin) 0.125 mg PO DAILY [facility] Last Admin: 12/23/18 08:28 Dose: 0.125 mg Levetiracetam 500 mg/ Sodium (Chloride) 105 mls @ 210 mls/hr IVPB Q12 LILLIAN Last Admin: 12/23/18 08:27 Dose: 210 mls/hr Cefazolin Sodium 1 gm/ Sodium (Chloride) 100 mls @ 100 mls/hr IVPB Q8 [facility]; Protocol Last Admin: 12/23/18 08:27 Dose: 100 mls/hr Lactated Ringer's (Lactated Ringer's) 1,000 mls @ 84 mls/hr IV .[id number] LILLIAN Last Admin: 12/23/18 03:06 Dose: 84 mls/hr Argatroban 250 mg/ Sodium (Chloride) 252.5 mls @ 4.8 mls/hr IV .Q24H [facility]; Protocol Last Admin: 12/22/18 20:00 Dose: 4.8 mls/hr Lactulose (Enulose) 20 gm PO DAILY PRN PRN Reason: Constipation Last Admin: 12/20/18 14:12 Dose: 20 gm Ondansetron HCl (Zofran Inj) 4 mg IVP Q6 PRN PRN Reason: Nausea/Vomiting Last Admin: 12/17/18 05:51 Dose: 4 mg Pantoprazole Sodium (Protonix Inj) 40 mg IVP DAILY [facility] Last Admin: 12/23/18 08:28 Dose: 40 mg Potassium Phos/Sodium Phos (Neutra-Phos) 1 pkt PO BID [facility] Last Admin: 12/23/18 08:28 Dose: 1 pkt - Labs Labs: 12/23/18 05:30 12/23/18 05:30 PT 21.5 Seconds (9.8-13.1) H D 12/23/18 05:30 INR 1.9 12/23/18 05:30 APTT 70.5 Seconds (25.6-37.1) H 12/23/18 05:30
--- NOTE | 2018-12-23 14:11 | CARD ---
APPROVED REPORT Date of service: 12/23/2018 EXAM: Two-dimensional and M-mode echocardiogram with Doppler and color Doppler. Other Information Quality : GoodRhythm : NSR INDICATION Thrombus 2D DIMENSIONS IVSd0.83 (0.7-1.1cm)LVDd4.24 (3.9-5.9cm) PWd0.97 (0.7-1.1cm)IVSs0.75 (0.8-1.2cm) LVDs3.51 (2.5-4.0cm)FS (%) 17.3 % PWs1.10 (0.8-1.2cm) M-Mode DIMENSIONS Left Atrium (MM)3.45 (2.5-4.0cm)IVSd0.51 (0.7-1.1cm) Aortic Root2.65 (2.2-3.7cm)LVDd5.35 (4.0-5.6cm) Aortic Cusp Exc.1.80 (1.5-2.0cm)PWd0.69 (0.7-1.1cm) IVSs1.29 cmFS (%) 43 % LVDs3.04 (2.0-3.8cm)PWs1.36 cm Aortic Valve AoV Peak Xbjzkjmg784.6cm/sAoV VTI19.1cmAO Peak GR.4mmHg LVOT Peak Gzlu[place]au51.0cm/sLVOT VTI18.13cmAO Mean GR.2mmHg Mitral Valve MV E Vtajcffg70.2cm/sMV DECEL [id number] A Ylrkioyf59.2cm/s MV ZSN78ubX/A ratio1.4MVA (PHT)3.74cm2 TDI E/Lateral E'0.0E/Medial E'0.0 LEFT VENTRICLE The left ventricle is normal size. There is normal left ventricular wall thickness. The systolic function is mildly impaired. The estimated ejection fraction is -45% There is mild basal and mid anterior wall hypokinesis. Transmitral Doppler flow pattern is Grade II-pseudonormal filling dynamics. No left ventricle thrombus noted on this study. There is no ventricular septal defect visualized. There is no left ventricular aneurysm. There is no mass noted in the left ventricle. RIGHT VENTRICLE The right ventricle is normal size. There is normal right ventricular wall thickness. The right ventricular systolic function is normal. ATRIA The left atrium size is normal. The right atrium size is normal. The interatrial septum is intact with no evidence for an atrial septal defect. AORTIC VALVE The aortic valve is normal in structure. No aortic regurgitation is present. There is no aortic valvular stenosis. There is no aortic valvular vegetation. MITRAL VALVE The mitral valve is normal in structure. There is no evidence of mitral valve prolapse. There is no mitral valve stenosis. There is trace mitral valve regurgitation noted. TRICUSPID VALVE The tricuspid valve is normal in structure. There is trace tricuspid valve regurgitation noted. There is no tricuspid valve prolapse or vegetation. There is no tricuspid valve stenosis. PULMONIC VALVE The pulmonary valve is normal in structure. There is no pulmonic valvular regurgitation. There is no pulmonic valvular stenosis. GREAT VESSELS The aortic root is normal in size. The ascending aorta is normal in size. The pulmonary artery is normal. The IVC is normal in size and collapses >50% with inspiration. PERICARDIAL EFFUSION There is no pericardial effusion. There is no pleural effusion. <Conclusion> The systolic function is mildly impaired. The estimated ejection fraction is -45%. There is mild basal anterior and mid anterior wall hypokinesis. Transmitral Doppler flow pattern is Grade II-pseudonormal filling dynamics. No left ventricle thrombus noted on this study. The left atrium size is normal. There is trace mitral valve regurgitation noted. There is trace tricuspid valve regurgitation noted. The IVC is normal in size and collapses >50% with inspiration.
--- NOTE | 2018-12-23 23:31 | CP.PCM.PN ---
Subjective - Date & Time of Evaluation Date of Evaluation: 12/23/18 Time of Evaluation: 22:22 - Subjective Subjective: Above noted Seen by vascular surgery Multiple calls long discussion Echo jr carrillo Objective - Vital Signs/Intake and Output Vital Signs (last 24 hours): Temp Pulse Resp BP Pulse Ox 99.5 F 83 22 121/41 L 100 12/23/18 20:00 12/23/18 22:00 12/23/18 22:00 12/23/18 22:00 12/23/18 22:00 Intake and Output: 12/23/18 12/24/18 18:59 06:59 Intake Total 2364 150 Output Total 900 Balance 1464 150 - Medications Medications: Current Medications Amiodarone HCl (Cordarone) 200 mg PO DAILY [facility] Last Admin: 12/23/18 08:28 Dose: 200 mg Benzocaine/Menthol (Cepacol Sore Throat) 1 juan manuel PO Q3 PRN PRN Reason: Sore Throat Last Admin: 12/17/18 08:51 Dose: 1 juan manuel Digoxin (Digoxin) 0.125 mg PO DAILY [facility] Last Admin: 12/23/18 08:28 Dose: 0.125 mg Levetiracetam 500 mg/ Sodium (Chloride) 105 mls @ 210 mls/hr IVPB Q12 [facility] Last Admin: 12/23/18 20:08 Dose: 210 mls/hr Cefazolin Sodium 1 gm/ Sodium (Chloride) 100 mls @ 100 mls/hr IVPB Q8 [facility]; Protocol Last Admin: 12/23/18 16:54 Dose: 100 mls/hr Lactated Ringer's (Lactated Ringer's) 1,000 mls @ 84 mls/hr IV .[id number] [facility] Last Admin: 12/23/18 03:06 Dose: 84 mls/hr Lactulose (Enulose) 20 gm PO DAILY PRN PRN Reason: Constipation Last Admin: 12/20/18 14:12 Dose: 20 gm Pantoprazole Sodium (Protonix Inj) 40 mg IVP DAILY [facility] Last Admin: 12/23/18 08:28 Dose: 40 mg Potassium Phos/Sodium Phos (Neutra-Phos) 1 pkt PO BID [facility] Last Admin: 12/23/18 16:55 Dose: 1 pkt - Labs Labs: 12/23/18 05:30 12/23/18 05:30 PT 21.5 Seconds (9.8-13.1) H D 12/23/18 05:30 INR 1.9 12/23/18 05:30 APTT 70.5 Seconds (25.6-37.1) H 12/23/18 05:30 - Respiratory Exam Respiratory Exam: NORMAL BREATHING PATTERN - Cardiovascular Exam Cardiovascular Exam: REGULAR RHYTHM - GI/Abdominal Exam GI & Abdominal Exam: Normal Bowel Sounds Assessment and Plan - Assessment and Plan (Free Text) Assessment: Coagulopathy with thrombosis upper and lower extremity Vascular surgery DIC?? Sepsis?? cellulitis ? etiology?? ABX ID Hematology GI Bleed? Endoscopy- Gastritis HH Colonoscopy Hx Ca Colon CEA 200 CT scan enterocolitis intaabdominal mass Microcytic hypochromic anemia chronic blood loss IVF monitor labs GI surgery Hematology Paraxysmal A fib Amiodorone Dig ICU Cardiology
--- NOTE | 2018-12-23 23:53 | CP.PCM.PN ---
Subjective - Date & Time of Evaluation Date of Evaluation: 12/23/18 Time of Evaluation: 23:50 - Subjective Subjective: Patient w/o GI complaints. Found to bilateral popliteal occlusions. Objective - Vital Signs/Intake and Output Vital Signs (last 24 hours): Temp Pulse Resp BP Pulse Ox 99.5 F 83 22 121/41 L 100 12/23/18 20:00 12/23/18 22:00 12/23/18 22:00 12/23/18 22:00 12/23/18 22:00 Intake and Output: 12/23/18 12/24/18 18:59 06:59 Intake Total 2364 150 Output Total 900 Balance 1464 150 - Medications Medications: Current Medications Amiodarone HCl (Cordarone) 200 mg PO DAILY [facility] Last Admin: 12/23/18 08:28 Dose: 200 mg Benzocaine/Menthol (Cepacol Sore Throat) 1 juan manuel PO Q3 PRN PRN Reason: Sore Throat Last Admin: 12/17/18 08:51 Dose: 1 juan manuel Digoxin (Digoxin) 0.125 mg PO DAILY [facility] Last Admin: 12/23/18 08:28 Dose: 0.125 mg Levetiracetam 500 mg/ Sodium (Chloride) 105 mls @ 210 mls/hr IVPB Q12 [facility] Last Admin: 12/23/18 20:08 Dose: 210 mls/hr Cefazolin Sodium 1 gm/ Sodium (Chloride) 100 mls @ 100 mls/hr IVPB Q8 [facility]; Protocol Last Admin: 12/23/18 16:54 Dose: 100 mls/hr Lactated Ringer's (Lactated Ringer's) 1,000 mls @ 84 mls/hr IV .[id number] [facility] Last Admin: 12/23/18 03:06 Dose: 84 mls/hr Lactulose (Enulose) 20 gm PO DAILY PRN PRN Reason: Constipation Last Admin: 12/20/18 14:12 Dose: 20 gm Pantoprazole Sodium (Protonix Inj) 40 mg IVP DAILY [facility] Last Admin: 12/23/18 08:28 Dose: 40 mg Potassium Phos/Sodium Phos (Neutra-Phos) 1 pkt PO BID [facility] Last Admin: 12/23/18 16:55 Dose: 1 pkt - Labs Labs: 12/23/18 05:30 12/23/18 05:30 PT 21.5 Seconds (9.8-13.1) H D 12/23/18 05:30 INR 1.9 12/23/18 05:30 APTT 70.5 Seconds (25.6-37.1) H 12/23/18 05:30 - Head Exam Head Exam: ATRAUMATIC - Eye Exam Eye Exam: Normal appearance - ENT Exam ENT Exam: Mucous Membranes Moist - Neck Exam Neck Exam: Normal Inspection - Respiratory Exam Respiratory Exam: Clear to Ausculation Bilateral - Cardiovascular Exam Cardiovascular Exam: REGULAR RHYTHM - GI/Abdominal Exam GI & Abdominal Exam: Soft, Normal Bowel Sounds. absent: Tenderness Assessment and Plan (1) Anemia Assessment & Plan: IV heparin started to treat popliteal thromboses. Currently no evidence of bleeding. Platelet count improved. Possible colonoscopy this coming midweek. Status: Acute
[2018-12-24] MEDS: ceFAZolin 1 GM in Sodium Chloride 0.9% 100 ML IVPB SCH ×3 (00:29→16:45)
--- NOTE | 2018-12-24 07:49 | CP.CCUPN ---
CCU Subjective - Physician Review Events Since Last Encounter (Free Text): Patient awake, no distress, no fever, no chest pain, no vomiting, follow commands, events reviewed CCU Objective - Vital Signs / Intake & Output Vital Signs (Last 4 hours): Vital Signs Temp Pulse Resp BP Pulse Ox 12/24/18 06:00 67 14 111/46 L 99 12/24/18 04:00 98.6 F 74 19 120/45 L 100 Intake and Output (Last 8hrs): Intake & Output 12/23/18 12/24/18 12/24/18 22:59 06:59 14:59 Intake Total 882 1172 Output Total 900 550 Balance -18 622 Weight 90 lb 2 oz Intake: IV 272 672 Intake, Piggyback 100 100 Oral 510 400 Output: Urine 900 550 Urine, Voided 900 550 Other: # Bowel Movements 1 - Physical Exam Head: Positive for: Atraumatic, Normocephalic Pupils: Positive for: PERRL Extroacular Muscles: Positive for: EOMI Conjunctiva: Positive for: Normal Ears: Positive for: Normal Mouth: Positive for: Moist Mucous Membranes Nose (Internal): Positive for: Normal Inspection Neck: Positive for: Normal Range of Motion, Trachea Midline. Negative for: Meningeal Signs, MIDLINE TENDERNESS, Paraspinal Tenderness, JVD, Lymphadenopathy, Bruit, Other Respiratory/Chest: Positive for: Clear to Auscultation, Good Air Exchange. Negative for: Respiratory Distress, Accessory Muscle Use Cardiovascular: Positive for: Regular Rate and Rhythm, Normal S1, S2, Peripheal Pulses Present. Negative for: Murmurs, Tachycardic, Bradycardic Abdomen: Positive for: Tenderness, Distention, Normal Bowel Sounds. Negative for: Peritoneal Signs Upper Extremity: Positive for: Normal Inspection. Negative for: Cyanosis, Edema Lower Extremity: Positive for: Normal Inspection. Negative for: Edema, CALF TENDERNESS Neurological: Positive for: GCS=15 Psychiatric: Positive for: Alert, Oriented x 3 - Medications Active Medications: Active Medications Generic Name Dose Route Start Last Admin Trade Name Freq PRN Reason Stop Dose Admin Amiodarone HCl 200 mg 12/21/18 15:15 12/23/18 08:28 Cordarone PO 200 mg DAILY [facility] Administration Benzocaine/Menthol 1 juan manuel 12/10/18 10:01 12/17/18 08:51 Cepacol Sore Throat PO 1 juan manuel Q3 PRN Administration Sore Throat Digoxin 0.125 mg 12/22/18 13:15 12/23/18 08:28 Digoxin PO 0.125 mg DAILY [facility] Administration Levetiracetam 500 mg/ Sodium 105 mls @ 210 mls/hr 12/16/18 10:00 12/23/18 20:08 Chloride IVPB 210 mls/hr Q12 [facility] Administration Cefazolin Sodium 1 gm/ Sodium 100 mls @ 100 mls/hr 12/22/18 17:00 12/24/18 00:29 Chloride IVPB 100 mls/hr Q8 [facility] Administration Protocol Lactated Ringer's 1,000 mls @ 84 mls/hr 12/22/18 14:45 12/23/18 03:06 Lactated Ringer's IV 84 mls/hr .[id number] [facility] Administration Lactulose 20 gm 12/11/18 12:51 12/20/18 14:12 Enulose PO 20 gm DAILY PRN Administration Constipation Pantoprazole Sodium 40 mg 12/20/18 09:00 12/23/18 08:28 Protonix Inj IVP 40 mg DAILY [facility] Administration Potassium Phos/Sodium Phos 1 pkt 12/20/18 17:00 12/23/18 16:55 Neutra-Phos PO 1 pkt BID [facility] Administration - Patient Studies Lab Studies: Microbiology Studies 12/18/18 20:09 Blood Culture - Final Blood NO GROWTH AFTER 5 DAYS Gram Stain - Final TEST NOT PERFORMED 12/22/18 17:00 Urine Culture - Final Urine,Quiroz No Growth (<1,000 CFU/ML) Lab Studies 12/21/18 Range/Units 04:30 Heparin-induced Plt Ab Negative (Negative) Laboratory Results - last 24 hr 12/21/18 04:30 Heparin-induced Plt Ab Negative Critical Care Progress Note - Nutrition Nutrition: Nutrition Category Date Time Status Liquid Diet [DIET] Diets 12/22/18 Dinner Active Assessment/Plan - Assessment and Plan (Free Text) Assessment: A/P Anemia, thrombocytopenia, r/o GIB, h/o HIT, A Fib, mass RLQ with enterovolitis, DVT - Continue meds - Hematology/Oncology follow up - Transfusion as needed - Follow up labs
[2018-12-24] MEDS: levETIRAcetam 500 MG in Sodium Chloride 0.9% 100 ML IVPB SCH ×2 (09:17→21:20)
[2018-12-24] MEDS: Potassium & Sodium Phosphate PO SCH ×2 (09:18→16:49)
[2018-12-24 09:54] LABS: HEMOGLOBIN 8.6 g/dL (12.0-16.0); MEAN CELL VOLUME 74.3 fl (81.0-99.0); MEAN CORPUSCULAR HEMOGLOBIN 23.6 pg (27.0-31.0); MEAN CORPUSCULAR HGB CONC 31.8 g/dL (33.0-37.0); RBC 3.63 Mil/uL (3.80-5.20); RED CELL DISTRIBUTION WIDTH 29.2 % (11.5-14.5)
[2018-12-24 10:38] LABS: BLOOD UREA NITROGEN 9 mg/dl (7-17); CALCIUM 7.9 mg/dL (8.4-10.2); GFR NON-AFRICAN AMERICAN > 60
--- NOTE | 2018-12-24 11:34 | CP.PCM.PN ---
Subjective - Date & Time of Evaluation Date of Evaluation: 12/24/18 Time of Evaluation: 11:24 - Subjective Subjective: Pt is afebrile, in NSR, and platelet count is up to 123K.She is doing very well with the Argatroban. Her appetite is good and she eats small quantities but more frequently. her arms are swollen, but better than before. She however has pain in the left arm and I have ordered some tylenol for her.. Her albumin is low and may be adding to her edema. Will speak with the hand mexican food maker re giving her some albumin. If she is due for a colonoscopy tomorrow, we will have to stop te Argatroban before the procedure and resume it after the procedure. The The heparin induced platelet antibody is negative but pt has responded extremely well to the argatroban so I would continue it until the colonoscopy is done and bleeding site identified. Objective - Vital Signs/Intake and Output Vital Signs (last 24 hours): Temp Pulse Resp BP Pulse Ox 98.9 F 81 15 120/49 L 100 12/24/18 08:00 12/24/18 10:00 12/24/18 10:00 12/24/18 10:00 12/24/18 10:00 Intake and Output: 12/24/18 12/24/18 06:59 18:59 Intake Total 1322 554 Output Total 550 Balance 772 554 - Medications Medications: Current Medications Acetaminophen (Tylenol 325mg Tab) 650 mg PO Q4 PRN PRN Reason: Pain, moderate (4-7) Amiodarone HCl (Cordarone) 200 mg PO DAILY [facility] Last Admin: 12/24/18 09:17 Dose: 200 mg Benzocaine/Menthol (Cepacol Sore Throat) 1 juan manuel PO Q3 PRN PRN Reason: Sore Throat Last Admin: 12/17/18 08:51 Dose: 1 juan manuel Digoxin (Digoxin) 0.125 mg PO DAILY [facility] Last Admin: 12/23/18 08:28 Dose: 0.125 mg Levetiracetam 500 mg/ Sodium (Chloride) 105 mls @ 210 mls/hr IVPB Q12 [facility] Last Admin: 12/24/18 09:17 Dose: 210 mls/hr Cefazolin Sodium 1 gm/ Sodium (Chloride) 100 mls @ 100 mls/hr IVPB Q8 [facility]; Protocol Last Admin: 12/24/18 09:16 Dose: 100 mls/hr Lactated Ringer's (Lactated Ringer's) 1,000 mls @ 84 mls/hr IV .[id number] [facility] Last Admin: 12/23/18 03:06 Dose: 84 mls/hr Lactulose (Enulose) 20 gm PO DAILY PRN PRN Reason: Constipation Last Admin: 12/20/18 14:12 Dose: 20 gm Pantoprazole Sodium (Protonix Inj) 40 mg IVP DAILY [facility] Last Admin: 12/24/18 09:18 Dose: 40 mg Potassium Phos/Sodium Phos (Neutra-Phos) 1 pkt PO BID [facility] Last Admin: 12/24/18 09:18 Dose: 1 pkt - Labs Labs: 12/24/18 09:30 12/24/18 09:30 PT 21.5 Seconds (9.8-13.1) H D 12/23/18 05:30 INR 1.9 12/23/18 05:30 APTT 70.5 Seconds (25.6-37.1) H 12/23/18 05:30
[2018-12-24] MEDS: Digoxin 125 mcg (0.125 mg) Tab PO SCH (13:17)
--- NOTE | 2018-12-24 15:54 | CP.PCM.PN ---
Subjective - Date & Time of Evaluation Date of Evaluation: 12/24/18 Time of Evaluation: 08:00 - Subjective Subjective: afebrile, in NSR, and platelet count is up to 123K.She is doing very well with the Argatroban. for colonoscopy in am Objective - Vital Signs/Intake and Output Vital Signs (last 24 hours): Temp Pulse Resp BP Pulse Ox 99.4 F 73 16 112/41 L 100 12/24/18 12:00 12/24/18 14:00 12/24/18 14:00 12/24/18 14:00 12/24/18 14:00 Intake and Output: 12/24/18 12/24/18 06:59 18:59 Intake Total 1322 1008 Output Total 550 Balance 772 1008 - Medications Medications: Current Medications Acetaminophen (Tylenol 325mg Tab) 650 mg PO Q4 PRN PRN Reason: Pain, moderate (4-7) Last Admin: 12/24/18 11:32 Dose: 650 mg Amiodarone HCl (Cordarone) 200 mg PO DAILY [facility] Last Admin: 12/24/18 09:17 Dose: 200 mg Benzocaine/Menthol (Cepacol Sore Throat) 1 juan manuel PO Q3 PRN PRN Reason: Sore Throat Last Admin: 12/17/18 08:51 Dose: 1 juan manuel Digoxin (Digoxin) 0.125 mg PO DAILY [facility] Last Admin: 12/24/18 13:17 Dose: 0.125 mg Levetiracetam 500 mg/ Sodium (Chloride) 105 mls @ 210 mls/hr IVPB Q12 [facility] Last Admin: 12/24/18 09:17 Dose: 210 mls/hr Cefazolin Sodium 1 gm/ Sodium (Chloride) 100 mls @ 100 mls/hr IVPB Q8 [facility]; Protocol Last Admin: 12/24/18 09:16 Dose: 100 mls/hr Lactated Ringer's (Lactated Ringer's) 1,000 mls @ 84 mls/hr IV .[id number] [facility] Last Admin: 12/23/18 03:06 Dose: 84 mls/hr Argatroban 250 mg/ Sodium (Chloride) 252.5 mls @ 4.95 mls/hr IV .Q24H [facility]; Protocol Lactulose (Enulose) 20 gm PO DAILY PRN PRN Reason: Constipation Last Admin: 12/20/18 14:12 Dose: 20 gm Pantoprazole Sodium (Protonix Inj) 40 mg IVP DAILY [facility] Last Admin: 12/24/18 09:18 Dose: 40 mg Potassium Phos/Sodium Phos (Neutra-Phos) 1 pkt PO BID [facility] Last Admin: 12/24/18 09:18 Dose: 1 pkt - Labs Labs: 12/24/18 09:30 12/24/18 09:30 PT 21.5 Seconds (9.8-13.1) H D 12/23/18 05:30 INR 1.9 12/23/18 05:30 APTT 38.1 Seconds (25.6-37.1) H 12/24/18 02:25 - Constitutional Appears: Non-toxic, Cachectic, Chronically Ill - Head Exam Head Exam: NORMOCEPHALIC - Eye Exam Eye Exam: absent: Scleral icterus - ENT Exam ENT Exam: Mucous Membranes Dry - Neck Exam Neck Exam: absent: Lymphadenopathy - Respiratory Exam Respiratory Exam: Decreased Breath Sounds - Cardiovascular Exam Cardiovascular Exam: REGULAR RHYTHM - GI/Abdominal Exam GI & Abdominal Exam: Distended - Rectal Exam Rectal Exam: Deferred - Exam Exam: NORMAL INSPECTION - Extremities Exam Extremities Exam: absent: Pedal Edema - Back Exam Back Exam: absent: CVA tenderness (L), CVA tenderness (R) - Neurological Exam Neurological Exam: Alert, Awake, Oriented x3 Assessment and Plan (1) Sepsis Status: Acute (2) Colon cancer Status: Chronic - Assessment and Plan (Free Text) Assessment: cont empiric IV rx
[2018-12-24] MEDS: Lactated Ringer's 1,000 ML IV SCH (21:21)
--- NOTE | 2018-12-24 22:49 | CP.PCM.PN ---
Subjective - Date & Time of Evaluation Date of Evaluation: 12/24/18 Time of Evaluation: 22:22 - Subjective Subjective: Above noted Objective - Vital Signs/Intake and Output Vital Signs (last 24 hours): Temp Pulse Resp BP Pulse Ox 99.4 F 77 12 106/42 L 100 12/24/18 12:00 12/24/18 17:30 12/24/18 17:30 12/24/18 17:30 12/24/18 17:30 Intake and Output: 12/24/18 12/25/18 18:59 06:59 Intake Total 1569 Output Total 1500 Balance 69 - Medications Medications: Current Medications Acetaminophen (Tylenol 325mg Tab) 650 mg PO Q4 PRN PRN Reason: Pain, moderate (4-7) Last Admin: 12/24/18 11:32 Dose: 650 mg Amiodarone HCl (Cordarone) 200 mg PO DAILY [facility] Last Admin: 12/24/18 09:17 Dose: 200 mg Benzocaine/Menthol (Cepacol Sore Throat) 1 juan manuel PO Q3 PRN PRN Reason: Sore Throat Last Admin: 12/17/18 08:51 Dose: 1 juan manuel Digoxin (Digoxin) 0.125 mg PO DAILY [facility] Last Admin: 12/24/18 13:17 Dose: 0.125 mg Levetiracetam 500 mg/ Sodium (Chloride) 105 mls @ 210 mls/hr IVPB Q12 [facility] Last Admin: 12/24/18 21:20 Dose: 210 mls/hr Cefazolin Sodium 1 gm/ Sodium (Chloride) 100 mls @ 100 mls/hr IVPB Q8 [facility]; Protocol Last Admin: 12/24/18 16:45 Dose: 100 mls/hr Lactated Ringer's (Lactated Ringer's) 1,000 mls @ 84 mls/hr IV .[id number] [facility] Last Admin: 12/24/18 21:21 Dose: 84 mls/hr Argatroban 250 mg/ Sodium (Chloride) 252.5 mls @ 4.95 mls/hr IV .Q24H [facility]; Protocol Last Admin: 12/24/18 16:47 Dose: 4.95 mls/hr Lactulose (Enulose) 20 gm PO DAILY PRN PRN Reason: Constipation Last Admin: 12/20/18 14:12 Dose: 20 gm Pantoprazole Sodium (Protonix Inj) 40 mg IVP DAILY [facility] Last Admin: 12/24/18 09:18 Dose: 40 mg Potassium Phos/Sodium Phos (Neutra-Phos) 1 pkt PO BID [facility] Last Admin: 12/24/18 16:49 Dose: 1 pkt - Labs Labs: 12/24/18 09:30 12/24/18 09:30 PT 21.5 Seconds (9.8-13.1) H D 12/23/18 05:30 INR 1.9 12/23/18 05:30 APTT 56.9 Seconds (25.6-37.1) H 12/24/18 20:15 - Respiratory Exam Respiratory Exam: NORMAL BREATHING PATTERN - Cardiovascular Exam Cardiovascular Exam: REGULAR RHYTHM - GI/Abdominal Exam GI & Abdominal Exam: Normal Bowel Sounds Assessment and Plan - Assessment and Plan (Free Text) Assessment: Coagulopathy with thrombosis upper and lower extremity Vascular surgery Argatroban DIC?? Sepsis?? cellulitis ? etiology?? ABX ID Hematology GI Bleed? Endoscopy- Gastritis HH Colonoscopy Hx Ca Colon CEA [address] CT scan enterocolitis intaabdominal mass Microcytic hypochromic anemia chronic blood loss IVF monitor labs GI surgery Hematology Blood cs gram neg ABX ID Paraxysmal A fib Amiodorone Dig ICU Cardiology
[2018-12-25] MEDS: ceFAZolin 1 GM in Sodium Chloride 0.9% 100 ML IVPB SCH ×3 (01:03→17:06)
[2018-12-25 06:57] LABS: HEMOGLOBIN 8.5 g/dL (12.0-16.0); MEAN CELL VOLUME 73.9 fl (81.0-99.0); MEAN CORPUSCULAR HEMOGLOBIN 23.9 pg (27.0-31.0); MEAN CORPUSCULAR HGB CONC 32.4 g/dL (33.0-37.0); RBC 3.55 Mil/uL (3.80-5.20); RED CELL DISTRIBUTION WIDTH 29.7 % (11.5-14.5); WHITE BLOOD COUNT 8.4 K/uL (4.8-10.8)
[2018-12-25 07:27] LABS: BLOOD UREA NITROGEN 11 mg/dl (7-17); CALCIUM 8.4 mg/dL (8.4-10.2); GFR NON-AFRICAN AMERICAN > 60
[2018-12-25] MEDS: Potassium & Sodium Phosphate PO SCH ×2 (08:30→17:09)
[2018-12-25] MEDS: Digoxin 125 mcg (0.125 mg) Tab PO SCH (08:31)
[2018-12-25] MEDS: levETIRAcetam 500 MG in Sodium Chloride 0.9% 100 ML IVPB SCH ×2 (08:32→21:05)
--- NOTE | 2018-12-25 08:50 | PN ---
DATE: 12/23/2018 CHIEF COMPLAINT: Pain, right . Feels better than it did yesterday. PHYSICAL EXAMINATION: GENERAL: Revealed a pleasant female, in no acute distress, in bed. HEAD AND NECK: Mucous membranes pink. No jaundice. NECK: Supple. No masses. LUNGS: Clear. Good air entry. HEART: Heart sounds 1 and 2. ABDOMEN: Soft, nontender. No masses. EXTREMITIES: Pulse, good volume, equal. Lower extremities, bilateral palpable popliteal pulses. No palpable foot pulses. The left foot is warm with mottling of the toes. The right foot is also warm, but not as warm as left foot. There is a mottling of the toes as well as the dorsum of the foot. The patient exhibits no neurovascular deficits in either lower extremity. IMPRESSION: Bilateral popliteal occlusion, ischemia, bilateral feet, improving. RECOMMENDATIONS: Continue with present treatment. Intervention if there is progression of the patient's ischemia. Jeremy Clark MD
--- NOTE | 2018-12-25 08:50 | CON ---
DATE: 12/22/2018 DOCTOR REQUESTING: Dr. Sanjeev Healy. REASON FOR REQUEST: Lower extremity ischemia. REPORT OF CONSULTATION: This 68-year-old female patient was admitted with severe anemia. 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 The patient was scheduled for colonoscopy, rule out atrial fibrillation. On the day of consultation, the patient's feet were noted to be ischemic and Duplex revealed distal popliteal artery occlusion. The patient states that she has some mild pain in the left foot and that she has been known ambulatory for a while. PAST MEDICAL HISTORY: Remarkable for as above. No history of diabetes, myocardial infarction, or stroke. FAMILY HISTORY: Noncontributory. SOCIAL HISTORY: Patient is disabled. She is a former smoker. Does not drink. MEDICATIONS: As reviewed in medical reconciliation sheet. REVIEW OF SYSTEMS: HEAD AND NECK: No migraines. No wheeze. No double vision, sore throat, or hearing disorders. SKIN: No acne or eczema. Mottling of both lower extremities. RESPIRATORY: No recent cough, cold, hemoptysis. CARDIOVASCULAR: No chest pain. Patient has a history of palpitation. GENITOURINARY: No dysuria. No hematuria. GASTROINTESTINAL: No abdominal pain, nausea, vomiting, diarrhea, blood in stool. Patient had a prior colon section for colon cancer. PSYCHIATRIC: No known diseases. ALLERGIES: NONE KNOWN. PHYSICAL EXAMINATION: GENERAL: Revealed a pleasant cooperative patient in no acute distress. HEAD AND NECK: Neck is supple. No masses. Mucous membranes pale. No jaundice. CHEST: No masses. Equal expansion. LUNGS: Clear. Good air entry. CARDIOVASCULAR: Heart sounds 1 and 2 were heard. No murmurs. Pulse, good volume equal. ABDOMEN: Soft, nontender. No masses. Bowel sounds present. NEUROLOGIC: Alert, able to move all extremities. VASCULAR/MUSCULOSKELETAL: Patient had bilateral palpable popliteal pulses. There was mottling of the skin of the toes on the left foot and mottling of the toes and dorsum of the right foot. There was no neuromuscular deficit noted on either lower extremity. LABORATORY DATA: Lab results were remarkable for anemia and thrombocytopenia. IMPRESSION: Bilateral lower extremity ischemia probably embolic in origin. RECOMMENDATIONS: The patient is nonambulatory. The discoloration seems to be superficial cutaneous rather than full thickness. In view of the patient's history of not being ambulatory, we will recommend to continue anticoagulation and observation. Revascularization in the phase of nonambulatory patient with multiple comorbidities may not be indicative. Jeremy Clark MD
--- NOTE | 2018-12-25 10:52 | CP.PCM.PN ---
Subjective - Date & Time of Evaluation Date of Evaluation: 12/25/18 Time of Evaluation: 10:51 - Subjective Subjective: Pt is feeling much better today. She ate all her breakfast. Her cbc is good with platelets of 173. Awaiting scheduling for colonoscopy Objective - Vital Signs/Intake and Output Vital Signs (last 24 hours): Temp Pulse Resp BP Pulse Ox 98.1 F 76 17 126/44 L 99 12/25/18 08:00 12/25/18 09:41 12/25/18 08:00 12/25/18 09:41 12/25/18 08:00 Intake and Output: 12/25/18 12/25/18 06:59 18:59 Intake Total 970 Output Total 1400 Balance -430 - Medications Medications: Current Medications Acetaminophen (Tylenol 325mg Tab) 650 mg PO Q4 PRN PRN Reason: Pain, moderate (4-7) Last Admin: 12/24/18 11:32 Dose: 650 mg Albumin Human (Albumin Human 25% (12.5 Gm/50 Ml)) 12.5 gm IV Q6 [facility] Amiodarone HCl (Cordarone) 200 mg PO DAILY [facility] Last Admin: 12/25/18 09:41 Dose: 200 mg Digoxin (Digoxin) 0.125 mg PO DAILY [facility] Last Admin: 12/25/18 08:31 Dose: 0.125 mg Levetiracetam 500 mg/ Sodium (Chloride) 105 mls @ 210 mls/hr IVPB Q12 [facility] Last Admin: 12/25/18 08:32 Dose: 210 mls/hr Cefazolin Sodium 1 gm/ Sodium (Chloride) 100 mls @ 100 mls/hr IVPB Q8 [facility]; Protocol Last Admin: 12/25/18 08:31 Dose: 100 mls/hr Lactated Ringer's (Lactated Ringer's) 1,000 mls @ 84 mls/hr IV .[id number] [facility] Last Admin: 12/24/18 21:21 Dose: 84 mls/hr Argatroban 250 mg/ Sodium (Chloride) 252.5 mls @ 4.95 mls/hr IV .Q24H [facility]; Protocol Last Admin: 12/24/18 16:47 Dose: 4.95 mls/hr Lactulose (Enulose) 20 gm PO DAILY PRN PRN Reason: Constipation Last Admin: 12/20/18 14:12 Dose: 20 gm Pantoprazole Sodium (Protonix Inj) 40 mg IVP DAILY [facility] Last Admin: 12/25/18 08:30 Dose: 40 mg Potassium Phos/Sodium Phos (Neutra-Phos) 1 pkt PO BID [facility] Last Admin: 12/25/18 08:30 Dose: 1 pkt - Labs Labs: 12/25/18 06:45 12/25/18 06:45 PT 21.5 Seconds (9.8-13.1) H D 12/23/18 05:30 INR 1.9 12/23/18 05:30 APTT 61.3 Seconds (25.6-37.1) H 12/24/18 22:30
[2018-12-25 11:24] LABS: HEMOGLOBIN 8.4 g/dL (12.0-16.0); MEAN CELL VOLUME 74.7 fl (81.0-99.0); MEAN CORPUSCULAR HEMOGLOBIN 23.8 pg (27.0-31.0); MEAN CORPUSCULAR HGB CONC 31.9 g/dL (33.0-37.0); RBC 3.51 Mil/uL (3.80-5.20); RED CELL DISTRIBUTION WIDTH 29.2 % (11.5-14.5); WHITE BLOOD COUNT 8.1 K/uL (4.8-10.8)
--- NOTE | 2018-12-25 11:25 | CP.PCM.PN ---
Subjective - Date & Time of Evaluation Date of Evaluation: 12/25/18 Time of Evaluation: 22:22 - Subjective Subjective: Hbg 8.5 Plat 173 Objective - Vital Signs/Intake and Output Vital Signs (last 24 hours): Temp Pulse Resp BP Pulse Ox 98.1 F 76 17 126/44 L 99 12/25/18 08:00 12/25/18 09:41 12/25/18 08:00 12/25/18 09:41 12/25/18 08:00 Intake and Output: 12/25/18 12/25/18 06:59 18:59 Intake Total 970 Output Total 1400 Balance -430 - Medications Medications: Current Medications Acetaminophen (Tylenol 325mg Tab) 650 mg PO Q4 PRN PRN Reason: Pain, moderate (4-7) Last Admin: 12/24/18 11:32 Dose: 650 mg Albumin Human (Albumin Human 25% (12.5 Gm/50 Ml)) 12.5 gm IV Q6 [facility] Amiodarone HCl (Cordarone) 200 mg PO DAILY [facility] Last Admin: 12/25/18 09:41 Dose: 200 mg Digoxin (Digoxin) 0.125 mg PO DAILY [facility] Last Admin: 12/25/18 08:31 Dose: 0.125 mg Levetiracetam 500 mg/ Sodium (Chloride) 105 mls @ 210 mls/hr IVPB Q12 [facility] Last Admin: 12/25/18 08:32 Dose: 210 mls/hr Cefazolin Sodium 1 gm/ Sodium (Chloride) 100 mls @ 100 mls/hr IVPB Q8 [facility]; Protocol Last Admin: 12/25/18 08:31 Dose: 100 mls/hr Lactated Ringer's (Lactated Ringer's) 1,000 mls @ 84 mls/hr IV .[id number] [facility] Last Admin: 12/24/18 21:21 Dose: 84 mls/hr Argatroban 250 mg/ Sodium (Chloride) 252.5 mls @ 4.95 mls/hr IV .Q24H [facility]; Protocol Last Admin: 12/24/18 16:47 Dose: 4.95 mls/hr Lactulose (Enulose) 20 gm PO DAILY PRN PRN Reason: Constipation Last Admin: 12/20/18 14:12 Dose: 20 gm Pantoprazole Sodium (Protonix Inj) 40 mg IVP DAILY [facility] Last Admin: 12/25/18 08:30 Dose: 40 mg Potassium Phos/Sodium Phos (Neutra-Phos) 1 pkt PO BID [facility] Last Admin: 12/25/18 08:30 Dose: 1 pkt - Labs Labs: 12/25/18 06:45 12/25/18 06:45 PT 21.5 Seconds (9.8-13.1) H D 12/23/18 05:30 INR 1.9 12/23/18 05:30 APTT 61.3 Seconds (25.6-37.1) H 12/24/18 22:30 - Respiratory Exam Respiratory Exam: NORMAL BREATHING PATTERN - Cardiovascular Exam Cardiovascular Exam: REGULAR RHYTHM - GI/Abdominal Exam GI & Abdominal Exam: Normal Bowel Sounds Assessment and Plan - Assessment and Plan (Free Text) Assessment: Coagulopathy with thrombosis upper and lower extremity Vascular surgery Argatroban DIC?? Sepsis?? cellulitis ? etiology?? ABX ID Hematology GI Bleed? Endoscopy- Gastritis HH Colonoscopy Hx Ca Colon CEA 200 CT scan enterocolitis intaabdominal mass Microcytic hypochromic anemia chronic blood loss IVF monitor labs GI surgery Hematology Blood cs gram neg ABX ID Paraxysmal A fib Amiodorone Dig ICU Cardiology
--- NOTE | 2018-12-25 11:55 | CP.PCM.PN ---
Subjective - Date & Time of Evaluation Date of Evaluation: 12/25/18 Time of Evaluation: 08:00 - Subjective Subjective: awake alert afebrile right foot still mottled denies pain Objective - Vital Signs/Intake and Output Vital Signs (last 24 hours): Temp Pulse Resp BP Pulse Ox 98.1 F 76 17 126/44 L 99 12/25/18 08:00 12/25/18 09:41 12/25/18 08:00 12/25/18 09:41 12/25/18 08:00 Intake and Output: 12/25/18 12/25/18 06:59 18:59 Intake Total 970 Output Total 1400 Balance -430 - Medications Medications: Current Medications Acetaminophen (Tylenol 325mg Tab) 650 mg PO Q4 PRN PRN Reason: Pain, moderate (4-7) Last Admin: 12/24/18 11:32 Dose: 650 mg Albumin Human (Albumin Human 25% (12.5 Gm/50 Ml)) 12.5 gm IV Q6 [facility] Amiodarone HCl (Cordarone) 200 mg PO DAILY [facility] Last Admin: 12/25/18 09:41 Dose: 200 mg Digoxin (Digoxin) 0.125 mg PO DAILY [facility] Last Admin: 12/25/18 08:31 Dose: 0.125 mg Levetiracetam 500 mg/ Sodium (Chloride) 105 mls @ 210 mls/hr IVPB Q12 [facility] Last Admin: 12/25/18 08:32 Dose: 210 mls/hr Cefazolin Sodium 1 gm/ Sodium (Chloride) 100 mls @ 100 mls/hr IVPB Q8 [facility]; Protocol Last Admin: 12/25/18 08:31 Dose: 100 mls/hr Lactated Ringer's (Lactated Ringer's) 1,000 mls @ 84 mls/hr IV .[id number] [facility] Last Admin: 12/24/18 21:21 Dose: 84 mls/hr Argatroban 250 mg/ Sodium (Chloride) 252.5 mls @ 4.95 mls/hr IV .Q24H [facility]; Protocol Last Admin: 12/24/18 16:47 Dose: 4.95 mls/hr Lactulose (Enulose) 20 gm PO DAILY PRN PRN Reason: Constipation Last Admin: 12/20/18 14:12 Dose: 20 gm Pantoprazole Sodium (Protonix Inj) 40 mg IVP DAILY [facility] Last Admin: 12/25/18 08:30 Dose: 40 mg Potassium Phos/Sodium Phos (Neutra-Phos) 1 pkt PO BID [facility] Last Admin: 12/25/18 08:30 Dose: 1 pkt - Labs Labs: 12/25/18 11:20 12/25/18 06:45 PT 21.5 Seconds (9.8-13.1) H D 12/23/18 05:30 INR 1.9 12/23/18 05:30 APTT 60.0 Seconds (25.6-37.1) H 12/25/18 11:20 - Constitutional Appears: Non-toxic, Chronically Ill - Head Exam Head Exam: NORMOCEPHALIC - Eye Exam Eye Exam: absent: Scleral icterus - ENT Exam ENT Exam: Mucous Membranes Dry - Neck Exam Neck Exam: absent: Lymphadenopathy - Respiratory Exam Respiratory Exam: Decreased Breath Sounds - Cardiovascular Exam Cardiovascular Exam: REGULAR RHYTHM, +S1, +S2 - GI/Abdominal Exam GI & Abdominal Exam: Distended - Rectal Exam Rectal Exam: Deferred - Exam Exam: NORMAL INSPECTION - Extremities Exam Extremities Exam: absent: Calf Tenderness, Normal Capillary Refill, Normal Inspection, Pedal Edema, Tenderness Additional comments: mottled - Back Exam Back Exam: absent: CVA tenderness (L), CVA tenderness (R) - Neurological Exam Neurological Exam: Alert, Awake, CN II-XII Intact, Oriented x3 - Psychiatric Exam Psychiatric exam: Depressed Assessment and Plan (1) Sepsis Status: Acute (2) Colon cancer Status: Chronic (3) Disseminated intra-vascular coagulation Status: Acute (4) Gram-negative bacteremia Status: Acute - Assessment and Plan (Free Text) Assessment: cont ancef / flagyl gi work up planned iv rx to continue
[2018-12-25] MEDS: Albumin Human 25% (12.5 gm/50 ml) IV SCH ×2 (17:05→21:53)
[2018-12-25] MEDS: metroNIDAZOLE 500mg/100ml NS 100 ML IVPB SCH (17:06)
[2018-12-25] MEDS: Lactated Ringer's 1,000 ML IV SCH (17:09)
--- NOTE | 2018-12-25 20:11 | PN ---
DATE: 12/25/2018 CRITICAL CARE PROGRESS NOTE LOCATION: The patient in ICU, bed 425. TIME SPENT: 35 minutes. The patient is seen and evaluated at the bedside. Past medical, surgical, family, and social history reviewed. Case discussed in multidisciplinary ICU rounds this morning. Events overnight reviewed. SUBJECTIVE: A 68-year-old female with a history significant for colon cancer, status post resection and chemotherapy years ago. Admitted with weight loss and anemia. Noted to have a significant drop in hemoglobin, status post transfusion of packed red blood cells with appropriate increase in the hemoglobin and hematocrit. Developed atrial fibrillation with rapid ventricular response, converted to sinus rhythm and remains in sinus on amiodarone and on digoxin. Overnight, telemetry shows sinus rhythm, normotensive. Status post EGD. The findings showed hiatal hernia and gastritis. Colonoscopy pending. PHYSICAL EXAMINATION: VITAL SIGNS: Temperature 98.2, heart rate 76, respiratory rate 15, blood pressure 125/48, mean arterial pressure 73, saturation 100%, oxygen supplement 2 L nasal cannula. Intake 3686, output 1450, positive balance 2236. HEAD, EYES, EARS, NOSE, AND THROAT: Pupils are reactive. Conjunctive pink. Sclerae white. NECK: Supple. Trachea is central. CHEST: Bilateral breath sounds. Clear to auscultation. HEART: Rhythm regular. S1 and S2 normal. ABDOMEN: Bowel sounds present. Soft. EXTREMITIES: Dependent edema on upper extremities. Trace edema on lower extremities. NEUROLOGIC: Nonfocal. CURRENT MEDICATIONS: Tylenol 650 mg every 4 hours p.r.n., albumin 25% 12.5 g IV every 6 hours, amiodarone 200 mg p.o. daily, argatroban 250 mg at 4.95 mL per hour IV daily (2 mcg/kg per minute),cefazolin 1 g IV every 8 hours, digoxin 0.125 mg p.o. daily, Ringer's lactate 84 mL per hour, lactulose 20 g p.o. daily p.r.n., Keppra 500 mg IV every 12 hours, Flagyl 500 mg every 8 hours, Protonix 40 mg IV daily, Neutra-Phos one packet p.o. b.i.d. LABORATORY DATA: WBC 8.1, hemoglobin 8.4, hematocrit 26.2, MCV of 74.7, platelet count 160. PTT 60. SMA-7: Sodium 134, potassium 4.2, chloride 98, CO2 of 30, blood urea nitrogen 11, creatinine 0.4, random glucose 108. Urinalysis clear. Toxicology screen, Keppra 27.2. Immunology: Heparin-induced platelet antibody negative. Microbiology, blood culture positive for gram-negative rods. Echocardiogram shows preserved LV systolic function estimated at 45%, left atrium is normal, trace tricuspid valve regurgitation, trace mitral valve regurgitation. IMPRESSION: 1. Neurologic: Alert, awake. Follows commands appropriate. Underlying anxiety disorder. 2. Pulmonary: No acute issues. No signs of aspiration pneumonia. 3. Cardiac: Status post atrial fibrillation, converted to sinus rhythm. Currently on amiodarone and digoxin. Normotensive. 4. Gastrointestinal: Status post esophagogastroduodenoscopy. Findings consistent with gastritis. Awaiting colonoscopy. History of colon cancer with elevated enzymes, suspicious for recurrence, cholelithiasis without evidence of acute cholecystitis. 5. Hematology: No leukocytosis. Microcytic hypochromic anemia, status post transfusion of packed red blood cells. Hemoglobin and hematocrit remain stable. 6. Renal: Mild prerenal azotemia, improved. No electrolyte abnormalities. 7. Endocrine: Mild hypothyroidism with elevated thyroid-stimulating hormone, but normal T4, likely early hypothyroid. PLAN: Keep head of bed 30 degrees up. Continue oral feeds as tolerated. On argatroban for atrial fibrillation/thrombosis. Awaiting colonoscopy. Monitor electrolyte abnormalities. Taz Chaparro MD
--- NOTE | 2018-12-25 23:15 | CP.PCM.PN ---
Subjective - Date & Time of Evaluation Date of Evaluation: 12/25/18 Time of Evaluation: 23:12 - Subjective Subjective: Patient w/o complaint. On anticoagulation with argatroban Objective - Vital Signs/Intake and Output Vital Signs (last 24 hours): Temp Pulse Resp BP Pulse Ox 98.2 F 67 18 123/52 L 98 12/25/18 16:00 12/25/18 18:00 12/25/18 18:00 12/25/18 18:00 12/25/18 18:00 Intake and Output: 12/25/18 12/26/18 18:59 06:59 Intake Total 2050 Output Total 1250 Balance 800 - Medications Medications: Current Medications Acetaminophen (Tylenol 325mg Tab) 650 mg PO Q4 PRN PRN Reason: Pain, moderate (4-7) Last Admin: 12/24/18 11:32 Dose: 650 mg Albumin Human (Albumin Human 25% (12.5 Gm/50 Ml)) 12.5 gm IV Q6 [facility] [place] Last Admin: 12/25/18 21:53 Dose: 12.5 gm Amiodarone HCl (Cordarone) 200 mg PO DAILY [facility] Last Admin: 12/25/18 09:41 Dose: 200 mg Digoxin (Digoxin) 0.125 mg PO DAILY [facility] [place] Last Admin: 12/25/18 08:31 Dose: 0.125 mg Levetiracetam 500 mg/ Sodium (Chloride) 105 mls @ 210 mls/hr IVPB Q12 [facility] Last Admin: 12/25/18 21:05 Dose: 210 mls/hr Cefazolin Sodium 1 gm/ Sodium (Chloride) 100 mls @ 100 mls/hr IVPB Q8 [facility] [place]; Protocol Last Admin: 12/25/18 17:06 Dose: 100 mls/hr Lactated Ringer's (Lactated Ringer's) 1,000 mls @ 84 mls/hr IV .[id number] [facility] [place] Last Admin: 12/25/18 17:09 Dose: 84 mls/hr Metronidazole (Flagyl 500mg/100ml Ns) 100 mls @ 100 mls/hr IVPB Q8 [facility]; Protocol Last Admin: 12/25/18 17:06 Dose: 100 mls/hr Lactulose (Enulose) 20 gm PO DAILY PRN PRN Reason: Constipation Last Admin: 12/20/18 14:12 Dose: 20 gm Pantoprazole Sodium (Protonix Inj) 40 mg IVP DAILY [facility] [place] Last Admin: 12/25/18 08:30 Dose: 40 mg Potassium Phos/Sodium Phos (Neutra-Phos) 1 pkt PO BID [facility] [place] Last Admin: 12/25/18 17:09 Dose: 1 pkt - Labs Labs: 12/25/18 11:20 12/25/18 06:45 PT 21.5 Seconds (9.8-13.1) H D 12/23/18 05:30 INR 1.9 12/23/18 05:30 APTT 60.0 Seconds (25.6-37.1) H 12/25/18 11:20 - Constitutional Appears: No Acute Distress - Head Exam Head Exam: ATRAUMATIC - Eye Exam Eye Exam: Normal appearance - ENT Exam ENT Exam: Normal Exam - Neck Exam Neck Exam: Full ROM - Respiratory Exam Respiratory Exam: Clear to Ausculation Bilateral - Cardiovascular Exam Cardiovascular Exam: REGULAR RHYTHM - GI/Abdominal Exam GI & Abdominal Exam: Soft, Normal Bowel Sounds. absent: Tenderness Assessment and Plan (1) Anemia Assessment & Plan: Patient more in a stable heart rhythm . Since Argatroban started platelets improved. Possible colonoscopy Tuesday or to evaluate enterocolitis seen on CT and elevated CEA. Status: Acute
[2018-12-26] MEDS: ceFAZolin 1 GM in Sodium Chloride 0.9% 100 ML IVPB SCH ×3 (00:46→18:29)
[2018-12-26] MEDS: metroNIDAZOLE 500mg/100ml NS 100 ML IVPB SCH ×3 (01:14→17:19)
[2018-12-26] MEDS: Albumin Human 25% (12.5 gm/50 ml) IV SCH ×3 (04:24→17:18)
[2018-12-26 05:29] LABS: HEMOGLOBIN 6.9 g/dL (12.0-16.0); MEAN CELL VOLUME 73.7 fl (81.0-99.0); MEAN CORPUSCULAR HEMOGLOBIN 23.2 pg (27.0-31.0); MEAN CORPUSCULAR HGB CONC 31.5 g/dL (33.0-37.0); RBC 2.95 Mil/uL (3.80-5.20); RED CELL DISTRIBUTION WIDTH 29.8 % (11.5-14.5); WHITE BLOOD COUNT 6.9 K/uL (4.8-10.8)
[2018-12-26 05:45] LABS: ALB/GLOB RATIO 0.8 (1.0-2.1); ALBUMIN 2.5 g/dL (3.5-5.0); ALT/SGPT 28 U/L (9-52); AST/SGOT 26 U/L (14-36); BLOOD UREA NITROGEN 10 mg/dl (7-17); CALCIUM 8.4 mg/dL (8.4-10.2); GFR NON-AFRICAN AMERICAN > 60
[2018-12-26] MEDS: Digoxin 125 mcg (0.125 mg) Tab PO SCH (08:55)
[2018-12-26] MEDS: Potassium & Sodium Phosphate PO SCH ×2 (08:56→17:20)
[2018-12-26] MEDS: levETIRAcetam 500 MG in Sodium Chloride 0.9% 100 ML IVPB SCH ×2 (08:58→21:19)
--- NOTE | 2018-12-26 09:45 | CP.PCM.PN ---
Subjective - Date & Time of Evaluation Date of Evaluation: 12/26/18 Time of Evaluation: 09:40 - Subjective Subjective: Pt is doing much better Her appetite has improved,she is afebrile. but she is again anemic, She is to go to colonoscopy tomorow,.will give her 2 units of packed cells. Objective - Vital Signs/Intake and Output Vital Signs (last 24 hours): Temp Pulse Resp BP Pulse Ox 98.2 F 74 13 112/30 L 98 12/26/18 08:00 12/26/18 08:55 12/26/18 08:00 12/26/18 08:55 12/26/18 08:00 Intake and Output: 12/26/18 12/26/18 06:59 18:59 Intake Total 1270 Output Total 1300 Balance -30 - Medications Medications: Current Medications Acetaminophen (Tylenol 325mg Tab) 650 mg PO Q4 PRN PRN Reason: Pain, moderate (4-7) Last Admin: 12/24/18 11:32 Dose: 650 mg Albumin Human (Albumin Human 25% (12.5 Gm/50 Ml)) 12.5 gm IV Q6 [facility] Last Admin: 12/26/18 09:09 Dose: 12.5 gm Amiodarone HCl (Cordarone) 200 mg PO DAILY [facility] Last Admin: 12/26/18 08:55 Dose: 200 mg Digoxin (Digoxin) 0.125 mg PO DAILY [facility] Last Admin: 12/26/18 08:55 Dose: 0.125 mg Levetiracetam 500 mg/ Sodium (Chloride) 105 mls @ 210 mls/hr IVPB Q12 [facility] Last Admin: 12/26/18 08:58 Dose: 210 mls/hr Cefazolin Sodium 1 gm/ Sodium (Chloride) 100 mls @ 100 mls/hr IVPB Q8 [facility]; Protocol Last Admin: 12/26/18 09:06 Dose: 100 mls/hr Lactated Ringer's (Lactated Ringer's) 1,000 mls @ 84 mls/hr IV .[id number] [facility] Last Admin: 12/25/18 17:09 Dose: 84 mls/hr Metronidazole (Flagyl 500mg/100ml Ns) 100 mls @ 100 mls/hr IVPB Q8 [facility]; Protocol Last Admin: 12/26/18 09:09 Dose: 100 mls/hr Lactulose (Enulose) 20 gm PO DAILY PRN PRN Reason: Constipation Last Admin: 12/20/18 14:12 Dose: 20 gm Pantoprazole Sodium (Protonix Inj) 40 mg IVP DAILY [facility] Last Admin: 12/26/18 08:56 Dose: 40 mg Potassium Phos/Sodium Phos (Neutra-Phos) 1 pkt PO BID [facility] Last Admin: 12/26/18 08:56 Dose: 1 pkt - Labs Labs: 12/26/18 04:55 12/26/18 04:55 PT 21.5 Seconds (9.8-13.1) H D 12/23/18 05:30 INR 1.9 12/23/18 05:30 APTT 69.5 Seconds (25.6-37.1) H 12/26/18 04:55
--- NOTE | 2018-12-26 10:23 | CP.PCM.PN ---
Subjective - Date & Time of Evaluation Date of Evaluation: 12/26/18 Time of Evaluation: 07:00 - Subjective Subjective: afebrile s/p E coli sepsis,DIC GI work up in progress awake alert in ICU Objective - Vital Signs/Intake and Output Vital Signs (last 24 hours): Temp Pulse Resp BP Pulse Ox 98.2 F 74 13 112/30 L 98 12/26/18 08:00 12/26/18 08:55 12/26/18 08:00 12/26/18 08:55 12/26/18 08:00 Intake and Output: 12/26/18 12/26/18 06:59 18:59 Intake Total 1270 Output Total 1300 Balance -30 - Medications Medications: Current Medications Acetaminophen (Tylenol 325mg Tab) 650 mg PO Q4 PRN PRN Reason: Pain, moderate (4-7) Last Admin: 12/24/18 11:32 Dose: 650 mg Albumin Human (Albumin Human 25% (12.5 Gm/50 Ml)) 12.5 gm IV Q6 [facility] Last Admin: 12/26/18 09:09 Dose: 12.5 gm Amiodarone HCl (Cordarone) 200 mg PO DAILY [facility] Last Admin: 12/26/18 08:55 Dose: 200 mg Digoxin (Digoxin) 0.125 mg PO DAILY [facility] Last Admin: 12/26/18 08:55 Dose: 0.125 mg Levetiracetam 500 mg/ Sodium (Chloride) 105 mls @ 210 mls/hr IVPB Q12 [facility] Last Admin: 12/26/18 08:58 Dose: 210 mls/hr Cefazolin Sodium 1 gm/ Sodium (Chloride) 100 mls @ 100 mls/hr IVPB Q8 [facility]; Protocol Last Admin: 12/26/18 09:06 Dose: 100 mls/hr Lactated Ringer's (Lactated Ringer's) 1,000 mls @ 84 mls/hr IV .[id number] [facility] Last Admin: 12/25/18 17:09 Dose: 84 mls/hr Metronidazole (Flagyl 500mg/100ml Ns) 100 mls @ 100 mls/hr IVPB Q8 [facility]; Protocol Last Admin: 12/26/18 09:09 Dose: 100 mls/hr Argatroban 250 mg/ Sodium (Chloride) 252.5 mls @ 5 mls/hr IV .Q24H [facility]; Protocol Lactulose (Enulose) 20 gm PO DAILY PRN PRN Reason: Constipation Last Admin: 12/20/18 14:12 Dose: 20 gm Pantoprazole Sodium (Protonix Inj) 40 mg IVP DAILY [facility] Last Admin: 12/26/18 08:56 Dose: 40 mg Potassium Phos/Sodium Phos (Neutra-Phos) 1 pkt PO BID [facility] Last Admin: 12/26/18 08:56 Dose: 1 pkt - Labs Labs: 12/26/18 04:55 12/26/18 04:55 PT 21.5 Seconds (9.8-13.1) H D 12/23/18 05:30 INR 1.9 12/23/18 05:30 APTT 69.5 Seconds (25.6-37.1) H 12/26/18 04:55 - Constitutional Appears: Non-toxic, Chronically Ill - Head Exam Head Exam: NORMOCEPHALIC - Eye Exam Eye Exam: absent: Scleral icterus - ENT Exam ENT Exam: Mucous Membranes Dry - Neck Exam Neck Exam: absent: Lymphadenopathy - Respiratory Exam Respiratory Exam: Decreased Breath Sounds, Prolonged Expiratory Phase, Rhonchi - Cardiovascular Exam Cardiovascular Exam: REGULAR RHYTHM, +S1, +S2 - GI/Abdominal Exam GI & Abdominal Exam: Distended, Soft - Rectal Exam Rectal Exam: Deferred - Exam Exam: NORMAL INSPECTION - Extremities Exam Extremities Exam: Pedal Edema Additional comments: mottled extremities - Back Exam Back Exam: absent: CVA tenderness (L), CVA tenderness (R) - Neurological Exam Neurological Exam: Alert, Awake, CN II-XII Intact Neuro motor strength exam: Left Upper Extremity: 4, Right Upper Extremity: 4, Left Lower Extremity: 4, Right Lower Extremity: 4 - Psychiatric Exam Psychiatric exam: Depressed - Skin Skin Exam: Dry, Erythema Additional comments: mottled extremities + edema Assessment and Plan (1) Sepsis Status: Acute (2) Colon cancer Status: Chronic (3) Disseminated intra-vascular coagulation Status: Acute (4) Gram-negative bacteremia Status: Acute - Assessment and Plan (Free Text) Assessment: IV antibiotics in progress for E coli sepsis/ bacteremia - source- GI vs ? s/p DIC with PVD colon ca - GI work up in progress
[2018-12-26] MEDS ORDERED: Lidocaine Hydrochloride 5 ML INJ ONE (11:07)
--- NOTE | 2018-12-26 11:44 | CP.CCUPN ---
CCU Subjective - Physician Review Subjective (Free Text): 12/26/18 11:40 The patient was Seen/interviewed and examined by me at the bedside during ICU round, Medical records reviewed and Management issues were discussed and formulated with the house staff. Events reviewed 68 year old female with past medical history of anemia, seizure disorder and colon cancer status post total colonectomy Who initially presents to the emergency department on 12/05 after being sent by her PMD for low hemoglobin. As per her she has been increasingly pale for the past x6 months. Patient denies any chest pain, dizziness, light headedness or Loss of consciousness. She was admitted with Microcytic hypochromic anemia from chronic blood loss R/O acute GI bleed and possible recurrent Colon cancer had two ADMISSION NURSE for tachycardia, Colonoscopy had to be cancelled and she was transferred to the ICU Abd CT scan revealed iintraabdominal mass, worstening of enterocolitis, results discussed with surgery and GI consult Today patient looks comfortable, continue to slowly improves Awake, Comfortable, NAD Afebrile, NSR on the monitor Denies any chest pain, SOB or Palpitations Scheduled for Endoscopy in AM CCU Objective - Vital Signs / Intake & Output Vital Signs (Last 4 hours): Vital Signs Temp Pulse Resp BP Pulse Ox 12/26/18 10:00 97.9 F 78 14 111/62 100 12/26/18 08:55 74 112/30 L 12/26/18 08:00 98.2 F 70 13 112/30 L 98 Intake and Output (Last 8hrs): Intake & Output 12/25/18 12/26/18 12/26/18 22:59 06:59 14:59 Intake Total 2462 858 Output Total 1250 1300 Balance 1212 -442 Weight 91 lb Intake: IV 1062 608 Intake, Piggyback 600 250 Oral 800 Output: Urine 1200 1300 Urethral (Quiroz) 1300 Urine, Voided 1200 Stool 50 Other: # Bowel Movements 1 1 - Physical Exam Head: Positive for: Atraumatic, Normocephalic Pupils: Positive for: PERRL Extroacular Muscles: Positive for: EOMI Conjunctiva: Positive for: Normal Ears: Positive for: Normal Mouth: Positive for: Moist Mucous Membranes Nose (Internal): Positive for: Normal Inspection Neck: Positive for: Normal Range of Motion, Trachea Midline. Negative for: Meningeal Signs, MIDLINE TENDERNESS, Paraspinal Tenderness, JVD, Lymphadenopathy, Bruit, Other Respiratory/Chest: Positive for: Clear to Auscultation, Good Air Exchange. Negative for: Respiratory Distress, Accessory Muscle Use Cardiovascular: Positive for: Regular Rate and Rhythm, Normal S1, S2, Peripheal Pulses Present. Negative for: Murmurs, Tachycardic, Bradycardic Abdomen: Positive for: Tenderness, Distention, Normal Bowel Sounds. Negative for: Peritoneal Signs Upper Extremity: Positive for: Normal Inspection. Negative for: Cyanosis, Edema Lower Extremity: Positive for: Normal Inspection. Negative for: Edema, CALF TEN DERNESS Neurological: Positive for: GCS=15 Psychiatric: Positive for: Alert, Oriented x 3 - Medications Active Medications: Active Medications Generic Name Dose Route Start Last Admin Trade Name Freq PRN Reason Stop Dose Admin Acetaminophen 650 mg 12/24/18 11:14 12/24/18 11:32 Tylenol 325mg Tab PO 650 mg Q4 PRN Administration Pain, moderate (4-7) Albumin Human 12.5 gm 12/25/18 16:00 12/26/18 09:09 Albumin Human 25% (12.5 Gm/50 Ml) IV 12.5 gm Q6 [facility] Administration Amiodarone HCl 200 mg 12/21/18 15:15 12/26/18 08:55 Cordarone PO 200 mg DAILY [facility] Administration Digoxin 0.125 mg 12/22/18 13:15 12/26/18 08:55 Digoxin PO 0.125 mg DAILY [facility] Administration Levetiracetam 500 mg/ Sodium 105 mls @ 210 mls/hr 12/16/18 10:00 12/26/18 08:58 Chloride IVPB 210 mls/hr Q12 [facility] Administration Cefazolin Sodium 1 gm/ Sodium 100 mls @ 100 mls/hr 12/22/18 17:00 12/26/18 09:06 Chloride IVPB 100 mls/hr Q8 [facility] Administration Protocol Lactated Ringer's 1,000 mls @ 84 mls/hr 12/22/18 14:45 12/25/18 17:09 Lactated Ringer's IV 84 mls/hr .[id number] [facility] Administration Metronidazole 100 mls @ 100 mls/hr 12/25/18 17:00 12/26/18 09:09 Flagyl 500mg/100ml Ns IVPB 100 mls/hr Q8 [facility] Administration Protocol Argatroban 250 mg/ Sodium 252.5 mls @ 5 mls/hr 12/26/18 10:00 Chloride IV .Q24H [facility] Protocol 2 MCG/KG/MIN Lactulose 20 gm 12/11/18 12:51 12/20/18 14:12 Enulose PO 20 gm DAILY PRN Administration Constipation Pantoprazole Sodium 40 mg 12/20/18 09:00 12/26/18 08:56 Protonix Inj IVP 40 mg DAILY [facility] Administration Potassium Phos/Sodium Phos 1 pkt 12/20/18 17:00 12/26/18 08:56 Neutra-Phos PO 1 pkt BID [facility] Administration - Patient Studies Lab Studies: Microbiology Studies 12/18/18 20:09 Blood Culture - Final Blood Escherichia Coli Gram Stain - Final Lab Studies 12/26/18 12/26/18 12/26/18 Range/Units 11:08 09:52 05:16 WBC (4.8-10.8) K/uL RBC (3.80-5.20) Mil/uL Hgb (12.0-16.0) g/dL Hct (34.0-47.0) % MCV (81.0-99.0) fl MCH (27.0-31.0) pg MCHC (33.0-37.0) g/dL RDW (11.5-14.5) % Plt Count (130-400) K/uL APTT (25.6-37.1) Seconds Sodium (132-148) mmol/l Potassium (3.6-5.0) MMOL/L Chloride (98-107) mmol/L Carbon Dioxide (22-30) mmol/L Anion Gap (10-20) BUN (7-17) mg/dl Creatinine (0.7-1.2) mg/dl Est GFR ( Amer) Est GFR (Non-Af Amer) POC Glucose (mg/dL) 143 H 92 (65-110) mg/dL Random Glucose (65-105) mg/dL Calcium (8.4-10.2) mg/dL Total Bilirubin (0.2-1.3) mg/dl AST (14-36) U/L ALT (9-52) U/L Alkaline Phosphatase (38-126) U/L Total Protein (6.3-8.2) G/DL Albumin (3.5-5.0) g/dL Globulin (2.2-3.9) gm/dL Albumin/Globulin Ratio (1.0-2.1) Blood Type O POSITIVE Antibody Screen Negative Crossmatch See Detail BBK History Checked Patient has bt 12/26/18 12/26/18 12/26/18 Range/Units 04:55 04:55 04:55 WBC 6.9 (4.8-10.8) K/uL RBC 2.95 L (3.80-5.20) Mil/uL Hgb 6.9 L (12.0-16.0) g/dL Hct 21.8 L (34.0-47.0) % MCV 73.7 L (81.0-99.0) fl MCH 23.2 L (27.0-31.0) pg MCHC 31.5 L (33.0-37.0) g/dL RDW 29.8 H (11.5-14.5) % Plt Count 156 (130-400) K/uL APTT 69.5 H (25.6-37.1) Seconds Sodium 135 (132-148) mmol/l Potassium 3.8 (3.6-5.0) MMOL/L Chloride 96 L (98-107) mmol/L Carbon Dioxide 32 H (22-30) mmol/L Anion Gap 11 (10-20) BUN 10 (7-17) mg/dl Creatinine 0.4 L (0.7-1.2) mg/dl Est GFR ( Amer) > 60 Est GFR (Non-Af Amer) > 60 POC Glucose (mg/dL) (65-110) mg/dL Random Glucose 86 (65-105) mg/dL Calcium 8.4 (8.4-10.2) mg/dL Total Bilirubin 0.2 (0.2-1.3) mg/dl AST 26 (14-36) U/L ALT 28 (9-52) U/L Alkaline Phosphatase 69 (38-126) U/L Total Protein 5.6 L (6.3-8.2) G/DL Albumin 2.5 L (3.5-5.0) g/dL Globulin 3.0 (2.2-3.9) gm/dL Albumin/Globulin Ratio 0.8 L (1.0-2.1) Blood Type Antibody Screen Crossmatch BBK History Checked 12/25/18 Range/Units 21:29 WBC (4.8-10.8) K/uL RBC (3.80-5.20) Mil/uL Hgb (12.0-16.0) g/dL Hct (34.0-47.0) % MCV (81.0-99.0) fl MCH (27.0-31.0) pg MCHC (33.0-37.0) g/dL RDW (11.5-14.5) % Plt Count (130-400) K/uL APTT (25.6-37.1) Seconds Sodium (132-148) mmol/l Potassium (3.6-5.0) MMOL/L Chloride (98-107) mmol/L Carbon Dioxide (22-30) mmol/L Anion Gap (10-20) BUN (7-17) mg/dl Creatinine (0.7-1.2) mg/dl Est GFR ( Amer) Est GFR (Non-Af Amer) POC Glucose (mg/dL) 182 H (65-110) mg/dL Random Glucose (65-105) mg/dL Calcium (8.4-10.2) mg/dL Total Bilirubin (0.2-1.3) mg/dl AST (14-36) U/L ALT (9-52) U/L Alkaline Phosphatase (38-126) U/L Total Protein (6.3-8.2) G/DL Albumin (3.5-5.0) g/dL Globulin (2.2-3.9) gm/dL Albumin/Globulin Ratio (1.0-2.1) Blood Type Antibody Screen Crossmatch BBK History Checked Laboratory Results - last 24 hr 12/25/18 12/26/18 12/26/18 21:29 04:55 04:55 WBC 6.9 RBC 2.95 L Hgb 6.9 L Hct 21.8 L MCV 73.7 L MCH 23.2 L MCHC 31.5 L RDW 29.8 H Plt Count 156 APTT 69.5 H Sodium Potassium Chloride Carbon Dioxide Anion Gap BUN Creatinine Est GFR ( Amer) Est GFR (Non-Af Amer) POC Glucose (mg/dL) 182 H Random Glucose Calcium Total Bilirubin AST ALT Alkaline Phosphatase Total Protein Albumin Globulin Albumin/Globulin Ratio Blood Type Antibody Screen Crossmatch BBK History Checked 12/26/18 12/26/18 12/26/18 04:55 05:16 09:52 WBC RBC Hgb Hct MCV MCH MCHC RDW Plt Count APTT Sodium 135 Potassium 3.8 Chloride 96 L Carbon Dioxide 32 H Anion Gap 11 BUN 10 Creatinine 0.4 L Est GFR ( Amer) > 60 Est GFR (Non-Af Amer) > 60 POC Glucose (mg/dL) 92 Random Glucose 86 Calcium 8.4 Total Bilirubin 0.2 AST 26 ALT 28 Alkaline Phosphatase 69 Total Protein 5.6 L Albumin 2.5 L Globulin 3.0 Albumin/Globulin Ratio 0.8 L Blood Type O POSITIVE Antibody Screen Negative Crossmatch See Detail BBK History Checked Patient has bt 12/26/18 11:08 WBC RBC Hgb Hct MCV MCH MCHC RDW Plt Count APTT Sodium Potassium Chloride Carbon Dioxide Anion Gap BUN Creatinine Est GFR ( Amer) Est GFR (Non-Af Amer) POC Glucose (mg/dL) 143 H Random Glucose Calcium Total Bilirubin AST ALT Alkaline Phosphatase Total Protein Albumin Globulin Albumin/Globulin Ratio Blood Type Antibody Screen Crossmatch BBK History Checked Critical Care Progress Note - Nutrition Nutrition: Nutrition Category Date Time Status Liquid Diet [DIET] Diets 12/22/18 Dinner Active Assessment/Plan (1) Anemia Current Visit: Yes Status: Acute Priority: High Comment: Transsfuse 2 units of packed RBC today Scheduled for Endoscopy in AM (2) Thrombocytopenia Current Visit: Yes Status: Acute Priority: High Comment: Plat count stable today Continue meds, Reviewed Hematology/Oncology follow up Transfusion as needed (3) Sepsis Current Visit: Yes Status: Acute Comment: Continue Cefazolin 1 gm IVPB Q8 and Metronidazole 500mg IVPB Q8 S/p E coli sepsis with DIC Resolved right arm cellulitis and phlebitis Also worsened Segmental enteritis on CT scan (4) Colon cancer Current Visit: Yes Status: Chronic Priority: High
--- NOTE | 2018-12-26 12:00 | PCM.SURG1 ---
Surgeon's Initial Post Op Note - Surgeon's Notes Surgeon: Tyrell Morton MD Senior Property Accountant: NONE Type of Anesthesia: Local Pre-Operative Diagnosis: Poor venous access Operative Findings: US showed patent basilic vein Post-Operative Diagnosis: Poor venous access Operation Performed: Double lumen picc right basilic vein, 27 cm. Tip in SVC. Specimen/Specimens Removed: NONE Estimated Blood Loss: EBL {In ML}: 2 Blood Products Given: N/A Drains Used: No Drains Post-Op Condition: Fair Date of Surgery/Procedure: 12/26/18 Time of Surgery/Procedure: 11:50
[2018-12-26] MEDS ORDERED: Magnesium Citrate Oral SOL (300 ml) PO ONE (14:21)
[2018-12-26] MEDS: Lactated Ringer's 1,000 ML IV SCH ×2 (14:58→21:28)
--- NOTE | 2018-12-26 16:04 | CP.PCM.PN ---
Subjective - Date & Time of Evaluation Date of Evaluation: 12/26/18 Time of Evaluation: 22:22 - Subjective Subjective: Above noted Hbg 6.7 Objective - Vital Signs/Intake and Output Vital Signs (last 24 hours): Temp Pulse Resp BP Pulse Ox 98.3 F 79 18 115/42 L 100 12/26/18 14:53 12/26/18 14:53 12/26/18 14:53 12/26/18 14:53 12/26/18 14:00 Intake and Output: 12/26/18 12/26/18 06:59 18:59 Intake Total 1270 1032 Output Total 1300 540 Balance -30 492 - Medications Medications: Current Medications Acetaminophen (Tylenol 325mg Tab) 650 mg PO Q4 PRN PRN Reason: Pain, moderate (4-7) Last Admin: 12/24/18 11:32 Dose: 650 mg Albumin Human (Albumin Human 25% (12.5 Gm/50 Ml)) 12.5 gm IV Q6 [facility] Last Admin: 12/26/18 09:09 Dose: 12.5 gm Amiodarone HCl (Cordarone) 200 mg PO DAILY [facility] Last Admin: 12/26/18 08:55 Dose: 200 mg Bisacodyl (Dulcolax) 15 mg PO ONCE ONE Stop: 12/26/18 18:01 Digoxin (Digoxin) 0.125 mg PO DAILY [facility] Last Admin: 12/26/18 08:55 Dose: 0.125 mg Levetiracetam 500 mg/ Sodium (Chloride) 105 mls @ 210 mls/hr IVPB Q12 [facility] Last Admin: 12/26/18 08:58 Dose: 210 mls/hr Cefazolin Sodium 1 gm/ Sodium (Chloride) 100 mls @ 100 mls/hr IVPB Q8 [facility]; Protocol Last Admin: 12/26/18 09:06 Dose: 100 mls/hr Lactated Ringer's (Lactated Ringer's) 1,000 mls @ 84 mls/hr IV .[id number] [facility] Last Admin: 12/26/18 14:58 Dose: Not Given Metronidazole (Flagyl 500mg/100ml Ns) 100 mls @ 100 mls/hr IVPB Q8 [facility]; Protocol Last Admin: 12/26/18 09:09 Dose: 100 mls/hr Argatroban 250 mg/ Sodium (Chloride) 252.5 mls @ 5 mls/hr IV .Q24H [facility]; Protocol Last Admin: 12/26/18 14:44 Dose: 5 mls/hr Nystatin (Nystop Topical Powder) 1 applic TOP TID [facility] Pantoprazole Sodium (Protonix Inj) 40 mg IVP DAILY [facility] Last Admin: 12/26/18 08:56 Dose: 40 mg Potassium Phos/Sodium Phos (Neutra-Phos) 1 pkt PO BID [facility] Last Admin: 12/26/18 08:56 Dose: 1 pkt - Labs Labs: 12/26/18 04:55 12/26/18 04:55 PT 21.5 Seconds (9.8-13.1) H D 12/23/18 05:30 INR 1.9 12/23/18 05:30 APTT 69.5 Seconds (25.6-37.1) H 12/26/18 04:55 - Respiratory Exam Respiratory Exam: NORMAL BREATHING PATTERN - Cardiovascular Exam Cardiovascular Exam: REGULAR RHYTHM - GI/Abdominal Exam GI & Abdominal Exam: Normal Bowel Sounds Assessment and Plan - Assessment and Plan (Free Text) Assessment: GI Bleed? Endoscopy- Gastritis HH Colonoscopy scheduled Hx Ca Colon CEA [address] CT scan enterocolitis intaabdominal mass Microcytic hypochromic anemia chronic blood loss IVF monitor labs GI surgery Hematology Coagulopathy with thrombosis upper and lower extremity Vascular surgery Argatroban DIC?? Sepsis?? cellulitis ? etiology?? ABX ID Hematology Blood cs Ecoli ABX ID Paraxysmal A fib Amiodorone Dig ICU Cardiology
--- NOTE | 2018-12-26 16:43 | CP.PCM.PN ---
Subjective - Date & Time of Evaluation Date of Evaluation: 12/26/18 Time of Evaluation: 16:40 - Subjective Subjective: Patient w/o complaint. Appears comfortable. Objective - Vital Signs/Intake and Output Vital Signs (last 24 hours): Temp Pulse Resp BP Pulse Ox 98.4 F 72 15 109/44 L 97 12/26/18 16:00 12/26/18 16:00 12/26/18 16:00 12/26/18 16:00 12/26/18 16:00 Intake and Output: 12/26/18 12/26/18 06:59 18:59 Intake Total 1270 1032 Output Total 1300 540 Balance -30 492 - Medications Medications: Current Medications Acetaminophen (Tylenol 325mg Tab) 650 mg PO Q4 PRN PRN Reason: Pain, moderate (4-7) Last Admin: 12/24/18 11:32 Dose: 650 mg Amiodarone HCl (Cordarone) 200 mg PO DAILY [facility] Last Admin: 12/26/18 08:55 Dose: 200 mg Bisacodyl (Dulcolax) 15 mg PO ONCE ONE Stop: 12/26/18 18:01 Digoxin (Digoxin) 0.125 mg PO DAILY [facility] Last Admin: 12/26/18 08:55 Dose: 0.125 mg Levetiracetam 500 mg/ Sodium (Chloride) 105 mls @ 210 mls/hr IVPB Q12 [facility] Last Admin: 12/26/18 08:58 Dose: 210 mls/hr Cefazolin Sodium 1 gm/ Sodium (Chloride) 100 mls @ 100 mls/hr IVPB Q8 [facility]; Protocol Last Admin: 12/26/18 09:06 Dose: 100 mls/hr Lactated Ringer's (Lactated Ringer's) 1,000 mls @ 84 mls/hr IV .[id number] [facility] Last Admin: 12/26/18 14:58 Dose: Not Given Metronidazole (Flagyl 500mg/100ml Ns) 100 mls @ 100 mls/hr IVPB Q8 [facility]; Protocol Last Admin: 12/26/18 09:09 Dose: 100 mls/hr Argatroban 250 mg/ Sodium (Chloride) 252.5 mls @ 5 mls/hr IV .Q24H [facility]; Protocol Last Admin: 12/26/18 14:44 Dose: 5 mls/hr Nystatin (Nystop Topical Powder) 1 applic TOP TID [facility] Pantoprazole Sodium (Protonix Inj) 40 mg IVP DAILY [facility] Last Admin: 12/26/18 08:56 Dose: 40 mg Potassium Phos/Sodium Phos (Neutra-Phos) 1 pkt PO BID [facility] Last Admin: 12/26/18 08:56 Dose: 1 pkt - Labs Labs: 12/26/18 04:55 12/26/18 04:55 PT 21.5 Seconds (9.8-13.1) H D 12/23/18 05:30 INR 1.9 12/23/18 05:30 APTT 69.5 Seconds (25.6-37.1) H 12/26/18 04:55 - Head Exam Head Exam: ATRAUMATIC - Eye Exam Eye Exam: Normal appearance - ENT Exam ENT Exam: Normal Exam - Neck Exam Neck Exam: Normal Inspection - Respiratory Exam Respiratory Exam: NORMAL BREATHING PATTERN - Cardiovascular Exam Cardiovascular Exam: +S1, +S2 - GI/Abdominal Exam GI & Abdominal Exam: Soft. absent: Tenderness Assessment and Plan (1) Anemia Assessment & Plan: For colonoscopy tomorrow.to evaluate previously abnormal CT. Will stop anticoagulation just prior to the procedure. Status: Acute
[2018-12-26] MEDS ORDERED: Bisacodyl 5mg EC Tab PO ONE (18:00)
[2018-12-27] MEDS: ceFAZolin 1 GM in Sodium Chloride 0.9% 100 ML IVPB SCH ×3 (00:48→16:39)
[2018-12-27] MEDS: metroNIDAZOLE 500mg/100ml NS 100 ML IVPB SCH ×3 (00:48→16:39)
[2018-12-27] MEDS: Lactated Ringer's 1,000 ML IV SCH (04:58)
[2018-12-27 05:31] LABS: HEMOGLOBIN 10.6 g/dL (12.0-16.0); MEAN CELL VOLUME 78.7 fl (81.0-99.0); MEAN CORPUSCULAR HEMOGLOBIN 25.7 pg (27.0-31.0); MEAN CORPUSCULAR HGB CONC 32.7 g/dL (33.0-37.0); RBC 4.12 Mil/uL (3.80-5.20); WHITE BLOOD COUNT 7.4 K/uL (4.8-10.8)
[2018-12-27 05:40] LABS: BLOOD UREA NITROGEN 9 mg/dl (7-17); CALCIUM 8.5 mg/dL (8.4-10.2); GFR NON-AFRICAN AMERICAN > 60
[2018-12-27] MEDS: Digoxin 125 mcg (0.125 mg) Tab PO SCH (09:13)
[2018-12-27] MEDS: levETIRAcetam 500 MG in Sodium Chloride 0.9% 100 ML IVPB SCH ×2 (09:13→21:10)
[2018-12-27] MEDS: Potassium & Sodium Phosphate PO SCH ×2 (09:14→16:40)
--- NOTE | 2018-12-27 09:55 | CP.PCM.PN ---
Subjective - Date & Time of Evaluation Date of Evaluation: 12/27/18 Time of Evaluation: 09:44 - Subjective Subjective: Pt is feeling fine,no vomiting, or pain. The arms are much less swollen, but the toes are still mottled. The CBC is stable.She is to have a colonoscopy today. the argatroban should be continued until 1 hr prior to colonoscopy.If there is no bleeding seen on the colonoscopy , we can start the coumadin and when in therapeutic level, can D/C argatroban. Objective - Vital Signs/Intake and Output Vital Signs (last 24 hours): Temp Pulse Resp BP Pulse Ox 97.8 F 72 15 122/43 L 100 12/27/18 08:00 12/27/18 09:14 12/27/18 08:00 12/27/18 08:00 12/27/18 08:00 Intake and Output: 12/27/18 12/27/18 06:59 18:59 Intake Total 1328 178 Output Total 600 Balance 728 178 - Medications Medications: Current Medications Acetaminophen (Tylenol 325mg Tab) 650 mg PO Q4 PRN PRN Reason: Pain, moderate (4-7) Last Admin: 12/24/18 11:32 Dose: 650 mg Amiodarone HCl (Cordarone) 200 mg PO DAILY [facility] Last Admin: 12/27/18 09:14 Dose: 200 mg Digoxin (Digoxin) 0.125 mg PO DAILY [facility] Last Admin: 12/27/18 09:13 Dose: 0.125 mg Levetiracetam 500 mg/ Sodium (Chloride) 105 mls @ 210 mls/hr IVPB Q12 [facility] Last Admin: 12/27/18 09:13 Dose: 210 mls/hr Cefazolin Sodium 1 gm/ Sodium (Chloride) 100 mls @ 100 mls/hr IVPB Q8 [facility]; Protocol Last Admin: 12/27/18 09:11 Dose: 100 mls/hr Lactated Ringer's (Lactated Ringer's) 1,000 mls @ 84 mls/hr IV .[id number] [facility] Last Admin: 12/27/18 04:58 Dose: 84 mls/hr Metronidazole (Flagyl 500mg/100ml Ns) 100 mls @ 100 mls/hr IVPB Q8 [facility]; Prot ocol Last Admin: 02/20/19 09:12 Dose: 100 mls/hr Argatroban 250 mg/ Sodium (Chloride) 252.5 mls @ 5 mls/hr IV .Q24H [facility]; Protocol Last Admin: 12/26/18 14:44 Dose: 5 mls/hr Nystatin (Nystop Topical Powder) 1 applic TOP TID [facility] Last Admin: 12/27/18 09:14 Dose: 1 applic Pantoprazole Sodium (Protonix Inj) 40 mg IVP DAILY [facility] Last Admin: 12/27/18 09:13 Dose: 40 mg Potassium Phos/Sodium Phos (Neutra-Phos) 1 pkt PO BID [facility] Last Admin: 12/27/18 09:14 Dose: Not Given - Labs Labs: 12/27/18 04:25 12/27/18 04:25 PT 21.5 Seconds (9.8-13.1) H D 12/23/18 05:30 INR 1.9 12/23/18 05:30 APTT 67.6 Seconds (25.6-37.1) H 12/27/18 04:25
--- NOTE | 2018-12-27 10:37 | CP.CCUPN ---
CCU Subjective - Physician Review Subjective (Free Text): Awake, alert, still in pleasant mood, and remains appropriately responsive. PO intake is still relatively poor, but NPO for endoscopy today and off Argatroban as well. Has remained in NSR over the last 5 days. No CP, SOB at bed rest. Denies any leg or foot discomfort. Afebrile, no temp spikes overnight, SBPs 110-120s, HR 65, 17, 100% SPO2 on RA. Approx 2.1L positive fluid balance last 24H. No other distress noted. ROS: No other pertinent negs or positive on 10+ system review. Other PMSFH: All other Nursing and physician documentation reviewed to date; no new pertinent info noted relevant to current medical problems. EXAM- HEENT: no icterus, pupils equal, 3 mm and reactive, no gaze preference NECK: no visible JVD, supple, carotids equal upstroke bilat/no bruits CHEST: decreased BS bases, no wheezes audible HEART: regular, distant, tachy S1S2, no murmur audible, no rubs. ABD: soft, no increased distention, no focal tenderness, BS hypoactive, EXT: distal RUE appears less erythematous, and less swollen, has RUE PICC now; radial and brachial pulses intact, no focal weakness. Bilateral venodynes off, no calf tenderness or palpable cords, distal pulses intact and symmetrical. Bilateral toes (all) are feel improved warmth to touch, but R toes portia 1st and 2 nd toes remain appearing dusky and cyanotic than 3rd-5th toes. Left toes are now hyperemic. NEURO: no gross focal motor deficits. SKIN: no rashes LABS: WBC= 7.4 HGB= 10.6 PLTs = 170K Na= 136 K= 4.1 Cl= 95 HCO3= 32 BUN/Cr= 9/0.4 BS= 87 IMPRESSION / MAJOR PROBLEMS NOW: 1. Acute Anemia, r/o GIB 2. Acute thrombocytopenia, resolving, unclear drug induced vs DIC, r/oed H.I.T with negative Abs. 3. Paroxysmal A fib with controlled VR, off IV Amiodarone: in NSR now on PO Amio / Digoxin combo. 4. Mass RLQ with enterocolitis PLAN: 1. Discussed with Heme-Onc; If colonoscopy shows no bleeding site and if no bxs are done, will start warfarin and resume Argatroban post procedure. 2. Hgb at expected levels post PRBCs yesterday. 3. Encourage PO food intake. Watch for excessive hydration.
--- NOTE | 2018-12-27 11:41 | CP.PCM.PN ---
Subjective - Date & Time of Evaluation Date of Evaluation: 12/27/18 Time of Evaluation: 22:22 - Subjective Subjective: Colonoscopy done today Objective - Vital Signs/Intake and Output Vital Signs (last 24 hours): Temp Pulse Resp BP Pulse Ox 97.8 F 74 16 108/37 L 98 12/27/18 08:00 12/27/18 10:00 12/27/18 10:00 12/27/18 10:00 12/27/18 10:00 Intake and Output: 12/27/18 12/27/18 06:59 18:59 Intake Total 1328 478 Output Total 600 Balance 728 478 - Medications Medications: Current Medications Acetaminophen (Tylenol 325mg Tab) 650 mg PO Q4 PRN PRN Reason: Pain, moderate (4-7) Last Admin: 12/24/18 11:32 Dose: 650 mg Amiodarone HCl (Cordarone) 200 mg PO DAILY [facility] Last Admin: 12/27/18 09:14 Dose: 200 mg Digoxin (Digoxin) 0.125 mg PO DAILY [facility] Last Admin: 12/27/18 09:13 Dose: 0.125 mg Levetiracetam 500 mg/ Sodium (Chloride) 105 mls @ 210 mls/hr IVPB Q12 [facility] Last Admin: 12/27/18 09:13 Dose: 210 mls/hr Cefazolin Sodium 1 gm/ Sodium (Chloride) 100 mls @ 100 mls/hr IVPB Q8 [facility]; Protocol Last Admin: 12/27/18 09:11 Dose: 100 mls/hr Lactated Ringer's (Lactated Ringer's) 1,000 mls @ 84 mls/hr IV .[id number] [facility] Last Admin: 12/27/18 04:58 Dose: 84 mls/hr Metronidazole (Flagyl 500mg/100ml Ns) 100 mls @ 100 mls/hr IVPB Q8 [facility]; Protocol Last Admin: 12/27/18 09:12 Dose: 100 mls/hr Argatroban 250 mg/ Sodium (Chloride) 252.5 mls @ 5 mls/hr IV .Q24H [facility]; Protoco l Last Admin: 12/26/18 14:44 Dose: 5 mls/hr Nystatin (Nystop Topical Powder) 1 applic TOP TID [facility] Last Admin: 12/27/18 09:14 Dose: 1 applic Pantoprazole Sodium (Protonix Inj) 40 mg IVP DAILY [facility] Last Admin: 12/27/18 09:13 Dose: 40 mg Potassium Phos/Sodium Phos (Neutra-Phos) 1 pkt PO BID [facility] Last Admin: 12/27/18 09:14 Dose: Not Given - Labs Labs: 12/27/18 04:25 12/27/18 04:25 PT 21.5 Seconds (9.8-13.1) H D 12/23/18 05:30 INR 1.9 12/23/18 05:30 APTT 67.6 Seconds (25.6-37.1) H 12/27/18 04:25 Assessment and Plan - Assessment and Plan (Free Text) Assessment: GI Bleed? Endoscopy- Gastritis HH Colonoscopy scheduled Hx Ca Colon CEA [address] CT scan enterocolitis intaabdominal mass Microcytic hypochromic anemia chronic blood loss IVF monitor labs GI surgery Hematology Coagulopathy with thrombosis upper and lower extremity Vascular surgery Argatroban DIC?? Sepsis?? cellulitis ? etiology?? ABX ID Hematology Blood cs Ecoli ABX ID Paraxysmal A fib Amiodorone Dig ICU Cardiology
--- NOTE | 2018-12-27 11:51 | CP.PCM.PN ---
Subjective - Date & Time of Evaluation Date of Evaluation: 12/27/18 Time of Evaluation: 05:00 - Subjective Subjective: comfortable awake alert denies fever chest pain in NAD Objective - Vital Signs/Intake and Output Vital Signs (last 24 hours): Temp Pulse Resp BP Pulse Ox 97.8 F 74 16 108/37 L 98 12/27/18 08:00 12/27/18 10:00 12/27/18 10:00 12/27/18 10:00 12/27/18 10:00 Intake and Output: 12/27/18 12/27/18 06:59 18:59 Intake Total 1328 478 Output Total 600 Balance 728 478 - Medications Medications: Current Medications Acetaminophen (Tylenol 325mg Tab) 650 mg PO Q4 PRN PRN Reason: Pain, moderate (4-7) Last Admin: 12/24/18 11:32 Dose: 650 mg Amiodarone HCl (Cordarone) 200 mg PO DAILY [facility] Last Admin: 12/27/18 09:14 Dose: 200 mg Digoxin (Digoxin) 0.125 mg PO DAILY [facility] Last Admin: 12/27/18 09:13 Dose: 0.125 mg Levetiracetam 500 mg/ Sodium (Chloride) 105 mls @ 210 mls/hr IVPB Q12 [facility] Last Admin: 12/27/18 09:13 Dose: 210 mls/hr Cefazolin Sodium 1 gm/ Sodium (Chloride) 100 mls @ 100 mls/hr IVPB Q8 [facility]; Protocol Last Admin: 12/27/18 09:11 Dose: 100 mls/hr Lactated Ringer's (Lactated Ringer's) 1,000 mls @ 84 mls/hr IV .[id number] [facility] Last Admin: 12/27/18 04:58 Dose: 84 mls/hr Metronidazole (Flagyl 500mg/100ml Ns) 100 mls @ 100 mls/hr IVPB Q8 [facility]; P rotocol Last Admin: 12/27/18 09:12 Dose: 100 mls/hr Argatroban 250 mg/ Sodium (Chloride) 252.5 mls @ 5 mls/hr IV .[id number] [facility]; Protocol Last Admin: 12/26/18 14:44 Dose: 5 mls/hr Nystatin (Nystop Topical Powder) 1 applic TOP TID [facility] Last Admin: 12/27/18 09:14 Dose: 1 applic Pantoprazole Sodium (Protonix Inj) 40 mg IVP DAILY [facility] Last Admin: 12/27/18 09:13 Dose: 40 mg Potassium Phos/Sodium Phos (Neutra-Phos) 1 pkt PO BID [facility] Last Admin: 12/27/18 09:14 Dose: Not Given - Labs Labs: 12/27/18 04:25 12/27/18 04:25 PT 21.5 Seconds (9.8-13.1) H D 12/23/18 05:30 INR 1.9 12/23/18 05:30 APTT 67.6 Seconds (25.6-37.1) H 12/27/18 04:25 - Constitutional Appears: No Acute Distress, Cachectic, Chronically Ill - Head Exam Head Exam: NORMOCEPHALIC - Eye Exam Eye Exam: absent: Scleral icterus Pupil Exam: NORMAL ACCOMODATION - ENT Exam ENT Exam: Mucous Membranes Dry, Normal External Ear Exam - Neck Exam Neck Exam: absent: Lymphadenopathy - Respiratory Exam Respiratory Exam: Decreased Breath Sounds, Clear to Ausculation Bilateral - Cardiovascular Exam Cardiovascular Exam: REGULAR RHYTHM, +S1, +S2 - GI/Abdominal Exam GI & Abdominal Exam: Distended, Soft. absent: Tenderness - Rectal Exam Rectal Exam: Deferred - Exam Exam: NORMAL INSPECTION - Extremities Exam Extremities Exam: absent: Pedal Edema - Back Exam Back Exam: absent: CVA tenderness (L), CVA tenderness (R), paraspinal tenderness - Psychiatric Exam Psychiatric exam: Normal Mood - Skin Skin Exam: Dry, Intact Assessment and Plan (1) Sepsis Status: Acute (2) Colon cancer Status: Chronic (3) Disseminated intra-vascular coagulation Status: Acute (4) Gram-negative bacteremia Status: Acute - Assessment and Plan (Free Text) Assessment: will renew IV antibiotic' anticipate 14 days IV rx for Gram neg sepsis with DIC
[2018-12-27] MEDS ORDERED: Lactated Ringer's 500 ML IV ONE (13:48)
[2018-12-27] MEDS ORDERED: Etomidate 20 mg/10ml Inj IV ONE ×2 (14:04→14:29)
[2018-12-27 18:33] LABS: INR 1.3; PROTHROMBIN TIME 14.6 Seconds (9.8-13.1)
[2018-12-27 18:35] LABS: PARTIAL THROMBOPLASTIN TIME 39.7 Seconds (25.6-37.1)
[2018-12-28] MEDS: ceFAZolin 1 GM in Sodium Chloride 0.9% 100 ML IVPB SCH ×3 (00:31→16:09)
[2018-12-28] MEDS: Lactated Ringer's 1,000 ML IV SCH ×2 (00:31→20:14)
[2018-12-28] MEDS: metroNIDAZOLE 500mg/100ml NS 100 ML IVPB SCH ×3 (00:32→17:32)
[2018-12-28 01:29] LABS: HEMOGLOBIN 9.9 g/dL (12.0-16.0); MEAN CELL VOLUME 78.8 fl (81.0-99.0); MEAN CORPUSCULAR HEMOGLOBIN 25.5 pg (27.0-31.0); MEAN CORPUSCULAR HGB CONC 32.4 g/dL (33.0-37.0); RBC 3.88 Mil/uL (3.80-5.20); RED CELL DISTRIBUTION WIDTH 26.7 % (11.5-14.5); WHITE BLOOD COUNT 7.4 K/uL (4.8-10.8)
[2018-12-28 01:41] LABS: ALB/GLOB RATIO 0.8 (1.0-2.1); ALBUMIN 2.4 g/dL (3.5-5.0); ALT/SGPT 30 U/L (9-52); AST/SGOT 31 U/L (14-36); BLOOD UREA NITROGEN 8 mg/dl (7-17); CALCIUM 8.2 mg/dL (8.4-10.2); GFR NON-AFRICAN AMERICAN > 60
[2018-12-28 01:58] LABS: INR 2.5
[2018-12-28 02:01] LABS: PARTIAL THROMBOPLASTIN TIME 77.2 Seconds (25.6-37.1)
[2018-12-28] MEDS: Digoxin 125 mcg (0.125 mg) Tab PO SCH (08:25)
[2018-12-28] MEDS: Potassium & Sodium Phosphate PO SCH ×2 (08:26→16:10)
--- NOTE | 2018-12-28 10:29 | CP.PCM.PN ---
Subjective - Date & Time of Evaluation Date of Evaluation: 12/28/18 Time of Evaluation: 10:23 - Subjective Subjective: Pt is afebrile in NSR. The cbc is stable. She had a colonoscopy done yesterday and a lot of inflammation was seen, but no tumor. biopsies were taken ,results awaited. Her INR was 2.5, so she was started on coumadin and argatroan was discontinued. Objective - Vital Signs/Intake and Output Vital Signs (last 24 hours): Temp Pulse Resp BP Pulse Ox 98.9 F 69 14 121/58 L 97 12/28/18 08:00 12/28/18 08:26 12/28/18 08:00 12/28/18 08:26 12/28/18 08:00 Intake and Output: 12/28/18 12/28/18 06:59 18:59 Intake Total 1328 400 Output Total 1200 Balance 128 400 - Medications Medications: Current Medications Acetaminophen (Tylenol 325mg Tab) 650 mg PO Q4 PRN PRN Reason: Pain, moderate (4-7) Last Admin: 12/24/18 11:32 Dose: 650 mg Amiodarone HCl (Cordarone) 200 mg PO DAILY [facility] Last Admin: 12/28/18 08:26 Dose: 200 mg Digoxin (Digoxin) 0.125 mg PO DAILY [facility] Last Admin: 12/28/18 08:25 Dose: 0.125 mg Levetiracetam 500 mg/ Sodium (Chloride) 105 mls @ 210 mls/hr IVPB Q12 [facility] Last Admin: 12/27/18 21:10 Dose: 210 mls/hr Cefazolin Sodium 1 gm/ Sodium (Chloride) 100 mls @ 100 mls/hr IVPB Q8 [facility]; Protocol Last Admin: 12/28/18 08:25 Dose: 100 mls/hr Lactated Ringer's (Lactated Ringer's) 1,000 mls @ 84 mls/hr IV .[id number] [facility] Last Admin: 12/28/18 00:31 Dose: 84 mls/hr Metronidazole (Flagyl 500mg/100ml Ns) 100 mls @ 100 mls/hr IVPB Q8 [facility]; Protocol Last Admin: 12/28/18 09:40 Dose: 100 mls/hr Nystatin (Nystop Topical Powder) 1 applic TOP TID [facility] Last Admin: 12/28/18 08:26 Dose: 1 applic Pantoprazole Sodium (Protonix Inj) 40 mg IVP DAILY [facility] Last Admin: 12/28/18 08:27 Dose: 40 mg Potassium Phos/Sodium Phos (Neutra-Phos) 1 pkt PO BID [facility] Last Admin: 12/28/18 08:26 Dose: 1 pkt - Labs Labs: 12/28/18 01:00 12/28/18 01:00 PT 28.0 Seconds (9.8-13.1) H D 12/28/18 01:00 INR 2.5 12/28/18 01:00 APTT 77.2 Seconds (25.6-37.1) H 12/28/18 01:00
[2018-12-28] MEDS: levETIRAcetam 500 MG in Sodium Chloride 0.9% 100 ML IVPB SCH ×2 (10:45→20:10)
--- NOTE | 2018-12-28 11:59 | CP.CCUPN ---
CCU Subjective - Physician Review Subjective (Free Text): Awake, alert, no distress, PO diet still not up to par, on IVF with LR at 84 ml/hr. Denies any abdominal discomfort. Afebrile, no temp spikes overnight, SBPs 110-120s, HR 65, 17, 100% SPO2 on RA. Approx 0.84L positive fluid balance last 24H. No other distress noted. ROS: No other pertinent negs or positive on 10+ system review. Other PMSFH: All other Nursing and physician documentation reviewed to date; no new pertinent info noted relevant to current medical problems. EXAM- HEENT: no icterus, pupils equal, 3 mm and reactive, no gaze preference NECK: no visible JVD, supple, carotids equal upstroke bilat/no bruits CHEST: decreased BS bases, no wheezes audible HEART: regular, distant, tachy S1S2, no murmur audible, no rubs. ABD: soft, no increased distention, no focal tenderness, BS hypoactive, EXT: distal RUE appears less erythematous, and less swollen, has RUE PICC now; radial and brachial pulses intact, no focal weakness. Bilateral venodynes off, no calf tenderness or palpable cords, distal pulses intact and symmetrical. Bilateral toes (all) are feel improved warmth to touch, but R toes portia 1st and 2nd toes remain appearing dusky and cyanotic than 3rd-5th toes. Left toes are now hyperemic. NEURO: no gross focal motor deficits. SKIN: no rashes LABS: WBC= 7.4 HGB= 9.9 PLTs = 202K Na= 135 K= 3.9 Cl= 95 HCO3= 32 BUN/Cr= 8/0.4 BS= 78 IMPRESSION / MAJOR PROBLEMS NOW: 1. Acute Anemia, r/o GIB 2. Acute thrombocytopenia, resolving, unclear drug induced vs DIC, r/oed H.I.T with negative Abs. 3. Peripheral Arterial Disease 2 to recent vasopressors versus low grade DIC?? 4. Paroxysmal A fib with controlled VR, off IV Amiodarone: in NSR now on PO Amio / Digoxin combo. 5. Mass RLQ with enterocolitis PLAN: 1. s/p Colonoscopy yesterday with biopsies obtained, resumed on Argatroban overnight with simultaneous Warfarin dosing 5 mg last evening. 2. Argatroban stopped this AM with INR at 2.5. 3. Continue Warfarin, re-dose this evening. Watch serial H/H. 4. Hgb stable, but still has liquid black brown stool. 5. Stable for Tele bed.
--- NOTE | 2018-12-28 18:07 | CP.PCM.PN ---
Subjective - Date & Time of Evaluation Date of Evaluation: 12/28/18 Time of Evaluation: 22:22 - Subjective Subjective: Above noted Hbg 9.8 INR 2.5 Objective - Vital Signs/Intake and Output Vital Signs (last 24 hours): Temp Pulse Resp BP Pulse Ox 98.2 F 71 17 115/56 L 100 12/28/18 16:00 12/28/18 18:00 12/28/18 18:00 12/28/18 18:00 12/28/18 18:00 Intake and Output: 12/28/18 12/28/18 06:59 18:59 Intake Total 1328 2204 Output Total 1200 Balance 128 2204 - Medications Medications: Current Medications Acetaminophen (Tylenol 325mg Tab) 650 mg PO Q4 PRN PRN Reason: Pain, moderate (4-7) Last Admin: 12/24/18 11:32 Dose: 650 mg Amiodarone HCl (Cordarone) 200 mg PO DAILY [facility] Last Admin: 12/28/18 08:26 Dose: 200 mg Digoxin (Digoxin) 0.125 mg PO DAILY [facility] Last Admin: 12/28/18 08:25 Dose: 0.125 mg Levetiracetam 500 mg/ Sodium (Chloride) 105 mls @ 210 mls/hr IVPB Q12 [facility] Last Admin: 12/28/18 10:45 Dose: 210 mls/hr Cefazolin Sodium 1 gm/ Sodium (Chloride) 100 mls @ 100 mls/hr IVPB Q8 [facility]; Protocol Last Admin: 12/28/18 16:09 Dose: 100 mls/hr Lactated Ringer's (Lactated Ringer's) 1,000 mls @ 84 mls/hr IV .[id number] [facility] Last Admin: 12/28/18 00:31 Dose: 84 mls/hr Metronidazole (Flagyl 500mg/100ml Ns) 100 mls @ 100 mls/hr IVPB Q8 [facility]; Protocol Last Admin: 12/28/18 17:32 Dose: 100 mls/hr Nystatin (Nystop Topical Powder) 1 applic TOP TID [facility] Last Admin: 12/28/18 16:10 Dose: 1 applic Pantoprazole Sodium (Protonix Inj) 40 mg IVP DAILY [facility] Last Admin: 12/28/18 08:27 Dose: 40 mg Potassium Phos/Sodium Phos (Neutra-Phos) 1 pkt PO BID [facility] Last Admin: 12/28/18 16:10 Dose: 1 pkt - Labs Labs: 12/28/18 01:00 12/28/18 01:00 PT 28.0 Seconds (9.8-13.1) H D 12/28/18 01:00 INR 2.5 12/28/18 01:00 APTT 77.2 Seconds (25.6-37.1) H 12/28/18 01:00 - Respiratory Exam Respiratory Exam: NORMAL BREATHING PATTERN - Cardiovascular Exam Cardiovascular Exam: REGULAR RHYTHM - GI/Abdominal Exam GI & Abdominal Exam: Normal Bowel Sounds Assessment and Plan - Assessment and Plan (Free Text) Assessment: GI Bleed? Endoscopy- Gastritis HH Colonoscopy BX done Hx Ca Colon CEA [address] CT scan enterocolitis intaabdominal mass Microcytic hypochromic anemia chronic blood loss IVF monitor labs GI surgery Hematology Coagulopathy with thrombosis upper and lower extremity Vascular surgery Argatroban Coumadin started DIC?? Sepsis?? cellulitis ? etiology?? ABX ID Hematology Blood cs Ecoli ABX ID Paraxysmal A fib Amiodorone Dig ICU Cardiology
--- NOTE | 2018-12-28 21:44 | CP.PCM.PN ---
Subjective - Date & Time of Evaluation Date of Evaluation: 12/28/18 Time of Evaluation: 17:00 - Subjective Subjective: Patient with no GI complaint or gross bleeding. Objective - Vital Signs/Intake and Output Vital Signs (last 24 hours): Temp Pulse Resp BP Pulse Ox 98.1 F 69 19 109/40 L 100 12/28/18 20:00 12/28/18 20:00 12/28/18 20:00 12/28/18 20:00 12/28/18 20:00 Intake and Output: 12/28/18 12/29/18 18:59 06:59 Intake Total 2204 164 Output Total 1050 Balance 1154 164 - Medications Medications: Current Medications Acetaminophen (Tylenol 325mg Tab) 650 mg PO Q4 PRN PRN Reason: Pain, moderate (4-7) Last Admin: 12/24/18 11:32 Dose: 650 mg Amiodarone HCl (Cordarone) 200 mg PO DAILY [facility] Last Admin: 12/28/18 08:26 Dose: 200 mg Digoxin (Digoxin) 0.125 mg PO DAILY [facility] Last Admin: 12/28/18 08:25 Dose: 0.125 mg Levetiracetam 500 mg/ Sodium (Chloride) 105 mls @ 210 mls/hr IVPB Q12 [facility] Last Admin: 12/28/18 20:10 Dose: 210 mls/hr Cefazolin Sodium 1 gm/ Sodium (Chloride) 100 mls @ 100 mls/hr IVPB Q8 [facility]; Protocol Last Admin: 12/28/18 16:09 Dose: 100 mls/hr Lactated Ringer's (Lactated Ringer's) 1,000 mls @ 84 mls/hr IV .[id number] [facility] Last Admin: 12/28/18 20:14 Dose: 84 mls/hr Metronidazole (Flagyl 500mg/100ml Ns) 100 mls @ 100 mls/hr IVPB Q8 [facility]; Protoco l Last Admin: 12/28/18 17:32 Dose: 100 mls/hr Nystatin (Nystop Topical Powder) 1 applic TOP TID [facility] Last Admin: 12/28/18 16:10 Dose: 1 applic Pantoprazole Sodium (Protonix Inj) 40 mg IVP DAILY [facility] Last Admin: 12/28/18 08:27 Dose: 40 mg Potassium Phos/Sodium Phos (Neutra-Phos) 1 pkt PO BID [facility] Last Admin: 12/28/18 16:10 Dose: 1 pkt - Labs Labs: 12/28/18 01:00 12/28/18 01:00 PT 28.0 Seconds (9.8-13.1) H D 12/28/18 01:00 INR 2.5 12/28/18 01:00 APTT 77.2 Seconds (25.6-37.1) H 12/28/18 01:00 - Head Exam Head Exam: ATRAUMATIC - Eye Exam Eye Exam: Normal appearance - ENT Exam ENT Exam: Normal Exam - Neck Exam Neck Exam: Full ROM - Respiratory Exam Respiratory Exam: Clear to Ausculation Bilateral - GI/Abdominal Exam GI & Abdominal Exam: Normal Bowel Sounds Assessment and Plan (1) Anemia Assessment & Plan: Colonoscopy done yesterday and mucosa appeared normal. Biopsies are pending. Continue current management. Status: Acute
[2018-12-29] MEDS: ceFAZolin 1 GM in Sodium Chloride 0.9% 100 ML IVPB SCH ×3 (01:31→16:55)
[2018-12-29] MEDS: metroNIDAZOLE 500mg/100ml NS 100 ML IVPB SCH ×3 (01:32→17:45)
[2018-12-29 05:36] LABS: BASO # 0.1 K/uL (0.0-0.2); BASO % 0.8 % (0.0-2.0); EOS # 0.1 K/uL (0.0-0.7); EOS % 0.8 % (0.0-4.0); LYMPH # 0.7 K/uL (1.0-4.3); LYMPH % 11.6 % (20.0-40.0); MEAN CELL VOLUME 78.9 fl (81.0-99.0); MEAN CORPUSCULAR HEMOGLOBIN 25.7 pg (27.0-31.0); MEAN CORPUSCULAR HGB CONC 32.5 g/dL (33.0-37.0); MONO # 0.4 K/uL (0.0-0.8); MONO % 6.5 % (0.0-10.0); NEUT # 5.2 K/uL (1.8-7.0); NEUT % 80.3 % (50.0-75.0); RBC 3.89 Mil/uL (3.80-5.20); RED CELL DISTRIBUTION WIDTH 26.6 % (11.5-14.5); WHITE BLOOD COUNT 6.5 K/uL (4.8-10.8)
[2018-12-29 05:47] LABS: ALB/GLOB RATIO 0.7 (1.0-2.1); ALBUMIN 2.3 g/dL (3.5-5.0); ALT/SGPT 24 U/L (9-52); AST/SGOT 27 U/L (14-36); BLOOD UREA NITROGEN 8 mg/dl (7-17); CALCIUM 8.1 mg/dL (8.4-10.2); GFR NON-AFRICAN AMERICAN > 60
[2018-12-29 05:56] LABS: PROTHROMBIN TIME 33.7 Seconds (9.8-13.1)
[2018-12-29 05:59] LABS: PARTIAL THROMBOPLASTIN TIME 44.7 Seconds (25.6-37.1)
[2018-12-29] MEDS: Digoxin 125 mcg (0.125 mg) Tab PO SCH (09:26)
[2018-12-29] MEDS: Potassium & Sodium Phosphate PO SCH ×2 (09:27→16:56)
--- NOTE | 2018-12-29 09:53 | CP.PCM.PN ---
Subjective - Date & Time of Evaluation Date of Evaluation: 12/29/18 Time of Evaluation: 09:51 - Subjective Subjective: Pt feels good and is afebrile with a NSR . her CBC is stable, and she is eatint well. The argatroban was discontinued yesterday and pt started on coumadin 5 mg. however , her INR was 3.4 . So only 1 mg was given today. Once she stabilizes, will get a surgical consult re the pelvic mass Objective - Vital Signs/Intake and Output Vital Signs (last 24 hours): Temp Pulse Resp BP Pulse Ox 98.3 F 76 14 122/54 L 96 12/29/18 08:00 12/29/18 09:26 12/29/18 08:00 12/29/18 09:26 12/29/18 08:00 Intake and Output: 12/29/18 12/29/18 06:59 18:59 Intake Total 1354 Output Total 700 Balance 654 - Medications Medications: Current Medications Acetaminophen (Tylenol 325mg Tab) 650 mg PO Q4 PRN PRN Reason: Pain, moderate (4-7) Last Admin: 12/24/18 11:32 Dose: 650 mg Amiodarone HCl (Cordarone) 200 mg PO DAILY [facility] Last Admin: 12/29/18 09:26 Dose: 200 mg Digoxin (Digoxin) 0.125 mg PO DAILY [facility] Last Admin: 12/29/18 09:26 Dose: 0.125 mg Levetiracetam 500 mg/ Sodium (Chloride) 105 mls @ 210 mls/hr IVPB Q12 [facility] Last Admin: 12/28/18 20:10 Dose: 210 mls/hr Cefazolin Sodium 1 gm/ Sodium (Chloride) 100 mls @ 100 mls/hr IVPB Q8 [facility]; Protocol Last Admin: 12/29/18 09:26 Dose: 100 mls/hr Lactated Ringer's (Lactated Ringer's) 1,000 mls @ 84 mls/hr IV .[id number] [facility] Last Admin: 12/28/18 20:14 Dose: 84 mls/hr Metronidazole (Flagyl 500mg/100ml Ns) 100 mls @ 100 mls/hr IVPB Q8 [facility]; Protocol Last Admin: 12/29/18 01:32 Dose: 100 mls/hr Nystatin (Nystop Topical Powder) 1 applic TOP TID [facility] Last Admin: 12/29/18 09:27 Dose: 1 applic Pantoprazole Sodium (Protonix Inj) 40 mg IVP DAILY [facility] Last Admin: 12/29/18 09:27 Dose: 40 mg Potassium Phos/Sodium Phos (Neutra-Phos) 1 pkt PO BID [facility] Last Admin: 12/29/18 09:27 Dose: 1 pkt - Labs Labs: 12/29/18 04:40 12/29/18 04:40 PT 33.7 Seconds (9.8-13.1) H D 12/29/18 04:40 INR 3.0 12/29/18 04:40 APTT 44.7 Seconds (25.6-37.1) H 12/29/18 04:40
[2018-12-29] MEDS: levETIRAcetam 500 MG in Sodium Chloride 0.9% 100 ML IVPB SCH (11:52)
--- NOTE | 2018-12-29 14:50 | CP.CCUPN ---
CCU Subjective - Physician Review Subjective (Free Text): Awake, alert, no distress, PO diet still not up to par, but drinking vanilla Ensure; on IVF with LR at 84 ml/hr. Denies any abdominal discomfort. Afebrile, no temp spikes overnight, SBPs 110-120s, HR 68, 17, 100% SPO2 on NC. Approx 1.2L positive fluid balance last 24H. No other distress noted. ROS: No other pertinent negs or positive on 10+ system review. Other PMSFH: All other Nursing and physician documentation reviewed to date; no new pertinent info noted relevant to current medical problems. EXAM- HEENT: no icterus, pupils equal, 3 mm and reactive, no gaze preference NECK: no visible JVD, supple, carotids equal upstroke bilat/no bruits CHEST: decreased BS bases, no wheezes audible HEART: regular, distant, tachy S1S2, no murmur audible, no rubs. ABD: soft, no increased distention, no focal tenderness, BS hypoactive, EXT: distal RUE appears less erythematous, and less swollen, has RUE PICC now; radial and brachial pulses intact, no focal weakness. Bilateral venodynes off, no calf tenderness or palpable cords, distal pulses intact and symmetrical. Bilateral toes (all) are feel improved warmth to touch, but R toes portia 1st and 2nd toes were appearing dusky and cyanotic, now warm, with improved appearance, including 3rd-5th toes. Left toes remain warm and hyperemic. NEURO: no gross focal motor deficits. SKIN: no rashes LABS: WBC= 6.5 HGB= 10.0 PLTs = 221K INR= 3.0 Na= 136 K= 3.9 Cl= 96 HCO3= 31 BUN/Cr= 8/0. BS= 93 IMPRESSION / MAJOR PROBLEMS NOW: 1. s/p Acute Anemia, r/o GIB 2. s/p Acute thrombocytopenia, resolving, unclear drug induced vs DIC, r/oed H.I.T with negative Abs. 3. Peripheral Arterial Disease 2 to recent vasopressors versus low grade DIC?? 4. s/p Paroxysmal A fib with controlled VR, off IV Amiodarone: in NSR now on PO Amio / Digoxin combo. 5. Mass RLQ with enterocolitis PLAN: 1. No Warfarin today. 2. Platelets improved up to normal. 3. Diet upgraded. 4. Meds changed to PO administration.
--- NOTE | 2018-12-29 15:26 | CP.PCM.PN ---
Subjective - Date & Time of Evaluation Date of Evaluation: 12/29/18 Time of Evaluation: 09:00 - Subjective Subjective: EVENTS NOTED IV RX IN PROGRESS Objective - Vital Signs/Intake and Output Vital Signs (last 24 hours): Temp Pulse Resp BP Pulse Ox 98.7 F 72 20 110/51 L 100 12/29/18 12:00 12/29/18 14:00 12/29/18 14:00 12/29/18 14:00 12/29/18 14:00 Intake and Output: 12/29/18 12/29/18 06:59 18:59 Intake Total 1354 1672 Output Total 700 Balance 654 1672 - Medications Medications: Current Medications Acetaminophen (Tylenol 325mg Tab) 650 mg PO Q4 PRN PRN Reason: Pain, moderate (4-7) Last Admin: 12/24/18 11:32 Dose: 650 mg Amiodarone HCl (Cordarone) 200 mg PO DAILY [facility] Last Admin: 12/29/18 09:26 Dose: 200 mg Digoxin (Digoxin) 0.125 mg PO DAILY [facility] Last Admin: 12/29/18 09:26 Dose: 0.125 mg Famotidine (Pepcid) 40 mg PO HS [facility] Cefazolin Sodium 1 gm/ Sodium (Chloride) 100 mls @ 100 mls/hr IVPB Q8 [facility]; Protocol Last Admin: 12/29/18 09:26 Dose: 100 mls/hr Lactated Ringer's (Lactated Ringer's) 1,000 mls @ 84 mls/hr IV .[id number] [facility] Last Admin: 12/28/18 20:14 Dose: 84 mls/hr Metronidazole (Flagyl 500mg/100ml Ns) 100 mls @ 100 mls/hr IVPB Q8 [facility]; Protoco l Last Admin: 12/29/18 10:08 Dose: 100 mls/hr Levetiracetam (Keppra) 500 mg PO BID [facility] Nystatin (Nystop Topical Powder) 1 applic TOP TID [facility] Last Admin: 12/29/18 12:46 Dose: 1 applic Potassium Phos/Sodium Phos (Neutra-Phos) 1 pkt PO BID [facility] Last Admin: 12/29/18 09:27 Dose: 1 pkt - Labs Labs: 12/29/18 04:40 12/29/18 04:40 PT 33.7 Seconds (9.8-13.1) H D 12/29/18 04:40 INR 3.0 12/29/18 04:40 APTT 44.7 Seconds (25.6-37.1) H 12/29/18 04:40 - Constitutional Appears: Non-toxic, Chronically Ill - Head Exam Head Exam: NORMOCEPHALIC - Eye Exam Eye Exam: absent: Scleral icterus - ENT Exam ENT Exam: Mucous Membranes Dry - Neck Exam Neck Exam: absent: Lymphadenopathy - Respiratory Exam Respiratory Exam: Decreased Breath Sounds - Cardiovascular Exam Cardiovascular Exam: REGULAR RHYTHM - GI/Abdominal Exam GI & Abdominal Exam: Distended, Soft. absent: Tenderness - Rectal Exam Rectal Exam: Deferred - Exam Exam: NORMAL INSPECTION - Extremities Exam Extremities Exam: Pedal Edema. absent: Normal Capillary Refill - Back Exam Back Exam: absent: CVA tenderness (L), CVA tenderness (R) - Neurological Exam Neurological Exam: Alert, Awake, CN II-XII Intact - Psychiatric Exam Psychiatric exam: Depressed - Skin Skin Exam: Mottled Assessment and Plan (1) Sepsis Status: Acute (2) Colon cancer Status: Chronic (3) Disseminated intra-vascular coagulation Status: Acute (4) Gram-negative bacteremia Status: Acute - Assessment and Plan (Free Text) Assessment: CONT IV ANCEF X 14 DAYS
--- NOTE | 2018-12-29 18:15 | CP.PCM.PN ---
Subjective - Date & Time of Evaluation Date of Evaluation: 12/29/18 Time of Evaluation: 22:22 - Subjective Subjective: Above noted Objective - Vital Signs/Intake and Output Vital Signs (last 24 hours): Temp Pulse Resp BP Pulse Ox 98.1 F 68 15 103/39 L 100 12/29/18 16:00 12/29/18 16:00 12/29/18 16:00 12/29/18 16:00 12/29/18 16:00 Intake and Output: 12/29/18 12/29/18 06:59 18:59 Intake Total 1354 1940 Output Total 700 Balance 654 1940 - Medications Medications: Current Medications Acetaminophen (Tylenol 325mg Tab) 650 mg PO Q4 PRN PRN Reason: Pain, moderate (4-7) Last Admin: 12/24/18 11:32 Dose: 650 mg Amiodarone HCl (Cordarone) 200 mg PO DAILY [facility] Last Admin: 12/29/18 09:26 Dose: 200 mg Digoxin (Digoxin) 0.125 mg PO DAILY [facility] Last Admin: 12/29/18 09:26 Dose: 0.125 mg Famotidine (Pepcid) 40 mg PO HS [facility] Cefazolin Sodium 1 gm/ Sodium (Chloride) 100 mls @ 100 mls/hr IVPB Q8 [facility]; Protocol Last Admin: 12/29/18 16:55 Dose: 100 mls/hr Lactated Ringer's (Lactated Ringer's) 1,000 mls @ 84 mls/hr IV .[id number] [facility] Last Admin: 12/28/18 20:14 Dose: 84 mls/hr Metronidazole (Flagyl 500mg/100ml Ns) 100 mls @ 100 mls/hr IVPB Q8 [facility]; Protocol Last Admin: 12/29/18 10:08 Dose: 100 mls/hr Levetiracetam (Keppra) 500 mg PO BID [facility] Last Admin: 12/29/18 16:56 Dose: 500 mg Nystatin (Nystop Topical Powder) 1 applic TOP TID [facility] Last Admin: 12/29/18 16:56 Dose: 1 applic Potassium Phos/Sodium Phos (Neutra-Phos) 1 pkt PO BID [facility] Last Admin: 12/29/18 16:56 Dose: 1 pkt - Labs Labs: 12/29/18 04:40 12/29/18 04:40 PT 33.7 Seconds (9.8-13.1) H D 12/29/18 04:40 INR 3.0 12/29/18 04:40 APTT 44.7 Seconds (25.6-37.1) H 12/29/18 04:40 - Respiratory Exam Respiratory Exam: NORMAL BREATHING PATTERN - Cardiovascular Exam Cardiovascular Exam: REGULAR RHYTHM - GI/Abdominal Exam GI & Abdominal Exam: Normal Bowel Sounds Assessment and Plan - Assessment and Plan (Free Text) Assessment: GI Bleed? Endoscopy- Gastritis HH Colonoscopy BX done Hx Ca Colon CEA [address] CT scan enterocolitis intaabdominal mass Microcytic hypochromic anemia chronic blood loss IVF monitor labs GI surgery Hematology Coagulopathy with thrombosis upper and lower extremity Vascular surgery Argatroban Coumadin started DIC?? Sepsis?? cellulitis ? etiology?? ABX ID Hematology Blood cs Ecoli ABX ID Paraxysmal A fib Amiodorone Dig ICU Cardiology
[2018-12-30] MEDS: metroNIDAZOLE 500mg/100ml NS 100 ML IVPB SCH ×3 (01:55→16:00)
[2018-12-30] MEDS: ceFAZolin 1 GM in Sodium Chloride 0.9% 100 ML IVPB SCH ×3 (01:55→16:00)
[2018-12-30] MEDS: Lactated Ringer's 1,000 ML IV SCH ×2 (02:56→19:04)
[2018-12-30 05:55] LABS: INR 2.6; PROTHROMBIN TIME 29.5 Seconds (9.8-13.1)
[2018-12-30 06:01] LABS: BLOOD UREA NITROGEN 9 mg/dl (7-17); GFR NON-AFRICAN AMERICAN > 60
[2018-12-30 06:02] LABS: HEMOGLOBIN 9.8 g/dL (12.0-16.0); MEAN CELL VOLUME 79.4 fl (81.0-99.0); MEAN CORPUSCULAR HGB CONC 32.7 g/dL (33.0-37.0); RBC 3.78 Mil/uL (3.80-5.20); RED CELL DISTRIBUTION WIDTH 27.2 % (11.5-14.5)
[2018-12-30] MEDS: Digoxin 125 mcg (0.125 mg) Tab PO SCH (08:28)
[2018-12-30] MEDS: Potassium & Sodium Phosphate PO SCH ×2 (08:29→16:01)
--- NOTE | 2018-12-30 11:00 | CP.CCUPN ---
CCU Subjective - Physician Review Events Since Last Encounter (Free Text): 12/30/18 10:58 alert and awake, comfortable, no sob, BP stable , no signs CCU Objective - Vital Signs / Intake & Output Vital Signs (Last 4 hours): Vital Signs Temp Pulse Resp BP Pulse Ox 12/30/18 10:00 74 19 119/50 L 100 12/30/18 08:28 74 125/55 L 12/30/18 08:00 98.4 F 74 18 125/55 L 99 Intake and Output (Last 8hrs): Intake & Output 12/29/18 12/30/18 12/30/18 22:59 06:59 14:59 Intake Total 1322 754 752 Output Total 1150 650 325 Balance 172 104 427 Weight 109 lb Intake: IV 672 704 252 Intake, Piggyback 100 100 Oral 550 50 400 Output: Urine 1150 650 325 Urethral (Quiroz) 1150 650 325 Other: # Bowel Movements 1 - Physical Exam Narrative Physical Exam (Free Text): 12/30/18 11:01 P/E neck: No JVD Lungs: No ronchi/crackles Abdomen: soft, non-tender Ext; No edema Heart: No gallop Head: Positive for: Atraumatic, Normocephalic Pupils: Positive for: PERRL Extroacular Muscles: Positive for: EOMI Conjunctiva: Positive for: Normal Ears: Positive for: Normal Mouth: Positive for: Moist Mucous Membranes Nose (Internal): Positive for: Normal Inspection Neck: Positive for: Normal Range of Motion, Trachea Midline. Negative for: Meningeal Signs, MIDLINE TENDERNESS, Paraspinal Tenderness, JVD, Lymphadenopathy, Bruit, Other Respiratory/Chest: Positive for: Clear to Auscultation, Good Air Exchange. Negative for: Respiratory Distress, Accessory Muscle Use Cardiovascular: Positive for: Regular Rate and Rhythm, Normal S1, S2, Peripheal Pulses Present. Negative for: Murmurs, Tachycardic, Bradycardic Abdomen: Positive for: Tenderness, Distention, Normal Bowel Sounds. Negative for: Peritoneal Signs Upper Extremity: Positive for: Normal Inspection. Negative for: Cyanosis, Edema Lower Extremity: Positive for: Normal Inspection. Negative for: Edema, CALF TENDERNESS Neurological: Positive for: GCS=15 Psychiatric: Positive for: Alert, Oriented x 3 - Medications Active Medications: Active Medications Generic Name Dose Route Start Last Admin Trade Name Freq PRN Reason Stop Dose Admin Acetaminophen 650 mg 12/24/18 11:14 12/24/18 11:32 Tylenol 325mg Tab PO 650 mg Q4 PRN Administration Pain, moderate (4-7) Amiodarone HCl 200 mg 12/21/18 15:15 12/30/18 08:28 Cordarone PO 200 mg DAILY [facility] Administration Digoxin 0.125 mg 12/22/18 13:15 12/30/18 08:28 Digoxin PO 0.125 mg DAILY [facility] Administration Famotidine 40 mg 12/29/18 22:00 12/29/18 23:27 Pepcid PO 40 mg HS [facility] Administration Cefazolin Sodium 1 gm/ Sodium 100 mls @ 100 mls/hr 12/22/18 17:00 12/30/18 01:55 Chloride IVPB 100 mls/hr Q8 [facility] Administration Protocol Lactated Ringer's 1,000 mls @ 84 mls/hr 12/22/18 14:45 12/30/18 02:56 Lactated Ringer's IV 84 mls/hr .[id number] [facility] Administration Metronidazole 100 mls @ 100 mls/hr 12/25/18 17:00 12/30/18 08:28 Flagyl 500mg/100ml Ns IVPB 100 mls/hr Q8 [facility] Administration Protocol Levetiracetam 500 mg 12/29/18 17:00 12/30/18 08:29 Keppra PO 500 mg BID [facility] Administration Nystatin 1 applic 12/26/18 17:00 12/30/18 08:29 Nystop Topical Powder TOP 1 applic TID [facility] Administration Potassium Phos/Sodium Phos 1 pkt 12/20/18 17:00 12/30/18 08:29 Neutra-Phos PO 1 pkt BID [facility] Administration - Patient Studies Lab Studies: Microbiology Studies 12/27/18 04:30 Blood Culture - Preliminary Blood-Venous NO GROWTH AFTER 3 DAYS 12/27/18 04:25 Blood Culture - Preliminary Blood-Venous NO GROWTH AFTER 3 DAYS Lab Studies 12/30/18 12/30/18 12/30/18 Range/Units 04:30 04:30 04:30 WBC 6.0 (4.8-10.8) K/uL RBC 3.78 L (3.80-5.20) Mil/uL Hgb 9.8 L (12.0-16.0) g/dL Hct 30.0 L (34.0-47.0) % MCV 79.4 L (81.0-99.0) fl MCH 26.0 L (27.0-31.0) pg MCHC 32.7 L (33.0-37.0) g/dL RDW 27.2 H (11.5-14.5) % Plt Count 230 (130-400) K/uL PT 29.5 H (9.8-13.1) Seconds INR 2.6 Sodium 136 (132-148) mmol/l Potassium 4.2 (3.6-5.0) MMOL/L Chloride 97 L (98-107) mmol/L Carbon Dioxide 31 H (22-30) mmol/L Anion Gap 12 (10-20) BUN 9 (7-17) mg/dl Creatinine 0.4 L (0.7-1.2) mg/dl Est GFR ( Amer) > 60 Est GFR (Non-Af Amer) > 60 Random Glucose 95 (65-105) mg/dL Calcium 8.0 L (8.4-10.2) mg/dL Laboratory Results - last 24 hr 12/30/18 12/30/18 12/30/18 04:30 04:30 04:30 WBC 6.0 RBC 3.78 L Hgb 9.8 L Hct 30.0 L MCV 79.4 L MCH 26.0 L MCHC 32.7 L RDW 27.2 H Plt Count 230 PT 29.5 H INR 2.6 Sodium 136 Potassium 4.2 Chloride 97 L Carbon Dioxide 31 H Anion Gap 12 BUN 9 Creatinine 0.4 L Est GFR ( Amer) > 60 Est GFR (Non-Af Amer) > 60 Random Glucose 95 Calcium 8.0 L Critical Care Progress Note - Nutrition Nutrition: Nutrition Category Date Time Status Regular Diet [DIET] Diets 12/29/18 Lunch Active Assessment/Plan - Assessment and Plan (Free Text) Assessment: IMPRESSION / MAJOR PROBLEMS NOW: 1. s/p Acute Anemia, r/o GIB, no signs of active bleeding , HB stable 2. s/p Acute thrombocytopenia, resolved, r/oed H.I.T with negative Abs. 3. s/p Paroxysmal A fib with controlled VR, off IV Amiodarone: in NSR now on PO Amio / Digoxin combo. PLAN: 1. On Warfarin today. 2. Platelets improved up to normal. 3. Diet upgraded. 4. Meds changed to PO administration. 5 stable, transfer to tele.
--- NOTE | 2018-12-30 14:07 | CP.PCM.PN ---
Subjective - Date & Time of Evaluation Date of Evaluation: 12/30/18 Time of Evaluation: 14:04 - Subjective Subjective: Patient was feeling well until a little while ago when she vomited a little bit of the orange juice she had just drunk very fast. She was a little disappointed because she was doing well even with solid food since yesterday, Her vital signs are stable,as are her blood work. Objective - Vital Signs/Intake and Output Vital Signs (last 24 hours): Temp Pulse Resp BP Pulse Ox 98.4 F 94 H 22 137/58 L 100 12/30/18 12:00 12/30/18 12:00 12/30/18 12:00 12/30/18 12:00 12/30/18 12:00 Intake and Output: 12/30/18 12/30/18 06:59 18:59 Intake Total 1240 1020 Output Total 1000 425 Balance 240 595 - Medications Medications: Current Medications Acetaminophen (Tylenol 325mg Tab) 650 mg PO Q4 PRN PRN Reason: Pain, moderate (4-7) Last Admin: 12/24/18 11:32 Dose: 650 mg Amiodarone HCl (Cordarone) 200 mg PO DAILY [facility] Last Admin: 12/30/18 08:28 Dose: 200 mg Digoxin (Digoxin) 0.125 mg PO DAILY [facility] Last Admin: 12/30/18 08:28 Dose: 0.125 mg Famotidine (Pepcid) 40 mg PO HS [facility] Last Admin: 12/29/18 23:27 Dose: 40 mg Cefazolin Sodium 1 gm/ Sodium (Chloride) 100 mls @ 100 mls/hr IVPB Q8 [facility]; Protocol Last Admin: 12/30/18 12:02 Dose: 100 mls/hr Lactated Ringer's (Lactated Ringer's) 1,000 mls @ 84 mls/hr IV .[id number] [facility] Last Admin: 12/30/18 02:56 Dose: 84 mls/hr Metronidazole (Flagyl 500mg/100ml Ns) 100 mls @ 100 mls/hr IVPB Q8 [facility]; Protocol Last Admin: 12/30/18 08:28 Dose: 100 mls/hr Levetiracetam (Keppra) 500 mg PO BID [facility] Last Admin: 12/30/18 08:29 Dose: 500 mg Nystatin (Nystop Topical Powder) 1 applic TOP TID [facility] Last Admin: 12/30/18 12:03 Dose: 1 applic Potassium Phos/Sodium Phos (Neutra-Phos) 1 pkt PO BID [facility] Last Admin: 12/30/18 08:29 Dose: 1 pkt - Labs Labs: 12/30/18 04:30 12/30/18 04:30 PT 29.5 Seconds (9.8-13.1) H 12/30/18 04:30 INR 2.6 12/30/18 04:30 APTT 44.7 Seconds (25.6-37.1) H 12/29/18 04:40
[2018-12-30] MEDS ORDERED: Digoxin 125 mcg (0.125 mg) Tab PO ONE (23:02)
[2018-12-30] MEDS ORDERED: Digoxin 500 mcg/2ml (0.5 mg/2ml) Inj IVP ONE (23:04)
[2018-12-30] MEDS ORDERED: Digoxin 500 mcg/2ml (0.5 mg/2ml) Inj ONE (23:07)
--- NOTE | 2018-12-30 23:16 | PCM.RRT ---
<Olamide Yost - Last Filed: 12/30/18 23:40> [employer] Nurse Assessment - Situation [employer] Responder Arrival Time: 06:38 Location: [facility] [facility] Reason for Call: Tachycardia [employer] [facility] Called By: RN - IV IV Inserted during [facility]ARROW [facility]GE [employer]RAKEM[facility]?: No - Respiratory Oxygen Delivery Method: Nasal Cannula Received Nebulizer Treatments: No Was the Patient Ventilated with Bag/Mask 100% O2?: No Secretions Suctioned?: No Was the Patient Intubated?: No Was the Patient Placed on a Ventilator?: No - Medication Medications Administered During [employer]KEM[facility]: Cardizem 10mg IVP slowly. Digoxin 0.5mg IVP - Diagnostic Test Ordered EKG: Yes Chest X-Ray: No CT Scan: No - Stat Labs Ordered [employer] Stat Labs Ordered: CBC, BMP, TROPONIN [employer] Other Labs Ordered: mg, phos CPR started during [employer]ARR[employer]GE [employer]KEM[facility]?: No - Vital Signs Vital Signs: Rapid Response Vital Sign Blood Pressure 120/66 Pulse Rate 146 Respiratory Rate 18 Temperature 97 F Oxygen Saturation 96 - Time [employer]K[facility] Ended Time [facility]K[facility] Ended: 04:20 - Vital Signs at end of [employer] Vital Signs at end of [employer]: Rapid Response End Vital Sign Blood Pressure 123/66 Pulse Rate 110 Respiratory Rate 18 Temperature 97 F O2 Sat by Pulse Oximetry 97 - Recommendations [employer]KEM[facility] Level of Care Recommendations: Remain in current setting I.Reason for [employer]KEM[employer] - A) Acute Change in Patient: Subjective: [employer]KEM[employer] was called for 68 y/o F with PMH of Mauricio for tachycardia/ HR >140s. Upon arrival, patient was alert, awake and oriented, denies any chest pain, SOB or dizziness. EKG was done and reviewed (See official read), Patient was started on Cardizem 10mg IV STAT and Dig 0.125 IV. Patient remains asymptomatic, no interval physical exam changes. NARR[employer] GAUGE [employer]RAKEM[employer] was ended, patient HR remains around 110- 120s. Trop Q6H and morning EKG ordered. Follow up as needed. Case discussed with Dr. Tripathi - Dr. Reji Yost, PGY-II - Neurological Status (Select all that apply): Alert, Responsive, Oriented, Verbal, Follows Commands - Respiratory Oxygen Delivery Method: Nasal Cannula @L/min Oxygen Flow Rate: 2 - Constitutional Appears: No Acute Distress - Head Head Exam: NORMAL INSPECTION - Eyes Eye Exam: Normal appearance - Respiratory Exam Respiratory Exam: NORMAL BREATHING PATTERN - Cardiovascular Exam Cardiovascular Exam: Tachycardia, Irregular Rhythm, +S1, +S2 - GI/Abdominal Exam GI & Abdominal Exam: Soft, Normal Bowel Sounds - Neurological Exam Neurological Exam: Alert, Awake, Oriented x3 <Ganesh Tripathi - Last Filed: 12/31/18 19:45> [employer] Nurse Assessment - Vital Signs Vital Signs: Rapid Response Vital Sign Blood Pressure 138/53 Pulse Rate 162 Respiratory Rate 25 Temperature 98.7 F Oxygen Saturation 97 - Vital Signs at end of [employer] Vital Signs at end of [employer]KEM[employer]: Rapid Response End Vital Sign Blood Pressure 134/77 Pulse Rate 100 Respiratory Rate 19 Temperature 97 F O2 Sat by Pulse Oximetry 97 Attending/Attestation - Attestation I have personally seen and examined this patient.: Yes I have fully participated in the care of the patient.: Yes I have reviewed all pertinent clinical information, including history, physical exam and plan: Yes Notes (Text): 12/31/18 19:35 I saw, examined and discussed this patient with Dr Yost. I agree with the assessment and plan outlined which represent my direct input. The Patient was in Atrial Fibrillation with rapid response. She was treated with Cardizem and Digoxin IV. The A Fib Converted to NSR later after review. Ganesh Tripathi MD 12/31/18 19:43
--- NOTE | 2018-12-31 00:09 | CP.PCM.PN ---
Subjective - Date & Time of Evaluation Date of Evaluation: 12/30/18 Time of Evaluation: 23:30 - Subjective Subjective: Patient earlier had an episode of tachycardia. Is better now and has no complaints. Objective - Vital Signs/Intake and Output Vital Signs (last 24 hours): Temp Pulse Resp BP Pulse Ox 99.9 F H 147 H 18 99/55 L 99 12/30/18 19:14 12/30/18 23:03 12/30/18 23:03 12/30/18 23:03 12/30/18 23:03 Intake and Output: 12/30/18 12/31/18 18:59 06:59 Intake Total 1488 Output Total 550 Balance 938 - Medications Medications: Current Medications Acetaminophen (Tylenol 325mg Tab) 650 mg PO Q4 PRN PRN Reason: Pain, moderate (4-7) Last Admin: 12/24/18 11:32 Dose: 650 mg Acetaminophen (Tylenol 325mg Tab) 650 mg PO Q6 PRN PRN Reason: Fever >100.4 F Amiodarone HCl (Cordarone) 200 mg PO DAILY [facility] Last Admin: 12/30/18 08:28 Dose: 200 mg Digoxin (Digoxin) 0.125 mg PO DAILY [facility] Last Admin: 12/30/18 08:28 Dose: 0.125 mg Famotidine (Pepcid) 40 mg PO HS [facility] Last Admin: 12/30/18 21:34 Dose: 40 mg Cefazolin Sodium 1 gm/ Sodium (Chloride) 100 mls @ 100 mls/hr IVPB Q8 [facility]; Protocol Last Admin: 12/30/18 16:00 Dose: 100 mls/hr Lactated Ringer's (Lactated Ringer's) 1,000 mls @ 84 mls/hr IV .[id number] [facility] Last Admin: 12/30/18 19:04 Dose: 84 mls/hr Metronidazole (Flagyl 500mg/100ml Ns) 100 mls @ 100 mls/hr IVPB Q8 [facility]; Protocol Last Admin: 12/30/18 16:00 Dose: 100 mls/hr Levetiracetam (Keppra) 500 mg PO BID [facility] Last Admin: 12/30/18 16:01 Dose: 500 mg Nystatin (Nystop Topical Powder) 1 applic TOP TID [facility] Last Admin: 12/30/18 16:01 Dose: 1 applic Potassium Phos/Sodium Phos (Neutra-Phos) 1 pkt PO BID [facility] Last Admin: 12/30/18 16:01 Dose: Not Given - Labs Labs: 12/30/18 04:30 12/30/18 04:30 PT 29.5 Seconds (9.8-13.1) H 12/30/18 04:30 INR 2.6 12/30/18 04:30 APTT 44.7 Seconds (25.6-37.1) H 12/29/18 04:40 - Head Exam Head Exam: ATRAUMATIC - Eye Exam Eye Exam: Normal appearance - ENT Exam ENT Exam: Mucous Membranes Moist - Neck Exam Neck Exam: Normal Inspection - Respiratory Exam Respiratory Exam: Clear to Ausculation Bilateral - Cardiovascular Exam Cardiovascular Exam: REGULAR RHYTHM - GI/Abdominal Exam GI & Abdominal Exam: Normal Bowel Sounds Assessment and Plan (1) Anemia Assessment & Plan: Clinically better since anticoagulation has been initiated. Colonoscopic biop sies were negative. Will discuss Tuesday with radiology diagnostic options for intraabdominal mass Status: Acute
[2018-12-31] MEDS: metroNIDAZOLE 500mg/100ml NS 100 ML IVPB SCH ×3 (00:42→17:18)
[2018-12-31] MEDS: ceFAZolin 1 GM in Sodium Chloride 0.9% 100 ML IVPB SCH ×3 (00:43→18:31)
[2018-12-31] MEDS: Lactated Ringer's 1,000 ML IV SCH ×3 (01:30→13:16)
[2018-12-31] MEDS: Potassium & Sodium Phosphate PO SCH ×2 (09:04→17:13)
[2018-12-31] MEDS: Digoxin 125 mcg (0.125 mg) Tab PO SCH (09:08)
[2018-12-31 10:30] LABS: HEMOGLOBIN 10.9 g/dL (12.0-16.0); MEAN CELL VOLUME 78.7 fl (81.0-99.0); MEAN CORPUSCULAR HEMOGLOBIN 25.7 pg (27.0-31.0); MEAN CORPUSCULAR HGB CONC 32.6 g/dL (33.0-37.0); RBC 4.24 Mil/uL (3.80-5.20); RED CELL DISTRIBUTION WIDTH 27.6 % (11.5-14.5); WHITE BLOOD COUNT 15.3 K/uL (4.8-10.8)
[2018-12-31 10:44] LABS: ALB/GLOB RATIO 0.7 (1.0-2.1); ALBUMIN 2.4 g/dL (3.5-5.0); ALT/SGPT 16 U/L (9-52); AST/SGOT 34 U/L (14-36); BLOOD UREA NITROGEN 13 mg/dl (7-17); CALCIUM 8.7 mg/dL (8.4-10.2); GFR NON-AFRICAN AMERICAN > 60
[2018-12-31] MEDS ORDERED: Metoprolol 1 mg/ml Inj IVP ONE (13:44)
--- NOTE | 2018-12-31 14:02 | PCM.RRT ---
<DarleneAlla - Last Filed: 12/31/18 14:04> [facility] Nurse Assessment - Situation [facility] Responder Arrival Time: 13:38 Location: [facility] [place] Reason for Call: Tachycardia [facility] Called By: RN - IV IV Inserted during BUDGET SPECIALIST?: No - Respiratory Oxygen Delivery Method: Nasal Cannula Received Nebulizer Treatments: No Was the Patient Ventilated with Bag/Mask 100% O2?: No Secretions Suctioned?: No Was the Patient Intubated?: No Was the Patient Placed on a Ventilator?: No - Medication Medications Administered During [facility]: Cardizem 10mg IVP slowly. Digoxin 0.5mg IVP - Diagnostic Test Ordered EKG: Yes Chest X-Ray: No CT Scan: No - Stat Labs Ordered [facility] Stat Labs Ordered: CBC, BMP, TROPONIN [facility] Other Labs Ordered: mg, phos CPR started during BUDGET SPECIALIST?: No - Vital Signs Vital Signs: Rapid Response Vital Sign Blood Pressure 116/62 Pulse Rate 150 Respiratory Rate 20 Temperature 97 F Oxygen Saturation 98 - Time [facility] Ended Time [facility]IST Ended: 04:20 - Vital Signs at end of [facility]IST Vital Signs at end of [facility]GET SPECIALIST: Rapid Response End Vital Sign Blood Pressure 96/55 Pulse Rate 127 Respiratory Rate 18 Temperature 97 F O2 Sat by Pulse Oximetry 98 - Recommendations [facility] Level of Care Recommendations: Remain in current setting I.Reason for B[facility]GET SPECIALIST - A) Acute Change in Patient: (Select all that apply): Acute change in heart rate less than 50 or greater than 120 - Neurological Status (Select all that apply): Alert, Responsive, Oriented, Verbal, Follows Commands - Respiratory Oxygen Delivery Method: Nasal Cannula @L/min Oxygen Flow Rate: 2 - Constitutional Appears: No Acute Distress - Respiratory Exam Respiratory Exam: Clear to Ausculation Bilateral, NORMAL BREATHING PATTERN - Cardiovascular Exam Cardiovascular Exam: Tachycardia, +S1, +S2 - GI/Abdominal Exam GI & Abdominal Exam: Soft, Normal Bowel Sounds. absent: Tenderness - Neurological Exam Neurological Exam: Alert - Extremities Exam Extremities Exam: Normal Inspection Plan - Assessment of Findings&Treatment Plan 68 y/o female w/ pmhx of A.fib BUDGET SPECIALIST called due to tachycarida in the 150s persisting for 5-10 mins. Patient was alert, awake and oriented, denies any chest pain, SOB or dizziness. Breathing comfortably w/ 2L O2 via NC. Vitals @ start of BUDGET SPECIALIST: 138/53, HR 162, O2 Sat 98% on 2L O2 NC Patient given Lopressor 5mg IV Stat EKG showed atrial flutter w/ variable AV block Vitas @ 1:49: 128/55, HR 158, 98% Vitals @ end of BUDGET SPECIALIST 1:53PM: HR 100, BP 134/77, O2 Sat 98. Patient continued to be asymptomatic. Dr. Rivas Phoned and made aware. Patient stabilized. B[facility]GET SPECIALIST ended. Case discussed w/ Dr. Bolanos <Whitley Bolanos - Last Filed: 12/31/18 15:27> [facility] SPECIALIST Nurse Assessment - Vital Signs Vital Signs: Rapid Response Vital Sign Blood Pressure 116/62 Pulse Rate 150 Respiratory Rate 20 Temperature 97 F Oxygen Saturation 98 - Vital Signs at end of [facility]GET SPECIALIST Vital Signs at end of BUDGET SPECIALIST: Rapid Response End Vital Sign Blood Pressure 96/55 Pulse Rate 127 Respiratory Rate 18 Temperature 97 F O2 Sat by Pulse Oximetry 98 Attending/Attestation - Attestation I have personally seen and examined this patient.: Yes I have fully participated in the care of the patient.: Yes I have reviewed all pertinent clinical information, including history, physical exam and plan: Yes Notes (Text): 12/31/18 15:27 Agree with findings and plan as above.
--- NOTE | 2018-12-31 15:32 | CP.PCM.PN ---
Subjective - Date & Time of Evaluation Date of Evaluation: 12/31/18 Time of Evaluation: 07:00 - Subjective Subjective: in good spirits denies fever Objective - Vital Signs/Intake and Output Vital Signs (last 24 hours): Temp Pulse Resp BP Pulse Ox 98.7 F 153 H 18 138/76 94 L 12/31/18 12:38 12/31/18 14:02 12/31/18 12:38 12/31/18 14:02 12/31/18 12:38 Intake and Output: 12/31/18 12/31/18 06:59 18:59 Intake Total 1340 Output Total 500 Balance 840 - Medications Medications: Current Medications Acetaminophen (Tylenol 325mg Tab) 650 mg PO Q4 PRN PRN Reason: Pain, moderate (4-7) Last Admin: 12/24/18 11:32 Dose: 650 mg Acetaminophen (Tylenol 325mg Tab) 650 mg PO Q6 PRN PRN Reason: Fever >100.4 F Amiodarone HCl (Cordarone) 200 mg PO DAILY [facility] Last Admin: 12/31/18 09:08 Dose: 200 mg Digoxin (Digoxin) 0.125 mg PO DAILY [facility] Last Admin: 12/31/18 09:08 Dose: 0.125 mg Famotidine (Pepcid) 40 mg PO HS [facility] Last Admin: 12/30/18 21:34 Dose: 40 mg Cefazolin Sodium 1 gm/ Sodium (Chloride) 100 mls @ 100 mls/hr IVPB Q8 [facility]; Protocol Last Admin: 12/31/18 10:16 Dose: 100 mls/hr Lactated Ringer's (Lactated Ringer's) 1,000 mls @ 84 mls/hr IV .[id number] [facility] Last Admin: 12/31/18 13:16 Dose: Not Given Metronidazole (Flagyl 500mg/100ml Ns) 100 mls @ 100 mls/hr IVPB Q8 [facility]; Protocol Last Admin: 12/31/18 09:07 Dose: 100 mls/hr Levetiracetam (Keppra) 500 mg PO BID [facility] Last Admin: 12/31/18 09:06 Dose: 500 mg Nystatin (Nystop Topical Powder) 1 applic TOP TID [facility] Last Admin: 12/31/18 13:04 Dose: Not Given Potassium Phos/Sodium Phos (Neutra-Phos) 1 pkt PO BID [facility] Last Admin: 12/31/18 09:04 Dose: 1 pkt - Labs Labs: 12/31/18 10:15 12/31/18 10:15 PT 29.5 Seconds (9.8-13.1) H 12/30/18 04:30 INR 2.6 12/30/18 04:30 APTT 44.7 Seconds (25.6-37.1) H 12/29/18 04:40 - Constitutional Appears: Non-toxic, Chronically Ill - Head Exam Head Exam: NORMOCEPHALIC - Eye Exam Eye Exam: absent: Scleral icterus - ENT Exam ENT Exam: Mucous Membranes Dry - Neck Exam Neck Exam: absent: Lymphadenopathy - Respiratory Exam Respiratory Exam: Decreased Breath Sounds - Cardiovascular Exam Cardiovascular Exam: REGULAR RHYTHM - GI/Abdominal Exam GI & Abdominal Exam: Distended, Soft - Rectal Exam Rectal Exam: Deferred - Exam Exam: NORMAL INSPECTION - Extremities Exam Extremities Exam: Pedal Edema - Back Exam Back Exam: absent: CVA tenderness (L), CVA tenderness (R) - Neurological Exam Neurological Exam: Alert, Awake, CN II-XII Intact, Oriented x3 - Psychiatric Exam Psychiatric exam: Depressed - Skin Skin Exam: Dry, Mottled Assessment and Plan (1) Sepsis Status: Acute (2) Colon cancer Status: Chronic (3) Disseminated intra-vascular coagulation Status: Acute (4) Gram-negative bacteremia Status: Acute - Assessment and Plan (Free Text) Assessment: cont rx as ordered
--- NOTE | 2018-12-31 23:10 | CP.PCM.PN ---
Subjective - Date & Time of Evaluation Date of Evaluation: 12/31/18 Time of Evaluation: 14:00 - Subjective Subjective: Was on regular diet and had episode of vomiting. Episode of tachycardia earlier. Objective - Vital Signs/Intake and Output Vital Signs (last 24 hours): Temp Pulse Resp BP Pulse Ox 97.3 F L 82 18 100/50 L 98 12/31/18 20:02 12/31/18 21:00 12/31/18 20:02 12/31/18 20:02 12/31/18 20:02 Intake and Output: 12/31/18 01/01/19 18:59 06:59 Output Total 200 Balance -200 - Medications Medications: Current Medications Acetaminophen (Tylenol 325mg Tab) 650 mg PO Q4 PRN PRN Reason: Pain, moderate (4-7) Last Admin: 12/24/18 11:32 Dose: 650 mg Acetaminophen (Tylenol 325mg Tab) 650 mg PO Q6 PRN PRN Reason: Fever >100.4 F Amiodarone HCl (Cordarone) 200 mg PO BID [facility] Last Admin: 12/31/18 17:36 Dose: 200 mg Digoxin (Digoxin) 0.125 mg PO DAILY [facility] Last Admin: 12/31/18 09:08 Dose: 0.125 mg Famotidine (Pepcid) 40 mg PO HS [facility] Last Admin: 12/31/18 21:10 Dose: 40 mg Cefazolin Sodium 1 gm/ Sodium (Chloride) 100 mls @ 100 mls/hr IVPB Q8 [facility]; Protocol Last Admin: 12/31/18 18:31 Dose: 100 mls/hr Lactated Ringer's (Lactated Ringer's) 1,000 mls @ 84 mls/hr IV .[id number] [facility] Last Admin: 12/31/18 13:16 Dose: Not Given Metronidazole (Flagyl 500mg/100ml Ns) 100 mls @ 100 mls/hr IVPB Q8 [facility]; Protocol Last Admin: 12/31/18 17:18 Dose: 100 mls/hr Levetiracetam (Keppra) 500 mg PO BID [facility] Last Admin: 12/31/18 17:12 Dose: 500 mg Nystatin (Nystop Topical Powder) 1 applic TOP TID [facility] Last Admin: 12/31/18 17:15 Dose: 1 applic Potassium Phos/Sodium Phos (Neutra-Phos) 1 pkt PO BID [facility] Last Admin: 12/31/18 17:13 Dose: 1 pkt - Labs Labs: 12/31/18 10:15 12/31/18 10:15 PT 29.5 Seconds (9.8-13.1) H 12/30/18 04:30 INR 2.6 12/30/18 04:30 APTT 44.7 Seconds (25.6-37.1) H 12/29/18 04:40 - Head Exam Head Exam: ATRAUMATIC - Eye Exam Eye Exam: Normal appearance - ENT Exam ENT Exam: Mucous Membranes Moist - Neck Exam Neck Exam: Full ROM - Respiratory Exam Respiratory Exam: Clear to Ausculation Bilateral - Cardiovascular Exam Cardiovascular Exam: REGULAR RHYTHM, +S1, +S2 - GI/Abdominal Exam GI & Abdominal Exam: Soft, Normal Bowel Sounds. absent: Tenderness Assessment and Plan (1) Anemia Status: Acute (2) Nausea & vomiting Assessment & Plan: Mckenzie better after episode of vomiting. Diet changed to full liquids. Status: Acute
[2019-01-01] MEDS: metroNIDAZOLE 500mg/100ml NS 100 ML IVPB SCH ×2 (00:15→09:55)
[2019-01-01] MEDS: ceFAZolin 1 GM in Sodium Chloride 0.9% 100 ML IVPB SCH ×3 (00:15→16:52)
[2019-01-01] MEDS: Lactated Ringer's 1,000 ML IV SCH (02:33)
--- NOTE | 2019-01-01 09:02 | CARD ---
APPROVED REPORT Date of service: 12/31/2018 EKG Measurement Heart [id number] <Conclusion> Atrial flutter with variable AV block Anterior infarct, age undetermined Marked ST abnormality, possible inferolateral subendocardial injury Abnormal ECG
--- NOTE | 2019-01-01 09:11 | CARD ---
APPROVED REPORT Date of service: 12/30/2018 EKG Measurement Heart [id number] <Conclusion> Atrial flutter with variable AV block Low voltage QRS ST & T wave abnormality, consider inferior ischemia Abnormal ECG
[2019-01-01] MEDS: Digoxin 125 mcg (0.125 mg) Tab PO SCH (09:55)
[2019-01-01] MEDS: Potassium & Sodium Phosphate PO SCH ×2 (09:56→16:49)
--- NOTE | 2019-01-01 11:13 | CP.PCM.PN ---
Subjective - Date & Time of Evaluation Date of Evaluation: 01/01/19 Time of Evaluation: 11:09 - Subjective Subjective: Patient has not had any more vomiting. She is afebrile and and her heart rate is NSR. She had been asked by the petroleum refinery operator to stay on full liquid diet for now. Objective - Vital Signs/Intake and Output Vital Signs (last 24 hours): Temp Pulse Resp BP Pulse Ox 98.1 F 90 18 126/64 99 01/01/19 07:47 01/01/19 09:54 01/01/19 07:47 01/01/19 09:54 01/01/19 07:47 Intake and Output: 01/01/19 01/01/19 06:59 18:59 Intake Total 1400 Output Total 200 650 Balance -200 750 - Medications Medications: Current Medications Acetaminophen (Tylenol 325mg Tab) 650 mg PO Q4 PRN PRN Reason: Pain, moderate (4-7) Last Admin: 12/24/18 11:32 Dose: 650 mg Acetaminophen (Tylenol 325mg Tab) 650 mg PO Q6 PRN PRN Reason: Fever >100.4 F Amiodarone HCl (Cordarone) 200 mg PO BID [facility] Last Admin: 01/01/19 09:54 Dose: 200 mg Digoxin (Digoxin) 0.125 mg PO DAILY [facility] Last Admin: 01/01/19 09:55 Dose: 0.125 mg Famotidine (Pepcid) 40 mg PO HS [facility] Last Admin: 12/31/18 21:10 Dose: 40 mg Cefazolin Sodium 1 gm/ Sodium (Chloride) 100 mls @ 100 mls/hr IVPB Q8 [facility]; Prot ocol Last Admin: 01/01/19 09:53 Dose: 100 mls/hr Lactated Ringer's (Lactated Ringer's) 1,000 mls @ 84 mls/hr IV .[id number] [facility] Last Admin: 01/01/19 02:33 Dose: 84 mls/hr Metronidazole (Flagyl 500mg/100ml Ns) 100 mls @ 100 mls/hr IVPB Q8 [facility]; Protocol Last Admin: 01/01/19 09:55 Dose: 100 mls/hr Levetiracetam (Keppra) 500 mg PO BID [facility] Last Admin: 01/01/19 09:55 Dose: 500 mg Nystatin (Nystop Topical Powder) 1 applic TOP TID [facility] Last Admin: 01/01/19 09:56 Dose: 1 applic Potassium Phos/Sodium Phos (Neutra-Phos) 1 pkt PO BID [facility] Last Admin: 01/01/19 09:56 Dose: 1 pkt - Labs Labs: 12/31/18 10:15 12/31/18 10:15 PT 29.5 Seconds (9.8-13.1) H 12/30/18 04:30 INR 2.6 12/30/18 04:30 APTT 44.7 Seconds (25.6-37.1) H 12/29/18 04:40
--- NOTE | 2019-01-01 11:26 | CP.PCM.PN ---
Subjective - Date & Time of Evaluation Date of Evaluation: 01/01/19 Time of Evaluation: 09:00 - Subjective Subjective: vomiting again afebrile NAD GI eval in progress for possible Bx Objective - Vital Signs/Intake and Output Vital Signs (last 24 hours): Temp Pulse Resp BP Pulse Ox 98.1 F 90 18 126/64 99 01/01/19 07:47 01/01/19 09:54 01/01/19 07:47 01/01/19 09:54 01/01/19 07:47 Intake and Output: 01/01/19 01/01/19 06:59 18:59 Intake Total 1400 Output Total 200 650 Balance -200 750 - Medications Medications: Current Medications Acetaminophen (Tylenol 325mg Tab) 650 mg PO Q4 PRN PRN Reason: Pain, moderate (4-7) Last Admin: 12/24/18 11:32 Dose: 650 mg Acetaminophen (Tylenol 325mg Tab) 650 mg PO Q6 PRN PRN Reason: Fever >100.4 F Amiodarone HCl (Cordarone) 200 mg PO BID [facility] Last Admin: 01/01/19 09:54 Dose: 200 mg Digoxin (Digoxin) 0.125 mg PO DAILY [facility] Last Admin: 01/01/19 09:55 Dose: 0.125 mg Famotidine (Pepcid) 40 mg PO HS [facility] Last Admin: 12/31/18 21:10 Dose: 40 mg Cefazolin Sodium 1 gm/ Sodium (Chloride) 100 mls @ 100 mls/hr IVPB Q8 [facility]; Protocol Last Admin: 01/01/19 09:53 Dose: 100 mls/hr Lactated Ringer's (Lactated Ringer's) 1,000 mls @ 84 mls/hr IV .[id number] [facility] Last Admin: 01/01/19 02:33 Dose: 84 mls/hr Metronidazole (Flagyl 500mg/100ml Ns) 100 mls @ 100 mls/hr IVPB Q8 [facility]; Protocol Last Admin: 01/01/19 09:55 Dose: 100 mls/hr Levetiracetam (Keppra) 500 mg PO BID [facility] Last Admin: 01/01/19 09:55 Dose: 500 mg Nystatin (Nystop Topical Powder) 1 applic TOP TID [facility] Last Admin: 01/01/19 09:56 Dose: 1 applic Potassium Phos/Sodium Phos (Neutra-Phos) 1 pkt PO BID [facility] Last Admin: 01/01/19 09:56 Dose: 1 pkt - Labs Labs: 12/31/18 10:15 12/31/18 10:15 PT 29.5 Seconds (9.8-13.1) H 12/30/18 04:30 INR 2.6 12/30/18 04:30 APTT 44.7 Seconds (25.6-37.1) H 12/29/18 04:40 - Constitutional Appears: Cachectic, Chronically Ill - Head Exam Head Exam: ATRAUMATIC, NORMAL INSPECTION, NORMOCEPHALIC - Eye Exam Eye Exam: EOMI, Normal appearance, PERRL Pupil Exam: NORMAL ACCOMODATION, PERRL - ENT Exam ENT Exam: Mucous Membranes Moist, Normal Exam - Neck Exam Neck Exam: Full ROM, Normal Inspection. absent: Lymphadenopathy - Respiratory Exam Respiratory Exam: Clear to Ausculation Bilateral, NORMAL BREATHING PATTERN - Cardiovascular Exam Cardiovascular Exam: REGULAR RHYTHM, +S1, +S2. absent: Murmur - GI/Abdominal Exam GI & Abdominal Exam: Soft, Normal Bowel Sounds. absent: Tenderness - Rectal Exam Rectal Exam: Deferred - Exam Exam: NORMAL INSPECTION - Extremities Exam Extremities Exam: Full ROM, Normal Capillary Refill, Normal Inspection. absent: Joint Swelling, Pedal Edema - Back Exam Back Exam: NORMAL INSPECTION - Neurological Exam Neurological Exam: Alert, Awake, CN II-XII Intact, Normal Gait, Oriented x3 - Psychiatric Exam Psychiatric exam: Normal Affect, Normal Mood - Skin Skin Exam: Dry, Mottled Assessment and Plan (1) Sepsis Status: Acute (2) Colon cancer Status: Chronic (3) Disseminated intra-vascular coagulation Status: Acute (4) Gram-negative bacteremia Status: Acute - Assessment and Plan (Free Text) Assessment: IV rx renewed GI to arrange biopsy
--- NOTE | 2019-01-01 11:33 | CP.PCM.PN ---
Subjective - Date & Time of Evaluation Date of Evaluation: 01/01/19 Time of Evaluation: 11:31 - Subjective Subjective: pt vomiting this am, now with recurrent paroxysmal atrial fibrillation Objective - Vital Signs/Intake and Output Vital Signs (last 24 hours): Temp Pulse Resp BP Pulse Ox 98.1 F 90 18 126/64 99 01/01/19 07:47 01/01/19 09:54 01/01/19 07:47 01/01/19 09:54 01/01/19 07:47 Intake and Output: 01/01/19 01/01/19 06:59 18:59 Intake Total 1400 Output Total 200 650 Balance -200 750 - Medications Medications: Current Medications Acetaminophen (Tylenol 325mg Tab) 650 mg PO Q4 PRN PRN Reason: Pain, moderate (4-7) Last Admin: 12/24/18 11:32 Dose: 650 mg Acetaminophen (Tylenol 325mg Tab) 650 mg PO Q6 PRN PRN Reason: Fever >100.4 F Amiodarone HCl (Cordarone) 200 mg PO BID [facility] Last Admin: 01/01/19 09:54 Dose: 200 mg Digoxin (Digoxin) 0.125 mg PO DAILY [facility] Last Admin: 01/01/19 09:55 Dose: 0.125 mg Famotidine (Pepcid) 40 mg PO HS [facility] Last Admin: 12/31/18 21:10 Dose: 40 mg Cefazolin Sodium 1 gm/ Sodium (Chloride) 100 mls @ 100 mls/hr IVPB Q8 [facility]; Pr otocol Last Admin: 01/01/19 09:53 Dose: 100 mls/hr Lactated Ringer's (Lactated Ringer's) 1,000 mls @ 84 mls/hr IV .[id number] [facility] Last Admin: 01/01/19 02:33 Dose: 84 mls/hr Levetiracetam (Keppra) 500 mg PO BID [facility] Last Admin: 01/01/19 09:55 Dose: 500 mg Nystatin (Nystop Topical Powder) 1 applic TOP TID [facility] Last Admin: 01/01/19 09:56 Dose: 1 applic Potassium Phos/Sodium Phos (Neutra-Phos) 1 pkt PO BID [facility] Last Admin: 01/01/19 09:56 Dose: 1 pkt - Labs Labs: 12/31/18 10:15 12/31/18 10:15 PT 29.5 Seconds (9.8-13.1) H 12/30/18 04:30 INR 2.6 12/30/18 04:30 APTT 44.7 Seconds (25.6-37.1) H 12/29/18 04:40 - Constitutional Appears: No Acute Distress, In Acute Distress - Respiratory Exam Respiratory Exam: Clear to Ausculation Bilateral - Cardiovascular Exam Cardiovascular Exam: Irregular Rhythm - GI/Abdominal Exam GI & Abdominal Exam: Normal Bowel Sounds Assessment and Plan - Assessment and Plan (Free Text) Assessment: Paroxysmal atrial fibrillation in setting of vomiting Amiodarone increased to 200mg bid po Digoxin is therapeutic at 1.7 mg/dl Start Cardiazem gtt 10mg/hr after 10mg bolus
[2019-01-01 12:47] LABS: BASO # 0.1 K/uL (0.0-0.2); BASO % 0.3 % (0.0-2.0); HEMOGLOBIN 11.5 g/dL (12.0-16.0); LYMPH # 0.4 K/uL (1.0-4.3); LYMPH % 2.1 % (20.0-40.0); MEAN CELL VOLUME 78.9 fl (81.0-99.0); MEAN PLATELET VOLUME 8.3 fl (7.2-11.7); MONO # 0.3 K/uL (0.0-0.8); MONO % 1.8 % (0.0-10.0); NEUT # 16.8 K/uL (1.8-7.0); NEUT % 95.8 % (50.0-75.0); PLATELET COUNT 301 K/uL (130-400); RBC 4.42 Mil/uL (3.80-5.20); RED CELL DISTRIBUTION WIDTH 28.1 % (11.5-14.5); WHITE BLOOD COUNT 17.5 K/uL (4.8-10.8)
[2019-01-01 13:01] LABS: ALB/GLOB RATIO 0.7 (1.0-2.1); ALBUMIN 2.3 g/dL (3.5-5.0); ALT/SGPT 21 U/L (9-52); AST/SGOT 21 U/L (14-36); BLOOD UREA NITROGEN 18 mg/dl (7-17); CALCIUM 8.8 mg/dL (8.4-10.2); GFR NON-AFRICAN AMERICAN > 60
[2019-01-01 13:32] LABS: BANDS 7 % (0-2); LYMPHOCYTE 3 % (20-50); MONOCYTE 2 % (0-10); NEUTROPHIL 88 % (42-75); PLATELET ESTIMATE NORMAL (NORMAL); TOTAL CELLS COUNTED 100
[2019-01-01 13:34] LABS: ANISOCYTOSIS MODERATE; BURR CELLS SLIGHT; HYPOCHROMIC SLIGHT; LARGE PLATELETS PRESENT; OVALOCYTES MODERATE; POIKILOCYTOSIS SLIGHT
--- NOTE | 2019-01-01 19:58 | CP.PCM.PN ---
Subjective - Date & Time of Evaluation Date of Evaluation: 01/01/19 Time of Evaluation: 14:00 - Subjective Subjective: Patient having episodes of tachycardia today. Had nausea earlier. Now feels better . On liquid diet. Objective - Vital Signs/Intake and Output Vital Signs (last 24 hours): Temp Pulse Resp BP Pulse Ox 97.9 F 128 H 18 101/62 97 01/01/19 16:25 01/01/19 18:10 01/01/19 16:25 01/01/19 18:10 01/01/19 16:25 Intake and Output: 01/01/19 01/02/19 18:59 06:59 Intake Total 2000 Output Total 800 Balance 1200 - Medications Medications: Current Medications Acetaminophen (Tylenol 325mg Tab) 650 mg PO Q4 PRN PRN Reason: Pain, moderate (4-7) Last Admin: 12/24/18 11:32 Dose: 650 mg Acetaminophen (Tylenol 325mg Tab) 650 mg PO Q6 PRN PRN Reason: Fever >100.4 F Amiodarone HCl (Cordarone) 200 mg PO BID [facility] Last Admin: 01/01/19 17:14 Dose: 200 mg Digoxin (Digoxin) 0.125 mg PO DAILY [facility] Last Admin: 01/01/19 09:55 Dose: 0.125 mg Famotidine (Pepcid) 40 mg PO HS [facility] Last Admin: 12/31/18 21:10 Dose: 40 mg Cefazolin Sodium 1 gm/ Sodium (Chloride) 100 mls @ 100 mls/hr IVPB Q8 [facility]; Protocol Last Admin: 01/01/19 16:52 Dose: 100 mls/hr Lactated Ringer's (Lactated Ringer's) 1,000 mls @ 84 mls/hr IV .[id number] [facility] Last Admin: 01/01/19 02:33 Dose: 84 mls/hr Diltiazem HCl 125 mg/ Sodium (Chloride) 125 mls @ 5 mls/hr IV .Q24H [facility]; Protocol Stop: 01/02/19 17:19 Last Admin: 01/01/19 17:25 Dose: 5 mg/hr, 5 mls/hr Levetiracetam (Keppra) 500 mg PO BID [facility] Last Admin: 01/01/19 16:49 Dose: 500 mg Levothyroxine Sodium (Synthroid) 75 mcg PO DAILY@0630 [facility] Nystatin (Nystop Topical Powder) 1 applic TOP TID [facility] Last Admin: 01/01/19 16:49 Dose: 1 applic Potassium Phos/Sodium Phos (Neutra-Phos) 1 pkt PO BID [facility] Last Admin: 01/01/19 16:49 Dose: 1 pkt - Labs Labs: 01/01/19 12:32 01/01/19 12:32 PT 29.5 Seconds (9.8-13.1) H 12/30/18 04:30 INR 2.6 12/30/18 04:30 APTT 44.7 Seconds (25.6-37.1) H 12/29/18 04:40 - Head Exam Head Exam: ATRAUMATIC - Eye Exam Eye Exam: Normal appearance - ENT Exam ENT Exam: Normal Exam - Neck Exam Neck Exam: Full ROM - Respiratory Exam Respiratory Exam: Clear to Ausculation Bilateral - Cardiovascular Exam Cardiovascular Exam: REGULAR RHYTHM - GI/Abdominal Exam GI & Abdominal Exam: Soft, Normal Bowel Sounds. absent: Tenderness Assessment and Plan (1) Anemia Status: Acute (2) Nausea & vomiting Assessment & Plan: Had episode of nausea earlier. Now feels better. Continue liquid diet. Supplement with Ensure. Status: Acute
--- NOTE | 2019-01-01 20:02 | CP.PCM.PN ---
Subjective - Date & Time of Evaluation Date of Evaluation: 01/01/19 Time of Evaluation: 22:22 - Subjective Subjective: Repeated episodes of Afib and elevated WBC over past 24-48 hours Multiple calls to staff interior design assistant and consultants Objective - Vital Signs/Intake and Output Vital Signs (last 24 hours): Temp Pulse Resp BP Pulse Ox 97.9 F 128 H 18 101/62 97 01/01/19 16:25 01/01/19 18:10 01/01/19 16:25 01/01/19 18:10 01/01/19 16:25 Intake and Output: 01/01/19 01/02/19 18:59 06:59 Intake Total 2000 Output Total 800 Balance 1200 - Medications Medications: Current Medications Acetaminophen (Tylenol 325mg Tab) 650 mg PO Q4 PRN PRN Reason: Pain, moderate (4-7) Last Admin: 12/24/18 11:32 Dose: 650 mg Acetaminophen (Tylenol 325mg Tab) 650 mg PO Q6 PRN PRN Reason: Fever >100.4 F Amiodarone HCl (Cordarone) 200 mg PO BID [facility] Last Admin: 01/01/19 17:14 Dose: 200 mg Digoxin (Digoxin) 0.125 mg PO DAILY [facility] Last Admin: 01/01/19 09:55 Dose: 0.125 mg Famotidine (Pepcid) 40 mg PO HS [facility] Last Admin: 12/31/18 21:10 Dose: 40 mg Cefazolin Sodium 1 gm/ Sodium (Chloride) 100 mls @ 100 mls/hr IVPB Q8 [facility]; Protocol Last Admin: 01/01/19 16:52 Dose: 100 mls/hr Lactated Ringer's (Lactated Ringer's) 1,000 mls @ 84 mls/hr IV .[id number] [facility] Last Admin: 01/01/19 02:33 Dose: 84 mls/hr Diltiazem HCl 125 mg/ Sodium (Chloride) 125 mls @ 5 mls/hr IV .Q24H [facility]; Protocol Stop: 01/02/19 17:19 Last Admin: 01/01/19 17:25 Dose: 5 mg/hr, 5 mls/hr Levetiracetam (Keppra) 500 mg PO BID [facility] Last Admin: 01/01/19 16:49 Dose: 500 mg Levothyroxine Sodium (Synthroid) 75 mcg PO DAILY@0630 [facility] Nystatin (Nystop Topical Powder) 1 applic TOP TID [facility] Last Admin: 01/01/19 16:49 Dose: 1 applic Potassium Phos/Sodium Phos (Neutra-Phos) 1 pkt PO BID [facility] Last Admin: 01/01/19 16:49 Dose: 1 pkt - Labs Labs: 01/01/19 12:32 01/01/19 12:32 PT 29.5 Seconds (9.8-13.1) H 12/30/18 04:30 INR 2.6 12/30/18 04:30 APTT 44.7 Seconds (25.6-37.1) H 12/29/18 04:40 - Respiratory Exam Respiratory Exam: NORMAL BREATHING PATTERN - Cardiovascular Exam Cardiovascular Exam: REGULAR RHYTHM - GI/Abdominal Exam GI & Abdominal Exam: Normal Bowel Sounds Assessment and Plan - Assessment and Plan (Free Text) Assessment: Paraxysmal A fib Amiodorone Dig Cardiazem Cardiology Dec TSH (amiodorooone??) Endo GI Bleed? Endoscopy- Gastritis HH Colonoscopy BX done Hx Ca Colon CEA [address] CT scan enterocolitis Microcytic hypochromic anemia chronic blood loss monitor labs GI surgery Hematology Intaabdominal mass Bx IR? Blood cs Ecoli WBC ?? Temp 12/30 ABX ID Coagulopathy with thrombosis upper and lower extremity Vascular surgery Argatroban Coumadin started DIC?? Sepsis?? cellulitis ? etiology?? ABX ID Hematology
[2019-01-02] MEDS: ceFAZolin 1 GM in Sodium Chloride 0.9% 100 ML IVPB SCH ×3 (01:34→17:05)
[2019-01-02] MEDS: Lactated Ringer's 1,000 ML IV SCH (01:37)
--- NOTE | 2019-01-02 05:16 | CON ---
DATE: 01/01/2019 ENDOCRINOLOGY CONSULT HISTORY OF PRESENT ILLNESS: This is a 68-year-old female with known history of chronic anemia, presenting here with marked anemia with a hemoglobin of 5.5 g and underwent closer hematologic evaluation and management and is now being referred also for endocrine evaluation of abnormal thyroid function studies. She also developed recent rapid atrial fibrillation and had a rapid response done twice and was actually transferred to ICU for closer hemodynamic monitoring as noted thereof. At this time, she has an ongoing diltiazem drip infusion as given with ongoing Cordarone, medications orally as ordered. PAST MEDICAL HISTORY: History of colon carcinoma, diagnosed in 2010 and underwent a total colectomy thereof. Over the last 6 months, she has been having episodic bouts of vomiting and diarrhea as noted. History of chronic anemia, worse in the last 6 months or so prior to admission, history of seizure disorder specifically petit mal type as noted and the last episode was about six months or so ago, history of hypertension and dyslipidemia. FAMILY HISTORY: Positive for hypertension and heart disease. No known thyroid endocrinopathy. SOCIAL HISTORY: The patient has a supportive family. The is very attentive to her needs and is currently at bedside. No known substance use. REVIEW OF SYSTEMS: As mentioned above, admits to generalized body weakness, worse in the last few weeks prior to admission with increasing hypersomnolence and lethargy as noted by the , also admits to bifrontal headaches with episodic bouts of dizziness and lightheadedness. No chest pains or palpitations but admits to progressive shortness of breath especially on exertion. Her oral intake has been variable with nausea, dyspepsia and episodic vomiting episodes with progressive weight loss as noted. No recent alterations of bowel and urinary patterns. PHYSICAL EXAMINATION: GENERAL: This is an average-built female, in no apparent distress. VITAL SIGNS: Blood pressure 160/90, pulse of 68 beats per minute and regular, temperature 97, respirations 20, height is 5 feet 4 inches. Weight is 109 pounds. HEENT: Head normocephalic. Eyes: Anicteric with pink conjunctivae. Funduscopy not possible at this time. Ears, nose and throat otherwise normal. NECK: Supple. Thyroid gland is firm and nontender with no overt thyroid nodules or bruits. HEART: Adynamic precordium. S1, S2, is slow and irregular. LUNGS: Shows scattered rhonchi. ABDOMEN: Flat, soft with positive bowel sounds. EXTREMITIES: No peripheral edema. Pulses are +2 bilaterally. LABORATORY DATA: Her chemistries showed a BUN of 18, sodium 131, potassium 4.3, chloride 93, CO2 of 28, glucose 80 and creatinine 0.5. Her TSH level is 22.1. ASSESSMENT: This is a 68-year-old female with overt hypothyroidism, noted both historically, clinically and biochemically, most likely related to underlying autoimmune thyroiditis with no overt thyromegaly as noted thereof. She also has rapid atrial fibrillation with uncontrolled hypertension with an ongoing diltiazem drip as noted. PLAN OF MANAGEMENT: We will initiate a low-dose levothyroxine replacement therapy given orally starting tomorrow morning at a dose of 75 mcg once daily in the morning as ordered, and we will titrate very slowly and prudently because of the underlying cardiac tachyarrhythmias as mentioned. We will obtain a thyroid peroxidase and a thyroglobulin antibody which will confirm and/or indicate the presence of underlying thyroid autoimmunity. We will obtain a comprehensive thyroid hormonal profile with a total and free T4 and TSH tomorrow morning also as ordered. We will obtain serial chemistries and supplement accordingly as needed. We will follow. Shama Baez MD
[2019-01-02] MEDS ORDERED: Levothyroxine 75 MCG TAB PO SCH (06:30)
[2019-01-02 06:55] LABS: BASO % 0.2 % (0.0-2.0); EOS % 0.1 % (0.0-4.0); HEMOGLOBIN 10.7 g/dL (12.0-16.0); LYMPH # 0.5 K/uL (1.0-4.3); LYMPH % 2.9 % (20.0-40.0); MEAN CELL VOLUME 79.1 fl (81.0-99.0); MEAN CORPUSCULAR HEMOGLOBIN 25.7 pg (27.0-31.0); MEAN CORPUSCULAR HGB CONC 32.4 g/dL (33.0-37.0); MEAN PLATELET VOLUME 8.4 fl (7.2-11.7); MONO # 0.4 K/uL (0.0-0.8); MONO % 2.4 % (0.0-10.0); NEUT # 14.7 K/uL (1.8-7.0); NEUT % 94.4 % (50.0-75.0); PLATELET COUNT 331 K/uL (130-400); RBC 4.16 Mil/uL (3.80-5.20); RED CELL DISTRIBUTION WIDTH 27.4 % (11.5-14.5); WHITE BLOOD COUNT 15.5 K/uL (4.8-10.8)
[2019-01-02 08:34] LABS: ALB/GLOB RATIO 0.7 (1.0-2.1); ALBUMIN 2.1 g/dL (3.5-5.0); ALT/SGPT 20 U/L (9-52); AST/SGOT 20 U/L (14-36); BLOOD UREA NITROGEN 23 mg/dl (7-17); CALCIUM 8.6 mg/dL (8.4-10.2); GFR NON-AFRICAN AMERICAN > 60
[2019-01-02] MEDS: Digoxin 125 mcg (0.125 mg) Tab PO SCH (08:38)
[2019-01-02] MEDS: Potassium & Sodium Phosphate PO SCH ×2 (08:39→17:07)
[2019-01-02 08:40] VITALS: PULSE 103
[2019-01-02 09:09] LABS: ANISOCYTOSIS MARKED; BANDS 10 % (0-2); HYPOCHROMIC SLIGHT; LYMPHOCYTE 2 % (20-50); MICROCYTOSIS SLIGHT; MONOCYTE 3 % (0-10); NEUTROPHIL 85 % (42-75); PLATELET CLUMPS PRESENT; PLATELET ESTIMATE NORMAL (NORMAL); TOTAL CELLS COUNTED 100
[2019-01-02 09:10] LABS: TOXIC GRANULATION PRESENT
--- NOTE | 2019-01-02 11:41 | CP.PCM.PN ---
Subjective - Date & Time of Evaluation Date of Evaluation: 01/02/19 Time of Evaluation: 11:39 - Subjective Subjective: pt c/o of feeling hot, afebrile Objective - Vital Signs/Intake and Output Vital Signs (last 24 hours): Temp Pulse Resp BP Pulse Ox 97.9 F 103 H 20 106/66 96 01/02/19 07:47 01/02/19 08:38 01/02/19 07:47 01/02/19 08:38 01/02/19 07:47 Intake and Output: 01/02/19 01/02/19 06:59 18:59 Intake Total 1060 Output Total 380 Balance 680 - Medications Medications: Current Medications Acetaminophen (Tylenol 325mg Tab) 650 mg PO Q4 PRN PRN Reason: Pain, moderate (4-7) Last Admin: 12/24/18 11:32 Dose: 650 mg Acetaminophen (Tylenol 325mg Tab) 650 mg PO Q6 PRN PRN Reason: Fever >100.4 F Amiodarone HCl (Cordarone) 200 mg PO BID [facility] Last Admin: 01/02/19 08:38 Dose: 200 mg Digoxin (Digoxin) 0.125 mg PO DAILY [facility] Last Admin: 01/02/19 08:38 Dose: 0.125 mg Famotidine (Pepcid) 40 mg PO HS [facility] Last Admin: 01/01/19 21:59 Dose: 40 mg Cefazolin Sodium 1 gm/ Sodium (Chloride) 100 mls @ 100 mls/hr IVPB Q8 [facility]; Protocol Last Admin: 01/02/19 08:37 Dose: 100 mls/hr Lactated Ringer's (Lactated Ringer's) 1,000 mls @ 84 mls/hr IV .[id number] [facility] Last Admin: 01/02/19 01:37 Dose: 84 mls/hr Levetiracetam (Keppra) 500 mg PO BID [facility] Last Admin: 01/02/19 08:39 Dose: 500 mg Levothyroxine Sodium (Synthroid) 75 mcg PO DAILY@0630 [facility] Last Admin: 01/02/19 06:30 Dose: 75 mcg Nystatin (Nystop Topical Powder) 1 applic TOP TID [facility] Last Admin: 01/02/19 08:39 Dose: 1 applic Potassium Phos/Sodium Phos (Neutra-Phos) 1 pkt PO BID [facility] Last Admin: 01/02/19 08:39 Dose: 1 pkt - Labs Labs: 01/02/19 06:45 01/02/19 06:45 PT 29.5 Seconds (9.8-13.1) H 12/30/18 04:30 INR 2.6 12/30/18 04:30 APTT 44.7 Seconds (25.6-37.1) H 12/29/18 04:40 - Neck Exam Neck Exam: Normal Inspection - Respiratory Exam Respiratory Exam: Clear to Ausculation Bilateral - Cardiovascular Exam Cardiovascular Exam: Irregular Rhythm - GI/Abdominal Exam GI & Abdominal Exam: Normal Bowel Sounds Assessment and Plan - Assessment and Plan (Free Text) Assessment: Atrial fibrillation on low dose Cardiazem gtt, Amiodarone 200mg bid, Digoxin .125mg qd Continue current medications' Continue on Telemetry
--- NOTE | 2019-01-02 11:57 | CP.PCM.PN ---
Subjective - Date & Time of Evaluation Date of Evaluation: 01/02/19 Time of Evaluation: 08:00 - Subjective Subjective: events noted afeb on IV antibiotics s/p DIC with E Coli sepsis repeat cultures neg has intraabd mass- possible recurrence of CA Colon Objective - Vital Signs/Intake and Output Vital Signs (last 24 hours): Temp Pulse Resp BP Pulse Ox 97.9 F 103 H 20 106/66 96 01/02/19 07:47 01/02/19 08:38 01/02/19 07:47 01/02/19 08:38 01/02/19 07:47 Intake and Output: 01/02/19 01/02/19 06:59 18:59 Intake Total 1060 Output Total 380 Balance 680 - Medications Medications: Current Medications Acetaminophen (Tylenol 325mg Tab) 650 mg PO Q4 PRN PRN Reason: Pain, moderate (4-7) Last Admin: 12/24/18 11:32 Dose: 650 mg Acetaminophen (Tylenol 325mg Tab) 650 mg PO Q6 PRN PRN Reason: Fever >100.4 F Amiodarone HCl (Cordarone) 200 mg PO BID [facility] Last Admin: 01/02/19 08:38 Dose: 200 mg Digoxin (Digoxin) 0.125 mg PO DAILY [facility] Last Admin: 01/02/19 08:38 Dose: 0.125 mg Famotidine (Pepcid) 40 mg PO HS [facility] Last Admin: 01/01/19 21:59 Dose: 40 mg Cefazolin Sodium 1 gm/ Sodium (Chloride) 100 mls @ 100 mls/hr IVPB Q8 [facility]; Protocol Last Admin: 01/02/19 08:37 Dose: 100 mls/hr Lactated Ringer's (Lactated Ringer's) 1,000 mls @ 84 mls/hr IV .[id number] [facility] Last Admin: 01/02/19 01:37 Dose: 84 mls/hr Levetiracetam (Keppra) 500 mg PO BID [facility] Last Admin: 01/02/19 08:39 Dose: 500 mg Levothyroxine Sodium (Synthroid) 75 mcg PO DAILY@0630 [facility] Last Admin: 01/02/19 06:30 Dose: 75 mcg Nystatin (Nystop Topical Powder) 1 applic TOP TID [facility] Last Admin: 01/02/19 08:39 Dose: 1 applic Potassium Phos/Sodium Phos (Neutra-Phos) 1 pkt PO BID [facility] Last Admin: 01/02/19 08:39 Dose: 1 pkt - Labs Labs: 01/02/19 06:45 01/02/19 06:45 PT 29.5 Seconds (9.8-13.1) H 12/30/18 04:30 INR 2.6 12/30/18 04:30 APTT 44.7 Seconds (25.6-37.1) H 12/29/18 04:40 - Constitutional Appears: Non-toxic, Chronically Ill - Head Exam Head Exam: NORMOCEPHALIC - Eye Exam Eye Exam: absent: Scleral icterus - ENT Exam ENT Exam: Mucous Membranes Dry - Neck Exam Neck Exam: absent: Lymphadenopathy - Respiratory Exam Respiratory Exam: Decreased Breath Sounds - Cardiovascular Exam Cardiovascular Exam: REGULAR RHYTHM - GI/Abdominal Exam GI & Abdominal Exam: Distended, Soft - Rectal Exam Rectal Exam: Deferred - Exam Exam: NORMAL INSPECTION - Extremities Exam Extremities Exam: absent: Pedal Edema - Back Exam Back Exam: absent: CVA tenderness (L), CVA tenderness (R) - Neurological Exam Neurological Exam: Alert, Awake - Psychiatric Exam Psychiatric exam: Depressed - Skin Skin Exam: Mottled Assessment and Plan (1) Sepsis Status: Acute (2) Colon cancer Status: Chronic (3) Disseminated intra-vascular coagulation Status: Acute (4) Gram-negative bacteremia Status: Acute
[2019-01-02 15:58] LABS: ALB/GLOB RATIO 0.6 (1.0-2.1); ALBUMIN 1.8 g/dL (3.5-5.0); ALT/SGPT 17 U/L (9-52); AST/SGOT 23 U/L (14-36); BLOOD UREA NITROGEN 23 mg/dl (7-17); CALCIUM 8.3 mg/dL (8.4-10.2); GFR NON-AFRICAN AMERICAN 55; HEMOGLOBIN 10.8 g/dL (12.0-16.0); MEAN CELL VOLUME 81.1 fl (81.0-99.0); MEAN CORPUSCULAR HEMOGLOBIN 25.6 pg (27.0-31.0); MEAN CORPUSCULAR HGB CONC 31.6 g/dL (33.0-37.0); RBC 4.24 Mil/uL (3.80-5.20); RED CELL DISTRIBUTION WIDTH 27.1 % (11.5-14.5); WHITE BLOOD COUNT 13.7 K/uL (4.8-10.8)
[2019-01-02 16:02] VITALS: RESP 18
--- NOTE | 2019-01-02 18:45 | CP.PCM.PN ---
Subjective - Date & Time of Evaluation Date of Evaluation: 01/02/19 Time of Evaluation: 18:42 - Subjective Subjective: Poor appetite today. Looks short of breath. Objective - Vital Signs/Intake and Output Vital Signs (last 24 hours): Temp Pulse Resp BP Pulse Ox 98.1 F 106 H 18 98/49 L 92 L 01/02/19 16:01 01/02/19 17:06 01/02/19 16:01 01/02/19 17:06 01/02/19 16:01 Intake and Output: 01/02/19 01/02/19 06:59 18:59 Intake Total 1060 1208 Output Total 380 100 Balance 680 1108 - Medications Medications: Current Medications Acetaminophen (Tylenol 325mg Tab) 650 mg PO Q4 PRN PRN Reason: Pain, moderate (4-7) Last Admin: 12/24/18 11:32 Dose: 650 mg Acetaminophen (Tylenol 325mg Tab) 650 mg PO Q6 PRN PRN Reason: Fever >100.4 F Amiodarone HCl (Cordarone) 200 mg PO BID [facility] Last Admin: 01/02/19 17:06 Dose: 200 mg Digoxin (Digoxin) 0.125 mg PO DAILY [facility] Last Admin: 01/02/19 08:38 Dose: 0.125 mg Famotidine (Pepcid) 40 mg PO HS [facility] Last Admin: 01/01/19 21:59 Dose: 40 mg Cefazolin Sodium 1 gm/ Sodium (Chloride) 100 mls @ 100 mls/hr IVPB Q8 [facility]; Protocol Last Admin: 01/02/19 17:05 Dose: 100 mls/hr Lactated Ringer's (Lactated Ringer's) 1,000 mls @ 84 mls/hr IV .[id number] [facility] Last Admin: 01/02/19 01:37 Dose: 84 mls/hr Diltiazem HCl 125 mg/ Sodium (Chloride) 125 mls @ 5 mls/hr IV .Q24H ONE; Protocol Stop: 01/03/19 16:44 Last Admin: 01/02/19 17:04 Dose: 5 mg/hr, 5 mls/hr Levetiracetam (Keppra) 500 mg PO BID [facility] Last Admin: 01/02/19 17:06 Dose: 500 mg Levothyroxine Sodium (Synthroid) 75 mcg PO DAILY@0630 [facility] Last Admin: 01/02/19 06:30 Dose: 75 mcg Nystatin (Nystop Topical Powder) 1 applic TOP TID [facility] Last Admin: 01/02/19 17:07 Dose: 1 applic Potassium Phos/Sodium Phos (Neutra-Phos) 1 pkt PO BID [facility] Last Admin: 01/02/19 17:07 Dose: 1 pkt - Labs Labs: 01/02/19 14:42 01/02/19 14:42 PT 29.5 Seconds (9.8-13.1) H 12/30/18 04:30 INR 2.6 12/30/18 04:30 APTT 44.7 Seconds (25.6-37.1) H 12/29/18 04:40 - ENT Exam ENT Exam: Mucous Membranes Moist - Neck Exam Neck Exam: Full ROM - Respiratory Exam Respiratory Exam: Clear to Ausculation Bilateral - Cardiovascular Exam Cardiovascular Exam: REGULAR RHYTHM - GI/Abdominal Exam GI & Abdominal Exam: Soft, Normal Bowel Sounds. absent: Tenderness Assessment and Plan (1) Anemia Status: Acute (2) Nausea & vomiting Assessment & Plan: Poor apetite today. Appears short of breath and portable Cxr ordered. Ensure supplementation started yesterday. Status: Acute
--- NOTE | 2019-01-02 19:15 | PN ---
DATE: 01/02/2019 ENDOCRINOLOGY FOLLOWUP NOTE LOCATION: Room 401. SUBJECTIVE: This is a 68-year-old female admitted with marked anemia and associated generalized body weakness with significant history of colon carcinoma and a prior total colectomy and is now also being followed closely for metabolic management. She also has recent evaluation of hypothyroidism with associated generalized body weakness and hypersomnolence as noted and has been thereof. LABORATORY DATA: Her chemistries today showed a BUN of 23, sodium 129, potassium 4.4, chloride 91, CO2 of 28, glucose 97 and creatinine 0.9. Her repeat thyroid studies showed a T4 or thyroxine level of 5.31 with a free T4 of 1.22 and a TSH of 14.30. ASSESSMENT: This is a 68-year-old female with overt early hypothyroidism noted both historically, clinically and biochemically most likely related to underlying autoimmune thyroiditis. PLAN: Plan of management, we will continue the low-dose levothyroxine replacement therapy given as 75 mcg once daily in the morning as ordered. With the underlying tachyarrhythmias, would be very careful and prudently titrate her levothyroxine dose accordingly. We will obtain serial chemistries and supplement accordingly as needed. We will also obtain serial thyroid studies and adjust her dose regimen as indicated. We will follow. Shama Baez MD
[2019-01-02] MEDS ORDERED: Iodixanol 320 MG/ML 100 ML BOTTLE IV ONE (19:57)
[2019-01-02] MEDS ORDERED: Sodium Chloride 0.9% 0 ML IV ONE (19:57)
[2019-01-02 19:59] VITALS: PULSE 102; TEMP 97.6; O2SAT 98
--- NOTE | 2019-01-02 20:17 | CP.PCM.PCO ---
Assessment/Plan - Assessment and Plan (Free Text) Assessment: Called by RN as pt was acutely SOB and desaturating to [address] Healy made aware. -Pt evaluated at bedside, complains of SOB x 1 hr, denies CP, On exam appears anxious, using accessory muscles -Placed on NRB, Lasix 20mg IV given, Cardizem ggt held, BP in low 90's systolic -On re-evaluation, still noted be using accessory muscles. AOx3 -Cxray significant for large right pleural effusion, ProBNP 7000, ABG pending -BIPAP ordered with FIO2 of 100% -CT Angio ordered, need to rule out PE -To be transferred to ICU for respiratory management
--- NOTE | 2019-01-02 20:44 | CP.PCM.PN ---
Subjective - Date & Time of Evaluation Date of Evaluation: 01/02/19 Time of Evaluation: 22:22 - Subjective Subjective: Above noted SOB etiol ?? Objective - Vital Signs/Intake and Output Vital Signs (last 24 hours): Temp Pulse Resp BP Pulse Ox 97.6 F 102 H 18 101/60 98 01/02/19 19:59 01/02/19 20:32 01/02/19 19:59 01/02/19 19:59 01/02/19 19:59 Intake and Output: 01/02/19 01/03/19 18:59 06:59 Intake Total 1208 Output Total 100 Balance 1108 - Medications Medications: Current Medications Acetaminophen (Tylenol 325mg Tab) 650 mg PO Q4 PRN PRN Reason: Pain, moderate (4-7) Last Admin: 12/24/18 11:32 Dose: 650 mg Acetaminophen (Tylenol 325mg Tab) 650 mg PO Q6 PRN PRN Reason: Fever >100.4 F Amiodarone HCl (Cordarone) 200 mg PO BID [facility] Last Admin: 01/02/19 17:06 Dose: 200 mg Digoxin (Digoxin) 0.125 mg PO DAILY [facility] Last Admin: 01/02/19 08:38 Dose: 0.125 mg Famotidine (Pepcid) 40 mg PO HS [facility] Last Admin: 01/01/19 21:59 Dose: 40 mg Cefazolin Sodium 1 gm/ Sodium (Chloride) 100 mls @ 100 mls/hr IVPB Q8 [facility]; Protocol Last Admin: 01/02/19 17:05 Dose: 100 mls/hr Lactated Ringer's (Lactated Ringer's) 1,000 mls @ 84 mls/hr IV .[id number] [facility] Last Admin: 01/02/19 01:37 Dose: 84 mls/hr Diltiazem HCl 125 mg/ Sodium (Chloride) 125 mls @ 5 mls/hr IV .Q24H [facility]; Protocol Stop: 01/03/19 16:44 Last Admin: 01/02/19 17:04 Dose: 5 mg/hr, 5 mls/hr Levetiracetam (Keppra) 500 mg PO BID [facility] Last Admin: 01/02/19 17:06 Dose: 500 mg Levothyroxine Sodium (Synthroid) 75 mcg PO DAILY@0630 [facility] Last Admin: 01/02/19 06:30 Dose: 75 mcg Nystatin (Nystop Topical Powder) 1 applic TOP TID [facility] Last Admin: 01/02/19 17:07 Dose: 1 applic Potassium Phos/Sodium Phos (Neutra-Phos) 1 pkt PO BID [facility] Last Admin: 01/02/19 17:07 Dose: 1 pkt - Labs Labs: 01/02/19 14:42 01/02/19 14:42 PT 29.5 Seconds (9.8-13.1) H 12/30/18 04:30 INR 2.6 12/30/18 04:30 APTT 44.7 Seconds (25.6-37.1) H 12/29/18 04:40 - Respiratory Exam Respiratory Exam: Respiratory Distress, NORMAL BREATHING PATTERN - Cardiovascular Exam Cardiovascular Exam: REGULAR RHYTHM - GI/Abdominal Exam GI & Abdominal Exam: Normal Bowel Sounds Assessment and Plan - Assessment and Plan (Free Text) Assessment: SOB etiol ? CXR ?? Echo LV fxn 45% CT Angio ABG BIPAP ICU Paraxysmal A fib Amiodorone Dig Cardiazem held Cardiology Dec TSH (amiodorooone??) Endo GI Bleed? Endoscopy- Gastritis HH Colonoscopy BX done Hx Ca Colon CEA [address] CT scan enterocolitis Microcytic hypochromic anemia chronic blood loss monitor labs GI surgery Hematology Intaabdominal mass Bx IR? Blood cs Ecoli WBC ?? Temp 12/30 ABX ID Coagulopathy with thrombosis upper and lower extremity Vascular surgery Argatroban Coumadin started DIC?? Sepsis?? cellulitis ? etiology?? ABX ID Hematology
[2019-01-02 21:11] LABS: ABG ALLEN TEST YES; ARTERIAL BLOOD GAS HCO3 14.8 mmol/L (21-28); ARTERIAL BLOOD GAS HEMOGLOBIN 10.8 g/dL (11.7-17.4); ARTERIAL BLOOD GAS O2 CAPACITY 15.6 mL/dL (16-24); ARTERIAL BLOOD GAS O2 CONTENT 15.4 ML/dL (15-23); ARTERIAL BLOOD GAS PCO2 24 mm/Hg (35-45); ARTERIAL BLOOD GAS PO2 222 mm/Hg (80-100); ARTERIAL BLOOD GAS TCO2 12.5 mmol/L (22-28)
[2019-01-02] MEDS ORDERED: Propofol 10 mg/ml 1,000 MG/100 ML VIAL ONE (21:36)
[2019-01-02] MEDS ORDERED: Sodium Chloride 0.9% 1,000 ML IV SCH ×2 (22:10)
--- NOTE | 2019-01-02 23:58 | CP.PCM.PCO ---
Assessment & Plan - Assessment and Plan (Free Text) Assessment: Emergent endotracheal intubation Indication hypoxic respiratory failure acute on chronic Patient was place in sniffing position. Propofol 10 mg IV push was given. Vocal cords easily visualized with laryngoscope. Size 7.5 ETT was seen passing through vocal cords. The cuff was seen passing beyond the cords. Stylet removed and cuff inflated. Position was confirmed with color change on calorimeter and bilateral chest sounds. ETT secured at 21 cm at the lips. CXR ordered. Patient became hypotensive post procedure and started on IVF.
--- NOTE | 2019-01-03 00:10 | CP.PCM.PCO ---
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 Was called to assess him as O2 sat dropped to 70s. Was put on bipap and transferred to ICU. Upon my exam she had patient was tachycardic and tachypneic and in respiratory distress. Obtunded but moving extremities spontaneously.Decision was made to start mechanical ventilation. Family was informed and wants everything to be done. Right before intubation unfrotunately she had large amount of coffee-ground emesis. Was suctioned aggresively and intubated using rapid sequence to secure airway. NG tube was placed to suctioning. Driscoll I believe she aspirated as she vomited at least 0.5 L and I suctioned another 0.5 L after placing NG Tube. After intubation and vigours suctioning through ETT his saturation improved to abound 90% . Became hypotensive with MAP in 30s not responding to 2 L NS bolus and was started on Levophed. Plan: Will continue with mechanical ventilation and Levophed Close monitoring of hemodynamic and respiratory status in the unit Will contact ID to broaden antibiotic coverage for possible aspiration pneumonia Will repeat CBC and BMP. Might require transfusion Plan was to obtain CT and contact GI/surgery; however, patient is too unstable at this time. Will defer to primary attending if patient more stable tomorrow Attending aware and agrees with the plan. Prognosis grave I spent total of 53 min of critical care time trying to stabilize this critically unstable patient excluding time spent for any procedures
[2019-01-03] MEDS ORDERED: Phenylephrine 30 MG in Sodium Chloride 0.9% 250 ML IV SCH (00:45)
[2019-01-03 01:12] LABS: HEMOGLOBIN 9.5 g/dL (12.0-16.0); MEAN CELL VOLUME 85.4 fl (81.0-99.0); MEAN CORPUSCULAR HEMOGLOBIN 25.5 pg (27.0-31.0); MEAN CORPUSCULAR HGB CONC 29.9 g/dL (33.0-37.0); RBC 3.7 Mil/uL (3.80-5.20); RED CELL DISTRIBUTION WIDTH 26.8 % (11.5-14.5); WHITE BLOOD COUNT 2.7 K/uL (4.8-10.8)
[2019-01-03] MEDS ORDERED: Pantoprazole 40 MG in Sodium Chloride 0.9% 100 ML IVPB SCH (01:15)
[2019-01-03 01:28] LABS: CALCIUM 8.2 mg/dL (8.4-10.2)
[2019-01-03] MEDS: ceFAZolin 1 GM in Sodium Chloride 0.9% 100 ML IVPB SCH (02:13)
[2019-01-03 02:55] VITALS: BP 89/31
--- NOTE | 2019-01-03 04:03 | CP.PCM.PRO ---
Pronouncement of Note - Clinical Findings Physical Exam: No Response Verbal/Painful Stimuli, Absent Peripheral Puls es{Carotid & Femoral}, Absent Heart & Breath Sounds, No Pupillary Light Reflex, No Corneal Reflex, Pupils Fixed & Dilated, Absence of Vital Signs - Pronouncement Time Time of Pronouncement of : 03:37 - Notifications Pronouncement Notifications: Family Notified, Atending Notified Rest Room Maid Notified: No - Autopsy Autopsy Requested: No - [place] [id number]
--- NOTE | 2019-01-03 06:13 | CP.PCM.PCO ---
Assessment & Plan - Assessment and Plan (Free Text) Assessment: Code blue was called as patient went to bradycardia not responding to Atropine followed by cardica arrest. 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 Was intubated and started on mech vent. Went into shock not responding to IVF and Levophed and second pressor added; however, unfortunately continued de teriorating and developed cardiac arrest. Efficeint CPR was started immediately. Received multiple rounds of EPi and one amp of bicarb. ROSC in about 20 min. Post ROSC exam S1/S2, lungs with rhonchi b/l. Low BP. 3rd pressor was added. Family at bedside and after discussing the goals of care opted for DNR/DNI. I spent total of 30 min of critical care time trying to stabilize this critically unstable patient excluding time spent for any procedures.
--- NOTE | 2019-01-03 10:04 | RAD ---
Date of service: 01/02/2019 HISTORY: post intubation COMPARISON: 04/26/2019 at 1919 hr FINDINGS: LUNGS: Interval increase in the diffuse opacity over the right hemithorax now affecting the right upper lung zone as well. Interval increased faint multiple coalescent airspace opacities in the left mid and lower lung zone with concomitant blending areas of linear discoid like atelectasis here Endotracheal tube tip 3.6 cm cephalad to the niurka. PLEURA: Right pleural effusion-in part loculation needs to be considered. Right superior pleural calcified plaque suggested. Prior right pleural effusion has increased. Probable small concomitant interval left pleural effusion. No pneumothorax apparent. Lesser left apical pleural calcified-also apparent CARDIOVASCULAR: There is presence of aortic atherosclerotic calcification on x-ray. Normal cardiac size. Borderline cardiomegaly. Right central line tip in superior vena cava. Probable mild pulmonary venous congestion OSSEOUS STRUCTURES: Generalized osteopenia. No fracture appreciated. Degenerative changes of both shoulders and mild thoracic spondylosis. VISUALIZED UPPER ABDOMEN: Nasogastric tube coursing over stomach. Tip not clearly identified. OTHER FINDINGS: None. IMPRESSION: Interval increase opacification right hemithorax increasing right pleural effusion with possible loculation needed be considered. Concomitant right basal compressive atelectasis also suspect. Trace interval increase left pleural effusion. Interval increased pulmonary vascular congestion. Endotracheal tube tip in satisfactory position. Nasogastric tubing coursing over stomach. Right central line tip superior vena cava
--- NOTE | 2019-01-03 10:08 | RAD ---
Date of service: 01/02/2019 HISTORY: shortness of breath COMPARISON: 12/15/2018 FINDINGS: LUNGS: Interval increase opacity inferior right hemithorax-interval right pleural effusion with right basal compressive atelectasis (with or without infiltrate here) is compatible with this appearance Current lung volumes less now than before prior lung volumes suggested background COPD PLEURA: Interval right pleural effusion. Interval left trace left pleural effusion. No pneumothorax apparent. Right apical and probably less conspicuous left apical pleural calcifications. CARDIOVASCULAR: There is presence of aortic atherosclerotic calcification on x-ray. Mild cardiomegaly Probable minimal pulmonary venous congestion OSSEOUS STRUCTURES: Right central line superior vena cava. Generalized osteopenia. No fracture seen. VISUALIZED UPPER ABDOMEN: Normal. OTHER FINDINGS: None. IMPRESSION: Interval right pleural effusion mild moderate. Interval trace left pleural effusion. Concomitant right basal compressive atelectasis (with or without infiltrate) inferred. Other findings as above.
== END 2019-01-03 03:41 | DRG 811 ==
LOC: H.ER 18:34 → H.ERHOLD 20:18 → H.TEL 23:41 → H.ICU/CCU 12-15 13:28 → H.TEL 12-30 17:00 → H.ICU/CCU 01-02 21:31
PROVIDERS: ADMIT Family Medicine Geriatric Medicine; ATTEND Family Medicine Geriatric Medicine
PROC: 30233N1 Transfusion of Nonautologous Red Blood Cells into Peripheral Vein, Percutaneous Approach (ICD-10-PCS; principal; 2018-12-05)
PROC: 0D9670Z Drainage of Stomach with Drainage Device, Via Natural or Artificial Opening (ICD-10-PCS; 2018-12-15)
PROC: 6A551Z2 Pheresis of Platelets, Multiple (ICD-10-PCS; 2018-12-18)
PROC: 06HY33Z Insertion of Infusion Device into Lower Vein, Percutaneous Approach (ICD-10-PCS; 2018-12-18)
PROC: 3E0234Z Introduction of Serum, Toxoid and Vaccine into Muscle, Percutaneous Approach (ICD-10-PCS; 2018-12-18)
PROC: 02HV33Z Insertion of Infusion Device into Superior Vena Cava, Percutaneous Approach (ICD-10-PCS; 2018-12-26)
PROC: B548ZZA Ultrasonography of Superior Vena Cava, Guidance (ICD-10-PCS; 2018-12-26)
PROC: 3E04329 Introduction of Other Anti-infective into Central Vein, Percutaneous Approach (ICD-10-PCS; 2018-12-26)
PROC: 0DBK8ZX Excision of Ascending Colon, Via Natural or Artificial Opening Endoscopic, Diagnostic (ICD-10-PCS; 2018-12-27)
PROC: 0DBB8ZX Excision of Ileum, Via Natural or Artificial Opening Endoscopic, Diagnostic (ICD-10-PCS; 2018-12-27)
PROC: 0BH17EZ Insertion of Endotracheal Airway into Trachea, Via Natural or Artificial Opening (ICD-10-PCS; 2019-01-02)
PROC: 0CJS8ZZ Inspection of Larynx, Via Natural or Artificial Opening Endoscopic (ICD-10-PCS; 2019-01-02)
PROC: 5A1935Z Respiratory Ventilation, Less than 24 Consecutive Hours (ICD-10-PCS; 2019-01-03)
PROC: 5A12012 Performance of Cardiac Output, Single, Manual (ICD-10-PCS; 2019-01-03)
DX: D50.0 Iron deficiency anemia secondary to blood loss (chronic) (principal); A41.51 Sepsis due to Escherichia coli [E. coli]; D65 Disseminated intravascular coagulation [defibrination syndrome]; K29.01 Acute gastritis with bleeding; J96.21 Acute and chronic respiratory failure with hypoxia; I82.611 Acute embolism and thrombosis of superficial veins of right upper extremity; L03.113 Cellulitis of right upper limb; T80.1XXA Vascular complications following infusion, transfusion and therapeutic injection, initial encounter; E87.2 Acidosis; R57.9 Shock, unspecified; I48.92 Unspecified atrial flutter; K56.609 Unspecified intestinal obstruction, unspecified as to partial versus complete obstruction; I46.9 Cardiac arrest, cause unspecified; I80.8 Phlebitis and thrombophlebitis of other sites; I48.0 Paroxysmal atrial fibrillation; E87.6 Hypokalemia; B96.89 Other specified bacterial agents as the cause of diseases classified elsewhere; R19.09 Other intra-abdominal and pelvic swelling, mass and lump; E06.3 Autoimmune thyroiditis; K52.9 Noninfective gastroenteritis and colitis, unspecified; G40.409 Other generalized epilepsy and epileptic syndromes, not intractable, without status epilepticus; I10 Essential (primary) hypertension; K44.9 Diaphragmatic hernia without obstruction or gangrene; E78.5 Hyperlipidemia, unspecified; F41.9 Anxiety disorder, unspecified; Z66 Do not resuscitate; Z85.038 Personal history of other malignant neoplasm of large intestine; Z92.21 Personal history of antineoplastic chemotherapy; Z90.49 Acquired absence of other specified parts of digestive tract; Z23 Encounter for immunization; Z87.891 Personal history of nicotine dependence